=== PATIENT | female | born 1940 | race Caucasian/White ===

== ENCOUNTER 2023-02-06 06:30 | Day surgery (SDC) | payer OTHER, MEDICARE ==
[2023-02-05 14:50] LABS: Absolute Lymphocytes (CBC) 2.5 K/uL (0.7-4.9); Lymphocytes % 33.4 % (15.3-44.8); MCV 91.1 fL (80-100); MPV 8.2 fL (7.6-11.3); Platelets 212 thou/uL (152-406); RBC Red Blood Cell Count 4.18 M/uL (3.86-4.86)
--- NOTE | 2023-02-05 15:04 | RAD REPORT ---
EXAM DESCRIPTION: RAD - Chest Pa And Lat (2 Views) - 02/05/2023 2:39 pm CLINICAL HISTORY: Pre op pending carotid angiogram Chest pain. TECHNIQUE: PA and lateral views of the chest were obtained. FINDINGS: The lungs are hyperexpanded compatible with COPD. The heart is upper limit of normal in si ze. Aortic atherosclerosis. No fracture or aggressive bony process. IMPRESSION: COPD without acute process identified. The USPSTF recommends annual screening for lung cancer with low-dose CT (LDCT) in adults aged 50 to 85 years who have a 20 pack-year smoking history and currently smoke or have quit within the past 15 years.
[2023-02-05 15:13] LABS: Protime INR 0.97
[2023-02-06] MEDS ORDERED: ATROPINE SULF 1 MG/10 ML SYR IV ONE (06:36)
[2023-02-06] MEDS ORDERED: HEPA 1000U/500MLS 2,000 UNIT/1,000 ML BAG IV ONE (06:36)
[2023-02-06] MEDS ORDERED: LIDOCAINE 1% 20 ML MDV ONE ×2 (06:36→08:31)
[2023-02-06] MEDS ORDERED: FENTANYL CITR 100 MCG/2 ML ONE (06:36)
[2023-02-06] MEDS ORDERED: MIDAZOLAM HCL 2 MG/2 ML INJ ONE (06:36)
[2023-02-06] MEDS ORDERED: NA CHLORIDE 0.9% 500 ML ONE (06:41)
[2023-02-06 06:56] VITALS: TEMP 98
[2023-02-06] MEDS ORDERED: METHYLPREDNISOLONE 125 MG INJ ONE (07:27)
[2023-02-06] MEDS ORDERED: DIPHENHYDRAMINE 50 MG/ML VIAL ONE (07:27)
[2023-02-06] MEDS ORDERED: ONDANSETRON 4 MG/2 ML VIAL ONE (07:29)
[2023-02-06 12:37] VITALS: BP 182/66; O2SAT 100
--- NOTE | 2023-02-10 15:11 | EKG ---
Test Date: 2023-02-05 Test Time: 14:29:05 Customer Solutions Coordinator: SUSAN MEASUREMENT RESULTS: Intervals: Rate: 62 NV: 146 QRSD: 122 QT: 466 QTc: 472 [place]: P: 67 NV: 146 QRS: 70 T: -17 INTERPRETIVE STATEMENTS: Normal sinus rhythm Right bundle branch block Possible Inferior infarct, age undetermined T wave abnormality, consider lateral ischemia Abnormal ECG Compared to ECG 03/30/2015 21:59:47 T-wave abnormality now present Possible ischemia now present Myocardial infarct finding still present Electronically Signed On 02-10-23 15:02:11 CDT by King Denis
== END 2023-02-06 12:15 | disposition home or self-care (01) ==
LOC: CCL 06:30
PROVIDERS: ATTEND Internal Medicine
DX: I65.23 Occlusion and stenosis of bilateral carotid arteries (principal); I71.43 Infrarenal abdominal aortic aneurysm, without rupture; I10 Essential (primary) hypertension; E78.2 Mixed hyperlipidemia; I45.10 Unspecified right bundle-branch block; F17.210 Nicotine dependence, cigarettes, uncomplicated; Z79.899 Other long term (current) drug therapy; Z88.5 Allergy status to narcotic agent; Z88.8 Allergy status to other drugs, medicaments and biological substances; Z82.49 Family history of ischemic heart disease and other diseases of the circulatory system
CPT/HCPCS: 93005; 85025; 80048; 36415; 85610; 85730; 71046; 36222; 76937; C1893; J2001 ×2; J1200; J3010; J2930; J7040; J0461; J2250; J2405

== ENCOUNTER 2023-05-09 23:52 | Emergency (ER) | payer OTHER, MEDICARE ==
--- OUTSIDE RECORDS SUMMARY | 2023-05-10 00:04 | XMS REPORT | Continuity of Care Document ---
:1940 Author Organization [facility] t Address [address] [place] [address] [address] [place] [address] Care Team Providers Name Role Phone Milla Marx MD Primary Care Physician [phone] Milla Marx MD Attending Clinician [phone], [facility] Infusion Chair Attending Clinician Unavailable Rachna Amor MD Attending Clinician RACHNA AMOR Attending Clinician Unavailable Doctor Unassigned, [place] Attending Clinician Unavailable MILLA MARX Attending Clinician Unavailable 2, [facility] Lab Attending Clinician Unavailable EZEKIEL HURTADO Attending Clinician Unavailable Nurse, [facility] Pob Immunization Attending Clinician Unavailable Ezekiel Hurtado DO Attending Clinician Pcp-Lab Attending Clinician Unavailable Unknown, Attending Attending Clinician Unavailable UNKNOWN, ATTENDING Attending Clinician Unavailable Nurse, [facility] Pcp Assessment Clinic Attending Clinician Unavail able Elías Greenwood MD Attending Clinician ELÍAS GREENWOOD Attending Clinician Unavailable Vishnu GARCIA, [place] Attending Clinician Unavailable Mallory COBIAN, Atif Zambrano Attending Clinician ATIF PEDRO Attending Clinician Unavailable Maira COBIAN, Anjelica Attending Clinician MYRON CAVAZOS Attending Clinician Unavailable Sylvain Monteiro APN Attending Clinician Macy COBIAN, Myron Attending Clinician ADALBERTO VICTOR Attending Clinician Unavailable Maricarmen CASEY, Robert Attending Clinician Devan COBIAN, Adalberto Castillo Attending Clinician Jan GARCIA, Molly Villalobos Attending Clinician Unavailable Renny COBIAN, [place] Attending Clinician Coy Mcgovern Attending Clinician MILLA MARX Admitting Clinician Unavailable Payers Payer Name Policy Type Policy Number Effective Date Expiration Date Chilo hatch MEDICARE PART A \\[id number] 2005 B 00:00:00 [facility] [id number] 2015 MEDICARE SUPPLEMENT 00:00:00 Problems Condition Condition Condition Status Onset Resolution Last Treating Co mments Source Name Details Category Date Date Treatment Clinician Date Osteopenia Osteopenia Disease Active U nivers of of 6-24 ity of multiple multiple 00:00: [place] sites sites 00 [facility] Lung Lung Disease Active Univers nodules nodules - ity of 00:00: [address] PVD PVD Disease Active Univers (periphera (periphera -24 it y of l vascular [place] disease[place] 00 Medica [place] Branch Hyponatrem Hyponatrem Disease Active 2019-07 U nivers ia ia 08-16 ity of 00:00: [address] Low serum Low serum Disease Active 2019-07 Uni vers HDL HDL 08-16 ity of 00:00: [address] Abdominal Abdominal Disease Active 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 00:00: Hospit a (AAA) (AAA) 00 l without without rupture rupture Multiple Multiple Disease Active Metho di closed closed 1-23 st pelvic pelvic 00:00: Hospita fractures fractures 00 l with with disruption disruption of pelvic of pelvic [place], with with delayed delayed healing, healing, subsequent subsequent encounter encounter Chronic Chronic Disease Active [facility] 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 00:00: Hospit a 00 l Debility Debility Disease Active Metho di 08-11 st 00:00: Hospita 00 l Osteoporos Osteoporos Disease Active M ethodi is with is with 08-11 current current 00:00: Hospita pathologic pathologic 00 l al al fracture fracture with with delayed delayed healing healing PVD PVD Disease Active Methodi (periphera (periphera 08-11 l vascular l vascular 00:00: Ho spita disease) disease) 00 l Tobacco Tobacco Disease Active [facility] abuse abuse 08-11 disorder disorder 00:00: Hospit a 00 l Chronic Chronic Disease Active Univers bilateral bilateral 5-09 ity of low back low back 00:00: [place] pain with pain with 00 Medi aris left-sided left-sided Br anch sciatica sciatica Right hip Right hip Disease Active 2016-07 Uni vers pain pain 07-21 ity of 00:00: [place] 00 Medical Branch Weakness Weakness Disease Active 2016-07 Unive rs of both of both 1- ity of lower lower 00:00: [place] extremitie extremitie 00 Me dical s s Branch Altered Altered Disease Active 2016-07 Univers gait gait - ity of 00:00: [place] 00 Medical Branch Anxiety Anxiety Disease Active Univers 4-25 ity of 00:00: [place] 00 Medical Branch Essential Essential Disease Active Uni vers hypertensi hypertensi 6-29 it y of on on 00:00: [place] 00 Medical Branch Allergies, Adverse Reactions, Alerts Allergy Allergy Status Severity Reaction(s) Onset Inactive Treating Comm ents Source Name Type Date Date Clinician Nsaids Propensi Active Unknown Methodi (Non-Justen ty to Reaction 08-05 roidal adverse 00:00: Hospita Anti-Inf reaction 00 l lammator s to y Drug) drug Salicyla Propensi Active Unknown Metho di jan ty to Reaction 08-05 adverse 00:00: Hospita reaction 00 l s to drug Shellfis Propensi Active Unknown Metho di h ty to Reaction 1-17 st Derived adverse 00:00: Hospita reaction 00 l s to drug Morphine Propensi Active Unknown - 2017-07 Patient Un oswaldo ty to See comments 2-22 states ity of adverse 00:00: "makes me [place] reaction 00 sick" Medical s Branch NSAIDS Drug Active Other-Cmnt 2017-07 Univer s (NON-JUSTEN Class 0-17 ity of ROIDAL 00:00: [place] ANTI-INF 00 Medical LAMMATOR Branch Y DRUG) Nsaids Propensi Active Unknown - 2017-07 Unive rs (Non-Justen ty to See comments 0-17 it y of roidal adverse 00:00: [place] Anti-Inf reaction 00 Medica l lammator s Branch y Drug) Nsaids Propensi Active Unknown - 2017-07 Unive rs (Non-Justen ty to See comments 0-17 it y of roidal adverse 00:00: [place] Anti-Inf reaction 00 Medica l lammator s Branch y Drug) Nsaids Propensi Active Unknown - 2017-07 Unive rs (Non-Justen ty to See comments 0-17 it y of roidal adverse 00:00: [place] Anti-Inf reaction 00 Medica l lammator s Branch y Drug) IBUPROFE DRUG Active Unknown-Cmnt Un oswaldo N INGREDI 6- ity of 00:00: [place] 00 Medical Branch Ibuprofe Propensi Active Unknown - Uni vers n ty to See comments 6-07 ity of adverse 00:00: [place] reaction 00 Medical s Branch TERAZOSI DRUG Active Hallucinates Un oswaldo N INGREDI 4 ity of 00:00: [place] 00 Medical Branch Terazosi Propensi Active Hallucinatio Univers n ty to ns 4- ity of adverse 00:00: [place] reaction 00 Medical s Branch AMLODIPI DRUG Active ITCHING Univers NE INGREDI 4- ity of 00:00: [place] 00 Medical Branch Amlodipi Propensi Active Itching Also leg Uni vers ne ty to 10-22 swelling. ity of adverse 00:00: [place] reaction 00 Medical s Branch IODINE DRUG Active Other-Cmnt Univer s INGREDI 6-18 ity of 00:00: [place] 00 Medical Branch SALICYLA Drug Active Unknown-Cmnt Un oswaldo JAN Class 6-18 ity of 00:00: [place] 00 Medical Branch Salicyla Propensi Active Unknown - Uni vers jan ty to See comments 6-18 ity of adverse 00:00: [place] reaction 00 Medical s Branch Salicyla Propensi Active Unknown - Uni vers jan ty to See comments 6-18 ity of adverse 00:00: [place] reaction 00 Medical s Branch Iodine Propensi Active Other - See Drop in Un oswaldo ty to comments 6-18 BP, ended ity o f adverse 00:00: up in ICU [place] reaction 00 Medical s Branch Salicyla Propensi Active Unknown - Uni vers jan ty to See comments 6-18 ity of adverse 00:00: [place] reaction 00 Medical s Branch Family History Family Member Diagnosis Comments Start Date Stop Date Source Natural brother Hepatitis [facility] Natural sister Thyroid disease [facility] Social History Social Habit Start Date Stop Date Quantity Comments Source History SDOH University o f Alcohol Frequency [place] M ed[facility] History SDOH University o f Alcohol Std Drinks [place] [facility] History SDOH University o f Alcohol Binge [place] [facility] al Branch History of tobacco Cigarette Smoker University of use [facility] Gender identity Universit y of [facility] Sexual orientation [facility] Exposure to 2022-05-19 2022-05-29 Not sure University SARS-CoV-2 (event) 00:00:00 14:00:00 [facility] Tobacco use and 2022-05-29 2022-05-29 Smokeless tobacco Un iversity of exposure 00:00:00 00:00:00 non-user [facility] Cigarettes smoked 2019-08-05 2019-08-[address] current (pack per 00:00:00 00:00:00 Hospita l day) - Reported Cigarette 2019-08-05 2019-08-05 [facility] pack-years 00:00:[facility]:00:00 Hospital Alcohol intake 2019-08-05 2019-08-05 Ex-drinker [facility] 00:00:00 00:00:00 (finding) Hospital History of Social 2019-08-05 2019-08-[address] function 00:00:00 00:00:00 Hospital Alcohol Comment 2018-01-06 2018-01-06 Occasional Universit y of 00:00:00 00:00:00 Drinker [facility] Sex Assigned At [birth year] [facility] 00:00:00 00:00:00 Hospital Smoking Status Start Date Stop Date Source Smokes tobacco daily 2022-05-29 00:00:00 Univers ity of [facility] Medications Ordered Filled Start Stop Current Ordering Indication Dosage Frequency Signature Comments Components Source Medication Medication Date Date Medication? Clinician (SIG) Name Name LISINOPRIL Yes [id number] TAKE ONE Univers 40 mg 4-26 TABLET BY ity of tablet 00:00: MOUTH [place] 00 DAILY Medical Branch LISINOPRIL Yes [id number] TAKE ONE Univers 40 mg 4-26 TABLET BY ity of tablet 00:00: MOUTH [place] 00 DAILY Medical Branch iron 2022- No [id number] 100mg 100 mg, IV U nivers sucrose 10-23 04-06 Infusion, ity of (VENOFER) 16:30: 18:16 ONCE, [place] 100 mg in 00 :00 Administer Medi aris NaCl 0.9% over 2 Branch (NS) 100 mL Hours, On infusion [facility] Branch 10/23/22 at 1130, For 1 dose cloNIDine 2021-07 Yes [id number] TAKE ONE Univers 0.1 mg 1-10 TABLET BY ity of tablet 00:00: MOUTH [place] 00 EVERY 8 Medical HOURS IF Branch BLOOD PRESSURE IS ELEVATED (IF BLOOD PRESSURE GREATER THAN 160/100 TAKE 1 TABLET) (MAX 3 TABLETS PER DAY) cloNIDine 2021-07 Yes [id number] TAKE ONE Univers 0.1 mg 1-10 TABLET BY ity of tablet 00:00: MOUTH [place] 00 EVERY 8 Medical HOURS IF Branch BLOOD PRESSURE IS ELEVATED (IF BLOOD PRESSURE GREATER THAN 160/100 TAKE 1 TABLET) (MAX 3 TABLETS PER DAY) cloNIDine 2021-07 Yes [id number] TAKE ONE Univers 0.1 mg 1-10 TABLET BY ity of tablet 00:00: MOUTH [place] 00 EVERY 8 Medical HOURS IF Branch BLOOD PRESSURE IS ELEVATED (IF BLOOD PRESSURE GREATER THAN 160/100 TAKE 1 TABLET) (MAX 3 TABLETS PER DAY) cloNIDine 2021-07 Yes [id number] TAKE ONE Univers 0.1 mg 1-10 TABLET BY ity of tablet 00:00: MOUTH [place] 00 EVERY 8 Medical HOURS IF Branch BLOOD PRESSURE IS ELEVATED (IF BLOOD PRESSURE GREATER THAN 160/100 TAKE 1 TABLET) (MAX 3 TABLETS PER DAY) cloNIDine 2021-07 Yes [id number] TAKE ONE Univers 0.1 mg 1-10 TABLET BY ity of tablet 00:00: MOUTH [place] 00 EVERY 8 Medical HOURS IF Branch BLOOD PRESSURE IS ELEVATED (IF BLOOD PRESSURE GREATER THAN 160/100 TAKE 1 TABLET) (MAX 3 TABLETS PER DAY) cloNIDine 2021-07 Yes [id number] TAKE ONE Univers 0.1 mg 1-10 TABLET BY ity of tablet 00:00: MOUTH [place] 00 EVERY 8 Medical HOURS IF Branch BLOOD PRESSURE IS ELEVATED (IF BLOOD PRESSURE GREATER THAN 160/100 TAKE 1 TABLET) (MAX 3 TABLETS PER DAY) cloNIDine 2021-07 Yes [id number] TAKE ONE Univers 0.1 mg 1-10 TABLET BY ity of tablet 00:00: MOUTH [place] 00 EVERY 8 Medical HOURS IF Branch BLOOD PRESSURE IS ELEVATED (IF BLOOD PRESSURE GREATER THAN 160/100 TAKE 1 TABLET) (MAX 3 TABLETS PER DAY) cloNIDine 2021-07 Yes [id number] TAKE ONE Univers 0.1 mg 0-24 TABLET BY ity of tablet 00:00: MOUTH [place] 00 EVERY 8 Medical HOURS IF Branch BLOOD PRESSURE IS ELEVATED (IF BLOOD PRESSURE GREATER THAN 160/100 TAKE 1 TABLET) (MAX 3 TABLETS PER DAY) cloNIDine 2021-07- No [id number] TAKE ONE Univers 0.1 mg 0-24 11-10 TABLET BY ity of tablet 00:00: 00:00 MOUTH [place] 00 :00 EVERY 8 Medical HOURS IF Branch BLOOD PRESSURE IS ELEVATED (IF BLOOD PRESSURE GREATER THAN 160/100 TAKE 1 TABLET) (MAX 3 TABLETS PER DAY) cloNIDine 2021-07- No [id number] TAKE ONE Univers 0.1 mg 0-24 11-10 TABLET BY ity of tablet 00:00: 00:00 MOUTH [place] 00 :00 EVERY 8 Medical HOURS IF Branch BLOOD PRESSURE IS ELEVATED (IF BLOOD PRESSURE GREATER THAN 160/100 TAKE 1 TABLET) (MAX 3 TABLETS PER DAY) azithromyci 2021-07 Yes [id number] Z-Андрей = Univers n 250 mg 0-10 500 mg day ity o f tablet 00:00: 1, then [place] 00 250 mg Medical days 2 to Branch 5. TAKE 2 TABLETS BY MOUTH TODAY, THEN TAKE 1 TABLET DAILY FOR 4 DAYS azithromyci 2021-07 Yes [id number] Z-Андрей = Univers n 250 mg 0-10 500 mg day ity o f tablet 00:00: 1, then [place] 00 250 mg Medical days 2 to Branch 5. TAKE 2 TABLETS BY MOUTH TODAY, THEN TAKE 1 TABLET DAILY FOR 4 DAYS azithromyci 2021-07 Yes [id number] Z-Андрей = Univers n 250 mg 0-10 500 mg day ity o f tablet 00:00: 1, then [place] 00 250 mg Medical days 2 to Branch 5. TAKE 2 TABLETS BY MOUTH TODAY, THEN TAKE 1 TABLET DAILY FOR 4 DAYS azithromyci 2021-07 Yes [id number] Z-Андрей = Univers n 250 mg 0-10 500 mg day ity o f tablet 00:00: 1, then [place] 00 250 mg Medical days 2 to Branch 5. TAKE 2 TABLETS BY MOUTH TODAY, THEN TAKE 1 TABLET DAILY FOR 4 DAYS azithromyci 2021-07 Yes [id number] Z-Андрей = Univers n 250 mg 0-10 500 mg day ity o f tablet 00:00: 1, then [place] 00 250 mg Medical days 2 to Branch 5. TAKE 2 TABLETS BY MOUTH TODAY, THEN TAKE 1 TABLET DAILY FOR 4 DAYS azithromyci 2021-07 Yes [id number] Z-Андрей = Univers n 250 mg 0-10 500 mg day ity o f tablet 00:00: 1, then [place] 00 250 mg Medical days 2 to Branch 5. TAKE 2 TABLETS BY MOUTH TODAY, THEN TAKE 1 TABLET DAILY FOR 4 DAYS azithromyci 2021-07 Yes [id number] Z-Андрей = Univers n 250 mg 0-10 500 mg day ity o f tablet 00:00: 1, then [place] 00 250 mg Medical days 2 to Branch 5. TAKE 2 TABLETS BY MOUTH TODAY, THEN TAKE 1 TABLET DAILY FOR 4 DAYS azithromyci 2021-07 Yes [id number] Z-Андрей = Univers n 250 mg 0-10 500 mg day ity o f tablet 00:00: 1, then [place] 00 250 mg Medical days 2 to Branch 5. TAKE 2 TABLETS BY MOUTH TODAY, THEN TAKE 1 TABLET DAILY FOR 4 DAYS azithromyci 2021-07 Yes [id number] Z-Андрей = Univers n 250 mg 0-10 500 mg day ity o f tablet 00:00: 1, then [place] 00 250 mg Medical days 2 to Branch 5. TAKE 2 TABLETS BY MOUTH TODAY, THEN TAKE 1 TABLET DAILY FOR 4 DAYS VITAMIN K2 2022-0 Yes Take by Univ ers ORAL 8-12 mouth. ity of 16:37: [place] [address] Medical Branch cyanocobala 2021-0 Yes Take by Uni vers min, 8-12 mouth. ity of vitamin 16:37: [facility] Medical (VITAMIN Branch B-12 ORAL) VITAMIN K2 2021-0 Yes Take by Univ ers ORAL 8-12 mouth. ity of 16:37: [place] [address] Medical Branch cyanocobala 2021-0 Yes Take by Uni vers min, 8-12 mouth. ity of vitamin 16:37: [address] 53 Medical (VITAMIN Branch B-12 ORAL) VITAMIN K2 2021-0 Yes Take by Univ ers ORAL 8-12 mouth. ity of 16:37: [place] [address] Medical Branch cyanocobala 2021-0 Yes Take by Uni vers min, 8-12 mouth. ity of vitamin 16:37: [address] 53 Medical (VITAMIN Branch B-12 ORAL) VITAMIN K2 2021-0 Yes Take by Univ ers ORAL 8-12 mouth. ity of 16:37: [place] [address] Medical Branch cyanocobala 2021-0 Yes Take by Uni vers min, 8-12 mouth. ity of vitamin 16:37: [address] 53 Medical (VITAMIN Branch B-12 ORAL) VITAMIN K2 2021-0 Yes Take by Univ ers ORAL 8-12 mouth. ity of 16:37: [place] [address] Medical Branch cyanocobala 2021-0 Yes Take by Uni vers min, 8-12 mouth. ity of vitamin 16:37: [address] 53 Medical (VITAMIN Branch B-12 ORAL) VITAMIN K2 2021-0 Yes Take by Univ ers ORAL 8-12 mouth. ity of 16:37: [place] [address] Medical Branch cyanocobala 2021-0 Yes Take by Uni vers min, 8-12 mouth. ity of vitamin 16:37: [address] 53 Medical (VITAMIN Branch B-12 ORAL) VITAMIN K2 2021-0 Yes Take by Univ ers ORAL 8-12 mouth. ity of 16:37: [place] [address] Medical Branch cyanocobala 2021-0 Yes Take by Uni vers min, 8-12 mouth. ity of vitamin 16:37: [address] 53 Medical (VITAMIN Branch B-12 ORAL) VITAMIN K2 2022-0 Yes Take by Univ ers ORAL 8-12 mouth. ity of 16:37: [place] 53 Medical Branch cyanocobala 2021-0 Yes Take by Uni vers min, 8-12 mouth. ity of vitamin 16:37: [place] B-12, 53 Medical (VITAMIN Branch B-12 ORAL) VITAMIN K2 0 Yes Take by Univ ers ORAL 8-12 mouth. ity of 16:37: [place] 53 Medical Branch cyanocobala 0 Yes Take by Uni vers min, 8-12 mouth. ity of vitamin 16:37: [place] B-12, 53 Medical (VITAMIN Branch B-12 ORAL) VITAMIN K2 0 Yes Take by Univ ers ORAL 8-12 mouth. ity of 16:37: [place] 53 Medical Branch cyanocobala 0 Yes Take by Uni vers min, 8-12 mouth. ity of vitamin 16:37: [place] B-12, 53 Medical (VITAMIN Branch B-12 ORAL) multivitami 0 Yes Take by Uni vers n with 8-12 mouth. ity of minerals 16:34: [place] (HAIR,SKIN 15 Medical AND NAILS Branch ORAL) multivitami 0 Yes Take by Uni vers n with 8-12 mouth. ity of minerals 16:34: [place] (HAIR,SKIN 15 Medical AND NAILS Branch ORAL) multivitami 0 Yes Take by Uni vers n with 8-12 mouth. ity of minerals 16:34: [place] (HAIR,SKIN 15 Medical AND NAILS Branch ORAL) multivitami 0 Yes Take by Uni vers n with 8-12 mouth. ity of minerals 16:34: [place] (HAIR,SKIN 15 Medical AND NAILS Branch ORAL) multivitami 2021-0 Yes Take by Uni vers n with 8-12 mouth. ity of minerals 16:34: [place] (HAIR,SKIN 15 Medical AND NAILS Branch ORAL) multivitami 2021-0 Yes Take by Uni vers n with 8-12 mouth. ity of minerals 16:34: [place] (HAIR,SKIN 15 Medical AND NAILS Branch ORAL) multivitami 0 Yes Take by Uni vers n with 8-12 mouth. ity of minerals 16:34: [place] (HAIR,SKIN 15 Medical AND NAILS Branch ORAL) multivitami 2021-0 Yes Take by Uni vers n with 8-12 mouth. ity of minerals 16:34: [place] (HAIR,SKIN 15 Medical AND NAILS Branch ORAL) multivitami 0 Yes Take by Uni vers n with 8-12 mouth. ity of minerals 16:34: [place] (HAIR,SKIN 15 Medical AND NAILS Branch ORAL) multivitami 0 Yes Take by Uni vers n with 8-12 mouth. ity of minerals 16:34: [place] (HAIR,SKIN 15 Medical AND NAILS Branch ORAL) ferrous 0 Yes Take by Univers sulfate 8-12 mouth. ity of (IRON ORAL) 16:34: [address] ferrous 2021-0 Yes Take by Univers sulfate 8-12 mouth. ity of (IRON ORAL) 16:34: [address] ferrous 2021-0 Yes Take by Univers sulfate 8-12 mouth. ity of (IRON ORAL) 16:34: [address] ferrous 2021-0 Yes Take by Univers sulfate 8-12 mouth. ity of (IRON ORAL) 16:34: [address] ferrous 2021-0 Yes Take by Univers sulfate 8-12 mouth. ity of (IRON ORAL) 16:34: [address] ferrous 2021-0 Yes Take by Univers sulfate 8-12 mouth. ity of (IRON ORAL) 16:34: [address] ferrous 2021-0 Yes Take by Univers sulfate 8-12 mouth. ity of (IRON ORAL) 16:34: [address] ferrous 2021-0 Yes Take by Univers sulfate 8-12 mouth. ity of (IRON ORAL) 16:34: [address] ferrous 2021-0 Yes Take by Univers sulfate 8-12 mouth. ity of (IRON ORAL) 16:34: [address] ferrous 2021-0 Yes Take by Univers sulfate 8-12 mouth. ity of (IRON ORAL) 16:34: [address] Hydrocodone 2021-0 Yes Take by Uni vers -Acetaminop 8-12 mouth 3 ity o f hen 16:33: (three) [place] (VICODIN) 20 times Medical 5-300 mg daily. Branch tablet Hydrocodone 2021-0 Yes Take by Uni vers -Acetaminop 8-12 mouth 3 ity o f hen 16:33: (three) [place] (VICODIN) 20 times Medical 5-300 mg daily. Branch tablet Hydrocodone 2022-0 Yes Take by Uni vers -Acetaminop 8-12 mouth 3 ity o f hen 16:33: (three) [place] (VICODIN) 20 times Medical 5-300 mg daily. Branch tablet Hydrocodone 2022-0 Yes Take by Uni vers -Acetaminop 8-12 mouth 3 ity o f hen 16:33: (three) [place] (VICODIN) 20 times Medical 5-300 mg daily. Branch tablet Hydrocodone 2022-0 Yes Take by Uni vers -Acetaminop 8-12 mouth 3 ity o f hen 16:33: (three) [place] (VICODIN) 20 times Medical 5-300 mg daily. Branch tablet Hydrocodone 2022-0 Yes Take by Uni vers -Acetaminop 8-12 mouth 3 ity o f hen 16:33: (three) [place] (VICODIN) 20 times Medical 5-300 mg daily. Branch tablet Hydrocodone 2022-0 Yes Take by Uni vers -Acetaminop 8-12 mouth 3 ity o f hen 16:33: (three) [place] (VICODIN) 20 times Medical 5-300 mg daily. Branch tablet Hydrocodone 2022-0 Yes Take by Uni vers -Acetaminop 8-12 mouth 3 ity o f hen 16:33: (three) [place] (VICODIN) 20 times Medical 5-300 mg daily. Branch tablet Hydrocodone 2022-0 Yes Take by Uni vers -Acetaminop 8-12 mouth 3 ity o f hen 16:33: (three) [place] (VICODIN) 20 times Medical 5-300 mg daily. Branch tablet Hydrocodone 2022-0 Yes Take by Uni vers -Acetaminop 8-12 mouth 3 ity o f hen 16:33: (three) [place] (VICODIN) 20 times Medical 5-300 mg daily. Branch tablet gabapentin 2022-0 Yes 300mg Take 300 Un oswaldo 300 mg 8-12 mg by ity of capsule 16:33: mouth 3 [place] 19 (three) Medical times Branch daily. gabapentin 2022-0 Yes 300mg Take 300 Un oswaldo 300 mg 8-12 mg by ity of capsule 16:33: mouth 3 [place] 19 (three) Medical times Branch daily. gabapentin 2022-0 Yes 300mg Take 300 Un oswaldo 300 mg 8-12 mg by ity of capsule 16:33: mouth 3 [place] 19 (three) Medical times Branch daily. gabapentin 2022-0 Yes 300mg Take 300 Un oswaldo 300 mg 8-12 mg by ity of capsule 16:33: mouth 3 [place] [address] (three) Medical times Branch daily. gabapentin 2022-0 Yes 300mg Take 300 Un oswaldo 300 mg 8-12 mg by ity of capsule 16:33: mouth 3 [place] [address] (three) Medical times Branch daily. gabapentin 2022-0 Yes 300mg Take 300 Un oswaldo 300 mg 8-12 mg by ity of capsule 16:33: mouth 3 [place] [address] (three) Medical times Branch daily. gabapentin 2022-0 Yes 300mg Take 300 Un oswaldo 300 mg 8-12 mg by ity of capsule 16:33: mouth 3 [place] [address] (three) Medical times Branch daily. gabapentin 2022-0 Yes 300mg Take 300 Un oswaldo 300 mg 8-12 mg by ity of capsule 16:33: mouth 3 [place] [address] ([facility]) Medical times Branch daily. gabapentin 2022-0 Yes 300mg Take 300 Un oswaldo 300 mg 8-12 mg by ity of capsule 16:33: mouth 3 [place] [address] ([facility]) Medical times Branch daily. gabapentin 2022-0 Yes 300mg Take 300 Un oswaldo 300 mg 8-12 mg by ity of capsule 16:33: mouth 3 [place] [address] ([facility]) Medical times Branch daily. thiamine 2022-0 2021- No Take by Unive rs HCl 8- 08-12 mouth. ity of (VITAMIN 16:33: 00:00 [place] B-1 ORAL) 19 :00 Medical Branch cyanocobala 2021-0 2021- No Take by Un oswaldo min, 02-28 08-12 mouth. ity of vitamin 16:33: 00:00 [place] B-12, 09 :00 Medical (VITAMIN Branch B-12 ORAL) ascorbic 2021-0 Yes Take by Univer s acid 8-12 mouth. ity of (VITAMIN C 16:33: [place] ORAL) 04 Medical Branch ascorbic 2-0 Yes Take by Univer s acid 8-12 mouth. ity of (VITAMIN C 16:33: [place] ORAL) 04 Medical Branch ascorbic 2-0 Yes Take by Univer s acid 8-12 mouth. ity of (VITAMIN C 16:33: [place] ORAL) 04 Medical Branch ascorbic 2021-0 Yes Take by Univer s acid 8-12 mouth. ity of (VITAMIN C 16:33: [place] ORAL) 04 Medical Branch ascorbic 0 Yes Take by Univer s acid 8-12 mouth. ity of (VITAMIN C 16:33: [place] ORAL) 04 Medical Branch ascorbic 0 Yes Take by Univer s acid 8-12 mouth. ity of (VITAMIN C 16:33: [place] ORAL) 04 Medical Branch ascorbic 0 Yes Take by Univer s acid 8-12 mouth. ity of (VITAMIN C 16:33: [place] ORAL) 04 Medical Branch ascorbic 0 Yes Take by Univer s acid 8-12 mouth. ity of (VITAMIN C 16:33: [place] ORAL) 04 Medical Branch ascorbic 0 Yes Take by Univer s acid 8-12 mouth. ity of (VITAMIN C 16:33: [place] ORAL) 04 Medical Branch ascorbic 0 Yes Take by Univer s acid 8-12 mouth. ity of (VITAMIN C 16:33: [place] ORAL) 04 Medical Branch ergocalcife Yes Take by Uni vers rol, 8-12 mouth. ity of vitamin D2, 16:33: [place] (VITAMIN D 03 Medical ORAL) Branch ergocalcife 0 Yes Take by Uni vers rol, 8-12 mouth. ity of vitamin D2, 16:33: [place] (VITAMIN D 03 Medical ORAL) Branch ergocalcife 0 Yes Take by Uni vers rol, 8-12 mouth. ity of vitamin D2, 16:33: [place] (VITAMIN D 03 Medical ORAL) Branch ergocalcife 0 Yes Take by Uni vers rol, 8-12 mouth. ity of vitamin D2, 16:33: [place] (VITAMIN D 03 Medical ORAL) Branch ergocalcife 0 Yes Take by Uni vers rol, 8-12 mouth. ity of vitamin D2, 16:33: [place] (VITAMIN D 03 Medical ORAL) Branch ergocalcife 0 Yes Take by Uni vers rol, 8-12 mouth. ity of vitamin D2, 16:33: [place] (VITAMIN D 03 Medical ORAL) Branch ergocalcife 0 Yes Take by Uni vers rol, 8-12 mouth. ity of vitamin D2, 16:33: [place] (VITAMIN D 03 Medical ORAL) Branch ergocalcife 2022-0 Yes Take by Uni vers rol, 8-12 mouth. ity of vitamin D2, 16:33: [place] (VITAMIN D 03 Medical ORAL) Branch ergocalcife Yes Take by [facility] vers rol, 8-12 mouth. ity of vitamin D2, 16:33: [place] (VITAMIN D 03 Medical ORAL) Branch ergocalcife Yes Take by [facility] vers rol, 8-12 mouth. ity of vitamin D2, 16:33: [place] (VITAMIN D 03 Medical ORAL) Branch mupirocin 2 Yes [id number] APPLY TO [facility] % ointment 8-12 AFFECTED ity o f 00:00: [facility]() [place] 00 THREE Medical TIMES A Branch DAY mupirocin 2 2021-0 Yes [id number] APPLY TO Univers % ointment 8-12 AFFECTED ity o f 00:00: [facility]() [place] 00 THREE Medical TIMES A Branch DAY mupirocin 2 2021-0 Yes [id number] APPLY TO Univers % ointment 8-12 AFFECTED ity o f 00:00: [facility]() [place] [address] THREE Medical TIMES A Branch DAY mupirocin 2 2021-0 Yes [id number] APPLY TO [facility] % ointment 8-12 AFFECTED ity o f 00:00: [facility]() [place] 00 THREE Medical TIMES A Branch DAY mupirocin 2 2021-0 Yes [id number] APPLY TO [facility] % ointment 8-12 AFFECTED ity o f 00:00: [facility]() [place] 00 THREE Medical TIMES A Branch DAY mupirocin 2 2021-0 Yes [id number] APPLY TO [facility] % ointment 8-12 AFFECTED ity o f 00:00: [facility]() [place] 00 THREE Medical TIMES A Branch DAY mupirocin 2 2021-0 Yes [id number] APPLY TO [facility] % ointment 8-12 AFFECTED ity o f 00:00: [facility]() [place] 00 THREE Medical TIMES A Branch DAY mupirocin 2 2021-0 Yes [id number] APPLY TO [facility] % ointment 8-12 AFFECTED ity o f 00:00: [facility]() [place] 00 THREE Medical TIMES A Branch DAY mupirocin 2 2021-0 Yes [id number] APPLY TO [facility] % ointment 8-12 AFFECTED ity o f 00:00: [facility](S) [place] [address] THREE Medical TIMES A Branch DAY mupirocin 2 2021-0 Yes [id number] APPLY TO [facility] % ointment 8-12 AFFECTED ity o f 00:00: [facility]() [place] [address] THREE Medical TIMES A Branch DAY cloNIDine 2021-0 Yes [id number] If BP Uni vers 0.1 mg 4-14 >160/100 ity of tablet 00:00: then take [place] 1clonidine Medical .Max Branch 3aday, one Q8H if BP elevated. cloNIDine 2021-0 Yes [id number] If BP Uni vers 0.1 mg 4-14 >160/100 ity of tablet 00:00: then take [place] 1clonidine Medical .Max Branch 3aday, one Q8H if BP elevated. cloNIDine 2021-0 Yes [id number] If BP Uni vers 0.1 mg 4-14 >160/100 ity of tablet 00:00: then take [place] 1clonidine Medical .Max Branch 3aday, one Q8H if BP elevated. cloNIDine 2021-0 Yes [id number] If BP Uni vers 0.1 mg 4-14 >160/100 ity of tablet 00:00: then take [place] 1clonidine Medical .Max Branch 3aday, one Q8H if BP elevated. cloNIDine 2021-2021- No [id number] If BP Un o[place]aldo 0.1 mg 4-14 10-24 >160/100 ity of tablet 00:00: 00:00 then take [place] 00 :00 1clonidine Medical .Max Branch 3aday, one Q8H if BP elevated. lisinopriL 2021-0 Yes [id number] 40mg Take 1 U nivers 40 mg 2-04 tablet by ity of tablet 00:00: mouth [place] 00 daily. Medical Branch azithromyci 2021-0 Yes [id number] Take 500 [facility] n 250 mg 2-04 mg day 1, ity of tablet 00:00: then 250 [place] 00 mg days 2 Medical to 5. Branch lisinopriL 2021-0 Yes [id number] 40mg Take 1 [facility] nivers 40 mg 2-04 tablet by ity of tablet 00:00: mouth [place] 00 daily. Medical Branch azithromyci 2021-0 Yes [id number] Take 500 [facility] n 250 mg 2-04 mg day 1, ity of tablet 00:00: then 250 [place] 00 mg days 2 Medical to 5. Branch lisinopriL 2021-0 Yes [id number] 40mg Take 1 [facility] nivers 40 mg 2-04 tablet by ity of tablet 00:00: mouth [place] 00 daily. Medical Branch azithromyci 2021-0 Yes [id number] Take 500 [facility] n 250 mg 2-04 mg day 1, ity of tablet 00:00: then 250 [place] 00 mg days 2 Medical to 5. Branch lisinopriL 2021-0 Yes [id number] 40mg Take 1 U nivers 40 mg 2-04 tablet by ity of tablet 00:00: mouth [place] 00 daily. Medical Branch azithromyci 2021-0 Yes [id number] Take 500 [facility] n 250 mg 2-04 mg day 1, ity of tablet 00:00: then 250 [place] 00 mg days 2 Medical to 5. Branch lisinopriL 2021-0 Yes [id number] 40mg Take 1 U nivers 40 mg 2-04 tablet by ity of tablet 00:00: mouth [place] 00 daily. Medical Branch lisinopriL 2021-0 Yes [id number] 40mg Take 1 U nivers 40 mg 2-04 tablet by ity of tablet 00:00: mouth [place] 00 daily. Medical Branch lisinopriL 2021-0 Yes [id number] 40mg Take 1 U nivers 40 mg 2-04 tablet by ity of tablet 00:00: mouth [place] 00 daily. Medical Branch lisinopriL 2021-0 Yes [id number] 40mg Take 1 U nivers 40 mg 2-04 tablet by ity of tablet 00:00: mouth [place] 00 daily. Medical Branch lisinopriL 2021-0 Yes [id number] 40mg Take 1 U nivers 40 mg 2-04 tablet by ity of tablet 00:00: mouth [place] 00 daily. Medical Branch lisinopriL 2021-0 Yes [id number] 40mg Take 1 U nivers 40 mg 2-04 tablet by ity of tablet 00:00: mouth [place] 00 daily. Medical Branch lisinopriL 2021-0 Yes [id number] 40mg Take 1 U nivers 40 mg 2-04 tablet by ity of tablet 00:00: mouth [place] 00 daily. Medical Branch lisinopriL 2-0 2023- No [id number] 40mg Take 1 [facility] 40 mg 2- 04-26 tablet by ity of tablet 00:00: 00:00 mouth [place] 00 :00 daily. Medical Branch karyn 2021- No [id number] Take 500 [facility] n 250 mg 2-04 10-10 mg day 1, ity o f tablet 00:00: 00:00 then 250 [place] 00 :00 mg days 2 Medical to 5. Branch metoprolol 2020-07 Yes [id number] 25mg Take 1 U nivers tartrate 25 0-05 tablet by ity of mg tablet 00:00: mouth (two) Medical times Branch daily. metoprolol 2020-07 Yes [id number] 25mg Take 1 U nivers tartrate 25 0-05 tablet by ity of mg tablet 00:00: mouth (two) Medical times Branch daily. metoprolol 2020-07 Yes [id number] 25mg Take 1 U nivers tartrate 25 0-05 tablet by ity of mg tablet 00:00: mouth (two) Medical times Branch daily. metoprolol 2020-07 Yes [id number] 25mg Take 1 U nivers tartrate 25 0-05 tablet by ity of mg tablet 00:00: mouth (two) Medical times Branch daily. metoprolol 2020-07 Yes [id number] 25mg Take 1 U nivers tartrate 25 0-05 tablet by ity of mg tablet 00:00: mouth (two) Medical times Branch daily. metoprolol 2020-07 Yes [id number] 25mg Take 1 U nivers tartrate 25 0-05 tablet by ity of mg tablet 00:00: mouth (two) Medical times Branch daily. metoprolol 2020-07 Yes [id number] 25mg Take 1 U nivers tartrate 25 0-05 tablet by ity of mg tablet 00:00: mouth (two) Medical times Branch daily. metoprolol 2020-07 Yes [id number] 25mg Take 1 U nivers tartrate 25 0-05 tablet by ity of mg tablet 00:00: mouth (two) Medical times Branch daily. metoprolol 2020-07 Yes [id number] 25mg Take 1 U nivers tartrate 25 0-05 tablet by ity of mg tablet 00:00: mouth (two) Medical times Branch daily. metoprolol 2020-07 Yes [id number] 25mg Take 1 U nivers tartrate 25 0-05 tablet by ity of mg tablet 00:00: mouth (two) Medical times Branch daily. metoprolol 2020-07 Yes [id number] 25mg Take 1 U nivers tartrate 25 0-05 tablet by ity of mg tablet 00:00: mouth (two) Medical times Branch daily. metoprolol 2020-07 Yes [id number] 25mg Take 1 U nivers tartrate 25 0-05 tablet by ity of mg tablet 00:00: mouth (two) Medical times Branch daily. metoprolol 2020-07 Yes [id number] 25mg Take 1 U nivers tartrate 25 0-05 tablet by ity of mg tablet 00:00: mouth (two) Medical times Branch daily. metoprolol 2020-07 Yes [id number] 25mg Take 1 U nivers tartrate 25 0-05 tablet by ity of mg tablet 00:00: mouth (two) Medical times Branch daily. metoprolol 2020-07 Yes [id number] 25mg Take 1 U nivers tartrate 25 0-05 tablet by ity of mg tablet 00:00: mouth (two) Medical times Branch daily. metoprolol 2020-07 Yes [id number] 25mg Take 1 U nivers tartrate 25 0-05 tablet by ity of mg tablet 00:00: mouth (two) Medical times Branch daily. metoprolol 2020-07 Yes [id number] 25mg Take 1 U nivers tartrate 25 0-05 tablet by ity of mg tablet 00:00: mouth (two) Medical times Branch daily. metoprolol 2020-07 Yes [id number] 25mg Take 1 U nivers tartrate 25 0-05 tablet by ity of mg tablet 00:00: mouth (two) Medical times Branch daily. lisinopriL Yes [id number] 40mg Take 1 U nivers 40 mg 6-25 tablet by ity of tablet 00:00: mouth daily. Medical Branch lisinopriL Yes [id number] 40mg Take 1 U nivers 40 mg 6-25 tablet by ity of tablet 00:00: mouth [place] 00 daily. Medical Branch lisinopriL 2020-0 Yes [id number] 40mg Take 1 U nivers 40 mg 6-25 tablet by ity of tablet 00:00: mouth [place] 00 daily. Medical Branch lisinopriL 2020-0 Yes [id number] 40mg Take 1 U nivers 40 mg 6-25 tablet by ity of tablet 00:00: mouth [place] 00 daily. Medical Branch lisinopriL 2020-0 Yes [id number] 40mg Take 1 U nivers 40 mg 6-25 tablet by ity of tablet 00:00: mouth [place] 00 daily. Medical Branch lisinopriL 0 Yes [id number] 40mg Take 1 U nivers 40 mg 6-25 tablet by ity of tablet 00:00: mouth [place] 00 daily. Medical Branch lisinopriL 2- No [id number] 40mg Take 1 [facility] 40 mg 6-25 02-04 tablet by ity of tablet 00:00: 00:00 mouth [place] 00 :00 daily. Medical Branch gabapentin 2020-0 Yes 300mg Take 300 Un [facility] 300 mg 6-24 mg by ity of capsule 22:35: mouth 3 [place] 59 (three) Medical times Branch daily. gabapentin 2020-0 Yes 300mg Take 300 Un [place] 300 mg 6-24 mg by ity of capsule 22:35: mouth 3 [place] 59 (three) Medical times Branch daily. Hydrocodone 2020-0 Yes Take by Uni vers -Acetaminop 6-24 mouth 3 ity o f hen 22:35: (three) [place] (VICODIN) 58 times Medical 5-300 mg daily. Branch tablet Hydrocodone 2020-0 Yes Take by Uni vers -Acetaminop 6-24 mouth 3 ity o f hen 22:35: (three) [place] (VICODIN) 58 times Medical 5-300 mg daily. Branch tablet gabapentin 2020-0 Yes 300mg Take 300 Un [place] 300 mg 6-24 mg by ity of capsule 17:35: mouth 3 [place] 59 (three) Medical times Branch daily. gabapentin 2021-0 Yes 300mg Take 300 Un [place] 300 mg 6-24 mg by ity of capsule 17:35: mouth 3 [place] 59 (three) Medical times Branch daily. gabapentin 2021-0 Yes 300mg Take 300 Un [place] 300 mg 6-24 mg by ity of capsule 17:35: mouth 3 [place] 59 (three) Medical times Branch daily. gabapentin 2021-0 Yes 300mg Take 300 Un [place] 300 mg 6-24 mg by ity of capsule 17:35: mouth 3 [place] 59 (three) Medical times Branch daily. gabapentin 2021-0 Yes 300mg Take 300 Un [place] 300 mg 6-24 mg by ity of capsule 17:35: mouth 3 [place] 59 (three) Medical times Branch daily. gabapentin 2021-0 Yes 300mg Take 300 Un [place] 300 mg 6-24 mg by ity of capsule 17:35: mouth 3 [place] 59 (three) Medical times Branch daily. gabapentin 2021-0 Yes 300mg Take 300 Un [place] 300 mg 6-24 mg by ity of capsule 17:35: mouth 3 [place] 59 (three) Medical times Branch daily. gabapentin 2021-0 Yes 300mg Take 300 Un [place] 300 mg 6-24 mg by ity of capsule 17:35: mouth 3 [place] 59 (three) Medical times Branch daily. Hydrocodone 2021-0 Yes Take by Uni vers -Acetaminop 6-24 mouth 3 ity o f hen 17:35: (three) [place] (VICODIN) 58 times Medical 5-300 mg daily. Branch tablet Hydrocodone 2021-0 Yes Take by Uni vers -Acetaminop 6-24 mouth 3 ity o f hen 17:35: (three) [place] (VICODIN) 58 times Medical 5-300 mg daily. Branch tablet Hydrocodone 2021-0 Yes Take by Uni vers -Acetaminop 6-24 mouth 3 ity o f hen 17:35: (three) [place] (VICODIN) 58 times Medical 5-300 mg daily. Branch tablet Hydrocodone 2021-0 Yes Take by Uni vers -Acetaminop 6-24 mouth 3 ity o f hen 17:35: (three) [place] (VICODIN) 58 times Medical 5-300 mg daily. Branch tablet Hydrocodone 2021-0 Yes Take by Uni vers -Acetaminop 6-24 mouth 3 ity o f hen 17:35: (three) [place] (VICODIN) 58 times Medical 5-300 mg daily. Branch tablet Hydrocodone 2021-0 Yes Take by Uni vers -Acetaminop 6-24 mouth 3 ity o f hen 17:35: (three) [place] (VICODIN) 58 times Medical 5-300 mg daily. Branch tablet Hydrocodone 2020-0 Yes Take by Uni vers -Acetaminop 6-24 mouth 3 ity o f hen 17:35: (three) [place] (VICODIN) 58 times Medical 5-300 mg daily. Branch tablet Hydrocodone 2020-0 Yes Take by Uni vers -Acetaminop 6-24 mouth 3 ity o f hen 17:35: (three) [place] (VICODIN) 58 times Medical 5-300 mg daily. Branch tablet cloNIDine 2020-0 Yes [id number] If BP Uni vers 0.1 mg 6-24 >160/100 ity of tablet 00:00: then take [place] 1clonidine Medical .Max Branch 3aday, one Q8H if BP elevated. cloNIDine 2021-0 Yes [id number] If BP Uni vers 0.1 mg 6-24 >160/100 ity of tablet 00:00: then take [place] 1clonidine Medical .Max Branch 3aday, one Q8H if BP elevated. cloNIDine 2021-0 Yes [id number] If BP Uni vers 0.1 mg 6-24 >160/100 ity of tablet 00:00: then take [place] 1clonidine Medical .Max Branch 3aday, one Q8H if BP elevated. cloNIDine 2021-0 Yes [id number] If BP Uni vers 0.1 mg 6-24 >160/100 ity of tablet 00:00: then take [place] 00 1clonidine Medical .Max Branch 3aday, one Q8H if BP elevated. cloNIDine 2021-0 Yes [id number] If BP Uni vers 0.1 mg 6-24 >160/100 ity of tablet 00:00: then take [place] 00 1clonidine Medical .Max Branch 3aday, one Q8H if BP elevated. cloNIDine 2021-0 Yes [id number] If BP Uni vers 0.1 mg 6-24 >160/100 ity of tablet 00:00: then take [place] 00 1clonidine Medical .Max Branch 3aday, one Q8H if BP elevated. cloNIDine 2021-0 Yes [id number] If BP Uni vers 0.1 mg 6-24 >160/100 ity of tablet 00:00: then take [place] 00 1clonidine Medical .Max Branch 3aday, one Q8H if BP elevated. cloNIDine 2021-0 Yes [id number] If BP Uni vers 0.1 mg 6-24 >160/100 ity of tablet 00:00: then take [place] 00 1clonidine Medical .Max Branch 3aday, one Q8H if BP elevated. cloNIDine 0 2- No [id number] If BP Un [place] 0.1 mg 6-24 04-14 >160/100 ity of tablet 00:00: 00:00 then take [place] 00 :00 1clonidine Medical .Max Branch 3aday, one Q8H if BP elevated. azithromyci 2020-0 Yes [id number] Take 500 [facility] n 250 mg 5-12 mg day 1, ity of tablet 00:00: then 250 [place] 00 mg days 2 Medical to 5. Branch azithromyci 2020-0 Yes [id number] Take 500 [facility] n 250 mg 5-12 mg day 1, ity of tablet 00:00: then 250 [place] 00 mg days 2 Medical to 5. Branch azithromyci 2020-0 Yes [id number] Take 500 [facility] n 250 mg 5-12 mg day 1, ity of tablet 00:00: then 250 [place] 00 mg days 2 Medical to 5. Branch azithromyci 2020-0 Yes [id number] Take 500 [facility] n 250 mg 5-12 mg day 1, ity of tablet 00:00: then 250 [place] 00 mg days 2 Medical to 5. Branch azithromyci 2020-0 Yes [id number] Take 500 [facility] n 250 mg 5-12 mg day 1, ity of tablet 00:00: then 250 [place] 00 mg days 2 Medical to 5. Branch azithromyci 2020-0 Yes [id number] Take 500 [facility] n 250 mg 5-12 mg day 1, ity of tablet 00:00: then 250 [place] 00 mg days 2 Medical to 5. Branch azithromyci 2020-0 Yes [id number] Take 500 [facility] n 250 mg 5-12 mg day 1, ity of tablet 00:00: then 250 [place] 00 mg days 2 Medical to 5. Branch azithromyci 2020-0 Yes [id number] Take 500 [facility] n 250 mg 5-12 mg day 1, ity of tablet 00:00: then 250 [place] 00 mg days 2 Medical to 5. Branch azithromyci 2020-0 Yes [id number] Take 500 [facility] n 250 mg 5-12 mg day 1, ity of tablet 00:00: then 250 [place] 00 mg days 2 Medical to 5. Branch azithromyci 2020-0 Yes [id number] Take 500 [facility] n 250 mg 5-12 mg day 1, ity of tablet 00:00: then 250 [place] 00 mg days 2 Medical to 5. Branch azithromyci 2020-0 Yes [id number] Take 500 [facility] n 250 mg 5-12 mg day 1, ity of tablet 00:00: then 250 [place] 00 mg days 2 Medical to 5. Branch azithromyci 2020-0 Yes [id number] Take 500 [facility] n 250 mg 5-12 mg day 1, ity of tablet 00:00: then 250 [place] 00 mg days 2 Medical to 5. Branch azithromyci 2020-0 Yes [id number] Take 500 [facility] n 250 mg 5-12 mg day 1, ity of tablet 00:00: then 250 [place] 00 mg days 2 Medical to 5. Branch azithromyci 2020-0 2- No [id number] Take 500 [facility] n 250 mg 5-12 02-04 mg day 1, ity o f tablet 00:00: 00:00 then 250 [place] 00 :00 mg days 2 Medical to 5. Branch LISINOPRIL 2020-0 Yes [id number] TAKE ONE [facility] 40 mg 2-08 TABLET BY ity of tablet 00:00: MOUTH [place] 00 DAILY Medical Branch MUPIROCIN 2 2020-0 Yes [id number] APPLY TO Univers % ointment 2-08 AFFECTED ity o f 00:00: AREA(S) [place] 00 THREE Medical TIMES A Branch DAY LISINOPRIL 2020-0 Yes [id number] TAKE ONE [facility] 40 mg 2-08 TABLET BY ity of tablet 00:00: MOUTH [place] DAILY Medical Branch MUPIROCIN 2 2020-0 Yes [id number] APPLY TO Univers % ointment 2-08 AFFECTED ity o f 00:00: AREA(S) [place] 00 THREE Medical TIMES A Branch DAY LISINOPRIL 2020-0 Yes [id number] TAKE ONE [facility] 40 mg 2-08 TABLET BY ity of tablet 00:00: MOUTH [place] DAILY Medical Branch MUPIROCIN 2 2020-0 Yes [id number] APPLY TO Univers % ointment 2-08 AFFECTED ity o f 00:00: [facility]([place] [address] THREE Medical TIMES A Branch DAY LISINOPRIL 2020-0 Yes [id number] TAKE ONE [facility] 40 mg 2-08 TABLET BY ity of tablet 00:00: [facility] DAILY Medical Branch MUPIROCIN 2 2020-0 Yes [id number] APPLY TO Univers % ointment 2-08 AFFECTED ity o f 00:00: [facility]([place] [address] THREE Medical TIMES A Branch DAY LISINOPRIL 2020-0 Yes [id number] TAKE ONE [facility] 40 mg 2-08 TABLET BY ity of tablet 00:00: [facility] DAILY Medical Branch MUPIROCIN 2 2020-0 Yes [id number] APPLY TO Univers % ointment 2-08 AFFECTED ity o f 00:00: [place] [address] THREE Medical TIMES A Branch DAY LISINOPRIL 2020-0 Yes [id number] TAKE ONE [facility] 40 mg 2-08 TABLET BY ity of tablet 00:00: [facility] DAILY Medical Branch MUPIROCIN 2 2020-0 Yes [id number] APPLY TO Univers % ointment 2-08 AFFECTED ity o f 00:00: [facility]([place] [address] THREE Medical TIMES A Branch DAY LISINOPRIL 2020-0 Yes [id number] TAKE ONE [facility] 40 mg 2-08 TABLET BY ity of tablet 00:00: [facility] DAILY Medical Branch MUPIROCIN 2 2020-0 Yes [id number] APPLY TO Univers % ointment 2-08 AFFECTED ity o f 00:00: [place] [address] THREE Medical TIMES A Branch DAY LISINOPRIL 2020-0 Yes [id number] TAKE ONE [facility] 40 mg 2-08 TABLET BY ity of tablet 00:00: [facility] DAILY Medical Branch MUPIROCIN 2 2020-0 Yes [id number] APPLY TO Univers % ointment 2-08 AFFECTED ity o f 00:00: [place] [address] THREE Medical TIMES A Branch DAY LISINOPRIL 2020-0 Yes [id number] TAKE ONE [facility] 40 mg 2-08 TABLET BY ity of tablet 00:00: [facility] DAILY Medical Branch MUPIROCIN 2 2020-0 Yes [id number] APPLY TO Univers % ointment 2-08 AFFECTED ity o f 00:00: [facility]() [place] [address] THREE Medical TIMES A Branch DAY LISINOPRIL 202-0 Yes [id number] TAKE ONE [facility] 40 mg 2-08 TABLET BY ity of tablet 00:00: MOUTH [place] 00 DAILY Medical Branch MUPIROCIN 2 2020-0 Yes [id number] APPLY TO Univers % ointment 2-08 AFFECTED ity o f 00:00: [facility]() [place] [address] THREE Medical TIMES A Branch DAY LISINOPRIL 2020-0 Yes [id number] TAKE ONE [facility] 40 mg 2-08 TABLET BY ity of tablet 00:00: MOUTH [place] 00 DAILY Medical Branch MUPIROCIN 2 2020-0 Yes [id number] APPLY TO Univers % ointment 2-08 AFFECTED ity o f 00:00: [facility]([place] [address] THREE Medical TIMES A Branch DAY MUPIROCIN 2 2020-0 Yes [id number] APPLY TO Univers % ointment 2-08 AFFECTED ity o f 00:00: [facility]() [place] [address] THREE Medical TIMES A Branch DAY MUPIROCIN 2 2020-0 Yes [id number] APPLY TO Univers % ointment 2-08 AFFECTED ity o f 00:00: [facility]() [place] [address] THREE Medical TIMES A Branch DAY MUPIROCIN 2 2020-0 Yes [id number] APPLY TO Univers % ointment 2-08 AFFECTED ity o f 00:00: [facility]() [place] [address] THREE Medical TIMES A Branch DAY MUPIROCIN 2 2020-0 Yes [id number] APPLY TO Univers % ointment 2-08 AFFECTED ity o f 00:00: [facility]([place] [address] THREE Medical TIMES A Branch DAY MUPIROCIN 2 202-0 Yes [id number] APPLY TO Univers % ointment 2-08 AFFECTED ity o f 00:00: [facility]() [place] [address] THREE Medical TIMES A Branch DAY MUPIROCIN 2 2020-0 Yes [id number] APPLY TO Univers % ointment 2-08 AFFECTED ity o f 00:00: [facility]([place] [address] THREE Medical TIMES A Branch DAY MUPIROCIN 2 2020-0 Yes [id number] APPLY TO Univers % ointment 2-08 AFFECTED ity o f 00:00: [facility]([place] [address] THREE Medical TIMES A Branch DAY MUPIROCIN 2 Yes [id number] APPLY TO Univers % ointment 08-27 AFFECTED ity o f 00:00: AREA(S) [place] 00 THREE Medical TIMES A Branch DAY MUPIROCIN 2 Yes [id number] APPLY TO Univers % ointment 08-27 AFFECTED ity o f 00:00: [facility](S) [place] 00 THREE Medical TIMES A Branch DAY MUPIROCIN 2 2021- No [id number] APPLY TO Univers % ointment 08-27 AFFECTED ity of 00:00: 00:00 [facility](S) [place] 00 :00 THREE Medical TIMES A Branch DAY LISINOPRIL 2020- No [id number] TAKE ONE [facility] 40 mg 08-27 TABLET BY ity of tablet 00:00: 00:00 MOUTH [place] 00 :00 DAILY Medical Branch azithromyci 2020- Yes [id number] Take 500 [facility] n 250 mg 1-17 mg day 1, ity of tablet 00:00: then 250 [place] 00 mg days 2 Medical to 5. Branch azithromyci 2020- Yes [id number] Take 500 [facility] n 250 mg 1-17 mg day 1, ity of tablet 00:00: then 250 [place] 00 mg days 2 Medical to 5. Branch azithromyci 2020- Yes [id number] Take 500 [facility] n 250 mg 1-17 mg day 1, ity of tablet 00:00: then 250 [place] 00 mg days 2 Medical to 5. Branch azithromyci 2020- Yes [id number] Take 500 [facility] n 250 mg 1-17 mg day 1, ity of tablet 00:00: then 250 [place] 00 mg days 2 Medical to 5. Branch azithromyci 2020- Yes [id number] Take 500 [facility] n 250 mg 1-17 mg day 1, ity of tablet 00:00: then 250 [place] 00 mg days 2 Medical to 5. Branch azithromyci 2020- Yes [id number] Take 500 [facility] n 250 mg 1-17 mg day 1, ity of tablet 00:00: then 250 [place] 00 mg days 2 Medical to 5. Branch azithromyci 2020- Yes [id number] Take 500 [facility] n 250 mg 1-17 mg day 1, ity of tablet 00:00: then 250 [place] 00 mg days 2 Medical to 5. Branch azithromyci 2019- Yes [id number] Take 500 [facility] n 250 mg 1-17 mg day 1, ity of tablet 00:00: then 250 [place] 00 mg days 2 Medical to 5. Branch azithromyci 2019-07 Yes [id number] Take 500 [facility] n 250 mg 1-17 mg day 1, ity of tablet 00:00: then 250 [place] 00 mg days 2 Medical to 5. Branch azithromyci 2019-07 Yes [id number] Take 500 [facility] n 250 mg 1-17 mg day 1, ity of tablet 00:00: then 250 [place] 00 mg days 2 Medical to 5. Branch azithromyci 2019-07 Yes [id number] Take 500 [facility] n 250 mg 1-17 mg day 1, ity of tablet 00:00: then 250 [place] 00 mg days 2 Medical to 5. Branch azithromyci 2019-07 Yes [id number] Take 500 [facility] n 250 mg 1-17 mg day 1, ity of tablet 00:00: then 250 [place] 00 mg days 2 Medical to 5. Branch azithromyci 2019-07 Yes [id number] Take 500 [facility] n 250 mg 1-17 mg day 1, ity of tablet 00:00: then 250 [place] 00 mg days 2 Medical to 5. Branch marielyithromyci 2019-07- No [id number] Take 500 [facility] n 250 mg 1-17 05-12 mg day 1, ity o f tablet 00:00: 00:00 then 250 [place] 00 :00 mg days 2 Medical to 5. Branch marielyithromyci 2019-07- No [id number] Take 500 [facility] n 250 mg 1-17 05-12 mg day 1, ity o f tablet 00:00: 00:00 then 250 [place] 00 :00 mg days 2 Medical to 5. Branch cyanocobala 2020-0 Yes Take by Uni vers min, 5-07 mouth. ity of vitamin 15:13: [place] B-12, 05 Medical (VITAMIN Branch B-12 ORAL) cyanocobala 2020-0 Yes Take by Uni vers min, 5-07 mouth. ity of vitamin 15:13: [place] B-12, 05 Medical (VITAMIN Branch B-12 ORAL) cyanocobala 2020-0 Yes Take by Uni vers min, 5-07 mouth. ity of vitamin 15:13: [place] B-12, 05 Medical (VITAMIN Branch B-12 ORAL) cyanocobala 2020-0 Yes Take by Uni vers min, 5-07 mouth. ity of vitamin 15:13: [place] B-12, 05 Medical (VITAMIN Branch B-12 ORAL) cyanocobala 2020-0 Yes Take by Uni vers min, 5-07 mouth. ity of vitamin 15:13: [place] B-12, 05 Medical (VITAMIN Branch B-12 ORAL) cyanocobala 2020-0 Yes Take by Uni vers min, 5-07 mouth. ity of vitamin 15:13: [place] B-12, 05 Medical (VITAMIN Branch B-12 ORAL) cyanocobala 2020-0 Yes Take by [facility] vers min, 5-07 mouth. ity of vitamin 15:13: [place] B-12, 05 Medical (VITAMIN Branch B-12 ORAL) cyanocobala 2020-0 Yes Take by Uni vers min, 5-07 mouth. ity of vitamin 15:13: [place] B-12, 05 Medical (VITAMIN Branch B-12 ORAL) cyanocobala 2020-0 Yes Take by Uni vers min, 5-07 mouth. ity of vitamin 15:13: [place] B-12, 05 Medical (VITAMIN Branch B-12 ORAL) cyanocobala 2020-0 Yes Take by [facility] vers min, 5-07 mouth. ity of vitamin 15:13: [place] B-12, 05 Medical (VITAMIN Branch B-12 ORAL) cyanocobala 2020-0 Yes Take by [facility] vers min, 5-07 mouth. ity of vitamin 15:13: [place] B-12, 05 Medical (VITAMIN Branch B-12 ORAL) cyanocobala 2020-0 Yes Take by [facility] vers min, 5-07 mouth. ity of vitamin 15:13: [place] B-12, 05 Medical (VITAMIN Branch B-12 ORAL) cyanocobala 2020-0 Yes Take by [facility] vers min, 5-07 mouth. ity of vitamin 15:13: [place] B-12, 05 Medical (VITAMIN Branch B-12 ORAL) cyanocobala 2020-0 Yes Take by [facility] vers min, 5-07 mouth. ity of vitamin 15:13: [place] B-12, 05 Medical (VITAMIN Branch B-12 ORAL) cyanocobala 2020-0 Yes Take by [facility], 5-07 mouth. ity of vitamin 15:13: [place] B-12, 05 Medical (VITAMIN Branch B-12 ORAL) cyanocobala 2020-0 Yes Take by [facility] min, 5-07 mouth. ity of vitamin 15:13: [place] B-12, 05 Medical (VITAMIN Branch B-12 ORAL) cyanocobala 2020-0 Yes Take by [facility] min, 5-07 mouth. ity of vitamin 15:13: [place] B-12, 05 Medical (VITAMIN Branch B-12 ORAL) cyanocobala 2020-0 Yes Take by [facility] min, 5-07 mouth. ity of vitamin 15:13: [place] B-12, 05 Medical (VITAMIN Branch B-12 ORAL) cyanocobala 2020-0 Yes Take by [facility] min, 5-07 mouth. ity of vitamin 15:13: [place] B-12, 05 Medical (VITAMIN Branch B-12 ORAL) cyanocobala 2020-0 Yes Take by [facility] min, 5-07 mouth. ity of vitamin 15:13: [place] B-12, 05 Medical (VITAMIN Branch B-12 ORAL) cyanocobala 2020-0 Yes Take by [facility] min, 5-07 mouth. ity of vitamin 15:13: [place] B-12, 05 Medical (VITAMIN Branch B-12 ORAL) cyanocobala 2020-0 Yes Take by [facility] min, 5-07 mouth. ity of vitamin 15:13: [place] B-12, 05 Medical (VITAMIN Branch B-12 ORAL) cyanocobala 2020-0 Yes Take by [facility] min, 5-07 mouth. ity of vitamin 15:13: [place] B-12, 05 Medical (VITAMIN Branch B-12 ORAL) cyanocobala 2020-0 Yes Take by [facility] min, 5-07 mouth. ity of vitamin 15:13: [place] B-12, 05 Medical (VITAMIN Branch B-12 ORAL) cyanocobala 2020-0 Yes Take by [facility] min, 5-07 mouth. ity of vitamin 15:13: [place] B-12, 05 Medical (VITAMIN Branch B-12 ORAL) cyanocobala 2020-0 Yes Take by [facility] min, 5-07 mouth. ity of vitamin 15:13: [place] B-12, 05 Medical (VITAMIN Branch B-12 ORAL) cyanocobala 2020-0 Yes Take by [facility] min, 5-07 mouth. ity of vitamin 15:13: [place] B-12, 05 Medical (VITAMIN Branch B-12 ORAL) cyanocobala 2020-0 Yes Take by [facility] min, 5-07 mouth. ity of vitamin 15:13: [place] B-12, 05 Medical (VITAMIN Branch B-12 ORAL) cyanocobala 2020-0 Yes Take by [facility] min, 5-07 mouth. ity of vitamin 15:13: [place] B-12, 05 Medical (VITAMIN Branch B-12 ORAL) cyanocobala 2020-0 Yes Take by [facility] min, 5-07 mouth. ity of vitamin 15:13: [place] B-12, 05 Medical (VITAMIN Branch B-12 ORAL) cyanocobala 2020-0 Yes Take by [facility] min, 5-07 mouth. ity of vitamin 15:13: [place] B-12, 05 Medical (VITAMIN Branch B-12 ORAL) cyanocobala 2020-0 Yes Take by [facility] min, 5-07 mouth. ity of vitamin 15:13: [place] B-12, 05 Medical (VITAMIN Branch B-12 ORAL) cyanocobala 2020-0 Yes Take by [facility] min, 5-07 mouth. ity of vitamin 15:13: [place] B-12, 05 Medical (VITAMIN Branch B-12 ORAL) cyanocobala 2020-0 Yes Take by [facility] min, 5-07 mouth. ity of vitamin 15:13: [place] B-12, 05 Medical (VITAMIN Branch B-12 ORAL) cyanocobala 2020-0 Yes Take by [facility] min, 5-07 mouth. ity of vitamin 15:13: [place] B-12, 05 Medical (VITAMIN Branch B-12 ORAL) cyanocobala 2020-0 Yes Take by [facility] min, 5-07 mouth. ity of vitamin 15:13: [place] B-12, 05 Medical (VITAMIN Branch B-12 ORAL) cyanocobala 2020-0 Yes Take by [facility] min, 5-07 mouth. ity of vitamin 15:13: [place] B-12, 05 Medical (VITAMIN Branch B-12 ORAL) cyanocobala 2020-0 Yes Take by [facility] min, 5-07 mouth. ity of vitamin 15:13: [place] B-12, 05 Medical (VITAMIN Branch B-12 ORAL) cyanocobala 2020-0 Yes Take by [facility] min, 5-07 mouth. ity of vitamin 15:13: [place] B-12, 05 Medical (VITAMIN Branch B-12 ORAL) cyanocobala 2020-0 Yes Take by [facility] min, 5-07 mouth. ity of vitamin 15:13: [place] B-12, 05 Medical (VITAMIN Branch B-12 ORAL) cyanocobala 2020-0 Yes Take by [facility] min, 5-07 mouth. ity of vitamin 15:13: [place] B-12, 05 Medical (VITAMIN Branch B-12 ORAL) cyanocobala 2020-0 Yes Take by [facility] min, 5-07 mouth. ity of vitamin 15:13: [place] B-12, 05 Medical (VITAMIN Branch B-12 ORAL) cyanocobala 2020-0 Yes Take by [facility] min, 5-07 mouth. ity of vitamin 15:13: [place] B-12, 05 Medical (VITAMIN Branch B-12 ORAL) cyanocobala 2020-0 Yes Take by [facility] min, 5-07 mouth. ity of vitamin 15:13: [place] B-12, 05 Medical (VITAMIN Branch B-12 ORAL) cyanocobala 2020-0 Yes Take by [facility] min, 5-07 mouth. ity of vitamin 15:13: [place] B-12, 05 Medical (VITAMIN Branch B-12 ORAL) cyanocobala 2020-0 Yes Take by [facility] min, 5-07 mouth. ity of vitamin 15:13: [place] B-12, 05 Medical (VITAMIN Branch B-12 ORAL) cyanocobala 2020-0 Yes Take by [facility] min, 5-07 mouth. ity of vitamin 15:13: [place] B-12, 05 Medical (VITAMIN Branch B-12 ORAL) cyanocobala 2020-0 Yes Take by [facility] min, 5-07 mouth. ity of vitamin 15:13: [place] B-12, 05 Medical (VITAMIN Branch B-12 ORAL) ascorbic 2020-0 Yes Take by [facility] acid 5-07 mouth. ity of (VITAMIN C 15:13: [place] ORAL) 04 [facility] Branch ascorbic 2020-0 Yes Take by [facility] acid 5-07 mouth. ity of (VITAMIN C 15:13: [place] ORAL) 04 [facility] ascorbic 2020-0 Yes Take by [facility] acid 5-07 mouth. ity of (VITAMIN C 15:13: [place] ORAL) 04 [facility] ascorbic 2020-0 Yes Take by [facility] acid 5-07 mouth. ity of (VITAMIN C 15:13: [place] ORAL) 04 [facility] ascorbic 2020-0 Yes Take by [facility] acid 5-07 mouth. ity of (VITAMIN C 15:13: [place] ORAL) 04 [facility] ascorbic 2020-0 Yes Take by [facility] acid 5-07 mouth. ity of (VITAMIN C 15:13: [place] ORAL) 04 [facility] ascorbic 2020-0 Yes Take by [facility] acid 5-07 mouth. ity of (VITAMIN C 15:13: [place] ORAL) Medical Branch ascorbic 2020-0 Yes Take by [facility] acid 5-07 mouth. ity of (VITAMIN C 15:13: [place] ORAL) 04 [facility] ascorbic 2019-0 Yes Take by [facility] acid 5-07 mouth. ity of (VITAMIN C 15:13: [place] ORAL) Medical Branch ascorbic 2019-0 Yes Take by [facility] acid 5-07 mouth. ity of (VITAMIN C 15:13: [place] ORAL) Medical Branch ascorbic 2020-0 Yes Take by [facility] acid 5-07 mouth. ity of (VITAMIN C 15:13: [place] ORAL) 04 [facility] ascorbic 2020-0 Yes Take by [facility] acid 5-07 mouth. ity of (VITAMIN C 15:13: [place] ORAL) Medical Branch ascorbic 2020-0 Yes Take by [facility] acid 5-07 mouth. ity of (VITAMIN C 15:13: [place] ORAL) 04 [facility] ascorbic 2020-0 Yes Take by [facility] acid 5-07 mouth. ity of (VITAMIN C 15:13: [place] ORAL) 04 [facility] ascorbic 2020-0 Yes Take by [facility] acid 5-07 mouth. ity of (VITAMIN C 15:13: [place] ORAL) 04 [facility] ascorbic 2020-0 Yes Take by [facility] acid 5-07 mouth. ity of (VITAMIN C 15:13: [place] ORAL) 04 [facility] ascorbic 2020-0 Yes Take by [facility] acid 5-07 mouth. ity of (VITAMIN C 15:13: [place] ORAL) 04 [facility] ascorbic 2020-0 Yes Take by [facility] acid 5-07 mouth. ity of (VITAMIN C 15:13: [place] ORAL) 04 [facility] ascorbic 2020-0 Yes Take by [facility] acid 5-07 mouth. ity of (VITAMIN C 15:13: [place] ORAL) 04 [facility] ascorbic 2020-0 Yes Take by [facility] acid 5-07 mouth. ity of (VITAMIN C 15:13: [place] ORAL) 04 [facility] ascorbic 2020-0 Yes Take by [facility] acid 5-07 mouth. ity of (VITAMIN C 15:13: [place] ORAL) Medical Branch ascorbic 2020-0 Yes Take by [facility] acid 5-07 mouth. ity of (VITAMIN C 15:13: [place] ORAL) Medical Branch ascorbic 2020-0 Yes Take by [facility] acid 5-07 mouth. ity of (VITAMIN C 15:13: [place] ORAL) 04 [facility] ascorbic 2020-0 Yes Take by [facility] acid 5-07 mouth. ity of (VITAMIN C 15:13: [place] ORAL) Medical Branch ascorbic 2019-0 Yes Take by [facility] acid 5-07 mouth. ity of (VITAMIN C 15:13: [place] ORAL) Medical Branch ascorbic 2019-0 Yes Take by [facility] acid 5-07 mouth. ity of (VITAMIN C 15:13: [place] ORAL) Medical Branch ascorbic 0 Yes Take by [facility] acid 5-07 mouth. ity of (VITAMIN C 15:13: [place] ORAL) Medical Branch ascorbic 2020-0 Yes Take by [facility] acid 5-07 mouth. ity of (VITAMIN C 15:13: [place] ORAL) 04 [facility] ascorbic 2020-0 Yes Take by [facility] acid 5-07 mouth. ity of (VITAMIN C 15:13: [place] ORAL) 04 [facility] ascorbic 2020-0 Yes Take by [facility] acid 5-07 mouth. ity of (VITAMIN C 15:13: [place] ORAL) 04 [facility] ascorbic 2020-0 Yes Take by [facility] acid 5-07 mouth. ity of (VITAMIN C 15:13: [place] ORAL) 04 [facility] ascorbic 2020-0 Yes Take by [facility] acid 5-07 mouth. ity of (VITAMIN C 15:13: [place] ORAL) 04 [facility] ascorbic 2020-0 Yes Take by [facility] acid 5-07 mouth. ity of (VITAMIN C 15:13: [place] ORAL) 04 [facility] ascorbic 2020-0 Yes Take by [facility] acid 5-07 mouth. ity of (VITAMIN C 15:13: [place] ORAL) 04 [facility] ascorbic 2020-0 Yes Take by [facility] acid 5-07 mouth. ity of (VITAMIN C 15:13: [place] ORAL) 04 [facility] ascorbic 2020-0 Yes Take by [facility] acid 5-07 mouth. ity of (VITAMIN C 15:13: [place] ORAL) 04 [facility] ascorbic 2020-0 Yes Take by [facility] acid 5-07 mouth. ity of (VITAMIN C 15:13: [place] ORAL) 04 [facility] ascorbic 2019-0 Yes Take by [facility] acid 5-07 mouth. ity of (VITAMIN C 15:13: [place] ORAL) 04 [facility] ascorbic 0 Yes Take by [facility] acid 5-07 mouth. ity of (VITAMIN C 15:13: [place] ORAL) 04 [facility] ascorbic 2019-0 Yes Take by [facility] acid 5-07 mouth. ity of (VITAMIN C 15:13: [place] ORAL) 04 [facility] ascorbic 2019-0 Yes Take by [facility] acid 5-07 mouth. ity of (VITAMIN C 15:13: [place] ORAL) 04 [facility] ascorbic 0 Yes Take by [facility] acid 5-07 mouth. ity of (VITAMIN C 15:13: [place] ORAL) 04 [facility] ascorbic 0 Yes Take by [facility] acid 5-07 mouth. ity of (VITAMIN C 15:13: [place] ORAL) 04 [facility] ascorbic 2019-0 Yes Take by [facility] acid 5-07 mouth. ity of (VITAMIN C 15:13: [place] ORAL) 04 [facility] ascorbic 2019-0 Yes Take by [facility] acid 5-07 mouth. ity of (VITAMIN C 15:13: [place] ORAL) 04 [facility] ascorbic 2020-0 Yes Take by [facility] acid 5-07 mouth. ity of (VITAMIN C 15:13: [place] ORAL) 04 [facility] ascorbic 2020-0 Yes Take by [facility] acid 5-07 mouth. ity of (VITAMIN C 15:13: [place] ORAL) 04 [facility] ascorbic 2020-0 Yes Take by [facility] acid 5-07 mouth. ity of (VITAMIN C 15:13: [place] ORAL) Medical Branch ergocalcife 2019-0 Yes Take by [facility] rol, 5-07 mouth. ity of vitamin D2, 15:12: [place] (VITAMIN D 55 Medical ORAL) Branch ferrous 2019-0 Yes Take by [facility] sulfate 5-07 mouth. ity of (IRON ORAL) 15:12: [place] [address] Medical Branch ergocalcife 2020-0 Yes Take by [facility] rol, 5-07 mouth. ity of vitamin D2, 15:12: [place] (VITAMIN D 55 Medical ORAL) Branch ferrous 2020-0 Yes Take by [facility] sulfate 5-07 mouth. ity of (IRON ORAL) 15:12: [place] [address] Medical Branch ergocalcife 2020-0 Yes Take by [facility] rol, 5-07 mouth. ity of vitamin D2, 15:12: [place] (VITAMIN D 55 Medical ORAL) Branch ferrous 2020-0 Yes Take by [facility] sulfate 5-07 mouth. ity of (IRON ORAL) 15:12: [place] [address] Medical Branch ergocalcife 2020-0 Yes Take by [facility] rol, 5-07 mouth. ity of vitamin D2, 15:12: [place] (VITAMIN D 55 Medical ORAL) Branch ferrous 2020-0 Yes Take by [facility] sulfate 5-07 mouth. ity of (IRON ORAL) 15:12: [place] [address] Medical Branch ergocalcife 2020-0 Yes Take by [facility] rol, 5-07 mouth. ity of vitamin D2, 15:12: [place] (VITAMIN D 55 Medical ORAL) Branch ferrous 2020-0 Yes Take by [facility] sulfate 5-07 mouth. ity of (IRON ORAL) 15:12: [place] [address] Medical Branch ergocalcife 2020-0 Yes Take by [facility] rol, 5-07 mouth. ity of vitamin D2, 15:12: [place] (VITAMIN D 55 Medical ORAL) Branch ferrous 2020-0 Yes Take by [facility] sulfate 5-07 mouth. ity of (IRON ORAL) 15:12: [place] [address] Medical Branch ergocalcife 2020-0 Yes Take by [facility] rol, 5-07 mouth. ity of vitamin D2, 15:12: [place] (VITAMIN D 55 Medical ORAL) Branch ferrous 2020-0 Yes Take by [facility] sulfate 5-07 mouth. ity of (IRON ORAL) 15:12: [place] [address] Medical Branch ergocalcife 2020-0 Yes Take by [facility] rol, 5-07 mouth. ity of vitamin D2, 15:12: [place] (VITAMIN D 55 Medical ORAL) Branch ferrous 2020-0 Yes Take by [facility] sulfate 5-07 mouth. ity of (IRON ORAL) 15:12: [place] [address] Medical Branch ergocalcife 2020-0 Yes Take by [facility] rol, 5-07 mouth. ity of vitamin D2, 15:12: [place] (VITAMIN D 55 Medical ORAL) Branch ferrous 2020-0 Yes Take by [facility] sulfate 5-07 mouth. ity of (IRON ORAL) 15:12: [place] [address] Medical Branch ergocalcife 2020-0 Yes Take by [facility] rol, 5-07 mouth. ity of vitamin D2, 15:12: [place] (VITAMIN D 55 Medical ORAL) Branch ferrous 2020-0 Yes Take by [facility] sulfate 5-07 mouth. ity of (IRON ORAL) 15:12: [place] [address] Medical Branch ergocalcife 2020-0 Yes Take by [facility] rol, 5-07 mouth. ity of vitamin D2, 15:12: [place] (VITAMIN D 55 Medical ORAL) Branch ferrous 2020-0 Yes Take by [facility] sulfate 5-07 mouth. ity of (IRON ORAL) 15:12: [place] [address] Medical Branch ergocalcife 2020-0 Yes Take by [facility] rol, 5-07 mouth. ity of vitamin D2, 15:12: [place] (VITAMIN D 55 Medical ORAL) Branch ferrous 2020-0 Yes Take by [facility] sulfate 5-07 mouth. ity of (IRON ORAL) 15:12: [place] [address] Medical Branch ergocalcife 2020-0 Yes Take by [facility] rol, 5-07 mouth. ity of vitamin D2, 15:12: [place] (VITAMIN D 55 Medical ORAL) Branch ferrous 2020-0 Yes Take by [facility] sulfate 5-07 mouth. ity of (IRON ORAL) 15:12: [place] [address] [facility] Branch ergocalcife 2020-0 Yes Take by [facility] rol, 5-07 mouth. ity of vitamin D2, 15:12: [place] (VITAMIN D 55 Medical ORAL) Branch ferrous 2020-0 Yes Take by [facility] sulfate 5-07 mouth. ity of (IRON ORAL) 15:12: [place] [address] [facility] Branch ergocalcife 2020-0 Yes Take by [facility] rol, 5-07 mouth. ity of vitamin D2, 15:12: [place] (VITAMIN D 55 Medical ORAL) Branch ferrous 2020-0 Yes Take by [facility] sulfate 5-07 mouth. ity of (IRON ORAL) 15:12: [place] [address] [facility] Branch ergocalcife 2020-0 Yes Take by [facility] rol, 5-07 mouth. ity of vitamin D2, 15:12: [place] (VITAMIN D 55 Medical ORAL) Branch ferrous 2020-0 Yes Take by [facility] sulfate 5-07 mouth. ity of (IRON ORAL) 15:12: [place] [address] Medical Branch ergocalcife 2020-0 Yes Take by [facility] rol, 5-07 mouth. ity of vitamin D2, 15:12: [place] (VITAMIN D 55 Medical ORAL) Branch ferrous 2020-0 Yes Take by [facility] sulfate 5-07 mouth. ity of (IRON ORAL) 15:12: [place] [address] [facility] Branch ergocalcife 2020-0 Yes Take by [facility] rol, 5-07 mouth. ity of vitamin D2, 15:12: [place] (VITAMIN D 55 Medical ORAL) Branch ferrous 2020-0 Yes Take by [facility] sulfate 5-07 mouth. ity of (IRON ORAL) 15:12: [place] [address] [facility] Branch ergocalcife 2020-0 Yes Take by [facility] rol, 5-07 mouth. ity of vitamin D2, 15:12: [place] (VITAMIN D 55 Medical ORAL) Branch ferrous 2020-0 Yes Take by [facility] sulfate 5-07 mouth. ity of (IRON ORAL) 15:12: [place] [address] [facility] Branch ergocalcife 2020-0 Yes Take by [facility] rol, 5-07 mouth. ity of vitamin D2, 15:12: [place] (VITAMIN D 55 Medical ORAL) Branch ferrous 2020-0 Yes Take by [facility] sulfate 5-07 mouth. ity of (IRON ORAL) 15:12: [place] [address] [facility] Branch ergocalcife 2020-0 Yes Take by [facility] rol, 5-07 mouth. ity of vitamin D2, 15:12: [place] (VITAMIN D 55 Medical ORAL) Branch ferrous 2020-0 Yes Take by [facility] sulfate 5-07 mouth. ity of (IRON ORAL) 15:12: [place] [address] [facility] Branch ergocalcife 2020-0 Yes Take by [facility] rol, 5-07 mouth. ity of vitamin D2, 15:12: [place] (VITAMIN D 55 Medical ORAL) Branch ferrous 2020-0 Yes Take by [facility] sulfate 5-07 mouth. ity of (IRON ORAL) 15:12: [place] [address] [facility] Branch ergocalcife 2020-0 Yes Take by [facility] rol, 5-07 mouth. ity of vitamin D2, 15:12: [place] (VITAMIN D 55 Medical ORAL) Branch ferrous 2020-0 Yes Take by [facility] sulfate 5-07 mouth. ity of (IRON ORAL) 15:12: [place] [address] Medical Branch ergocalcife 2020-0 Yes Take by [facility] rol, 5-07 mouth. ity of vitamin D2, 15:12: [place] (VITAMIN D 55 Medical ORAL) Branch ferrous 2020-0 Yes Take by [facility] sulfate 5-07 mouth. ity of (IRON ORAL) 15:12: [place] [address] Medical Branch ergocalcife 2020-0 Yes Take by [facility] rol, 5-07 mouth. ity of vitamin D2, 15:12: [place] (VITAMIN D 55 Medical ORAL) Branch ferrous 2020-0 Yes Take by [facility] sulfate 5-07 mouth. ity of (IRON ORAL) 15:12: [place] [address] Medical Branch ergocalcife 2020-0 Yes Take by [facility] rol, 5-07 mouth. ity of vitamin D2, 15:12: [place] (VITAMIN D 55 Medical ORAL) Branch ferrous 2020-0 Yes Take by [facility] sulfate 5-07 mouth. ity of (IRON ORAL) 15:12: [place] [address] [facility] Branch ergocalcife 2020-0 Yes Take by [facility] rol, 5-07 mouth. ity of vitamin D2, 15:12: [place] (VITAMIN D 55 Medical ORAL) Branch ferrous 2020-0 Yes Take by [facility] sulfate 5-07 mouth. ity of (IRON ORAL) 15:12: [place] [address] [facility] Branch ergocalcife 2020-0 Yes Take by [facility] rol, 5-07 mouth. ity of vitamin D2, 15:12: [place] (VITAMIN D 55 Medical ORAL) Branch ferrous 2020-0 Yes Take by [facility] sulfate 5-07 mouth. ity of (IRON ORAL) 15:12: [place] [address] [facility] Branch ergocalcife 2020-0 Yes Take by [facility] rol, 5-07 mouth. ity of vitamin D2, 15:12: [place] (VITAMIN D 55 Medical ORAL) Branch ferrous 2020-0 Yes Take by [facility] sulfate 5-07 mouth. ity of (IRON ORAL) 15:12: [place] [address] [facility] Branch ergocalcife 2020-0 Yes Take by [facility] rol, 5-07 mouth. ity of vitamin D2, 15:12: [place] (VITAMIN D 55 Medical ORAL) Branch ferrous 2020-0 Yes Take by [facility] sulfate 5-07 mouth. ity of (IRON ORAL) 15:12: [place] [address] Medical Branch ergocalcife 2020-0 Yes Take by [facility] rol, 5-07 mouth. ity of vitamin D2, 15:12: [place] (VITAMIN D 55 Medical ORAL) Branch ferrous 2020-0 Yes Take by [facility] sulfate 5-07 mouth. ity of (IRON ORAL) 15:12: [place] [address] [facility] Branch ergocalcife 2020-0 Yes Take by [facility] rol, 5-07 mouth. ity of vitamin D2, 15:12: [place] (VITAMIN D 55 Medical ORAL) Branch ferrous 2020-0 Yes Take by [facility] sulfate 5-07 mouth. ity of (IRON ORAL) 15:12: [place] [address] [facility] Branch ergocalcife 2020-0 Yes Take by [facility] rol, 5-07 mouth. ity of vitamin D2, 15:12: [place] (VITAMIN D 55 Medical ORAL) Branch ferrous 2020-0 Yes Take by [facility] sulfate 5-07 mouth. ity of (IRON ORAL) 15:12: [place] [address] [facility] Branch ergocalcife 2020-0 Yes Take by [facility] rol, 5-07 mouth. ity of vitamin D2, 15:12: [place] (VITAMIN D 55 Medical ORAL) Branch ferrous 2020-0 Yes Take by [facility] sulfate 5-07 mouth. ity of (IRON ORAL) 15:12: [place] [address] [facility] Branch ergocalcife 2020-0 Yes Take by [facility] rol, 5-07 mouth. ity of vitamin D2, 15:12: [place] (VITAMIN D 55 Medical ORAL) Branch ferrous 2020-0 Yes Take by [facility] sulfate 5-07 mouth. ity of (IRON ORAL) 15:12: [place] [address] [facility] Branch ergocalcife 2020-0 Yes Take by [facility] rol, 5-07 mouth. ity of vitamin D2, 15:12: [place] (VITAMIN D 55 Medical ORAL) Branch ferrous 2020-0 Yes Take by [facility] sulfate 5-07 mouth. ity of (IRON ORAL) 15:12: [place] [address] [facility] Branch ergocalcife 2020-0 Yes Take by [facility] rol, 5-07 mouth. ity of vitamin D2, 15:12: [place] (VITAMIN D 55 Medical ORAL) Branch ferrous 2020-0 Yes Take by [facility] sulfate 5-07 mouth. ity of (IRON ORAL) 15:12: [place] [address] [facility] Branch ergocalcife 2020-0 Yes Take by [facility] rol, 5-07 mouth. ity of vitamin D2, 15:12: [place] (VITAMIN D 55 Medical ORAL) Branch ferrous 2020-0 Yes Take by [facility] sulfate 5-07 mouth. ity of (IRON ORAL) 15:12: [place] [address] [facility] Branch ergocalcife 2020-0 Yes Take by [facility] rol, 5-07 mouth. ity of vitamin D2, 15:12: [place] (VITAMIN D 55 Medical ORAL) Branch ferrous 2020-0 Yes Take by [facility] sulfate 5-07 mouth. ity of (IRON ORAL) 15:12: [place] [address] [facility] Branch ergocalcife 2020-0 Yes Take by [facility] rol, 5-07 mouth. ity of vitamin D2, 15:12: [place] (VITAMIN D 55 Medical ORAL) Branch ferrous 2020-0 Yes Take by [facility] sulfate 5-07 mouth. ity of (IRON ORAL) 15:12: [place] [address] [facility] Branch ergocalcife 2020-0 Yes Take by [facility] rol, 5-07 mouth. ity of vitamin D2, 15:12: [place] (VITAMIN D 55 Medical ORAL) Branch ferrous 2020-0 Yes Take by [facility] sulfate 5-07 mouth. ity of (IRON ORAL) 15:12: [place] [address] [facility] Branch ergocalcife 2020-0 Yes Take by [facility] rol, 5-07 mouth. ity of vitamin D2, 15:12: [place] (VITAMIN D 55 Medical ORAL) Branch ferrous 2020-0 Yes Take by [facility] sulfate 5-07 mouth. ity of (IRON ORAL) 15:12: [place] [address] [facility] Branch ergocalcife 2020-0 Yes Take by [facility] rol, 5-07 mouth. ity of vitamin D2, 15:12: [place] (VITAMIN D 55 Medical ORAL) Branch ferrous 2020-0 Yes Take by [facility] sulfate 5-07 mouth. ity of (IRON ORAL) 15:12: [place] [address] [facility] Branch ergocalcife 2020-0 Yes Take by [facility] rol, 5-07 mouth. ity of vitamin D2, 15:12: [place] (VITAMIN D 55 Medical ORAL) Branch ferrous 2020-0 Yes Take by [facility] sulfate 5-07 mouth. ity of (IRON ORAL) 15:12: [place] [address] [facility] Branch ergocalcife 2020-0 Yes Take by [facility] rol, 5-07 mouth. ity of vitamin D2, 15:12: [place] (VITAMIN D 55 Medical ORAL) Branch ferrous 2020-0 Yes Take by [facility] sulfate 5-07 mouth. ity of (IRON ORAL) 15:12: [place] [address] [facility] Branch ergocalcife 2020-0 Yes Take by [facility] rol, 5-07 mouth. ity of vitamin D2, 15:12: [place] (VITAMIN D 55 Medical ORAL) Branch ferrous 2020-0 Yes Take by [facility] sulfate 5-07 mouth. ity of (IRON ORAL) 15:12: [place] 55 [facility] Branch ergocalcife 2020-0 Yes Take by [facility] rol, 5-07 mouth. ity of vitamin D2, 15:12: [place] (VITAMIN D 55 Medical ORAL) Branch ferrous 2020-0 Yes Take by [facility] sulfate 5-07 mouth. ity of (IRON ORAL) 15:12: [place] [address] [facility] Branch ergocalcife 2020-0 Yes Take by [facility] rol, 5-07 mouth. ity of vitamin D2, 15:12: [place] (VITAMIN D 55 Medical ORAL) Branch ferrous 2020-0 Yes Take by [facility] sulfate 5-07 mouth. ity of (IRON ORAL) 15:12: [place] [address] [facility] Branch thiamine 2020-0 Yes Take by [facility] HCl 5-07 mouth. ity of (VITAMIN 15:12: [place] B-1 ORAL) 52 Medical Branch multivitami 2020-0 Yes Take by [facility] n with 5-07 mouth. ity of minerals 15:12: [place] (HAIR,SKIN 52 Medical AND NAILS Branch ORAL) thiamine 2020-0 Yes Take by [facility] HCl 5-07 mouth. ity of (VITAMIN 15:12: [place] B-1 ORAL) 52 Medical Branch multivitami 2020-0 Yes Take by [facility] n with 5-07 mouth. ity of minerals 15:12: [place] (HAIR,SKIN 52 Medical AND NAILS Branch ORAL) thiamine 2020-0 Yes Take by [facility] HCl 5-07 mouth. ity of (VITAMIN 15:12: [place] B-1 ORAL) 52 Medical Branch multivitami 2020-0 Yes Take by [facility] n with 5-07 mouth. ity of minerals 15:12: [place] (HAIR,SKIN 52 Medical AND NAILS Branch ORAL) thiamine 2020-0 Yes Take by [facility] HCl 5-07 mouth. ity of (VITAMIN 15:12: [place] B-1 ORAL) 52 Medical Branch multivitami 2020-0 Yes Take by [facility] n with 5-07 mouth. ity of minerals 15:12: [place] (HAIR,SKIN 52 Medical AND NAILS Branch ORAL) thiamine 2020-0 Yes Take by [facility] HCl 5-07 mouth. ity of (VITAMIN 15:12: [place] B-1 ORAL) 52 Medical Branch multivitami 2020-0 Yes Take by [facility] n with 5-07 mouth. ity of minerals 15:12: [place] (HAIR,SKIN 52 Medical AND NAILS Branch ORAL) thiamine 2020-0 Yes Take by [facility] HCl 5-07 mouth. ity of (VITAMIN 15:12: [place] B-1 ORAL) 52 Medical Branch multivitami 2020-0 Yes Take by [facility] n with 5-07 mouth. ity of minerals 15:12: [place] (HAIR,SKIN 52 Medical AND NAILS Branch ORAL) thiamine 2020-0 Yes Take by [facility] HCl 5-07 mouth. ity of (VITAMIN 15:12: [place] B-1 ORAL) 52 Medical Branch multivitami 2020-0 Yes Take by [facility] n with 5-07 mouth. ity of minerals 15:12: [place] (HAIR,SKIN 52 Medical AND NAILS Branch ORAL) thiamine 2020-0 Yes Take by [facility] HCl 5-07 mouth. ity of (VITAMIN 15:12: [place] B-1 ORAL) 52 Medical Branch multivitami 2020-0 Yes Take by [facility] n with 5-07 mouth. ity of minerals 15:12: [place] (HAIR,SKIN 52 Medical AND NAILS Branch ORAL) thiamine 2020-0 Yes Take by [facility] HCl 5-07 mouth. ity of (VITAMIN 15:12: [place] B-1 ORAL) 52 Medical Branch multivitami 2020-0 Yes Take by [facility] n with 5-07 mouth. ity of minerals 15:12: [place] (HAIR,SKIN 52 Medical AND NAILS Branch ORAL) thiamine 2020-0 Yes Take by [facility] HCl 5-07 mouth. ity of (VITAMIN 15:12: [place] B-1 ORAL) 52 Medical Branch multivitami 2020-0 Yes Take by [facility] n with 5-07 mouth. ity of minerals 15:12: [place] (HAIR,SKIN 52 Medical AND NAILS Branch ORAL) thiamine 2020-0 Yes Take by [facility] HCl 5-07 mouth. ity of (VITAMIN 15:12: [place] B-1 ORAL) 52 Medical Branch multivitami 2020-0 Yes Take by [facility] n with 5-07 mouth. ity of minerals 15:12: [place] (HAIR,SKIN 52 Medical AND NAILS Branch ORAL) thiamine 2020-0 Yes Take by [facility] HCl 5-07 mouth. ity of (VITAMIN 15:12: [place] B-1 ORAL) 52 Medical Branch multivitami 2020-0 Yes Take by [facility] with 5-07 mouth. ity of minerals 15:12: [place] (HAIR,SKIN 52 Medical AND NAILS Branch ORAL) thiamine 2020-0 Yes Take by [facility] HCl 5-07 mouth. ity of (VITAMIN 15:12: [place] B-1 ORAL) 52 Medical Branch multivitami 2020-0 Yes Take by [facility] vers [facility] with 5-07 mouth. ity of minerals 15:12: [place] (HAIR,SKIN 52 Medical AND NAILS Branch ORAL) thiamine 2020-0 Yes Take by [facility] HCl 5-07 mouth. ity of (VITAMIN 15:12: [place] B-1 ORAL) 52 Medical Branch multivitami 2020-0 Yes Take by [facility] with 5-07 mouth. ity of minerals 15:12: [place] (HAIR,SKIN 52 Medical AND NAILS Branch ORAL) thiamine 2020-0 Yes Take by [facility] HCl 5-07 mouth. ity of (VITAMIN 15:12: [place] B-1 ORAL) 52 Medical Branch multivitami 2020-0 Yes Take by [facility] vers [facility] with 5-07 mouth. ity of minerals 15:12: [place] (HAIR,SKIN 52 Medical AND NAILS Branch ORAL) thiamine 2020-0 Yes Take by [facility] HCl 5-07 mouth. ity of (VITAMIN 15:12: [place] B-1 ORAL) 52 Medical Branch multivitami 2020-0 Yes Take by [facility] vers [facility] with 5-07 mouth. ity of minerals 15:12: [place] (HAIR,SKIN 52 Medical AND NAILS Branch ORAL) thiamine 2020-0 Yes Take by [facility] HCl 5-07 mouth. ity of (VITAMIN 15:12: [place] B-1 ORAL) 52 Medical Branch multivitami 2020-0 Yes Take by [facility] with 5-07 mouth. ity of minerals 15:12: [place] (HAIR,SKIN 52 Medical AND NAILS Branch ORAL) thiamine 2020-0 Yes Take by [facility] HCl 5-07 mouth. ity of (VITAMIN 15:12: [place] B-1 ORAL) 52 Medical Branch multivitami 2020-0 Yes Take by [facility] with 5-07 mouth. ity of minerals 15:12: [place] (HAIR,SKIN 52 Medical AND NAILS Branch ORAL) thiamine 2020-0 Yes Take by [facility] HCl 5-07 mouth. ity of (VITAMIN 15:12: [place] B-1 ORAL) 52 Medical Branch multivitami 2020-0 Yes Take by [facility] with 5-07 mouth. ity of minerals 15:12: [place] (HAIR,SKIN 52 Medical AND NAILS Branch ORAL) thiamine 2020-0 Yes Take by [facility] HCl 5-07 mouth. ity of (VITAMIN 15:12: [place] B-1 ORAL) 52 Medical Branch multivitami 2020-0 Yes Take by [facility] with 5-07 mouth. ity of minerals 15:12: [place] (HAIR,SKIN 52 Medical AND NAILS Branch ORAL) thiamine 2020-0 Yes Take by [facility] HCl 5-07 mouth. ity of (VITAMIN 15:12: [place] B-1 ORAL) 52 Medical Branch multivitami 2020-0 Yes Take by [facility] vers [facility] with 5-07 mouth. ity of minerals 15:12: [place] (HAIR,SKIN 52 Medical AND NAILS Branch ORAL) thiamine 2020-0 Yes Take by [facility] HCl 5-07 mouth. ity of (VITAMIN 15:12: [place] B-1 ORAL) 52 Medical Branch multivitami 2020-0 Yes Take by [facility] with 5-07 mouth. ity of minerals 15:12: [place] (HAIR,SKIN 52 Medical AND NAILS Branch ORAL) thiamine 2020-0 Yes Take by [facility] HCl 5-07 mouth. ity of (VITAMIN 15:12: [place] B-1 ORAL) 52 Medical Branch multivitami 2020-0 Yes Take by [facility] vers [facility] with 5-07 mouth. ity of minerals 15:12: [place] (HAIR,SKIN 52 Medical AND NAILS Branch ORAL) thiamine 2020-0 Yes Take by [facility] HCl 5-07 mouth. ity of (VITAMIN 15:12: [place] B-1 ORAL) 52 Medical Branch multivitami 2020-0 Yes Take by [facility] vers [facility] with 5-07 mouth. ity of minerals 15:12: [place] (HAIR,SKIN 52 Medical AND NAILS Branch ORAL) thiamine 2020-0 Yes Take by [facility] HCl 5-07 mouth. ity of (VITAMIN 15:12: [place] B-1 ORAL) 52 Medical Branch multivitami 2020-0 Yes Take by [facility] with 5-07 mouth. ity of minerals 15:12: [place] (HAIR,SKIN 52 Medical AND NAILS Branch ORAL) thiamine 2020-0 Yes Take by [facility] HCl 5-07 mouth. ity of (VITAMIN 15:12: [place] B-1 ORAL) 52 Medical Branch multivitami 2020-0 Yes Take by [facility] vers [facility] with 5-07 mouth. ity of minerals 15:12: [place] (HAIR,SKIN 52 Medical AND NAILS Branch ORAL) thiamine 2020-0 Yes Take by [facility] HCl 5-07 mouth. ity of (VITAMIN 15:12: [place] B-1 ORAL) 52 Medical Branch multivitami 2020-0 Yes Take by [facility] vers [facility] with 5-07 mouth. ity of minerals 15:12: [place] (HAIR,SKIN 52 Medical AND NAILS Branch ORAL) thiamine 2020-0 Yes Take by [facility] HCl 5-07 mouth. ity of (VITAMIN 15:12: [place] B-1 ORAL) 52 Medical Branch multivitami 2020-0 Yes Take by [facility] with 5-07 mouth. ity of minerals 15:12: [place] (HAIR,SKIN 52 Medical AND NAILS Branch ORAL) thiamine 2020-0 Yes Take by [facility] HCl 5-07 mouth. ity of (VITAMIN 15:12: [place] B-1 ORAL) 52 Medical Branch multivitami 2020-0 Yes Take by [facility] vers n with 5-07 mouth. ity of minerals 15:12: [place] (HAIR,SKIN 52 Medical AND NAILS Branch ORAL) thiamine 2020-0 Yes Take by [facility] HCl 5-07 mouth. ity of (VITAMIN 15:12: [place] B-1 ORAL) 52 Medical Branch multivitami 2020-0 Yes Take by [facility] vers n with 5-07 mouth. ity of minerals 15:12: [place] (HAIR,SKIN 52 Medical AND NAILS Branch ORAL) thiamine 2020-0 Yes Take by [facility]iver [facility] HCl 5-07 mouth. ity of (VITAMIN 15:12: [place] B-1 ORAL) 52 Medical Branch multivitami 2020-0 Yes Take by [facility] vers n with 5-07 mouth. ity of minerals 15:12: [place] (HAIR,SKIN 52 Medical AND NAILS Branch ORAL) thiamine 2020-0 Yes Take by [facility] HCl 5-07 mouth. ity of (VITAMIN 15:12: [place] B-1 ORAL) 52 Medical Branch multivitami 2020-0 Yes Take by [facility] vers [facility] with 5-07 mouth. ity of minerals 15:12: [place] (HAIR,SKIN 52 Medical AND NAILS Branch ORAL) thiamine 2020-0 Yes Take by [facility] HCl 5-07 mouth. ity of (VITAMIN 15:12: [place] B-1 ORAL) 52 Medical Branch multivitami 2020-0 Yes Take by [facility] vers [facility] with 5-07 mouth. ity of minerals 15:12: [place] (HAIR,SKIN 52 Medical AND NAILS Branch ORAL) thiamine 2020-0 Yes Take by [facility] HCl 5-07 mouth. ity of (VITAMIN 15:12: [place] B-1 ORAL) 52 Medical Branch multivitami 2020-0 Yes Take by [facility] vers [facility] with 5-07 mouth. ity of minerals 15:12: [place] (HAIR,SKIN 52 Medical AND NAILS Branch ORAL) thiamine 2020-0 Yes Take by [facility] HCl 5-07 mouth. ity of (VITAMIN 15:12: [place] B-1 ORAL) 52 Medical Branch multivitami 2020-0 Yes Take by [facility] vers [facility] with 5-07 mouth. ity of minerals 15:12: [place] (HAIR,SKIN 52 Medical AND NAILS Branch ORAL) thiamine 2020-0 Yes Take by Univer s HCl 5-07 mouth. ity of (VITAMIN 15:12: [place] B-1 ORAL) 52 Medical Branch multivitami 2020-0 Yes Take by Uni vers n with 5-07 mouth. ity of minerals 15:12: [place] (HAIR,SKIN 52 Medical AND NAILS Branch ORAL) thiamine 2020-0 Yes Take by Univer s HCl 5-07 mouth. ity of (VITAMIN 15:12: [place] B-1 ORAL) 52 Medical Branch multivitami 2020-0 Yes Take by [facility] vers n with 5-07 mouth. ity of minerals 15:12: [place] (HAIR,SKIN 52 Medical AND NAILS Branch ORAL) thiamine 2020-0 Yes Take by Un[facility] s HCl 5-07 mouth. ity of (VITAMIN 15:12: [place] B-1 ORAL) 52 Medical Branch multivitami 2020-0 Yes Take by [facility] vers [facility] with 5-07 mouth. ity of minerals 15:12: [place] (HAIR,SKIN 52 Medical AND NAILS Branch ORAL) thiamine 2020-0 Yes Take by [facility] HCl 5-07 mouth. ity of (VITAMIN 15:12: [place] B-1 ORAL) 52 Medical Branch multivitami 2020-0 Yes Take by [facility] with 5-07 mouth. ity of minerals 15:12: [place] (HAIR,SKIN 52 Medical AND NAILS Branch ORAL) thiamine 2020-0 Yes Take by [facility] s HCl 5-07 mouth. ity of (VITAMIN 15:12: [place] B-1 ORAL) 52 Medical Branch multivitami 2020-0 Yes Take by [facility] vers [facility] with 5-07 mouth. ity of minerals 15:12: [place] (HAIR,SKIN 52 Medical AND NAILS Branch ORAL) thiamine 2020-0 Yes Take by [facility] HCl 5-07 mouth. ity of (VITAMIN 15:12: [place] B-1 ORAL) 52 Medical Branch multivitami 2020-0 Yes Take by [facility] vers [facility] with 5-07 mouth. ity of minerals 15:12: [place] (HAIR,SKIN 52 Medical AND NAILS Branch ORAL) thiamine 2020-0 Yes Take by [facility] HCl 5-07 mouth. ity of (VITAMIN 15:12: [place] B-1 ORAL) 52 Medical Branch multivitami 2020-0 Yes Take by [facility] vers [facility] with 5-07 mouth. ity of minerals 15:12: [place] (HAIR,SKIN 52 Medical AND NAILS Branch ORAL) thiamine 2020-0 Yes Take by Univer s HCl 5-07 mouth. ity of (VITAMIN 15:12: [place] B-1 ORAL) 52 Medical Branch multivitami 2020-0 Yes Take by [facility] vers n with 5-07 mouth. ity of minerals 15:12: [place] (HAIR,SKIN 52 Medical AND NAILS Branch ORAL) thiamine 2020-0 Yes Take by [facility] s HCl 5-07 mouth. ity of (VITAMIN 15:12: [place] B-1 ORAL) 52 Medical Branch multivitami 2020-0 Yes Take by [facility] vers n with 5-07 mouth. ity of minerals 15:12: [place] (HAIR,SKIN 52 Medical AND NAILS Branch ORAL) thiamine 2020-0 Yes Take by Univer s HCl 5-07 mouth. ity of (VITAMIN 15:12: [place] B-1 ORAL) 52 Medical Branch multivitami 2020-0 Yes Take by [facility] vers n with 5-07 mouth. ity of minerals 15:12: [place] (HAIR,SKIN 52 Medical AND NAILS Branch ORAL) thiamine 2020-0 Yes Take by Univer s HCl 5-07 mouth. ity of (VITAMIN 15:12: [place] B-1 ORAL) 52 Medical Branch multivitami 2020-0 Yes Take by Uni vers n with 5-07 mouth. ity of minerals 15:12: [place] (HAIR,SKIN 52 Medical AND NAILS Branch ORAL) thiamine 2020-0 Yes Take by Univer s HCl 5-07 mouth. ity of (VITAMIN 15:12: [place] B-1 ORAL) 52 Medical Branch multivitami 2020-0 Yes Take by Uni vers n with 5-07 mouth. ity of minerals 15:12: [place] (HAIR,SKIN 52 Medical AND NAILS Branch ORAL) thiamine 2020-0 Yes Take by Univer s HCl 5-07 mouth. ity of (VITAMIN 15:12: [place] B-1 ORAL) 52 Medical Branch multivitami 2020-0 Yes Take by Uni vers n with 5-07 mouth. ity of minerals 15:12: [place] (HAIR,SKIN 52 Medical AND NAILS Branch ORAL) gabapentin 2020-0 Yes 300mg Take 300 Un oswaldo 300 mg 5-07 mg by ity of capsule 15:12: mouth [address] [place] [address] ([facility]) Medical times Branch daily. gabapentin 2020-0 Yes 300mg Take 300 Un oswaldo 300 mg 5-07 mg by ity of capsule 15:12: mouth [address] [place] [address] ([facility]) Medical times Branch daily. gabapentin 2020-0 Yes 300mg Take 300 Un oswaldo 300 mg 5-07 mg by ity of capsule 15:12: mouth [address] [place] [address] (three) Medical times Branch daily. gabapentin 2020-0 Yes 300mg Take 300 Un oswaldo 300 mg 5-07 mg by ity of capsule 15:12: mouth [address] [place] [address] (three) Medical times Branch daily. gabapentin 2020-0 Yes 300mg Take 300 Un oswaldo 300 mg 5-07 mg by ity of capsule 15:12: mouth [address] [place] [address] (three) Medical times Branch daily. gabapentin 2020-0 Yes 300mg Take 300 Un oswaldo 300 mg 5-07 mg by ity of capsule 15:12: mouth [address] [place] [address] (three) Medical times Branch daily. gabapentin 2020-0 Yes 300mg Take 300 Un oswaldo 300 mg 5-07 mg by ity of capsule 15:12: mouth [address] [place] [address] (three) Medical times Branch daily. gabapentin 2020-0 Yes 300mg Take 300 Un oswaldo 300 mg 5-07 mg by ity of capsule 15:12: mouth [address] [place] [address] (three) Medical times Branch daily. gabapentin 2020-0 Yes 300mg Take 300 Un oswaldo 300 mg 5-07 mg by ity of capsule 15:12: mouth [address] [place] [address] (three) Medical times Branch daily. gabapentin 2020-0 Yes 300mg Take 300 Un oswaldo 300 mg 5-07 mg by ity of capsule 15:12: mouth [address] [place] [address] (three) Medical times Branch daily. gabapentin 2020-0 Yes 300mg Take 300 Un oswaldo 300 mg 5-07 mg by ity of capsule 15:12: mouth [address] [place] [address] (three) Medical times Branch daily. gabapentin 2020-0 Yes 300mg Take 300 Un oswaldo 300 mg 5-07 mg by ity of capsule 15:12: mouth [address] [place] [address] (three) Medical times Branch daily. gabapentin 2020-0 Yes 300mg Take 300 Un oswaldo 300 mg 5-07 mg by ity of capsule 15:12: mouth [address] [place] [address] (three) Medical times Branch daily. gabapentin 2020-0 Yes 300mg Take 300 Un oswaldo 300 mg 5-07 mg by ity of capsule 15:12: mouth [address] [place] [address] (three) Medical times Branch daily. gabapentin 2020-0 Yes 300mg Take 300 Un oswaldo 300 mg 5-07 mg by ity of capsule 15:12: mouth [address] [place] [address] (three) Medical times Branch daily. gabapentin 2020-0 Yes 300mg Take 300 Un oswaldo 300 mg 5-07 mg by ity of capsule 15:12: mouth [address] [place] [address] (three) Medical times Branch daily. gabapentin 2020-0 Yes 300mg Take 300 Un oswaldo 300 mg 5-07 mg by ity of capsule 15:12: mouth [address] [place] [address] (three) Medical times Branch daily. gabapentin 2020-0 Yes 300mg Take 300 Un o[place]aldo 300 mg 5-07 mg by ity of capsule 15:12: mouth [address] [place] [address] (three) Medical times Branch daily. gabapentin 2020-0 Yes 300mg Take 300 Un oswaldo 300 mg 5-07 mg by ity of capsule 15:12: mouth [address] [place] [address] (three) Medical times Branch daily. gabapentin 2020-0 Yes 300mg Take 300 Un oswaldo 300 mg 5-07 mg by ity of capsule 15:12: mouth [address] [place] [address] (three) Medical times Branch daily. gabapentin 2020-0 Yes 300mg Take 300 Un oswaldo 300 mg 5-07 mg by ity of capsule 15:12: mouth [address] [place] [address] (three) Medical times Branch daily. gabapentin 2020-0 Yes 300mg Take 300 Un o[place]aldo 300 mg 5-07 mg by ity of capsule 15:12: mouth [address] [place] [address] (three) Medical times Branch daily. gabapentin 2020-0 Yes 300mg Take 300 Un oswaldo 300 mg 5-07 mg by ity of capsule 15:12: mouth [address] [place] [address] (three) Medical times Branch daily. gabapentin 2020-0 Yes 300mg Take 300 Un o[place]aldo 300 mg 5-07 mg by ity of capsule 15:12: mouth [address] [place] [address] (three) Medical times Branch daily. gabapentin 2020-0 Yes 300mg Take 300 Un o[place]aldo 300 mg 5-07 mg by ity of capsule 15:12: mouth [address] [place] [address] (three) Medical times Branch daily. gabapentin 2020-0 Yes 300mg Take 300 Un o[place]aldo 300 mg 5-07 mg by ity of capsule 15:12: mouth [address] [place] [address] (three) Medical times Branch daily. gabapentin 2020-0 Yes 300mg Take 300 Un o[place]aldo 300 mg 5-07 mg by ity of capsule 15:12: mouth [address] [place] [address] (three) Medical times Branch daily. gabapentin 2020-0 Yes 300mg Take 300 Un o[place]aldo 300 mg 5-07 mg by ity of capsule 15:12: mouth [address] [place] [address] (three) Medical times Branch daily. gabapentin 2020-0 Yes 300mg Take 300 Un o[place]al[place] 300 mg 5-07 mg by ity of capsule 15:12: mouth [address] [place] [address] (three) Medical times Branch daily. gabapentin 2020-0 Yes 300mg Take 300 Un o[place]aldo 300 mg 5-07 mg by ity of capsule 15:12: mouth [address] [place] [address] (three) Medical times Branch daily. gabapentin 2020-0 Yes 300mg Take 300 Un o[place]aldo 300 mg 5-07 mg by ity of capsule 15:12: mouth [address] [place] [address] (three) Medical times Branch daily. gabapentin 2020-0 Yes 300mg Take 300 Un o[place]al[place] 300 mg 5-07 mg by ity of capsule 15:12: mouth [address] [place] [address] (three) Medical times Branch daily. gabapentin 2020-0 Yes 300mg Take 300 Un o[place]al[place] 300 mg 5-07 mg by ity of capsule 15:12: mouth [address] [place] [address] (three) Medical times Branch daily. gabapentin 2020-0 Yes 300mg Take 300 Un o[place]aldo 300 mg 5-07 mg by ity of capsule 15:12: mouth [address] [place] [address] (three) Medical times Branch daily. gabapentin 2020-0 Yes 300mg Take 300 Un o[place]aldo 300 mg 5-07 mg by ity of capsule 15:12: mouth [address] [place] [address] (three) Medical times Branch daily. gabapentin 2020-0 Yes 300mg Take 300 Un o[place]aldo 300 mg 5-07 mg by ity of capsule 15:12: mouth [address] [place] [address] (three) Medical times Branch daily. gabapentin 2020-0 Yes 300mg Take 300 Un oswaldo 300 mg 5-07 mg by ity of capsule 15:12: mouth [address] [place] [address] (three) Medical times Branch daily. gabapentin 2020-0 Yes 300mg Take 300 Un oswaldo 300 mg 5-07 mg by ity of capsule 15:12: mouth [address] [place] [address] (three) Medical times Branch daily. gabapentin 2020-0 Yes 300mg Take 300 Un oswaldo 300 mg 5-07 mg by ity of capsule 15:12: mouth [address] [place] [address] (three) Medical times Branch daily. gabapentin 2020-0 Yes 300mg Take 300 Un oswaldo 300 mg 5-07 mg by ity of capsule 15:12: mouth [address] [place] [address] (three) Medical times Branch daily. gabapentin 2020-0 Yes 300mg Take 300 Un oswaldo 300 mg 5-07 mg by ity of capsule 15:12: mouth [address] [place] [address] (three) Medical times Branch daily. gabapentin 2020-0 Yes 300mg Take 300 Un oswaldo 300 mg 5-07 mg by ity of capsule 15:12: mouth [address] [place] [address] (three) Medical times Branch daily. gabapentin 2020-0 Yes 300mg Take 300 Un oswaldo 300 mg 5-07 mg by ity of capsule 15:12: mouth [address] [place] [address] (three) Medical times Branch daily. gabapentin 2020-0 Yes 300mg Take 300 Un oswaldo 300 mg 5-07 mg by ity of capsule 15:12: mouth [address] [place] [address] (three) Medical times Branch daily. gabapentin 2020-0 Yes 300mg Take 300 Un o[place]aldo 300 mg 5-07 mg by ity of capsule 15:12: mouth [address] [place] [address] (three) Medical times Branch daily. gabapentin 2020-0 Yes 300mg Take 300 Un oswaldo 300 mg 5-07 mg by ity of capsule 15:12: mouth [address] [place] [address] (three) Medical times Branch daily. Hydrocodone 2020-0 Yes Take by Uni vers -Acetaminop 5-07 mouth 3 ity o f hen 15:12: (three) [place] (VICODIN) 49 times Medical 5-300 mg daily. Branch tablet Hydrocodone 2020-0 Yes Take by Uni vers -Acetaminop 5-07 mouth 3 ity o f hen 15:12: (three) [place] (VICODIN) 49 times Medical 5-300 mg daily. Branch tablet Hydrocodone 2020-0 Yes Take by Uni vers -Acetaminop 5-07 mouth 3 ity o f hen 15:12: (three) [place] (VICODIN) 49 times Medical 5-300 mg daily. Branch tablet Hydrocodone 2020-0 Yes Take by Uni vers -Acetaminop 5-07 mouth 3 ity o f hen 15:12: (three) [place] (VICODIN) 49 times Medical 5-300 mg daily. Branch tablet Hydrocodone 2020-0 Yes Take by Uni vers -Acetaminop 5-07 mouth 3 ity o f hen 15:12: (three) [place] (VICODIN) 49 times Medical 5-300 mg daily. Branch tablet Hydrocodone 2020-0 Yes Take by Uni vers -Acetaminop 5-07 mouth 3 ity o f hen 15:12: (three) [place] (VICODIN) 49 times Medical 5-300 mg daily. Branch tablet Hydrocodone 2020-0 Yes Take by Uni vers -Acetaminop 5-07 mouth 3 ity o f hen 15:12: (three) [place] (VICODIN) 49 times Medical 5-300 mg daily. Branch tablet Hydrocodone 2020-0 Yes Take by Uni vers -Acetaminop 5-07 mouth 3 ity o f hen 15:12: (three) [place] (VICODIN) 49 times Medical 5-300 mg daily. Branch tablet Hydrocodone 2020-0 Yes Take by Uni vers -Acetaminop 5-07 mouth 3 ity o f hen 15:12: (three) [place] (VICODIN) 49 times Medical 5-300 mg daily. Branch tablet Hydrocodone 2020-0 Yes Take by Uni vers -Acetaminop 5-07 mouth 3 ity o f hen 15:12: (three) [place] (VICODIN) 49 times Medical 5-300 mg daily. Branch tablet Hydrocodone 2020-0 Yes Take by Uni vers -Acetaminop 5-07 mouth 3 ity o f hen 15:12: (three) [place] (VICODIN) 49 times Medical 5-300 mg daily. Branch tablet Hydrocodone 2020-0 Yes Take by Uni vers -Acetaminop 5-07 mouth 3 ity o f hen 15:12: (three) [place] (VICODIN) 49 times Medical 5-300 mg daily. Branch tablet Hydrocodone 2020-0 Yes Take by Uni vers -Acetaminop 5-07 mouth 3 ity o f hen 15:12: (three) [place] (VICODIN) 49 times Medical 5-300 mg daily. Branch tablet Hydrocodone 2020-0 Yes Take by Uni vers -Acetaminop 5-07 mouth 3 ity o f hen 15:12: (three) [place] (VICODIN) 49 times Medical 5-300 mg daily. Branch tablet Hydrocodone 2020-0 Yes Take by Uni vers -Acetaminop 5-07 mouth 3 ity o f hen 15:12: (three) [place] (VICODIN) 49 times Medical 5-300 mg daily. Branch tablet Hydrocodone 2020-0 Yes Take by Uni vers -Acetaminop 5-07 mouth 3 ity o f hen 15:12: (three) [place] (VICODIN) 49 times Medical 5-300 mg daily. Branch tablet Hydrocodone 2020-0 Yes Take by Uni vers -Acetaminop 5-07 mouth 3 ity o f hen 15:12: (three) [place] (VICODIN) 49 times Medical 5-300 mg daily. Branch tablet Hydrocodone 2020-0 Yes Take by Uni vers -Acetaminop 5-07 mouth 3 ity o f hen 15:12: (three) [place] (VICODIN) 49 times Medical 5-300 mg daily. Branch tablet Hydrocodone 2020-0 Yes Take by Uni vers -Acetaminop 5-07 mouth 3 ity o f hen 15:12: (three) [place] (VICODIN) 49 times Medical 5-300 mg daily. Branch tablet Hydrocodone 2020-0 Yes Take by Uni vers -Acetaminop 5-07 mouth 3 ity o f hen 15:12: (three) [place] (VICODIN) 49 times Medical 5-300 mg daily. Branch tablet Hydrocodone 2020-0 Yes Take by Uni vers -Acetaminop 5-07 mouth 3 ity o f hen 15:12: (three) [place] (VICODIN) 49 times Medical 5-300 mg daily. Branch tablet Hydrocodone 2020-0 Yes Take by Uni vers -Acetaminop 5-07 mouth 3 ity o f hen 15:12: (three) [place] (VICODIN) 49 times Medical 5-300 mg daily. Branch tablet Hydrocodone 2020-0 Yes Take by Uni vers -Acetaminop 5-07 mouth 3 ity o f hen 15:12: (three) [place] (VICODIN) 49 times Medical 5-300 mg daily. Branch tablet Hydrocodone 2020-0 Yes Take by Uni vers -Acetaminop 5-07 mouth 3 ity o f hen 15:12: (three) [place] (VICODIN) 49 times Medical 5-300 mg daily. Branch tablet Hydrocodone 2020-0 Yes Take by Uni vers -Acetaminop 5-07 mouth 3 ity o f hen 15:12: (three) [place] (VICODIN) 49 times Medical 5-300 mg daily. Branch tablet Hydrocodone 2020-0 Yes Take by Uni vers -Acetaminop 5-07 mouth 3 ity o f hen 15:12: (three) [place] (VICODIN) 49 times Medical 5-300 mg daily. Branch tablet Hydrocodone 2020-0 Yes Take by Uni vers -Acetaminop 5-07 mouth 3 ity o f hen 15:12: (three) [place] (VICODIN) 49 times Medical 5-300 mg daily. Branch tablet Hydrocodone 2020-0 Yes Take by Uni vers -Acetaminop 5-07 mouth 3 ity o f hen 15:12: (three) [place] (VICODIN) 49 times Medical 5-300 mg daily. Branch tablet Hydrocodone 2020-0 Yes Take by Uni vers -Acetaminop 5-07 mouth 3 ity o f hen 15:12: (three) [place] (VICODIN) 49 times Medical 5-300 mg daily. Branch tablet Hydrocodone 2020-0 Yes Take by Uni vers -Acetaminop 5-07 mouth 3 ity o f hen 15:12: (three) [place] (VICODIN) 49 times Medical 5-300 mg daily. Branch tablet Hydrocodone 2020-0 Yes Take by Uni vers -Acetaminop 5-07 mouth 3 ity o f hen 15:12: (three) [place] (VICODIN) 49 times Medical 5-300 mg daily. Branch tablet Hydrocodone 2020-0 Yes Take by Uni vers -Acetaminop 5-07 mouth 3 ity o f hen 15:12: (three) [place] (VICODIN) 49 times Medical 5-300 mg daily. Branch tablet Hydrocodone 2020-0 Yes Take by Uni vers -Acetaminop 5-07 mouth 3 ity o f hen 15:12: (three) [place] (VICODIN) 49 times Medical 5-300 mg daily. Branch tablet Hydrocodone 2020-0 Yes Take by Uni vers -Acetaminop 5-07 mouth 3 ity o f hen 15:12: (three) [place] (VICODIN) 49 times Medical 5-300 mg daily. Branch tablet Hydrocodone 2020-0 Yes Take by Uni vers -Acetaminop 5-07 mouth 3 ity o f hen 15:12: (three) [place] (VICODIN) 49 times Medical 5-300 mg daily. Branch tablet Hydrocodone 2020-0 Yes Take by Uni vers -Acetaminop 5-07 mouth 3 ity o f hen 15:12: (three) [place] (VICODIN) 49 times Medical 5-300 mg daily. Branch tablet Hydrocodone 2020-0 Yes Take by Uni vers -Acetaminop 5-07 mouth 3 ity o f hen 15:12: (three) [place] (VICODIN) 49 times Medical 5-300 mg daily. Branch tablet Hydrocodone 2020-0 Yes Take by Uni vers -Acetaminop 5-07 mouth 3 ity o f hen 15:12: (three) [place] (VICODIN) 49 times Medical 5-300 mg daily. Branch tablet Hydrocodone 2020-0 Yes Take by Uni vers -Acetaminop 5-07 mouth 3 ity o f hen 15:12: (three) [place] (VICODIN) 49 times Medical 5-300 mg daily. Branch tablet Hydrocodone 2020-0 Yes Take by Uni vers -Acetaminop 5-07 mouth 3 ity o f hen 15:12: (three) [place] (VICODIN) 49 times Medical 5-300 mg daily. Branch tablet Hydrocodone 2020-0 Yes Take by Uni vers -Acetaminop 5-07 mouth 3 ity o f hen 15:12: (three) [place] (VICODIN) 49 times Medical 5-300 mg daily. Branch tablet Hydrocodone 2020-0 Yes Take by Uni vers -Acetaminop 5-07 mouth 3 ity o f hen 15:12: (three) [place] (VICODIN) 49 times Medical 5-300 mg daily. Branch tablet Hydrocodone 2020-0 Yes Take by Uni vers -Acetaminop 5-07 mouth 3 ity o f hen 15:12: (three) [place] (VICODIN) 49 times Medical 5-300 mg daily. Branch tablet Hydrocodone 2020-0 Yes Take by Uni vers -Acetaminop 5-07 mouth 3 ity o f hen 15:12: (three) [place] (VICODIN) 49 times Medical 5-300 mg daily. Branch tablet Hydrocodone 2020-0 Yes Take by Uni vers -Acetaminop 5-07 mouth 3 ity o f hen 15:12: (three) [place] (VICODIN) 49 times Medical 5-300 mg daily. Branch tablet Hydrocodone 2020-0 Yes Take by Uni vers -Acetaminop 5-07 mouth 3 ity o f hen 15:12: (three) [place] (VICODIN) 49 times Medical 5-300 mg daily. Branch tablet cyanocobala 2020-0 Yes Take by Uni vers min, 5-07 mouth. ity of vitamin 10:13: [place] B-12, 05 Medical (VITAMIN Branch B-12 ORAL) cyanocobala 2020-0 Yes Take by Uni vers min, 5-07 mouth. ity of vitamin 10:13: [place] B-12, 05 Medical (VITAMIN Branch B-12 ORAL) cyanocobala 2020-0 Yes Take by Uni vers min, 5-07 mouth. ity of vitamin 10:13: [place] B-12, 05 Medical (VITAMIN Branch B-12 ORAL) cyanocobala 2020-0 Yes Take by [facility] min, 5-07 mouth. ity of vitamin 10:13: [place] B-12, 05 Medical (VITAMIN Branch B-12 ORAL) cyanocobala 2020-0 Yes Take by [facility] min, 5-07 mouth. ity of vitamin 10:13: [place] B-12, 05 Medical (VITAMIN Branch B-12 ORAL) cyanocobala 2020-0 Yes Take by [facility] vers min, 5-07 mouth. ity of vitamin 10:13: [place] B-12, 05 Medical (VITAMIN Branch B-12 ORAL) cyanocobala 2020-0 Yes Take by [facility] min, 5-07 mouth. ity of vitamin 10:13: [place] B-12, 05 Medical (VITAMIN Branch B-12 ORAL) cyanocobala 2020-0 Yes Take by [facility] min, 5-07 mouth. ity of vitamin 10:13: [place] B-12, 05 Medical (VITAMIN Branch B-12 ORAL) ascorbic 2020-0 Yes Take by [facility] acid 5-07 mouth. ity of (VITAMIN C 10:13: [place] ORAL) 04 Medical Branch ascorbic 2020-0 Yes Take by [facility] acid 5-07 mouth. ity of (VITAMIN C 10:13: [place] ORAL) 04 Medical Branch ascorbic 2020-0 Yes Take by [facility] acid 5-07 mouth. ity of (VITAMIN C 10:13: [place] ORAL) 04 Medical Branch ascorbic 2020-0 Yes Take by [facility] acid 5-07 mouth. ity of (VITAMIN C 10:13: [place] ORAL) 04 Medical Branch ascorbic 2020-0 Yes Take by [facility] acid 5-07 mouth. ity of (VITAMIN C 10:13: [place] ORAL) 04 Medical Branch ascorbic 2020-0 Yes Take by [facility] acid 5-07 mouth. ity of (VITAMIN C 10:13: [place] ORAL) 04 Medical Branch ascorbic 2020-0 Yes Take by [facility] acid 5-07 mouth. ity of (VITAMIN C 10:13: [place] ORAL) 04 Medical Branch ascorbic 2020-0 Yes Take by [facility] acid 5-07 mouth. ity of (VITAMIN C 10:13: [place] ORAL) 04 Medical Branch ergocalcife 2020-0 Yes Take by [facility] vers rol, 5-07 mouth. ity of vitamin D2, 10:12: [place] (VITAMIN D 55 Medical ORAL) Branch ferrous 2020-0 Yes Take by [facility] sulfate 5-07 mouth. ity of (IRON ORAL) 10:12: [place] [address] Medical Branch ergocalcife 2020-0 Yes Take by [facility] vers rol, 5-07 mouth. ity of vitamin D2, 10:12: [place] (VITAMIN D 55 Medical ORAL) Branch ferrous 2020-0 Yes Take by [facility] sulfate 5-07 mouth. ity of (IRON ORAL) 10:12: [place] [address] Medical Branch ergocalcife 2020-0 Yes Take by [facility] vers rol, 5-07 mouth. ity of vitamin D2, 10:12: [place] (VITAMIN D 55 Medical ORAL) Branch ferrous 2020-0 Yes Take by [facility] sulfate 5-07 mouth. ity of (IRON ORAL) 10:12: [place] [address] Medical Branch ergocalcife 2020-0 Yes Take by [facility] vers rol, 5-07 mouth. ity of vitamin D2, 10:12: [place] (VITAMIN D 55 Medical ORAL) Branch ferrous 2020-0 Yes Take by [facility] sulfate 5-07 mouth. ity of (IRON ORAL) 10:12: [place] [address] Medical Branch ergocalcife 2020-0 Yes Take by [facility] vers rol, 5-07 mouth. ity of vitamin D2, 10:12: [place] (VITAMIN D 55 Medical ORAL) Branch ferrous 2020-0 Yes Take by [facility] sulfate 5-07 mouth. ity of (IRON ORAL) 10:12: [place] [address] Medical Branch ergocalcife 2020-0 Yes Take by [facility] vers rol, 5-07 mouth. ity of vitamin D2, 10:12: [place] (VITAMIN D 55 Medical ORAL) Branch ferrous 2020-0 Yes Take by [facility] sulfate 5-07 mouth. ity of (IRON ORAL) 10:12: [place] [address] Medical Branch ergocalcife 2020-0 Yes Take by [facility] vers rol, 5-07 mouth. ity of vitamin D2, 10:12: [place] (VITAMIN D 55 Medical ORAL) Branch ferrous 2020-0 Yes Take by [facility] sulfate 5-07 mouth. ity of (IRON ORAL) 10:12: [place] [address] Medical Branch ergocalcife 2020-0 Yes Take by [facility] vers rol, 5-07 mouth. ity of vitamin D2, 10:12: [place] (VITAMIN D 55 Medical ORAL) Branch ferrous 2020-0 Yes Take by [facility] sulfate 5-07 mouth. ity of (IRON ORAL) 10:12: [place] [address] Medical Branch thiamine 2020-0 Yes Take by [facility] HCl 5-07 mouth. ity of (VITAMIN 10:12: [place] B-1 ORAL) 52 Medical Branch multivitami 2020-0 Yes Take by [facility] vers n with 5-07 mouth. ity of minerals 10:12: [place] (HAIR,SKIN 52 Medical AND NAILS Branch ORAL) thiamine 2020-0 Yes Take by [facility] HCl 5-07 mouth. ity of (VITAMIN 10:12: [place] B-1 ORAL) 52 Medical Branch multivitami 2020-0 Yes Take by [facility] vers n with 5-07 mouth. ity of minerals 10:12: [place] (HAIR,SKIN 52 Medical AND NAILS Branch ORAL) thiamine 2020-0 Yes Take by [facility] HCl 5-07 mouth. ity of (VITAMIN 10:12: [place] B-1 ORAL) 52 Medical Branch multivitami 2020-0 Yes Take by [facility] vers n with 5-07 mouth. ity of minerals 10:12: [place] (HAIR,SKIN 52 Medical AND NAILS Branch ORAL) thiamine 2020-0 Yes Take by [facility] HCl 5-07 mouth. ity of (VITAMIN 10:12: [place] B-1 ORAL) 52 Medical Branch multivitami 2020-0 Yes Take by [facility] vers n with 5-07 mouth. ity of minerals 10:12: [place] (HAIR,SKIN 52 Medical AND NAILS Branch ORAL) thiamine 2020-0 Yes Take by [facility] HCl 5-07 mouth. ity of (VITAMIN 10:12: [place] B-1 ORAL) 52 Medical Branch multivitami 2020-0 Yes Take by [facility] vers n with 5-07 mouth. ity of minerals 10:12: [place] (HAIR,SKIN 52 Medical AND NAILS Branch ORAL) thiamine 2020-0 Yes Take by [facility] HCl 5-07 mouth. ity of (VITAMIN 10:12: [place] B-1 ORAL) 52 Medical Branch multivitami 2020-0 Yes Take by [facility] vers n with 5-07 mouth. ity of minerals 10:12: [place] (HAIR,SKIN 52 Medical AND NAILS Branch ORAL) thiamine 2020-0 Yes Take by [facility] HCl 5-07 mouth. ity of (VITAMIN 10:12: [place] B-1 ORAL) 52 Medical Branch multivitami 2020-0 Yes Take by [facility] vers n with 5-07 mouth. ity of minerals 10:12: [place] (HAIR,SKIN 52 Medical AND NAILS Branch ORAL) thiamine 2020-0 Yes Take by [facility] HCl 5-07 mouth. ity of (VITAMIN 10:12: [place] B-1 ORAL) 52 Medical Branch multivitami 2020-0 Yes Take by [facility] vers n with 5-07 mouth. ity of minerals 10:12: [place] (HAIR,SKIN 52 Medical AND NAILS Branch ORAL) hydrALAZINE 2020-0 Yes [id number] 25mg Take 1 [facility] 25 mg 4-14 tablet by ity of tablet 00:00: mouth 00 every 6 Medical (six) Branch hours as needed (high blood pressure (>150/90 after taking lisinopril )). cloNIDine 2020-0 Yes [id number] Take Univ ers 0.1 mg 4-14 hydralazin ity of tablet 00:00: e 00 perinstruc Medical tions Branch onbottle,i fBP still>160/ 100 then take 1clonidine .Max 3aday, one Q8H if BP elevated despitetak inghydrala zine hydrALAZINE 2020-0 Yes [id number] 25mg Take 1 [facility] 25 mg 4-14 tablet by ity of tablet 00:00: mouth every 6 Medical (six) Branch hours as needed (high blood pressure (>150/90 after taking lisinopril )). cloNIDine 2020-0 Yes [id number] Take Univ ers 0.1 mg 4-14 hydralazin ity of tablet 00:00: e [facility],i fBP still>160/ 100 then take 1clonidine .Max 3aday, one Q8H if BP elevated despitetak inghydrala zine hydrALAZINE 2020-0 Yes [id number] 25mg Take 1 [facility] 25 mg 4-14 tablet by ity of tablet 00:00: mouth every 6 Medical (six) Branch hours as needed (high blood pressure (>150/90 after taking lisinopril )). cloNIDine 2020-0 Yes [id number] Take Univ ers 0.1 mg 4-14 hydralazin ity of tablet 00:00: e [place] [facility],i fBP still>160/ 100 then take 1clonidine .Max 3aday, one Q8H if BP elevated despitetak inghydrala zine hydrALAZINE 2020-0 Yes [id number] 25mg Take 1 [facility] 25 mg 4-14 tablet by ity of tablet 00:00: mouth every 6 Medical (six) Branch hours as needed (high blood pressure (>150/90 after taking lisinopril )). cloNIDine 2020-0 Yes [id number] Take Univ ers 0.1 mg 4-14 hydralazin ity of tablet 00:00: e [facility],i fBP still>160/ 100 then take 1clonidine .Max 3aday, one Q8H if BP elevated despitetak inghydrala zine hydrALAZINE 2020-0 Yes [id number] 25mg Take 1 [facility] 25 mg 4-14 tablet by ity of tablet 00:00: mouth every 6 Medical (six) Branch hours as needed (high blood pressure (>150/90 after taking lisinopril )). cloNIDine 2020-0 Yes [id number] Take Univ ers 0.1 mg 4-14 hydralazin ity of tablet 00:00: e [facility],i fBP still>160/ 100 then take 1clonidine .Max 3aday, one Q8H if BP elevated despitetak inghydrala zine hydrALAZINE 2020-0 Yes [id number] 25mg Take 1 [facility] 25 mg 4-14 tablet by ity of tablet 00:00: mouth [place] 00 every 6 Medical (six) Branch hours as needed (high blood pressure (>150/90 after taking lisinopril )). cloNIDine 2020-0 Yes [id number] Take Univ ers 0.1 mg 4-14 hydralazin ity of tablet 00:00: e [place] [facility],i fBP still>160/ 100 then take 1clonidine .Max 3aday, one Q8H if BP elevated despitetak inghydrala zine hydrALAZINE 2020-0 Yes [id number] 25mg Take 1 [facility] 25 mg 4-14 tablet by ity of tablet 00:00: mouth [place] every 6 Medical (six) Branch hours as needed (high blood pressure (>150/90 after taking lisinopril )). cloNIDine 2020-0 Yes [id number] Take Univ ers 0.1 mg 4-14 hydralazin ity of tablet 00:00: e [place] [facility],i fBP still>160/ 100 then take 1clonidine .Max 3aday, one Q8H if BP elevated despitetak inghydrala zine hydrALAZINE 2020-0 Yes [id number] 25mg Take 1 [facility] 25 mg 4-14 tablet by ity of tablet 00:00: mouth [place] 00 every 6 Medical (six) Branch hours as needed (high blood pressure (>150/90 after taking lisinopril )). cloNIDine 2020-0 Yes [id number] Take Univ ers 0.1 mg 4-14 hydralazin ity of tablet 00:00: e [place] [facility],i fBP still>160/ 100 then take 1clonidine .Max 3aday, one Q8H if BP elevated despitetak inghydrala zine hydrALAZINE 2020-0 Yes [id number] 25mg Take 1 [facility] 25 mg 4-14 tablet by ity of tablet 00:00: mouth [place] 00 every 6 Medical (six) Branch hours as needed (high blood pressure (>150/90 after taking lisinopril )). cloNIDine 2020-0 Yes [id number] Take Univ ers 0.1 mg 4-14 hydralazin ity of tablet 00:00: e [facility],i fBP still>160/ 100 then take 1clonidine .Max 3aday, one Q8H if BP elevated despitetak inghydrala zine hydrALAZINE 2020-0 Yes [id number] 25mg Take 1 [facility] 25 mg 4-14 tablet by ity of tablet 00:00: mouth every 6 Medical (six) Branch hours as needed (high blood pressure (>150/90 after taking lisinopril )). cloNIDine 2020-0 Yes [id number] Take Univ ers 0.1 mg 4-14 hydralazin ity of tablet 00:00: e [facility],i fBP still>160/ 100 then take 1clonidine .Max 3aday, one Q8H if BP elevated despitetak inghydrala zine hydrALAZINE 2020-0 Yes [id number] 25mg Take 1 [facility] 25 mg 4-14 tablet by ity of tablet 00:00: mouth every 6 Medical (six) Branch hours as needed (high blood pressure (>150/90 after taking lisinopril )). cloNIDine 2020-0 Yes [id number] Take Univ ers 0.1 mg 4-14 hydralazin ity of tablet 00:00: e [facility],i fBP still>160/ 100 then take 1clonidine .Max 3aday, one Q8H if BP elevated despitetak inghydrala zine hydrALAZINE 2020-0 Yes [id number] 25mg Take 1 [facility] 25 mg 4-14 tablet by ity of tablet 00:00: mouth every 6 Medical (six) Branch hours as needed (high blood pressure (>150/90 after taking lisinopril )). cloNIDine 2020-0 Yes [id number] Take Univ ers 0.1 mg 4-14 hydralazin ity of tablet 00:00: e [facility],i fBP still>160/ 100 then take 1clonidine .Max 3aday, one Q8H if BP elevated despitetak inghydrala zine hydrALAZINE 2020-0 Yes [id number] 25mg Take 1 [facility] 25 mg 4-14 tablet by ity of tablet 00:00: mouth [place] 00 every 6 Medical (six) Branch hours as needed (high blood pressure (>150/90 after taking lisinopril )). cloNIDine 2020-0 Yes [id number] Take Univ ers 0.1 mg 4-14 hydralazin ity of tablet 00:00: e [place] 00 [facility],i fBP still>160/ 100 then take 1clonidine .Max 3aday, one Q8H if BP elevated despitetak inghydrala zine hydrALAZINE 2020-0 Yes [id number] 25mg Take 1 [facility] 25 mg 4-14 tablet by ity of tablet 00:00: mouth 00 every 6 Medical (six) Branch hours as needed (high blood pressure (>150/90 after taking lisinopril )). cloNIDine 2020-0 Yes [id number] Take Univ ers 0.1 mg 4-14 hydralazin ity of tablet 00:00: e [facility],i fBP still>160/ 100 then take 1clonidine .Max 3aday, one Q8H if BP elevated despitetak inghydrala zine hydrALAZINE 2020-0 Yes [id number] 25mg Take 1 [facility] 25 mg 4-14 tablet by ity of tablet 00:00: mouth [place] 00 every 6 Medical (six) Branch hours as needed (high blood pressure (>150/90 after taking lisinopril )). cloNIDine 2020-0 Yes [id number] Take Univ ers 0.1 mg 4-14 hydralazin ity of tablet 00:00: e 00 [facility],i fBP still>160/ 100 then take 1clonidine .Max 3aday, one Q8H if BP elevated despitetak inghydrala zine hydrALAZINE 2020-0 Yes [id number] 25mg Take 1 [facility] 25 mg 4-14 tablet by ity of tablet 00:00: mouth [place] 00 every 6 Medical (six) Branch hours as needed (high blood pressure (>150/90 after taking lisinopril )). cloNIDine 2020-0 Yes [id number] Take Univ ers 0.1 mg 4-14 hydralazin ity of tablet 00:00: e [facility],i fBP still>160/ 100 then take 1clonidine .Max 3aday, one Q8H if BP elevated despitetak inghydrala zine hydrALAZINE 2020-0 Yes [id number] 25mg Take 1 [facility] 25 mg 4-14 tablet by ity of tablet 00:00: mouth [place] 00 every 6 Medical (six) Branch hours as needed (high blood pressure (>150/90 after taking lisinopril )). cloNIDine 2020-0 Yes [id number] Take Univ ers 0.1 mg 4-14 hydralazin ity of tablet 00:00: e [facility],i fBP still>160/ 100 then take 1clonidine .Max 3aday, one Q8H if BP elevated despitetak inghydrala zine hydrALAZINE 2020-0 Yes [id number] 25mg Take 1 [facility] 25 mg 4-14 tablet by ity of tablet 00:00: mouth 00 every 6 Medical (six) Branch hours as needed (high blood pressure (>150/90 after taking lisinopril )). cloNIDine 2020-0 Yes [id number] Take Univ ers 0.1 mg 4-14 hydralazin ity of tablet 00:00: e [facility],i fBP still>160/ 100 then take 1clonidine .Max 3aday, one Q8H if BP elevated despitetak inghydrala zine hydrALAZINE 2020-0 Yes [id number] 25mg Take 1 [facility] 25 mg 4-14 tablet by ity of tablet 00:00: mouth 00 every 6 Medical (six) Branch hours as needed (high blood pressure (>150/90 after taking lisinopril )). cloNIDine 2020-0 Yes [id number] Take Univ ers 0.1 mg 4-14 hydralazin ity of tablet 00:00: e [facility],i fBP still>160/ 100 then take 1clonidine .Max 3aday, one Q8H if BP elevated despitetak inghydrala zine hydrALAZINE 2020-0 Yes [id number] 25mg Take 1 [facility] 25 mg 4-14 tablet by ity of tablet 00:00: mouth [place] 00 every 6 Medical (six) Branch hours as needed (high blood pressure (>150/90 after taking lisinopril )). cloNIDine 2020-0 Yes [id number] Take Univ ers 0.1 mg 4-14 hydralazin ity of tablet 00:00: e [place] 00 [facility],i fBP still>160/ 100 then take 1clonidine .Max 3aday, one Q8H if BP elevated despitetak inghydrala zine hydrALAZINE 2020-0 Yes [id number] 25mg Take 1 [facility] 25 mg 4-14 tablet by ity of tablet 00:00: mouth [place] 00 every 6 Medical (six) Branch hours as needed (high blood pressure (>150/90 after taking lisinopril )). cloNIDine 2020-0 Yes [id number] Take Univ ers 0.1 mg 4-14 hydralazin ity of tablet 00:00: e [place] 00 [facility],i fBP still>160/ 100 then take 1clonidine .Max 3aday, one Q8H if BP elevated despitetak inghydrala zine hydrALAZINE 2020-0 Yes [id number] 25mg Take 1 [facility] 25 mg 4-14 tablet by ity of tablet 00:00: mouth [place] 00 every 6 Medical (six) Branch hours as needed (high blood pressure (>150/90 after taking lisinopril )). cloNIDine 2020-0 Yes [id number] Take Univ ers 0.1 mg 4-14 hydralazin ity of tablet 00:00: e [place] 00 [facility] still>160/ 100 then take 1clonidine .Max 3aday, one Q8H if BP elevated despitetak inghydrala zine hydrALAZINE 2020-0 Yes [id number] 25mg Take 1 [facility] 25 mg 4-14 tablet by ity of tablet 00:00: mouth [place] 00 every 6 Medical (six) Branch hours as needed (high blood pressure (>150/90 after taking lisinopril )). cloNIDine 2020-0 Yes [id number] Take Univ ers 0.1 mg 4-14 hydralazin ity of tablet 00:00: e [place] [facility],i fBP still>160/ 100 then take 1clonidine .Max 3aday, one Q8H if BP elevated despitetak inghydrala zine hydrALAZINE 2020-0 Yes [id number] 25mg Take 1 [facility] 25 mg 4-14 tablet by ity of tablet 00:00: mouth [place] 00 every 6 Medical (six) Branch hours as needed (high blood pressure (>150/90 after taking lisinopril )). cloNIDine 2020-0 Yes [id number] Take Univ ers 0.1 mg 4-14 hydralazin ity of tablet 00:00: e [place] [facility],i fBP still>160/ 100 then take 1clonidine .Max 3aday, one Q8H if BP elevated despitetak inghydrala zine hydrALAZINE 2020-0 Yes [id number] 25mg Take 1 [facility] 25 mg 4-14 tablet by ity of tablet 00:00: mouth [place] 00 every 6 Medical (six) Branch hours as needed (high blood pressure (>150/90 after taking lisinopril )). cloNIDine 2020-0 Yes [id number] Take Univ ers 0.1 mg 4-14 hydralazin ity of tablet 00:00: e [place] [facility],i fBP still>160/ 100 then take 1clonidine .Max 3aday, one Q8H if BP elevated despitetak inghydrala zine cloNIDine 2020-0 Yes [id number] Take Univ ers 0.1 mg 4-14 hydralazin ity of tablet 00:00: e [place] [facility],i fBP still>160/ 100 then take 1clonidine .Max 3aday, one Q8H if BP elevated despitetak inghydrala zine cloNIDine 2020-0 Yes [id number] Take Univ ers 0.1 mg 4-14 hydralazin ity of tablet 00:00: e [place] [facility],i fBP still>160/ 100 then take 1clonidine .Max 3aday, one Q8H if BP elevated despitetak inghydrala zine cloNIDine 2020-0 Yes [id number] Take Univ ers 0.1 mg 4-14 hydralazin ity of tablet 00:00: e [place] [facility],i fBP still>160/ 100 then take 1clonidine .Max 3aday, one Q8H if BP elevated despitetak inghydrala zine cloNIDine 2020-0 Yes [id number] Take Univ ers 0.1 mg 4-14 hydralazin ity of tablet 00:00: e [place] [facility],i fBP still>160/ 100 then take 1clonidine .Max 3aday, one Q8H if BP elevated despitetak inghydrala zine cloNIDine 2020-0 Yes [id number] Take Univ ers 0.1 mg 4-14 hydralazin ity of tablet 00:00: e [place] [facility],i fBP still>160/ 100 then take 1clonidine .Max 3aday, one Q8H if BP elevated despitetak inghydrala zine cloNIDine 2020-0 Yes [id number] Take Univ ers 0.1 mg 4-14 hydralazin ity of tablet 00:00: e [place] [facility],i fBP still>160/ 100 then take 1clonidine .Max 3aday, one Q8H if BP elevated despitetak inghydrala zine hydrALAZINE 2020-0 Yes [id number] 25mg Take 1 [facility] 25 mg 4-14 tablet by ity of tablet 00:00: mouth [place] 00 every 6 Medical (six) Branch hours as needed (high blood pressure (>150/90 after taking lisinopril )). cloNIDine 2020-0 Yes [id number] Take Univ ers 0.1 mg 4-14 hydralazin ity of tablet 00:00: e [place] [facility],i fBP still>160/ 100 then take 1clonidine .Max 3aday, one Q8H if BP elevated despitetak inghydrala zine hydrALAZINE 2020-0 Yes [id number] 25mg Take 1 [facility] 25 mg 4-14 tablet by ity of tablet 00:00: mouth 00 every 6 Medical (six) Branch hours as needed (high blood pressure (>150/90 after taking lisinopril )). cloNIDine 2020-0 Yes [id number] Take Univ ers 0.1 mg 4-14 hydralazin ity of tablet 00:00: e [facility],i fBP still>160/ 100 then take 1clonidine .Max 3aday, one Q8H if BP elevated despitetak inghydrala zine hydrALAZINE 2020-0 Yes [id number] 25mg Take 1 [facility] 25 mg 4-14 tablet by ity of tablet 00:00: mouth every 6 Medical (six) Branch hours as needed (high blood pressure (>150/90 after taking lisinopril )). cloNIDine 2020-0 Yes [id number] Take Univ ers 0.1 mg 4-14 hydralazin ity of tablet 00:00: e [facility],i fBP still>160/ 100 then take 1clonidine .Max 3aday, one Q8H if BP elevated despitetak inghydrala zine hydrALAZINE 2020-0 Yes [id number] 25mg Take 1 [facility] 25 mg 4-14 tablet by ity of tablet 00:00: mouth every 6 Medical (six) Branch hours as needed (high blood pressure (>150/90 after taking lisinopril )). cloNIDine 2020-0 Yes [id number] Take Univ ers 0.1 mg 4-14 hydralazin ity of tablet 00:00: e [facility],i fBP still>160/ 100 then take 1clonidine .Max 3aday, one Q8H if BP elevated despitetak inghydrala zine hydrALAZINE 2020-0 Yes [id number] 25mg Take 1 [facility] 25 mg 4-14 tablet by ity of tablet 00:00: mouth every 6 Medical (six) Branch hours as needed (high blood pressure (>150/90 after taking lisinopril )). cloNIDine 2020-0 Yes [id number] Take Univ ers 0.1 mg 4-14 hydralazin ity of tablet 00:00: e [facility],i fBP still>160/ 100 then take 1clonidine .Max 3aday, one Q8H if BP elevated despitetak inghydrala zine hydrALAZINE 2020-0 Yes [id number] 25mg Take 1 [facility] 25 mg 4-14 tablet by ity of tablet 00:00: mouth [place] 00 every 6 Medical (six) Branch hours as needed (high blood pressure (>150/90 after taking lisinopril )). cloNIDine 2020-0 Yes [id number] Take Univ ers 0.1 mg 4-14 hydralazin ity of tablet 00:00: e [place] [facility],i fBP still>160/ 100 then take 1clonidine .Max 3aday, one Q8H if BP elevated despitetak inghydrala zine hydrALAZINE 2020-0 Yes [id number] 25mg Take 1 [facility] 25 mg 4-14 tablet by ity of tablet 00:00: mouth [place] every 6 Medical (six) Branch hours as needed (high blood pressure (>150/90 after taking lisinopril )). cloNIDine 2020-0 Yes [id number] Take Univ ers 0.1 mg 4-14 hydralazin ity of tablet 00:00: e [place] [facility],i fBP still>160/ 100 then take 1clonidine .Max 3aday, one Q8H if BP elevated despitetak inghydrala zine hydrALAZINE 2020-0 Yes [id number] 25mg Take 1 [facility] 25 mg 4-14 tablet by ity of tablet 00:00: mouth [place] 00 every 6 Medical (six) Branch hours as needed (high blood pressure (>150/90 after taking lisinopril )). cloNIDine 2020-0 Yes [id number] Take Univ ers 0.1 mg 4-14 hydralazin ity of tablet 00:00: e [place] [facility],i fBP still>160/ 100 then take 1clonidine .Max 3aday, one Q8H if BP elevated despitetak inghydrala zine hydrALAZINE 2020-0 Yes [id number] 25mg Take 1 [facility] 25 mg 4-14 tablet by ity of tablet 00:00: mouth [place] 00 every 6 Medical (six) Branch hours as needed (high blood pressure (>150/90 after taking lisinopril )). cloNIDine 2020-0 Yes [id number] Take [facility] ers 0.1 mg 4-14 hydralazin ity of tablet 00:00: e [facility],i fBP still>160/ 100 then take 1clonidine .Max 3aday, one Q8H if BP elevated despitetak inghydrala zine hydrALAZINE 2020-0 Yes [id number] 25mg Take 1 [facility] 25 mg 4-14 tablet by ity of tablet 00:00: mouth every 6 Medical (six) Branch hours as needed (high blood pressure (>150/90 after taking lisinopril )). cloNIDine 2020-0 Yes [id number] Take Univ ers 0.1 mg 4-14 hydralazin ity of tablet 00:00: e [facility],i fBP still>160/ 100 then take 1clonidine .Max 3aday, one Q8H if BP elevated despitetak inghydrala zine hydrALAZINE 2020-0 Yes [id number] 25mg Take 1 [facility] 25 mg 4-14 tablet by ity of tablet 00:00: mouth every 6 Medical (six) Branch hours as needed (high blood pressure (>150/90 after taking lisinopril )). cloNIDine 2020-0 Yes [id number] Take Univ ers 0.1 mg 4-14 hydralazin ity of tablet 00:00: e [facility],i fBP still>160/ 100 then take 1clonidine .Max 3aday, one Q8H if BP elevated despitetak inghydrala zine hydrALAZINE 2020-0 Yes [id number] 25mg Take 1 [facility] 25 mg 4-14 tablet by ity of tablet 00:00: mouth every 6 Medical (six) Branch hours as needed (high blood pressure (>150/90 after taking lisinopril )). cloNIDine 2020-0 Yes [id number] Take Univ ers 0.1 mg 4-14 hydralazin ity of tablet 00:00: e [facility],i fBP still>160/ 100 then take 1clonidine .Max 3aday, one Q8H if BP elevated despitetak inghydrala zine hydrALAZINE 2020-0 Yes [id number] 25mg Take 1 [facility] 25 mg 4-14 tablet by ity of tablet 00:00: mouth [place] 00 every 6 Medical (six) Branch hours as needed (high blood pressure (>150/90 after taking lisinopril )). cloNIDine 2020-0 Yes [id number] Take Univ ers 0.1 mg 4-14 hydralazin ity of tablet 00:00: e [place] 00 [facility],i fBP still>160/ 100 then take 1clonidine .Max 3aday, one Q8H if BP elevated despitetak inghydrala zine hydrALAZINE 2020-0 Yes [id number] 25mg Take 1 [facility] 25 mg 4-14 tablet by ity of tablet 00:00: mouth 00 every 6 Medical (six) Branch hours as needed (high blood pressure (>150/90 after taking lisinopril )). cloNIDine 2020-0 Yes [id number] Take Univ ers 0.1 mg 4-14 hydralazin ity of tablet 00:00: e [facility],i fBP still>160/ 100 then take 1clonidine .Max 3aday, one Q8H if BP elevated despitetak inghydrala zine hydrALAZINE 2020-0 Yes [id number] 25mg Take 1 [facility] 25 mg 4-14 tablet by ity of tablet 00:00: mouth [place] 00 every 6 Medical (six) Branch hours as needed (high blood pressure (>150/90 after taking lisinopril )). cloNIDine 2020-0 Yes [id number] Take Univ ers 0.1 mg 4-14 hydralazin ity of tablet 00:00: e 00 [facility],i fBP still>160/ 100 then take 1clonidine .Max 3aday, one Q8H if BP elevated despitetak inghydrala zine hydrALAZINE 2020-0 Yes [id number] 25mg Take 1 [facility] 25 mg 4-14 tablet by ity of tablet 00:00: mouth [place] 00 every 6 Medical (six) Branch hours as needed (high blood pressure (>150/90 after taking lisinopril )). cloNIDine 2019- Yes [id number] Take Univ ers 0.1 mg 4-14 hydralazin ity of tablet 00:00: e [place] 00 [facility],i fBP still>160/ 100 then take 1clonidine .Max 3aday, one Q8H if BP elevated despitetak inghydrala zine hydrALAZINE Yes [id number] 25mg Take 1 [facility] 25 mg 4-14 tablet by ity of tablet 00:00: mouth [place] 00 every 6 Medical (six) Branch hours as needed (high blood pressure (>150/90 after taking lisinopril )). cloNIDine 2019- Yes [id number] Take Univ ers 0.1 mg 4-14 hydralazin ity of tablet 00:00: e [place] 00 [facility],i fBP still>160/ 100 then take 1clonidine .Max 3aday, one Q8H if BP elevated despitetak inghydrala zine cloNIDine 2019-2020- No [id number] Take Uni vers 0.1 mg 4-14 06-24 hydralazin ity of tablet 00:00: 00:00 e [place] 00 :00 [facility],i fBP still>160/ 100 then take 1clonidine .Max 3aday, one Q8H if BP elevated despitetak inghydrala zine hydrALAZINE 2020- No [id number] 25mg Take 1 [facility] 25 mg 4-14 05-12 tablet by ity of tablet 00:00: 00:00 mouth [place] 00 :00 every 6 Medical (six) Branch hours as needed (high blood pressure (>150/90 after taking lisinopril )). hydrALAZINE 2019-2020- No [id number] 25mg Take 1 [facility] 25 mg 4-14 05-12 tablet by ity of tablet 00:00: 00:00 mouth [place] 00 :00 every 6 Medical (six) Branch hours as needed (high blood pressure (>150/90 after taking lisinopril )). amoxicillin 2019-0 Yes [id number] 1{tbl} Take 1 [facility] -clavulanat 4-07 tablet by ity of e 00:00: mouth 2 [place] (AUGMENTIN) 00 (two) Medical 875-125 mg times Branch per tablet daily. amoxicillin 2020-0 Yes [id number] 1{tbl} Take 1 [facility] -clavulanat 4-07 tablet by ity of e 00:00: mouth 2 [place] (AUGMENTIN) 00 (two) Medical 875-125 mg times Branch per tablet daily. amoxicillin 2020-0 Yes [id number] 1{tbl} Take 1 [facility] -clavulanat 4-07 tablet by ity of e 00:00: mouth 2 [place] (AUGMENTIN) 00 (two) Medical 875-125 mg times Branch per tablet daily. amoxicillin 2020-0 2020- No [id number] 1{tbl} Take 1 [facility] -clavulanat 4-07 05-07 tablet by it y of e 00:00: 00:00 mouth 2 [place] (AUGMENTIN) 00 :00 (two) Medical 875-125 mg times Branch per tablet daily. thiamine 2020-0 Yes Take by Univer s HCl 2-24 mouth. ity of (VITAMIN 22:15: [place] B-1 ORAL) 10 Medical Branch cyanocobala 2020-0 Yes Take by Uni vers min, 2-24 mouth. ity of vitamin 22:15: [place] B-12, 10 Medical (VITAMIN Branch B-12 ORAL) ascorbic 2020-0 Yes Take by Univer s acid 2-24 mouth. ity of (VITAMIN C 22:15: [place] ORAL) 10 Medical Branch ergocalcife 2020-0 Yes Take by Uni vers rol, 2-24 mouth. ity of vitamin D2, 22:15: [place] (VITAMIN D 10 Medical ORAL) Branch ferrous 2020-0 Yes Take by [facility] sulfate 2-24 mouth. ity of (IRON ORAL) 22:15: [place] 10 Medical Branch multivitami 2020-0 Yes Take by Uni vers n with 2-24 mouth. ity of minerals 22:15: [place] (HAIR,SKIN 10 Medical AND NAILS Branch ORAL) thiamine 2020-0 Yes Take by Univer s HCl 2-24 mouth. ity of (VITAMIN 22:15: [place] B-1 ORAL) 10 Medical Branch cyanocobala 2020-0 Yes Take by Uni vers min, 2-24 mouth. ity of vitamin 22:15: [place] B-12, 10 Medical (VITAMIN Branch B-12 ORAL) ascorbic 2020-0 Yes Take by Univer s acid 2-24 mouth. ity of (VITAMIN C 22:15: [place] ORAL) 10 Medical Branch ergocalcife 2020-0 Yes Take by Uni vers rol, 2-24 mouth. ity of vitamin D2, 22:15: [place] (VITAMIN D 10 Medical ORAL) Branch ferrous 2020-0 Yes Take by [facility] sulfate 2-24 mouth. ity of (IRON ORAL) 22:15: [place] 10 Medical Branch multivitami 2020-0 Yes Take by Uni vers n with 2-24 mouth. ity of minerals 22:15: [place] (HAIR,SKIN 10 Medical AND NAILS Branch ORAL) thiamine 2020-0 Yes Take by Univer s HCl 2-24 mouth. ity of (VITAMIN 22:15: [place] B-1 ORAL) 10 Medical Branch cyanocobala 2020-0 Yes Take by Uni vers min, 2-24 mouth. ity of vitamin 22:15: [place] B-12, 10 Medical (VITAMIN Branch B-12 ORAL) ascorbic 2020-0 Yes Take by Univer s acid 2-24 mouth. ity of (VITAMIN C 22:15: [place] ORAL) 10 Medical Branch ergocalcife 2020-0 Yes Take by Uni vers rol, 2-24 mouth. ity of vitamin D2, 22:15: [place] (VITAMIN D 10 Medical ORAL) Branch ferrous 2020-0 Yes Take by [facility] sulfate 2-24 mouth. ity of (IRON ORAL) 22:15: [place] 10 Medical Branch multivitami 2020-0 Yes Take by Uni vers n with 2-24 mouth. ity of minerals 22:15: [place] (HAIR,SKIN 10 Medical AND NAILS Branch ORAL) thiamine 2020-0 Yes Take by Univer s HCl 2-24 mouth. ity of (VITAMIN 22:15: [place] B-1 ORAL) 10 Medical Branch cyanocobala 2020-0 Yes Take by Uni vers min, 2-24 mouth. ity of vitamin 22:15: [place] B-12, 10 Medical (VITAMIN Branch B-12 ORAL) ascorbic 2020-0 Yes Take by Univer s acid 2-24 mouth. ity of (VITAMIN C 22:15: [place] ORAL) 10 Medical Branch ergocalcife 2020-0 Yes Take by Uni vers rol, 2-24 mouth. ity of vitamin D2, 22:15: [place] (VITAMIN D 10 Medical ORAL) Branch ferrous 2020-0 Yes Take by [facility] sulfate 2-24 mouth. ity of (IRON ORAL) 22:15: [place] 10 Medical Branch multivitami 2020-0 Yes Take by Uni vers n with 2-24 mouth. ity of minerals 22:15: [place] (HAIR,SKIN 10 Medical AND NAILS Branch ORAL) thiamine 2020-0 Yes Take by Univer s HCl 2-24 mouth. ity of (VITAMIN 22:15: [place] B-1 ORAL) 10 Medical Branch cyanocobala 2020-0 Yes Take by Uni vers min, 2-24 mouth. ity of vitamin 22:15: [place] B-12, 10 Medical (VITAMIN Branch B-12 ORAL) ascorbic 2020-0 Yes Take by Univer s acid 2-24 mouth. ity of (VITAMIN C 22:15: [place] ORAL) 10 Medical Branch ergocalcife 2020-0 Yes Take by Uni vers rol, 2-24 mouth. ity of vitamin D2, 22:15: [place] (VITAMIN D 10 Medical ORAL) Branch ferrous 2020-0 Yes Take by [facility] sulfate 2-24 mouth. ity of (IRON ORAL) 22:15: [place] [address] Medical Branch multivitami 2020-0 Yes Take by Uni vers n with 2-24 mouth. ity of minerals 22:15: [place] (HAIR,SKIN 10 Medical AND NAILS Branch ORAL) thiamine 2020-0 Yes Take by Univer s HCl 2-24 mouth. ity of (VITAMIN 22:15: [place] B-1 ORAL) 10 Medical Branch cyanocobala 2020-0 Yes Take by Uni vers min, 2-24 mouth. ity of vitamin 22:15: [place] B-12, 10 Medical (VITAMIN Branch B-12 ORAL) ascorbic 2020-0 Yes Take by Univer s acid 2-24 mouth. ity of (VITAMIN C 22:15: [place] ORAL) 10 Medical Branch ergocalcife 2020-0 Yes Take by Uni vers rol, 2-24 mouth. ity of vitamin D2, 22:15: [place] (VITAMIN D 10 Medical ORAL) Branch ferrous 2020-0 Yes Take by [facility] sulfate 2-24 mouth. ity of (IRON ORAL) 22:15: [place] [address] Medical Branch multivitami 2020-0 Yes Take by Uni vers n with 2-24 mouth. ity of minerals 22:15: [place] (HAIR,SKIN 10 Medical AND NAILS Branch ORAL) thiamine 2020-0 Yes Take by Univer s HCl 2-24 mouth. ity of (VITAMIN 22:15: [place] B-1 ORAL) 10 Medical Branch cyanocobala 2020-0 Yes Take by Uni vers min, 2-24 mouth. ity of vitamin 22:15: [place] B-12, 10 Medical (VITAMIN Branch B-12 ORAL) ascorbic 2020-0 Yes Take by Univer s acid 2-24 mouth. ity of (VITAMIN C 22:15: [place] ORAL) 10 Medical Branch ergocalcife 2020-0 Yes Take by Uni vers rol, 2-24 mouth. ity of vitamin D2, 22:15: [place] (VITAMIN D 10 Medical ORAL) Branch ferrous 2020-0 Yes Take by [facility] sulfate 2-24 mouth. ity of (IRON ORAL) 22:15: [place] 10 Medical Branch multivitami 2020-0 Yes Take by Uni vers n with 2-24 mouth. ity of minerals 22:15: [place] (HAIR,SKIN 10 Medical AND NAILS Branch ORAL) thiamine 2020-0 Yes Take by Univer s HCl 2-24 mouth. ity of (VITAMIN 22:15: [place] B-1 ORAL) 10 Medical Branch cyanocobala 2020-0 Yes Take by Uni vers min, 2-24 mouth. ity of vitamin 22:15: [place] B-12, 10 Medical (VITAMIN Branch B-12 ORAL) ascorbic 2020-0 Yes Take by Univer s acid 2-24 mouth. ity of (VITAMIN C 22:15: [place] ORAL) 10 Medical Branch ergocalcife 2020-0 Yes Take by Uni vers rol, 2-24 mouth. ity of vitamin D2, 22:15: [place] (VITAMIN D 10 Medical ORAL) Branch ferrous 2020-0 Yes Take by [facility] sulfate 2-24 mouth. ity of (IRON ORAL) 22:15: [place] 10 Medical Branch multivitami 2020-0 Yes Take by Uni vers n with 2-24 mouth. ity of minerals 22:15: [place] (HAIR,SKIN 10 Medical AND NAILS Branch ORAL) thiamine 2020-0 Yes Take by Univer s HCl 2-24 mouth. ity of (VITAMIN 22:15: [place] B-1 ORAL) 10 Medical Branch cyanocobala 2020-0 Yes Take by Uni vers min, 2-24 mouth. ity of vitamin 22:15: [place] B-12, 10 Medical (VITAMIN Branch B-12 ORAL) ascorbic 2020-0 Yes Take by Univer s acid 2-24 mouth. ity of (VITAMIN C 22:15: [place] ORAL) 10 Medical Branch ergocalcife 2020-0 Yes Take by Uni vers rol, 2-24 mouth. ity of vitamin D2, 22:15: [place] (VITAMIN D 10 Medical ORAL) Branch ferrous 2020-0 Yes Take by [facility] sulfate 2-24 mouth. ity of (IRON ORAL) 22:15: [place] 10 Medical Branch multivitami 2020-0 Yes Take by Uni vers n with 2-24 mouth. ity of minerals 22:15: [place] (HAIR,SKIN 10 Medical AND NAILS Branch ORAL) thiamine 2020-0 Yes Take by Univer s HCl 2-24 mouth. ity of (VITAMIN 22:15: [place] B-1 ORAL) 10 Medical Branch cyanocobala 2020-0 Yes Take by Uni vers min, 2-24 mouth. ity of vitamin 22:15: [place] B-12, 10 Medical (VITAMIN Branch B-12 ORAL) ascorbic 2020-0 Yes Take by Univer s acid 2-24 mouth. ity of (VITAMIN C 22:15: [place] ORAL) 10 Medical Branch ergocalcife 2020-0 Yes Take by Uni vers rol, 2-24 mouth. ity of vitamin D2, 22:15: [place] (VITAMIN D 10 Medical ORAL) Branch ferrous 2020-0 Yes Take by [facility] sulfate 2-24 mouth. ity of (IRON ORAL) 22:15: [place] 10 Medical Branch multivitami 2020-0 Yes Take by Uni vers n with 2-24 mouth. ity of minerals 22:15: [place] (HAIR,SKIN 10 Medical AND NAILS Branch ORAL) thiamine 2020-0 Yes Take by Univer s HCl 2-24 mouth. ity of (VITAMIN 22:15: [place] B-1 ORAL) 10 Medical Branch cyanocobala 2020-0 Yes Take by Uni vers min, 2-24 mouth. ity of vitamin 22:15: [place] B-12, 10 Medical (VITAMIN Branch B-12 ORAL) ascorbic 2020-0 Yes Take by Univer s acid 2-24 mouth. ity of (VITAMIN C 22:15: [place] ORAL) 10 Medical Branch ergocalcife 2020-0 Yes Take by Uni vers rol, 2-24 mouth. ity of vitamin D2, 22:15: [place] (VITAMIN D 10 Medical ORAL) Branch ferrous 2020-0 Yes Take by [facility] sulfate 2-24 mouth. ity of (IRON ORAL) 22:15: [place] 10 Medical Branch multivitami 2020-0 Yes Take by Uni vers n with 2-24 mouth. ity of minerals 22:15: [place] (HAIR,SKIN 10 Medical AND NAILS Branch ORAL) thiamine 2020-0 Yes Take by Unive rs HCl 2-24 mouth. ity of (VITAMIN 22:15: [place] B-1 ORAL) 10 Medical Branch cyanocobala 2020-0 Yes Take by Uni vers min, 2-24 mouth. ity of vitamin 22:15: [place] B-12, 10 Medical (VITAMIN Branch B-12 ORAL) ascorbic 2020-0 Yes Take by Univer s acid 2-24 mouth. ity of (VITAMIN C 22:15: [place] ORAL) 10 Medical Branch ergocalcife 2020-0 Yes Take by Uni vers rol, 2-24 mouth. ity of vitamin D2, 22:15: [place] (VITAMIN D 10 Medical ORAL) Branch ferrous 2020-0 Yes Take by [facility] sulfate 2-24 mouth. ity of (IRON ORAL) 22:15: [place] [address] Medical Branch multivitami 2020-0 Yes Take by Uni vers n with 2-24 mouth. ity of minerals 22:15: [place] (HAIR,SKIN 10 Medical AND NAILS Branch ORAL) thiamine 2020-0 Yes Take by Univer s HCl 2-24 mouth. ity of (VITAMIN 22:15: [place] B-1 ORAL) 10 Medical Branch cyanocobala 2020-0 Yes Take by Uni vers min, 2-24 mouth. ity of vitamin 22:15: [place] B-12, 10 Medical (VITAMIN Branch B-12 ORAL) ascorbic 2020-0 Yes Take by Univer s acid 2-24 mouth. ity of (VITAMIN C 22:15: [place] ORAL) 10 Medical Branch ergocalcife 2020-0 Yes Take by Uni vers rol, 2-24 mouth. ity of vitamin D2, 22:15: [place] (VITAMIN D 10 Medical ORAL) Branch ferrous 2020-0 Yes Take by [facility] sulfate 2-24 mouth. ity of (IRON ORAL) 22:15: [place] [address] Medical Branch multivitami 2020-0 Yes Take by Uni vers n with 2-24 mouth. ity of minerals 22:15: [place] (HAIR,SKIN 10 Medical AND NAILS Branch ORAL) thiamine 2020-0 Yes Take by Univer s HCl 2-24 mouth. ity of (VITAMIN 22:15: [place] B-1 ORAL) 10 Medical Branch cyanocobala 2020-0 Yes Take by Uni vers min, 2-24 mouth. ity of vitamin 22:15: [place] B-12, 10 Medical (VITAMIN Branch B-12 ORAL) ascorbic 2020-0 Yes Take by Univer s acid 2-24 mouth. ity of (VITAMIN C 22:15: [place] ORAL) 10 Medical Branch ergocalcife 2020-0 Yes Take by Uni vers rol, 2-24 mouth. ity of vitamin D2, 22:15: [place] (VITAMIN D 10 Medical ORAL) Branch ferrous 2020-0 Yes Take by [facility] sulfate 2-24 mouth. ity of (IRON ORAL) 22:15: [place] 10 Medical Branch multivitami 2020-0 Yes Take by Uni vers n with 2-24 mouth. ity of minerals 22:15: [place] (HAIR,SKIN 10 Medical AND NAILS Branch ORAL) levoFLOXaci 2020- No [id number] 500mg Take 1 Univers n 500 mg 2-24 03-17 tablet by ity o f tablet 00:00: 04:59 mouth [place] 00 :00 every 24 Medical (twenty-fo Branch ur) hours for 21 days. amoxicillin 2019- 2020- No [id number] 1{tbl} Take 1 [facility] -clavulanat 2-24 03-17 tablet by it y of e 00:00: 04:59 mouth 2 [place] (AUGMENTIN) 00 :00 (two) Medical 875-125 mg times Branch per tablet daily for 21 days. Only if you have a reaction to the levofloxac in. levoFLOXaci 2020- No [id number] 500mg Take 1 Univers n 500 mg 2-24 03-17 tablet by ity o f tablet 00:00: 04:59 mouth [place] 00 :00 every 24 Medical (twenty-fo Branch ur) hours for 21 days. amoxicillin 2019-0 2020- No [id number] 1{tbl} Take 1 [facility] -clavulanat 2-24 03-17 tablet by it y of e 00:00: 04:59 mouth 2 [place] (AUGMENTIN) 00 :00 (two) Medical 875-125 mg times Branch per tablet daily for 21 days. Only if you have a reaction to the levofloxac in. levoFLOXaci 2019- 2020- No [id number] 500mg Take 1 [facility] n 500 mg 2-24 03-17 tablet by ity o f tablet 00:00: 04:59 mouth [place] 00 :00 every 24 Medical (twenty- Branch ur) hours for 21 days. amoxicillin 2020-0 2020- No [id number] 1{tbl} Take 1 [facility] -clavulanat 2-24 03-17 tablet by it y of e 00:00: 04:59 mouth 2 [place] (AUGMENTIN) 00 :00 (two) Medical 875-125 mg times Branch per tablet daily for 21 days. Only if you have a reaction to the levofloxac in. levoFLOXaci 2020-0 2020- No [id number] 500mg Take 1 Univers n 500 mg 2-24 03-17 tablet by ity o f tablet 00:00: 04:59 mouth [place] 00 :00 every 24 Medical ([facility] ur) hours for 21 days. amoxicillin 2020-0 2020- No [id number] 1{tbl} Take 1 [facility] -clavulanat 2-24 03-17 tablet by it y of e 00:00: 04:59 mouth 2 [place] (AUGMENTIN) 00 :00 (two) Medical 875-125 mg times Branch per tablet daily for 21 days. Only if you have a reaction to the levofloxac in. levoFLOXaci 2020-0 2020- No [id number] 500mg Take 1 Univers n 500 mg 2-24 03-17 tablet by ity o f tablet 00:00: 04:59 mouth [place] 00 :00 every 24 Medical ([facility] Branch ur) hours for 21 days. amoxicillin 2020-0 2020- No [id number] 1{tbl} Take 1 [facility] -clavulanat 2-24 03-17 tablet by it y of e 00:00: 04:59 mouth 2 [place] (AUGMENTIN) 00 :00 (two) Medical 875-125 mg times Branch per tablet daily for 21 days. Only if you have a reaction to the levofloxac in. levoFLOXaci 2020-0 2020- No [id number] 500mg Take 1 Univers n 500 mg 2-24 03-17 tablet by ity o f tablet 00:00: 04:59 mouth [place] 00 :00 every 24 Medical (twenty- Branch ur) hours for 21 days. amoxicillin 2020-0 2020- No [id number] 1{tbl} Take 1 [facility] -clavulanat 2-24 03-17 tablet by it y of e 00:00: 04:59 mouth 2 [place] (AUGMENTIN) 00 :00 (two) Medical 875-125 mg times Branch per tablet daily for 21 days. Only if you have a reaction to the levofloxac in. levoFLOXaci 2020-0 2020- No [id number] 500mg Take 1 Univers n 500 mg 2-10 10-17 tablet by ity o f tablet 00:00: 04:59 mouth [place] 00 :00 every 24 Medical (twenty-fo Branch ur) hours for 21 days. amoxicillin 2020-0 2020- No [id number] 1{tbl} Take 1 [facility] -clavulanat -10 10-17 tablet by it y of e 00:00: 04:59 mouth 2 [place] (AUGMENTIN) 00 :00 (two) Medical 875-125 mg times Branch per tablet daily for 21 days. Only if you have a reaction to the levofloxac in. levoFLOXaci 2020-0 2020- No [id number] 500mg Take 1 Univers n 500 mg -10 10- tablet by ity o f tablet 00:00: 04:59 mouth [place] 00 :00 every 24 Medical (twenty-fo Branch ur) hours for 21 days. amoxicillin 2020-0 2020- No [id number] 1{tbl} Take 1 [facility] -clavulanat -10 10-17 tablet by it y of e 00:00: 04:59 mouth 2 [place] (AUGMENTIN) 00 :00 (two) Medical 875-125 mg times Branch per tablet daily for 21 days. Only if you have a reaction to the levofloxac in. ergocalcife 2020-0 Yes [id number] Take 1 [facility] rol, 2-09 capsule by ity of vitamin d2, 00:00: mouth [place] (VITAMIN 00 weekly. Medical D2) 1,250 Branch mcg (50,000 unit) capsule ergocalcife 2020-0 Yes [id number] Take 1 [facility] rol, 2-09 capsule by ity of vitamin d2, 00:00: mouth [place] (VITAMIN 00 weekly. Medical D2) 1,250 Branch mcg (50,000 unit) capsule ergocalcife 2020-0 Yes [id number] Take 1 [facility] rol, 2-09 capsule by ity of vitamin d2, 00:00: mouth [place] (VITAMIN 00 weekly. Medical D2) 1,250 Branch mcg (50,000 unit) capsule ergocalcife 2020-0 Yes [id number] Take 1 [facility] rol, 2-09 capsule by ity of vitamin d2, 00:00: mouth [place] (VITAMIN 00 weekly. Medical D2) 1,250 Branch mcg (50,000 unit) capsule ergocalcife 2020-0 Yes [id number] Take 1 [facility] rol, 2-09 capsule by ity of vitamin d2, 00:00: mouth [place] (VITAMIN 00 weekly. Medical D2) 1,250 Branch mcg (50,000 unit) capsule ergocalcife 2020-0 Yes [id number] Take 1 [facility] rol, 2-09 capsule by ity of vitamin d2, 00:00: mouth [place] (VITAMIN 00 weekly. Medical D2) 1,250 Branch mcg (50,000 unit) capsule ergocalcife 2020-0 Yes [id number] Take 1 [facility] rol, 2-09 capsule by ity of vitamin d2, 00:00: mouth [place] (VITAMIN 00 weekly. Medical D2) 1,250 Branch mcg (50,000 unit) capsule ergocalcife 2020-0 Yes [id number] Take 1 [facility] rol, 2-09 capsule by ity of vitamin d2, 00:00: mouth [place] (VITAMIN 00 weekly. Medical D2) 1,250 Branch mcg (50,000 unit) capsule ergocalcife 2020-0 Yes [id number] Take 1 [facility] rol, 2-09 capsule by ity of vitamin d2, 00:00: mouth [place] (VITAMIN 00 weekly. Medical D2) 1,250 Branch mcg (50,000 unit) capsule ergocalcife 2020-0 Yes [id number] Take 1 [facility] rol, 2-09 capsule by ity of vitamin d2, 00:00: mouth [place] (VITAMIN 00 weekly. Medical D2) 1,250 Branch mcg (50,000 unit) capsule ergocalcife 2020-0 Yes [id number] Take 1 [facility] rol, 2-09 capsule by ity of vitamin d2, 00:00: mouth [place] (VITAMIN 00 weekly. Medical D2) 1,250 Branch mcg (50,000 unit) capsule ergocalcife 2020-0 Yes [id number] Take 1 [facility] rol, 2-09 capsule by ity of vitamin d2, 00:00: mouth [place] (VITAMIN 00 weekly. Medical D2) 1,250 Branch mcg (50,000 unit) capsule ergocalcife 2020-0 Yes [id number] Take 1 [facility] rol, 2-09 capsule by ity of vitamin d2, 00:00: mouth [place] (VITAMIN 00 weekly. Medical D2) 1,250 Branch mcg (50,000 unit) capsule ergocalcife 2020-0 Yes [id number] Take 1 [facility] rol, 2-09 capsule by ity of vitamin d2, 00:00: mouth [place] (VITAMIN 00 weekly. Medical D2) 1,250 Branch mcg (50,000 unit) capsule ergocalcife 2020-0 Yes [id number] Take 1 [facility] rol, 2-09 capsule by ity of vitamin d2, 00:00: mouth [place] (VITAMIN 00 weekly. Medical D2) 1,250 Branch mcg (50,000 unit) capsule ergocalcife 2020-0 Yes [id number] Take 1 [facility] rol, 2-09 capsule by ity of vitamin d2, 00:00: mouth [place] (VITAMIN 00 weekly. Medical D2) 1,250 Branch mcg (50,000 unit) capsule ergocalcife 2020-0 Yes [id number] Take 1 [facility] rol, 2-09 capsule by ity of vitamin d2, 00:00: mouth [place] (VITAMIN 00 weekly. Medical D2) 1,250 Branch mcg (50,000 unit) capsule ergocalcife 2020-0 Yes [id number] Take 1 [facility] rol, 2-09 capsule by ity of vitamin d2, 00:00: mouth [place] (VITAMIN 00 weekly. Medical D2) 1,250 Branch mcg (50,000 unit) capsule ergocalcife 2020-0 Yes [id number] Take 1 [facility] rol, 2-09 capsule by ity of vitamin d2, 00:00: mouth [place] (VITAMIN 00 weekly. Medical D2) 1,250 Branch mcg (50,000 unit) capsule ergocalcife 2020-0 Yes [id number] Take 1 [facility] rol, 2-09 capsule by ity of vitamin d2, 00:00: mouth [place] (VITAMIN 00 weekly. Medical D2) 1,250 Branch mcg (50,000 unit) capsule ergocalcife 2020-0 Yes [id number] Take 1 [facility] rol, 2-09 capsule by ity of vitamin d2, 00:00: mouth [place] (VITAMIN 00 weekly. Medical D2) 1,250 Branch mcg (50,000 unit) capsule ergocalcife 2020-0 Yes [id number] Take 1 [facility] rol, 2-09 capsule by ity of vitamin d2, 00:00: mouth [place] (VITAMIN 00 weekly. Medical D2) 1,250 Branch mcg (50,000 unit) capsule ergocalcife 2020-0 Yes [id number] Take 1 [facility] rol, 2-09 capsule by ity of vitamin d2, 00:00: mouth [place] (VITAMIN 00 weekly. Medical D2) 1,250 Branch mcg (50,000 unit) capsule ergocalcife 2020-0 Yes [id number] Take 1 [facility] rol, 2-09 capsule by ity of vitamin d2, 00:00: mouth [place] (VITAMIN 00 weekly. Medical D2) 1,250 Branch mcg (50,000 unit) capsule ergocalcife 2020-0 Yes [id number] Take 1 [facility] rol, 2-09 capsule by ity of vitamin d2, 00:00: mouth [place] (VITAMIN 00 weekly. Medical D2) 1,250 Branch mcg (50,000 unit) capsule ergocalcife 2020-0 Yes [id number] Take 1 [facility] rol, 2-09 capsule by ity of vitamin d2, 00:00: mouth [place] (VITAMIN 00 weekly. Medical D2) 1,250 Branch mcg (50,000 unit) capsule ergocalcife 2020-0 Yes [id number] Take 1 [facility] rol, 2-09 capsule by ity of vitamin d2, 00:00: mouth [place] (VITAMIN 00 weekly. Medical D2) 1,250 Branch mcg (50,000 unit) capsule ergocalcife 2020-0 Yes [id number] Take 1 [facility] rol, 2-09 capsule by ity of vitamin d2, 00:00: mouth [place] (VITAMIN 00 weekly. Medical D2) 1,250 Branch mcg (50,000 unit) capsule ergocalcife 2020-0 Yes [id number] Take 1 [facility] rol, 2-09 capsule by ity of vitamin d2, 00:00: mouth [place] (VITAMIN 00 weekly. Medical D2) 1,250 Branch mcg (50,000 unit) capsule ergocalcife 2020-0 Yes [id number] Take 1 [facility] rol, 2-09 capsule by ity of vitamin d2, 00:00: mouth [place] (VITAMIN 00 weekly. Medical D2) 1,250 Branch mcg (50,000 unit) capsule ergocalcife 2020-0 Yes [id number] Take 1 [facility] rol, 2-09 capsule by ity of vitamin d2, 00:00: mouth [place] (VITAMIN 00 weekly. Medical D2) 1,250 Branch mcg (50,000 unit) capsule ergocalcife 2020-0 Yes [id number] Take 1 [facility] rol, 2-09 capsule by ity of vitamin d2, 00:00: mouth [place] (VITAMIN 00 weekly. Medical D2) 1,250 Branch mcg (50,000 unit) capsule ergocalcife 2020-0 Yes [id number] Take 1 [facility] rol, 2-09 capsule by ity of vitamin d2, 00:00: mouth [place] (VITAMIN 00 weekly. Medical D2) 1,250 Branch mcg (50,000 unit) capsule ergocalcife 2020-0 Yes [id number] Take 1 [facility] rol, 2-09 capsule by ity of vitamin d2, 00:00: mouth [place] (VITAMIN 00 weekly. Medical D2) 1,250 Branch mcg (50,000 unit) capsule ergocalcife 2020-0 Yes [id number] Take 1 [facility] rol, 2-09 capsule by ity of vitamin d2, 00:00: mouth [place] (VITAMIN 00 weekly. Medical D2) 1,250 Branch mcg (50,000 unit) capsule ergocalcife 2020-0 Yes [id number] Take 1 [facility] rol, 2-09 capsule by ity of vitamin d2, 00:00: mouth [place] (VITAMIN 00 weekly. Medical D2) 1,250 Branch mcg (50,000 unit) capsule ergocalcife 2020-0 Yes [id number] Take 1 [facility] rol, 2-09 capsule by ity of vitamin d2, 00:00: mouth [place] (VITAMIN 00 weekly. Medical D2) 1,250 Branch mcg (50,000 unit) capsule ergocalcife 2020-0 Yes [id number] Take 1 [facility] rol, 2-09 capsule by ity of vitamin d2, 00:00: mouth [place] (VITAMIN 00 weekly. Medical D2) 1,250 Branch mcg (50,000 unit) capsule ergocalcife 2020-0 Yes [id number] Take 1 [facility] rol, 2-09 capsule by ity of vitamin d2, 00:00: mouth [place] (VITAMIN 00 weekly. Medical D2) 1,250 Branch mcg (50,000 unit) capsule ergocalcife 2020-0 Yes [id number] Take 1 [facility] rol, 2-09 capsule by ity of vitamin d2, 00:00: mouth [place] (VITAMIN 00 weekly. Medical D2) 1,250 Branch mcg (50,000 unit) capsule ergocalcife 2020-0 Yes [id number] Take 1 [facility] rol, 2-09 capsule by ity of vitamin d2, 00:00: mouth [place] (VITAMIN 00 weekly. Medical D2) 1,250 Branch mcg (50,000 unit) capsule ergocalcife 2020-0 Yes [id number] Take 1 [facility] rol, 2-09 capsule by ity of vitamin d2, 00:00: mouth [place] (VITAMIN 00 weekly. Medical D2) 1,250 Branch mcg (50,000 unit) capsule ergocalcife 2020-0 Yes [id number] Take 1 [facility], 2-09 capsule by ity of vitamin d2, 00:00: mouth [place] (VITAMIN 00 weekly. Medical D2) 1,250 Branch mcg (50,000 unit) capsule ergocalcife 2020-0 Yes [id number] Take 1 [facility], 2-09 capsule by ity of vitamin d2, 00:00: mouth [place] (VITAMIN 00 weekly. Medical D2) 1,250 Branch mcg (50,000 unit) capsule ergocalcife 2020-0 Yes [id number] Take 1 [facility], 2-09 capsule by ity of vitamin d2, 00:00: mouth [place] (VITAMIN 00 weekly. Medical D2) 1,250 Branch mcg (50,000 unit) capsule ergocalcife 2020-0 Yes [id number] Take 1 [facility], 2-09 capsule by ity of vitamin d2, 00:00: mouth [place] (VITAMIN 00 weekly. Medical D2) 1,250 Branch mcg (50,000 unit) capsule ergocalcife 2020-0 Yes [id number] Take 1 [facility], 2-09 capsule by ity of vitamin d2, 00:00: mouth [place] (VITAMIN 00 weekly. Medical D2) 1,250 Branch mcg (50,000 unit) capsule ergocalcife 2020-0 Yes [id number] Take 1 [facility], 2-09 capsule by ity of vitamin d2, 00:00: mouth [place] (VITAMIN 00 weekly. Medical D2) 1,250 Branch mcg (50,000 unit) capsule ergocalcife 2020-0 Yes [id number] Take 1 [facility], 2-09 capsule by ity of vitamin d2, 00:00: mouth [place] (VITAMIN 00 weekly. Medical D2) 1,250 Branch mcg (50,000 unit) capsule ergocalcife 2020-0 Yes [id number] Take 1 [facility], 2-09 capsule by ity of vitamin d2, 00:00: mouth [place] (VITAMIN 00 weekly. Medical D2) 1,250 Branch mcg (50,000 unit) capsule ergocalcife 2020-0 Yes [id number] Take 1 [facility] ro[facility], 2-09 capsule by ity of vitamin d2, 00:00: mouth [place] (VITAMIN 00 weekly. Medical D2) 1,250 Branch mcg (50,000 unit) capsule ergocalcife 2020-0 Yes [id number] Take 1 [facility], 2-09 capsule by ity of vitamin d2, 00:00: mouth [place] (VITAMIN 00 weekly. Medical D2) 1,250 Branch mcg (50,000 unit) capsule ergocalcife 2020-0 Yes [id number] Take 1 [facility], 2-09 capsule by ity of vitamin d2, 00:00: mouth [place] (VITAMIN 00 weekly. Medical D2) 1,250 Branch mcg (50,000 unit) capsule ergocalcife 2020-0 Yes [id number] Take 1 [facility], 2-09 capsule by ity of vitamin d2, 00:00: mouth [place] (VITAMIN 00 weekly. Medical D2) 1,250 Branch mcg (50,000 unit) capsule ergocalcife 2020-0 Yes [id number] Take 1 [facility], 2-09 capsule by ity of vitamin d2, 00:00: mouth [place] (VITAMIN 00 weekly. Medical D2) 1,250 Branch mcg (50,000 unit) capsule ergocalcife 2020-0 Yes [id number] Take 1 [facility], 2-09 capsule by ity of vitamin d2, 00:00: mouth [place] (VITAMIN 00 weekly. Medical D2) 1,250 Branch mcg (50,000 unit) capsule ergocalcife 2020-0 Yes [id number] Take 1 [facility], 2-09 capsule by ity of vitamin d2, 00:00: mouth [place] (VITAMIN 00 weekly. Medical D2) 1,250 Branch mcg (50,000 unit) capsule ergocalcife 2020-0 Yes [id number] Take 1 [facility] ro[facility], 2-09 capsule by ity of vitamin d2, 00:00: mouth [place] (VITAMIN 00 weekly. Medical D2) 1,250 Branch mcg (50,000 unit) capsule ergocalcife 2020-0 Yes [id number] Take 1 [facility], 2-09 capsule by ity of vitamin d2, 00:00: mouth [place] (VITAMIN 00 weekly. Medical D2) 1,250 Branch mcg (50,000 unit) capsule ergocalcife 2020-0 Yes [id number] Take 1 [facility], 2-09 capsule by ity of vitamin d2, 00:00: mouth [place] (VITAMIN 00 weekly. Medical D2) 1,250 Branch mcg (50,000 unit) capsule ergocalcife 2020-0 Yes [id number] Take 1 [facility] ro[facility], 2-09 capsule by ity of vitamin d2, 00:00: mouth [place] (VITAMIN 00 weekly. Medical D2) 1,250 Branch mcg (50,000 unit) capsule ergocalcife 2020-0 Yes [id number] Take 1 [facility], 2-09 capsule by ity of vitamin d2, 00:00: mouth [place] (VITAMIN 00 weekly. Medical D2) 1,250 Branch mcg (50,000 unit) capsule ergocalcife 2020-0 Yes [id number] Take 1 [facility] ro[facility], 2-09 capsule by ity of vitamin d2, 00:00: mouth [place] (VITAMIN 00 weekly. Medical D2) 1,250 Branch mcg (50,000 unit) capsule ergocalcife 2020-0 Yes [id number] Take 1 [facility] ro[facility], 2-09 capsule by ity of vitamin d2, 00:00: mouth [place] (VITAMIN 00 weekly. Medical D2) 1,250 Branch mcg (50,000 unit) capsule ergocalcife 2020-0 Yes [id number] Take 1 [facility] ro[facility], 2-09 capsule by ity of vitamin d2, 00:00: mouth [place] (VITAMIN 00 weekly. Medical D2) 1,250 Branch mcg (50,000 unit) capsule ergocalcife 2020-0 Yes [id number] Take 1 [facility] ro[facility], 2-09 capsule by ity of vitamin d2, 00:00: mouth [place] (VITAMIN 00 weekly. Medical D2) 1,250 Branch mcg (50,000 unit) capsule ergocalcife 2020-0 Yes [id number] Take 1 [facility] ro[facility], 2-09 capsule by ity of vitamin d2, 00:00: mouth [place] (VITAMIN 00 weekly. Medical D2) 1,250 Branch mcg (50,000 unit) capsule ergocalcife 2020-0 Yes [id number] Take 1 [facility] ro[facility], 2-09 capsule by ity of vitamin d2, 00:00: mouth [place] (VITAMIN 00 weekly. Medical D2) 1,250 Branch mcg (50,000 unit) capsule ergocalcife 2020-0 Yes [id number] Take 1 [facility], 2-09 capsule by ity of vitamin d2, 00:00: mouth [place] (VITAMIN 00 weekly. Medical D2) 1,250 Branch mcg (50,000 unit) capsule ergocalcife 2020-0 Yes [id number] Take 1 [facility] ro[facility], 2-09 capsule by ity of vitamin d2, 00:00: mouth [place] (VITAMIN 00 weekly. Medical D2) 1,250 Branch mcg (50,000 unit) capsule ergocalcife 2020-0 Yes [id number] Take 1 [facility], 2-09 capsule by ity of vitamin d2, 00:00: mouth [place] (VITAMIN 00 weekly. Medical D2) 1,250 Branch mcg (50,000 unit) capsule ergocalcife 2020-0 Yes [id number] Take 1 [facility] ro[facility], 2-09 capsule by ity of vitamin d2, 00:00: mouth [place] (VITAMIN 00 weekly. Medical D2) 1,250 Branch mcg (50,000 unit) capsule ergocalcife 2020-0 Yes [id number] Take 1 [facility] ro[facility], 2-09 capsule by ity of vitamin d2, 00:00: mouth [place] (VITAMIN 00 weekly. Medical D2) 1,250 Branch mcg (50,000 unit) capsule ergocalcife 2020-0 Yes [id number] Take 1 [facility] ro[facility], 2-09 capsule by ity of vitamin d2, 00:00: mouth [place] (VITAMIN 00 weekly. Medical D2) 1,250 Branch mcg (50,000 unit) capsule ergocalcife 2020-0 Yes [id number] Take 1 [facility] rol, 2-09 capsule by ity of vitamin d2, 00:00: mouth [place] (VITAMIN 00 weekly. Medical D2) 1,250 Branch mcg (50,000 unit) capsule ergocalcife 2020-0 Yes [id number] Take 1 [facility] ro[facility], 2-09 capsule by ity of vitamin d2, 00:00: mouth [place] (VITAMIN 00 weekly. Medical D2) 1,250 Branch mcg (50,000 unit) capsule ergocalcife 2020-0 Yes [id number] Take 1 [facility] rol, 2-09 capsule by ity of vitamin d2, 00:00: mouth [place] (VITAMIN 00 weekly. Medical D2) 1,250 Branch mcg (50,000 unit) capsule ergocalcife 2020-0 Yes [id number] Take 1 [facility] ro[facility], 2-09 capsule by ity of vitamin d2, 00:00: mouth [place] (VITAMIN 00 weekly. Medical D2) 1,250 Branch mcg (50,000 unit) capsule ergocalcife 2020-0 Yes [id number] Take 1 [facility], 2-09 capsule by ity of vitamin d2, 00:00: mouth [place] (VITAMIN 00 weekly. Medical D2) 1,250 Branch mcg (50,000 unit) capsule ergocalcife 2020-0 Yes [id number] Take 1 [facility] ro[facility], 2-09 capsule by ity of vitamin d2, 00:00: mouth [place] (VITAMIN 00 weekly. Medical D2) 1,250 Branch mcg (50,000 unit) capsule ergocalcife 2020-0 Yes [id number] Take 1 [facility] rol, 2-09 capsule by ity of vitamin d2, 00:00: mouth [place] (VITAMIN 00 weekly. Medical D2) 1,250 Branch mcg (50,000 unit) capsule ergocalcife 2020-0 Yes [id number] Take 1 [facility] ro[facility], 2-09 capsule by ity of vitamin d2, 00:00: mouth [place] (VITAMIN 00 weekly. Medical D2) 1,250 Branch mcg (50,000 unit) capsule ergocalcife 2020-0 Yes [id number] Take 1 [facility] ro[facility], 2-09 capsule by ity of vitamin d2, 00:00: mouth [place] (VITAMIN 00 weekly. Medical D2) 1,250 Branch mcg (50,000 unit) capsule ergocalcife 2020-0 Yes [id number] Take 1 [facility] rol, 2-09 capsule by ity of vitamin d2, 00:00: mouth [place] (VITAMIN 00 weekly. Medical D2) 1,250 Branch mcg (50,000 unit) capsule ergocalcife 2020-0 Yes [id number] Take 1 [facility] rol, 2-09 capsule by ity of vitamin d2, 00:00: mouth [place] (VITAMIN 00 weekly. Medical D2) 1,250 Branch mcg (50,000 unit) capsule thiamine 2020-0 Yes Take by [facility] HCl 2-05 mouth. ity of (VITAMIN 00:35: [place] B-1 ORAL) 51 Medical Branch cyanocobala 2020-0 Yes Take by [facility] vers min, 2-05 mouth. ity of vitamin 00:35: [place] B-12, 51 Medical (VITAMIN Branch B-12 ORAL) ascorbic 2020-0 Yes Take by [facility] acid 2-05 mouth. ity of (VITAMIN C 00:35: [place] ORAL) 51 Medical Branch ergocalcife 2020-0 Yes Take by [facility] vers rol, 2-05 mouth. ity of vitamin D2, 00:35: [place] (VITAMIN D 51 Medical ORAL) Branch ferrous 2020-0 Yes Take by [facility] sulfate 2-05 mouth. ity of (IRON ORAL) 00:35: [place] 51 Medical Branch multivitami 2020-0 Yes Take by [facility] vers n with 2-05 mouth. ity of minerals 00:35: [place] (HAIR,SKIN 51 Medical AND NAILS Branch ORAL) thiamine 2020-0 Yes Take by [facility] HCl 2-05 mouth. ity of (VITAMIN 00:35: [place] B-1 ORAL) 51 Medical Branch cyanocobala 2020-0 Yes Take by [facility] min, 2-05 mouth. ity of vitamin 00:35: [place] B-12, 51 Medical (VITAMIN Branch B-12 ORAL) ascorbic 2020-0 Yes Take by [facility] acid 2-05 mouth. ity of (VITAMIN C 00:35: [place] ORAL) 51 Medical Branch ergocalcife 2020-0 Yes Take by [facility] vers rol, 2-05 mouth. ity of vitamin D2, 00:35: [place] (VITAMIN D 51 Medical ORAL) Branch ferrous 2020-0 Yes Take by [facility] sulfate 2-05 mouth. ity of (IRON ORAL) 00:35: [place] 51 Medical Branch multivitami 2020-0 Yes Take by [facility] vers n with 2-05 mouth. ity of minerals 00:35: [place] (HAIR,SKIN 51 Medical AND NAILS Branch ORAL) thiamine 2020-0 Yes Take by [facility] HCl 2-05 mouth. ity of (VITAMIN 00:35: [place] B-1 ORAL) 51 Medical Branch cyanocobala 2020-0 Yes Take by [facility] min, 2-05 mouth. ity of vitamin 00:35: [place] B-12, 51 Medical (VITAMIN Branch B-12 ORAL) ascorbic 2020-0 Yes Take by [facility] acid 2-05 mouth. ity of (VITAMIN C 00:35: [place] ORAL) 51 Medical Branch ergocalcife 2020-0 Yes Take by [facility] vers rol, 2-05 mouth. ity of vitamin D2, 00:35: [place] (VITAMIN D 51 Medical ORAL) Branch ferrous 2020-0 Yes Take by [facility] sulfate 2-05 mouth. ity of (IRON ORAL) 00:35: [place] 51 Medical Branch multivitami 2020-0 Yes Take by [facility] vers n with 2-05 mouth. ity of minerals 00:35: [place] (HAIR,SKIN 51 Medical AND NAILS Branch ORAL) thiamine 2020-0 Yes Take by [facility] HCl 2-05 mouth. ity of (VITAMIN 00:35: [place] B-1 ORAL) 51 Medical Branch cyanocobala 2020-0 Yes Take by [facility] min, 2-05 mouth. ity of vitamin 00:35: [place] B-12, 51 Medical (VITAMIN Branch B-12 ORAL) ascorbic 2020-0 Yes Take by [facility] acid 2-05 mouth. ity of (VITAMIN C 00:35: [place] ORAL) 51 Medical Branch ergocalcife 2020-0 Yes Take by [facility] vers rol, 2-05 mouth. ity of vitamin D2, 00:35: [place] (VITAMIN D 51 Medical ORAL) Branch ferrous 2020-0 Yes Take by [facility] sulfate 2-05 mouth. ity of (IRON ORAL) 00:35: [place] 51 Medical Branch multivitami 2020-0 Yes Take by [facility] vers n with 2-05 mouth. ity of minerals 00:35: [place] (HAIR,SKIN 51 Medical AND NAILS Branch ORAL) thiamine 2020-0 Yes Take by [facility] HCl 2-05 mouth. ity of (VITAMIN 00:35: [place] B-1 ORAL) 51 Medical Branch cyanocobala 2020-0 Yes Take by [facility] vers min, 2-05 mouth. ity of vitamin 00:35: [place] B-12, 51 Medical (VITAMIN Branch B-12 ORAL) ascorbic 2020-0 Yes Take by [facility] acid 2-05 mouth. ity of (VITAMIN C 00:35: [place] ORAL) 51 Medical Branch ergocalcife 2020-0 Yes Take by [facility] vers rol, 2-05 mouth. ity of vitamin D2, 00:35: [place] (VITAMIN D 51 Medical ORAL) Branch ferrous 2020-0 Yes Take by [facility] sulfate 2-05 mouth. ity of (IRON ORAL) 00:35: [place] 51 Medical Branch multivitami 2020-0 Yes Take by [facility] vers n with 2-05 mouth. ity of minerals 00:35: [place] (HAIR,SKIN 51 Medical AND NAILS Branch ORAL) thiamine 2020-0 Yes Take by [facility] HCl 2-05 mouth. ity of (VITAMIN 00:35: [place] B-1 ORAL) 51 Medical Branch cyanocobala 2020-0 Yes Take by [facility] vers min, 2-05 mouth. ity of vitamin 00:35: [place] B-12, 51 Medical (VITAMIN Branch B-12 ORAL) ascorbic 2020-0 Yes Take by [facility] acid 2-05 mouth. ity of (VITAMIN C 00:35: [place] ORAL) 51 Medical Branch ergocalcife 2020-0 Yes Take by [facility] vers rol, 2-05 mouth. ity of vitamin D2, 00:35: [place] (VITAMIN D 51 Medical ORAL) Branch ferrous 2020-0 Yes Take by [facility] sulfate 2-05 mouth. ity of (IRON ORAL) 00:35: [place] 51 Medical Branch multivitami 2020-0 Yes Take by [facility] vers n with 2-05 mouth. ity of minerals 00:35: [place] (HAIR,SKIN 51 Medical AND NAILS Branch ORAL) thiamine 2020-0 Yes Take by [facility] HCl 2-05 mouth. ity of (VITAMIN 00:35: [place] B-1 ORAL) 51 Medical Branch cyanocobala 2020-0 Yes Take by [facility] vers min, 2-05 mouth. ity of vitamin 00:35: [place] B-12, 51 Medical (VITAMIN Branch B-12 ORAL) ascorbic 2020-0 Yes Take by [facility] acid 2-05 mouth. ity of (VITAMIN C 00:35: [place] ORAL) 51 Medical Branch ergocalcife 2020-0 Yes Take by [facility] vers rol, 2-05 mouth. ity of vitamin D2, 00:35: [place] (VITAMIN D 51 Medical ORAL) Branch ferrous 2020-0 Yes Take by [facility] sulfate 2-05 mouth. ity of (IRON ORAL) 00:35: [place] 51 Medical Branch multivitami 2020-0 Yes Take by [facility] vers n with 2-05 mouth. ity of minerals 00:35: [place] (HAIR,SKIN 51 Medical AND NAILS Branch ORAL) thiamine 2020-0 Yes Take by [facility] HCl 2-05 mouth. ity of (VITAMIN 00:35: [place] B-1 ORAL) 51 Medical Branch cyanocobala 2020-0 Yes Take by [facility] vers min, 2-05 mouth. ity of vitamin 00:35: [place] B-12, 51 Medical (VITAMIN Branch B-12 ORAL) ascorbic 2020-0 Yes Take by [facility] acid 2-05 mouth. ity of (VITAMIN C 00:35: [place] ORAL) 51 Medical Branch ergocalcife 2020-0 Yes Take by [facility] vers rol, 2-05 mouth. ity of vitamin D2, 00:35: [place] (VITAMIN D 51 Medical ORAL) Branch ferrous 2020-0 Yes Take by [facility] sulfate 2-05 mouth. ity of (IRON ORAL) 00:35: [place] [address] Medical Branch multivitami 2020-0 Yes Take by [facility] vers n with 2-05 mouth. ity of minerals 00:35: [place] (HAIR,SKIN 51 Medical AND NAILS Branch ORAL) gabapentin 2020-0 Yes 300mg Take 300 [facility] [place] 300 mg 2-03 mg by ity of capsule 15:45: mouth 3 [place] [address] (three) Medical times Branch daily. Hydrocodone 2020-0 Yes Take by [facility] vers -Acetaminop 2-03 mouth 3 ity o f hen 15:45: (three) [place] (VICODIN) 11 times Medical 5-300 mg daily. Branch tablet gabapentin 2020-0 Yes 300mg Take 300 [facility] [place] 300 mg 2-03 mg by ity of capsule 15:45: mouth 3 [place] 11 (three) Medical times Branch daily. Hydrocodone 2020-0 Yes Take by [facility] vers -Acetaminop 2-03 mouth 3 ity o f hen 15:45: (three) [place] (VICODIN) 11 times Medical 5-300 mg daily. Branch tablet gabapentin 2020-0 Yes 300mg Take 300 [facility] [place] 300 mg 2-03 mg by ity of capsule 15:45: mouth 3 [place] [address] (three) Medical times Branch daily. Hydrocodone 2020-0 Yes Take by [facility] vers -Acetaminop 2-03 mouth 3 ity o f hen 15:45: (three) [place] (VICODIN) 11 times Medical 5-300 mg daily. Branch tablet gabapentin 2020-0 Yes 300mg Take 300 [facility] [place] 300 mg 2-03 mg by ity of capsule 15:45: mouth 3 [place] [address] (three) Medical times Branch daily. Hydrocodone 2020-0 Yes Take by [facility] vers -Acetaminop 2-03 mouth 3 ity o f hen 15:45: (three) [place] (VICODIN) 11 times Medical 5-300 mg daily. Branch tablet gabapentin 2020-0 Yes 300mg Take 300 [facility] [place] 300 mg 2-03 mg by ity of capsule 15:45: mouth 3 [place] [address] (three) Medical times Branch daily. Hydrocodone 2020-0 Yes Take by [facility] vers -Acetaminop 2-03 mouth 3 ity o f hen 15:45: (three) [place] (VICODIN) 11 times Medical 5-300 mg daily. Branch tablet gabapentin 2020-0 Yes 300mg Take 300 [facility] [place] 300 mg 2-03 mg by ity of capsule 15:45: mouth 3 [place] [address] (three) Medical times Branch daily. Hydrocodone 2020-0 Yes Take by [facility] vers -Acetaminop 2-03 mouth 3 ity o f hen 15:45: (three) [place] (VICODIN) 11 times Medical 5-300 mg daily. Branch tablet gabapentin 2020-0 Yes 300mg Take 300 [facility] [place] 300 mg 2-03 mg by ity of capsule 15:45: mouth 3 [place] [address] (three) Medical times Branch daily. Hydrocodone 2020-0 Yes Take by [facility] vers -Acetaminop 2-03 mouth 3 ity o f hen 15:45: (three) [place] (VICODIN) 11 times Medical 5-300 mg daily. Branch tablet gabapentin 2020-0 Yes 300mg Take 300 [facility] [place] 300 mg 2-03 mg by ity of capsule 15:45: mouth 3 [place] 11 (three) Medical times Branch daily. Hydrocodone 2020-0 Yes Take by [facility] vers -Acetaminop 2-03 mouth 3 ity o f hen 15:45: (three) [place] (VICODIN) 11 times Medical 5-300 mg daily. Branch tablet gabapentin 2020-0 Yes 300mg Take 300 [facility] [place] 300 mg 2-03 mg by ity of capsule 15:45: mouth 3 [place] [address] (three) Medical times Branch daily. Hydrocodone 2020-0 Yes Take by [facility] vers -Acetaminop 2-03 mouth 3 ity o f hen 15:45: (three) [place] (VICODIN) 11 times Medical 5-300 mg daily. Branch tablet gabapentin 2020-0 Yes 300mg Take 300 [facility] [place] 300 mg 2-03 mg by ity of capsule 15:45: mouth 3 [place] [address] (three) Medical times Branch daily. Hydrocodone 2020-0 Yes Take by [facility] vers -Acetaminop 2-03 mouth 3 ity o f hen 15:45: (three) [place] (VICODIN) 11 times Medical 5-300 mg daily. Branch tablet gabapentin 2020-0 Yes 300mg Take 300 [facility] [place] 300 mg 2-03 mg by ity of capsule 15:45: mouth 3 [place] [address] (three) Medical times Branch daily. Hydrocodone 2020-0 Yes Take by [facility] vers -Acetaminop 2-03 mouth 3 ity o f hen 15:45: (three) [place] (VICODIN) 11 times Medical 5-300 mg daily. Branch tablet gabapentin 2020-0 Yes 300mg Take 300 [facility] [place] 300 mg 2-03 mg by ity of capsule 15:45: mouth 3 [place] [address] (three) Medical times Branch daily. Hydrocodone 2020-0 Yes Take by [facility] vers -Acetaminop 2-03 mouth 3 ity o f hen 15:45: (three) [place] (VICODIN) 11 times Medical 5-300 mg daily. Branch tablet gabapentin 2020-0 Yes 300mg Take 300 [facility] [place] 300 mg 2-03 mg by ity of capsule 15:45: mouth 3 [place] [address] (three) Medical times Branch daily. Hydrocodone 2020-0 Yes Take by [facility] vers -Acetaminop 2-03 mouth 3 ity o f hen 15:45: (three) [place] (VICODIN) 11 times Medical 5-300 mg daily. Branch tablet gabapentin 2020-0 Yes 300mg Take 300 [facility] [place] 300 mg 2-03 mg by ity of capsule 15:45: mouth 3 [place] [address] (three) Medical times Branch daily. Hydrocodone 2020-0 Yes Take by [facility] vers -Acetaminop 2-03 mouth 3 ity o f hen 15:45: (three) [place] (VICODIN) 11 times Medical 5-300 mg daily. Branch tablet gabapentin 2020-0 Yes 300mg Take 300 [facility] [place] 300 mg 2-03 mg by ity of capsule 15:45: mouth 3 [place] [address] (three) Medical times Branch daily. Hydrocodone 2020-0 Yes Take by [facility] vers -Acetaminop 2-03 mouth 3 ity o f hen 15:45: (three) [place] (VICODIN) 11 times Medical 5-300 mg daily. Branch tablet gabapentin 2020-0 Yes 300mg Take 300 [facility] [place] 300 mg 2-03 mg by ity of capsule 15:45: mouth 3 [place] [address] (three) Medical times Branch daily. Hydrocodone 2020-0 Yes Take by [facility] vers -Acetaminop 2-03 mouth 3 ity o f hen 15:45: (three) [place] (VICODIN) 11 times Medical 5-300 mg daily. Branch tablet gabapentin 2020-0 Yes 300mg Take 300 [facility] [place] 300 mg 2-03 mg by ity of capsule 15:45: mouth 3 [place] [address] (three) Medical times Branch daily. Hydrocodone 2020-0 Yes Take by [facility] vers -Acetaminop 2-03 mouth 3 ity o f hen 15:45: (three) [place] (VICODIN) 11 times Medical 5-300 mg daily. Branch tablet gabapentin 2020-0 Yes 300mg Take 300 [facility] [place] 300 mg 2-03 mg by ity of capsule 15:45: mouth 3 [place] [address] (three) Medical times Branch daily. Hydrocodone 2020-0 Yes Take by [facility] vers -Acetaminop 2-03 mouth 3 ity o f hen 15:45: (three) [place] (VICODIN) 11 times Medical 5-300 mg daily. Branch tablet gabapentin 2020-0 Yes 300mg Take 300 [facility] [place] 300 mg 2-03 mg by ity of capsule 15:45: mouth 3 [place] [address] (three) Medical times Branch daily. Hydrocodone 2020-0 Yes Take by [facility] vers -Acetaminop 2-03 mouth 3 ity o f hen 15:45: (three) [place] (VICODIN) 11 times Medical 5-300 mg daily. Branch tablet gabapentin 2020-0 Yes 300mg Take 300 [facility] [place] 300 mg 2-03 mg by ity of capsule 15:45: mouth 3 [place] [address] (three) Medical times Branch daily. Hydrocodone 2020-0 Yes Take by [facility] vers -Acetaminop 2-03 mouth 3 ity o f hen 15:45: (three) [place] (VICODIN) 11 times Medical 5-300 mg daily. Branch tablet gabapentin 2020-0 Yes 300mg Take 300 [facility] [place] 300 mg 2-03 mg by ity of capsule 15:45: mouth 3 [place] 11 (three) Medical times Branch daily. Hydrocodone 2020-0 Yes Take by [facility] vers -Acetaminop 2-03 mouth 3 ity o f hen 15:45: (three) [place] (VICODIN) 11 times Medical 5-300 mg daily. Branch tablet gabapentin 2020-0 Yes 300mg Take 300 [facility] [place] 300 mg 2-03 mg by ity of capsule 15:45: mouth 3 [place] [address] (three) Medical times Branch daily. Hydrocodone 2020-0 Yes Take by [facility] vers -Acetaminop 2-03 mouth 3 ity o f hen 15:45: (three) [place] (VICODIN) 11 times Medical 5-300 mg daily. Branch tablet gabapentin 2020-0 Yes 300mg Take 300 [facility] [place] 300 mg 2-03 mg by ity of capsule 15:45: mouth 3 [place] [address] (three) Medical times Branch daily. Hydrocodone 2020-0 Yes Take by [facility] vers -Acetaminop 2-03 mouth 3 ity o f hen 15:45: (three) [place] (VICODIN) 11 times Medical 5-300 mg daily. Branch tablet gabapentin 2020-0 Yes 300mg Take 300 [facility] [place] 300 mg 2-03 mg by ity of capsule 15:45: mouth 3 [place] [address] (three) Medical times Branch daily. Hydrocodone 2020-0 Yes Take by [facility] vers -Acetaminop 2-03 mouth 3 ity o f hen 15:45: (three) [place] (VICODIN) 11 times Medical 5-300 mg daily. Branch tablet gabapentin 2020-0 Yes 300mg Take 300 [facility] [place] 300 mg 2-03 mg by ity of capsule 15:45: mouth 3 [place] [address] (three) Medical times Branch daily. Hydrocodone 2020-0 Yes Take by [facility] vers -Acetaminop 2-03 mouth 3 ity o f hen 15:45: (three) [place] (VICODIN) 11 times Medical 5-300 mg daily. Branch tablet gabapentin 2020-0 Yes 300mg Take 300 [facility] [place] 300 mg 2-03 mg by ity of capsule 15:45: mouth 3 [place] [address] (three) Medical times Branch daily. Hydrocodone 2020-0 Yes Take by [facility] vers -Acetaminop 2-03 mouth 3 ity o f hen 15:45: (three) [place] (VICODIN) 11 times Medical 5-300 mg daily. Branch tablet TERIPARATID 2020-0 Yes [id number] 20ug inject [facility] E 20 2-03 0.08 mL ity of mcg/dose - 00:00: under the [place] 600 mcg/2.4 00 skin Medical mL daily. Branch injection TERIPARATID 2020-0 Yes [id number] 20ug inject [facility] E 20 2-03 0.08 mL ity of mcg/dose - 00:00: under the [place] 600 mcg/2.4 00 skin Medical mL daily. Branch injection TERIPARATID 2020-0 Yes [id number] 20ug inject [facility] E 20 2-03 0.08 mL ity of mcg/dose - 00:00: under the [place] 600 mcg/2.4 00 skin Medical mL daily. Branch injection TERIPARATID 2020-0 Yes [id number] 20ug inject [facility] E 20 2-03 0.08 mL ity of mcg/dose - 00:00: under the [place] 600 mcg/2.4 00 skin Medical mL daily. Branch injection TERIPARATID 2020-0 Yes [id number] 20ug inject [facility] E 20 2-03 0.08 mL ity of mcg/dose - 00:00: under the [place] 600 mcg/2.4 00 skin Medical mL daily. Branch injection TERIPARATID 2020-0 Yes [id number] 20ug inject [facility] E 20 2-03 0.08 mL ity of mcg/dose - 00:00: under the [place] 600 mcg/2.4 00 skin Medical mL daily. Branch injection TERIPARATID 2020-0 Yes [id number] 20ug inject [facility] E 20 2-03 0.08 mL ity of mcg/dose - 00:00: under the [place] 600 mcg/2.4 00 skin Medical mL daily. Branch injection TERIPARATID 2020-0 Yes [id number] 20ug inject [facility] E 20 2-03 0.08 mL ity of mcg/dose - 00:00: under the [place] 600 mcg/2.4 00 skin Medical mL daily. Branch injection TERIPARATID 2020-0 Yes [id number] 20ug inject [facility] E 20 2-03 0.08 mL ity of mcg/dose - 00:00: under the [place] 600 mcg/2.4 00 skin Medical mL daily. Branch injection TERIPARATID 2020-0 Yes [id number] 20ug inject [facility] E 20 2-03 0.08 mL ity of mcg/dose - 00:00: under the [place] 600 mcg/2.4 00 skin Medical mL daily. Branch injection TERIPARATID 2020-0 Yes [id number] 20ug inject [facility] E 20 2-03 0.08 mL ity of mcg/dose - 00:00: under the [place] 600 mcg/2.4 00 skin Medical mL daily. Branch injection TERIPARATID 2020-0 Yes [id number] 20ug inject [facility] E 20 2-03 0.08 mL ity of mcg/dose - 00:00: under the [place] 600 mcg/2.4 00 skin Medical mL daily. Branch injection TERIPARATID 2020-0 Yes [id number] 20ug inject [facility] E 20 2-03 0.08 mL ity of mcg/dose - 00:00: under the [place] 600 mcg/2.4 00 skin Medical mL daily. Branch injection TERIPARATID 2020-0 Yes [id number] 20ug inject [facility] E 20 2-03 0.08 mL ity of mcg/dose - 00:00: under the [place] 600 mcg/2.4 00 skin Medical mL daily. Branch injection TERIPARATID 2020-0 Yes [id number] 20ug inject [facility] E 20 2-03 0.08 mL ity of mcg/dose - 00:00: under the [place] 600 mcg/2.4 00 skin Medical mL daily. Branch injection TERIPARATID 2020-0 Yes [id number] 20ug inject [facility] 20 2-03 0.08 mL ity of mcg/dose - 00:00: under the [place] 600 mcg/2.4 00 skin Medical mL daily. Branch injection TERIPARATID 2020-0 Yes [id number] 20ug inject [facility] E 20 2-03 0.08 mL ity of mcg/dose - 00:00: under the [place] 600 mcg/2.4 00 skin Medical mL daily. Branch injection TERIPARATID 2020-0 Yes [id number] 20ug inject [facility] E 20 2-03 0.08 mL ity of mcg/dose - 00:00: under the [place] 600 mcg/2.4 00 skin Medical mL daily. Branch injection TERIPARATID 2020-0 Yes [id number] 20ug inject [facility] E 20 2-03 0.08 mL ity of mcg/dose - 00:00: under the [place] 600 mcg/2.4 00 skin Medical mL daily. Branch injection TERIPARATID 2020-0 Yes [id number] 20ug inject [facility] E 20 2-03 0.08 mL ity of mcg/dose - 00:00: under the [place] 600 mcg/2.4 00 skin Medical mL daily. Branch injection TERIPARATID 2020-0 Yes [id number] 20ug inject [facility] E 20 2-03 0.08 mL ity of mcg/dose - 00:00: under the [place] 600 mcg/2.4 00 skin Medical mL daily. Branch injection TERIPARATID 2020-0 Yes [id number] 20ug inject [facility] E 20 2-03 0.08 mL ity of mcg/dose - 00:00: under the [place] 600 mcg/2.4 00 skin Medical mL daily. Branch injection TERIPARATID 2020-0 Yes [id number] 20ug inject [facility] E 20 2-03 0.08 mL ity of mcg/dose - 00:00: under the [place] 600 mcg/2.4 00 skin Medical mL daily. Branch injection TERIPARATID 2020-0 Yes [id number] 20ug inject [facility] E 20 2-03 0.08 mL ity of mcg/dose - 00:00: under the [place] 600 mcg/2.4 00 skin Medical mL daily. Branch injection TERIPARATID 2019-0 2020- No [id number] 20ug inject [facility] E 20 2-03 05-07 0.08 mL ity of mcg/dose - 00:00: 00:00 under the [place] 600 mcg/2.4 00 :00 skin Medical mL daily. Branch injection amoxicillin 2019-0 2020- No [id number] 1{tbl} Take 1 [facility] -clavulanat 1-31 02-11 tablet by it y of e 00:00: 05:59 mouth 2 [place] (AUGMENTIN) 00 :00 (two) Medical 875-125 mg times Branch per tablet daily for 10 days. amoxicillin 2020- No [id number] 1{tbl} Take 1 [facility] -clavulanat --11 tablet by it y of e 00:00: 05:59 mouth 2 [place] (AUGMENTIN) 00 :00 (two) Medical 875-125 mg times Branch per tablet daily for 10 days. amoxicillin 2020- No [id number] 1{tbl} Take 1 [facility] -clavulanat 08-19-11 tablet by it y of e 00:00: 05:59 mouth 2 [place] (AUGMENTIN) 00 :00 (two) Medical 875-125 mg times Branch per tablet daily for 10 days. amoxicillin 2019- No [id number] 1{tbl} Take 1 [facility] -clavulanat 08-19-11 tablet by it y of e 00:00: 05:59 mouth 2 [place] (AUGMENTIN) 00 :00 (two) Medical 875-125 mg times Branch per tablet daily for 10 days. amoxicillin 2019- No [id number] 1{tbl} Take 1 [facility] -clavulanat 08-19-11 tablet by it y of e 00:00: 05:59 mouth 2 [place] (AUGMENTIN) 00 :00 (two) Medical 875-125 mg times Branch per tablet daily for 10 days. amoxicillin 2019- No [id number] 1{tbl} Take 1 [facility] -clavulanat 08-19-11 tablet by it y of e 00:00: 05:59 mouth 2 [place] (AUGMENTIN) 00 :00 (two) Medical 875-125 mg times Branch per tablet daily for 10 days. amoxicillin 2019- No [id number] 1{tbl} Take 1 [facility] -clavulanat 08-19-11 tablet by it y of e 00:00: 05:59 mouth 2 [place] (AUGMENTIN) 00 :00 (two) Medical 875-125 mg times Branch per tablet daily for 10 days. amoxicillin 2020- No [id number] 1{tbl} Take 1 [facility] -clavulanat -31 -11 tablet by it y of e 00:00: 05:59 mouth 2 [place] (AUGMENTIN) 00 :00 (two) Medical 875-125 mg times Branch per tablet daily for 10 days. gabapentin 2020-0 Yes 300mg Take 300 [facility] 300 mg 1-30 mg by ity of capsule 18:38: mouth 3 [place] 24 (three) Medical times Branch daily. Hydrocodone 2020-0 Yes Take by [facility] vers -Acetaminop 1-30 mouth 3 ity o f hen 18:38: (three) [place] (VICODIN) 24 times Medical 5-300 mg daily. Branch tablet lisinopril 2020-0 Yes [id number] 40mg Take 1 U n[facility] 40 mg 1-30 tablet by ity of tablet 00:00: mouth [place] 00 daily. Medical Branch lisinopril 2020-0 Yes [id number] 40mg Take 1 U nivers 40 mg 1-30 tablet by ity of tablet 00:00: mouth [place] 00 daily. Medical Branch lisinopril 2020-0 Yes [id number] 40mg Take 1 U n[facility] 40 mg 1-30 tablet by ity of tablet 00:00: mouth [place] 00 daily. Medical Branch lisinopril 2020-0 Yes [id number] 40mg Take 1 U nivers 40 mg 1-30 tablet by ity of tablet 00:00: mouth [place] 00 daily. Medical Branch lisinopril 2020-0 Yes [id number] 40mg Take 1 U nivers 40 mg 1-30 tablet by ity of tablet 00:00: mouth [place] 00 daily. Medical Branch lisinopril 2020-0 Yes [id number] 40mg Take 1 [facility] nivers 40 mg 1-30 tablet by ity of tablet 00:00: mouth [place] 00 daily. Medical Branch lisinopril 2020-0 Yes [id number] 40mg Take 1 U nivers 40 mg 1-30 tablet by ity of tablet 00:00: mouth [place] 00 daily. Medical Branch lisinopril 2020-0 Yes [id number] 40mg Take 1 U nivers 40 mg 1-30 tablet by ity of tablet 00:00: mouth [place] 00 daily. Medical Branch lisinopril 2020-0 Yes [id number] 40mg Take 1 U nivers 40 mg 1-30 tablet by ity of tablet 00:00: mouth [place] 00 daily. Medical Branch lisinopril 2020-0 Yes [id number] 40mg Take 1 U nivers 40 mg 1-30 tablet by ity of tablet 00:00: mouth [place] 00 daily. Medical Branch lisinopril 2020-0 Yes [id number] 40mg Take 1 U nivers 40 mg 1-30 tablet by ity of tablet 00:00: mouth [place] 00 daily. Medical Branch lisinopril 2020-0 Yes [id number] 40mg Take 1 U nivers 40 mg 1-30 tablet by ity of tablet 00:00: mouth [place] 00 daily. Medical Branch lisinopril 2020-0 Yes [id number] 40mg Take 1 U nivers 40 mg 1-30 tablet by ity of tablet 00:00: mouth [place] 00 daily. Medical Branch lisinopril 2020-0 Yes [id number] 40mg Take 1 U nivers 40 mg 1-30 tablet by ity of tablet 00:00: mouth [place] 00 daily. Medical Branch lisinopril 2020-0 Yes [id number] 40mg Take 1 [facility] n[facility] 40 mg 1-30 tablet by ity of tablet 00:00: mouth [place] 00 daily. Medical Branch lisinopril 2020-0 Yes [id number] 40mg Take 1 U n[facility] 40 mg 1-30 tablet by ity of tablet 00:00: mouth [place] 00 daily. Medical Branch lisinopril 2020-0 Yes [id number] 40mg Take 1 U n[facility] 40 mg 1-30 tablet by ity of tablet 00:00: mouth [place] 00 daily. Medical Branch lisinopril 2020-0 Yes [id number] 40mg Take 1 U n[facility] 40 mg 1-30 tablet by ity of tablet 00:00: mouth [place] 00 daily. Medical Branch lisinopril 2020-0 Yes [id number] 40mg Take 1 [facility] n[facility] 40 mg 1-30 tablet by ity of tablet 00:00: mouth [place] 00 daily. Medical Branch lisinopril 2020-0 Yes [id number] 40mg Take 1 U n[facility] 40 mg 1-30 tablet by ity of tablet 00:00: mouth [place] 00 daily. Medical Branch lisinopril 2020-0 Yes [id number] 40mg Take 1 [facility] n[facility] 40 mg 1-30 tablet by ity of tablet 00:00: mouth [place] 00 daily. Medical Branch lisinopril 2020-0 Yes [id number] 40mg Take 1 [facility] nivers 40 mg 1-30 tablet by ity of tablet 00:00: mouth [place] 00 daily. Medical Branch lisinopril 2020-0 Yes [id number] 40mg Take 1 [facility] n[facility] 40 mg 1-30 tablet by ity of tablet 00:00: mouth [place] 00 daily. Medical Branch lisinopril 2020-0 Yes [id number] 40mg Take 1 [facility] 40 mg 1-30 tablet by ity of tablet 00:00: mouth [place] 00 daily. Medical Branch lisinopril 2020-0 Yes [id number] 40mg Take 1 [facility] 40 mg 1-30 tablet by ity of tablet 00:00: mouth [place] 00 daily. Medical Branch lisinopril 2020-0 Yes [id number] 40mg Take 1 [facility] 40 mg 1-30 tablet by ity of tablet 00:00: mouth [place] 00 daily. Medical Branch lisinopril 2020-0 Yes [id number] 40mg Take 1 [facility] 40 mg 1-30 tablet by ity of tablet 00:00: mouth [place] 00 daily. Medical Branch lisinopril 2020-0 Yes [id number] 40mg Take 1 [facility] 40 mg 1-30 tablet by ity of tablet 00:00: mouth [place] 00 daily. Medical Branch lisinopril 2020-0 Yes [id number] 40mg Take 1 U n[facility] 40 mg 1-30 tablet by ity of tablet 00:00: mouth [place] 00 daily. Medical Branch lisinopril 2020-0 Yes [id number] 40mg Take 1 U n[facility] 40 mg 1-30 tablet by ity of tablet 00:00: mouth [place] 00 daily. Medical Branch lisinopril 2020-0 Yes [id number] 40mg Take 1 [facility] n[facility] 40 mg 1-30 tablet by ity of tablet 00:00: mouth [place] 00 daily. Medical Branch lisinopril 2020-0 Yes [id number] 40mg Take 1 U n[facility] 40 mg 1-30 tablet by ity of tablet 00:00: mouth [place] 00 daily. Medical Branch lisinopril 2020-0 Yes [id number] 40mg Take 1 U nivers 40 mg 1-30 tablet by ity of tablet 00:00: mouth [place] 00 daily. Medical Branch lisinopril 2020-0 Yes [id number] 40mg Take 1 U n[facility] 40 mg 1-30 tablet by ity of tablet 00:00: mouth [place] 00 daily. Medical Branch lisinopril 2020-0 Yes [id number] 40mg Take 1 U n[facility] 40 mg 1-30 tablet by ity of tablet 00:00: mouth [place] 00 daily. Medical Branch lisinopril 2020-0 Yes [id number] 40mg Take 1 U n[facility] 40 mg 1-30 tablet by ity of tablet 00:00: mouth [place] 00 daily. Medical Branch lisinopril 2020-0 Yes [id number] 40mg Take 1 [facility] 40 mg 1-30 tablet by ity of tablet 00:00: mouth [place] 00 daily. Medical Branch lisinopril 2020-0 Yes [id number] 40mg Take 1 [facility] n[facility] 40 mg 1-30 tablet by ity of tablet 00:00: mouth [place] 00 daily. Medical Branch lisinopril 2020-0 Yes [id number] 40mg Take 1 [facility] n[facility] 40 mg 1-30 tablet by ity of tablet 00:00: mouth [place] 00 daily. Medical Branch lisinopril 2020-0 Yes [id number] 40mg Take 1 [facility] 40 mg 1-30 tablet by ity of tablet 00:00: mouth [place] 00 daily. Medical Branch lisinopril 2020-0 Yes [id number] 40mg Take 1 [facility] n[facility] 40 mg 1-30 tablet by ity of tablet 00:00: mouth [place] 00 daily. Medical Branch lisinopril 2020-0 Yes [id number] 40mg Take 1 U nivers 40 mg 1-30 tablet by ity of tablet 00:00: mouth [place] 00 daily. Medical Branch lisinopril 2020-0 Yes [id number] 40mg Take 1 [facility] n[facility] 40 mg 1-30 tablet by ity of tablet 00:00: mouth [place] 00 daily. Medical Branch lisinopril 2020-0 Yes [id number] 40mg Take 1 [facility] n[facility] 40 mg 1-30 tablet by ity of tablet 00:00: mouth [place] 00 daily. Medical Branch lisinopril 2020-0 Yes [id number] 40mg Take 1 [facility] n[facility] 40 mg 1-30 tablet by ity of tablet 00:00: mouth [place] 00 daily. Medical Branch lisinopril 2020-0 Yes [id number] 40mg Take 1 [facility] n[facility] 40 mg 1-30 tablet by ity of tablet 00:00: mouth [place] 00 daily. Medical Branch lisinopril 2020-0 Yes [id number] 40mg Take 1 [facility] 40 mg 1-30 tablet by ity of tablet 00:00: mouth [place] 00 daily. Medical Branch lisinopril 2020-0 Yes [id number] 40mg Take 1 U nivers 40 mg 1-30 tablet by ity of tablet 00:00: mouth [place] 00 daily. Medical Branch lisinopril 2020-0 Yes [id number] 40mg Take 1 U nivers 40 mg 1-30 tablet by ity of tablet 00:00: mouth [place] 00 daily. Medical Branch lisinopril 2020-0 Yes [id number] 40mg Take 1 U n[facility] 40 mg 1-30 tablet by ity of tablet 00:00: mouth [place] 00 daily. Medical Branch lisinopril 2020-0 Yes [id number] 40mg Take 1 U nivers 40 mg 1-30 tablet by ity of tablet 00:00: mouth [place] 00 daily. Medical Branch lisinopril 2020-0 Yes [id number] 40mg Take 1 U nivers 40 mg 1-30 tablet by ity of tablet 00:00: mouth [place] 00 daily. Medical Branch lisinopril 2020-0 Yes [id number] 40mg Take 1 [facility] n[facility] 40 mg 1-30 tablet by ity of tablet 00:00: mouth [place] 00 daily. Medical Branch lisinopril 2020-0 Yes [id number] 40mg Take 1 [facility] n[facility] 40 mg 1-30 tablet by ity of tablet 00:00: mouth [place] 00 daily. Medical Branch lisinopril 2020-0 Yes [id number] 40mg Take 1 [facility] n[facility] 40 mg 1-30 tablet by ity of tablet 00:00: mouth [place] 00 daily. Medical Branch lisinopril 2020-0 Yes [id number] 40mg Take 1 [facility] 40 mg 1-30 tablet by ity of tablet 00:00: mouth [place] 00 daily. Medical Branch lisinopril 2020-0 Yes [id number] 40mg Take 1 [facility] n[facility] 40 mg 1-30 tablet by ity of tablet 00:00: mouth [place] 00 daily. Medical Branch lisinopril 2020-0 Yes [id number] 40mg Take 1 [facility] n[facility] 40 mg 1-30 tablet by ity of tablet 00:00: mouth [place] 00 daily. Medical Branch lisinopril 2020-0 Yes [id number] 40mg Take 1 [facility] n[facility] 40 mg 1-30 tablet by ity of tablet 00:00: mouth [place] 00 daily. Medical Branch lisinopril 2020-0 Yes [id number] 40mg Take 1 [facility] n[facility] 40 mg 1-30 tablet by ity of tablet 00:00: mouth [place] 00 daily. Medical Branch lisinopril 2020-0 Yes [id number] 40mg Take 1 [facility] n[facility] 40 mg 1-30 tablet by ity of tablet 00:00: mouth [place] 00 daily. Medical Branch lisinopril Yes [id number] 40mg Take 1 [facility] n[facility] 40 mg 1-30 tablet by ity of tablet 00:00: mouth [place] 00 daily. Medical Branch lisinopril Yes [id number] 40mg Take 1 [facility] n[facility] 40 mg 1-30 tablet by ity of tablet 00:00: mouth [place] 00 daily. Medical Branch oxyCODone-a Yes [id number] 1{tbl} Q4H Take 1 [facility] cetaminophe 1-[address] [facility] 16:12: [facility] (PERCOCET[facility] 32 every 4 l 10-325 mg (four) per tablet hours as needed for moderate pain .acute pain. senna Yes 1{tbl} QD Take 1 [facility] (SENOKOT) 1-[address] 8.6 mg 16:12: [facility] tablet 32 daily. l predniSONE Yes 1mg QD Take 1 mg [facility] (DELTASONE) 1-[address] 1 mg tablet 16:12: daily. [facility] 31 l lisinopril Yes 10mg QD Take 10 mg [facility] (PRINIVIL) 1-[address] 10 mg 16:12: [facility]. [facility] tablet 31 l hydroCHLORO 2018-07 Yes [id number] 25mg Take 1 [facility] thiazide 25 2-09 tablet by ity of mg tablet 00:00: mouth [place] 00 daily. Medical Branch hydroCHLORO 2018-07 Yes [id number] 25mg Take 1 [facility] thiazide 25 2-09 tablet by ity of mg tablet 00:00: mouth [place] 00 daily. Medical Branch hydroCHLORO 2018-07 2020- No [id number] 25mg Take 1 [facility] thiazide 25 2-09 -30 tablet by it y of mg tablet 00:00: 00:00 mouth [place] 00 :00 daily. Medical Branch hydroCHLORO 2018-07 2020- No [id number] 25mg Take 1 [facility] thiazide 25 2-09 -30 tablet by it y of mg tablet 00:00: 00:00 mouth [place] 00 :00 daily. Medical Branch lidocaine 5 2018-07 Yes [id number] Apply one [facility] % (700 1-25 patch to ity of mg/patch) 00:00: most [place] patch 00 painful Medical area every Branch 12 hours as needed for pain. PHARMACIST : dispense one box lidocaine 5 2018-07 Yes [id number] Apply one [facility] % (700 1-25 patch to ity of mg/patch) 00:00: most [place] patch 00 painful Medical area every Branch 12 hours as needed for pain. PHARMACIST : dispense one box lidocaine 5 2018-07 2020- No [id number] Apply one [facility] % (700 1-25 01-30 patch to ity of mg/patch) 00:00: 00:00 most [place] patch 00 :00 painful Medical area every Branch 12 hours as needed for pain. PHARMACIST : dispense one box lidocaine 5 2018-07 2020- No [id number] Apply one [facility] % (700 1-25 01-30 patch to ity of mg/patch) 00:00: 00:00 most [place] patch 00 :00 painful Medical area every Branch 12 hours as needed for pain. PHARMACIST : dispense one box lisinopril 2018-07 Yes [id number] 40mg Take 1 [facility] 40 mg 1-12 tablet by ity of tablet 00:00: mouth [place] 00 daily. Medical Branch lisinopril 2018-07 Yes [id number] 40mg Take 1 [facility] nivers 40 mg 1-12 tablet by ity of tablet 00:00: mouth [place] 00 daily. Medical Branch lisinopril 2018-07 2020- No [id number] 40mg Take 1 [facility] 40 mg 1-12 -30 tablet by ity of tablet 00:00: 00:00 mouth [place] 00 :00 daily. Medical Branch lisinopril 2018-07 2020- No [id number] 40mg Take 1 [facility] 40 mg 1-12 -30 tablet by ity of tablet 00:00: 00:00 mouth [place] 00 :00 daily. Medical Branch meclizine 2018-07 Yes [id number] 25mg Take 1 [facility] nivers 25 mg 0-18 tablet by ity of tablet 00:00: mouth 3 [place] 00 (three) Medical times Branch daily as needed for Dizziness (take with prednisone .). meclizine 2018-07 Yes [id number] 25mg Take 1 [facility] nivers 25 mg 0-18 tablet by ity of tablet 00:00: mouth 3 [place] 00 (three) Medical times Branch daily as needed for Dizziness (take with prednisone .). meclizine 2018-07 Yes [id number] 25mg Take 1 [facility] nivers 25 mg 0-18 tablet by ity of tablet 00:00: mouth 3 (three) Medical times Branch daily as needed for Dizziness (take with prednisone .). meclizine 2018-07 Yes [id number] 25mg Take 1 U nivers 25 mg 0-18 tablet by ity of tablet 00:00: mouth 3 (three) Medical times Branch daily as needed for Dizziness (take with prednisone .). meclizine 2018-07 Yes [id number] 25mg Take 1 U nivers 25 mg 0-18 tablet by ity of tablet 00:00: mouth 3 (three) Medical times Branch daily as needed for Dizziness (take with prednisone .). meclizine 2018-07 Yes [id number] 25mg Take 1 U nivers 25 mg 0-18 tablet by ity of tablet 00:00: mouth (three) Medical times Branch daily as needed for Dizziness (take with prednisone .). meclizine 2018-07 Yes [id number] 25mg Take 1 U nivers 25 mg 0-18 tablet by ity of tablet 00:00: mouth (three) Medical times Branch daily as needed for Dizziness (take with prednisone .). meclizine 2018-07 Yes [id number] 25mg Take 1 U nivers 25 mg 0-18 tablet by ity of tablet 00:00: mouth (three) Medical times Branch daily as needed for Dizziness (take with prednisone .). meclizine 2018-07 Yes [id number] 25mg Take 1 U nivers 25 mg 0-18 tablet by ity of tablet 00:00: mouth (three) Medical times Branch daily as needed for Dizziness (take with prednisone .). meclizine 2018-07 Yes [id number] 25mg Take 1 U nivers 25 mg 0-18 tablet by ity of tablet 00:00: mouth (three) Medical times Branch daily as needed for Dizziness (take with prednisone .). meclizine 2018-07 Yes [id number] 25mg Take 1 U nivers 25 mg 0-18 tablet by ity of tablet 00:00: mouth 3 (three) Medical times Branch daily as needed for Dizziness (take with prednisone .). meclizine 2018-07 Yes [id number] 25mg Take 1 U nivers 25 mg 0-18 tablet by ity of tablet 00:00: mouth 3 (three) Medical times Branch daily as needed for Dizziness (take with prednisone .). meclizine 2018-07 Yes [id number] 25mg Take 1 U nivers 25 mg 0-18 tablet by ity of tablet 00:00: mouth 3 (three) Medical times Branch daily as needed for Dizziness (take with prednisone .). meclizine 2018-07 Yes [id number] 25mg Take 1 U nivers 25 mg 0-18 tablet by ity of tablet 00:00: mouth 3 00 (three) Medical times Branch daily as needed for Dizziness (take with prednisone .). meclizine 2018-07 Yes [id number] 25mg Take 1 U nivers 25 mg 0-18 tablet by ity of tablet 00:00: mouth 3 (three) Medical times Branch daily as needed for Dizziness (take with prednisone .). meclizine 2018-07 Yes [id number] 25mg Take 1 U nivers 25 mg 0-18 tablet by ity of tablet 00:00: mouth (three) Medical times Branch daily as needed for Dizziness (take with prednisone .). meclizine 2018-07 Yes [id number] 25mg Take 1 U nivers 25 mg 0-18 tablet by ity of tablet 00:00: mouth 3 (three) Medical times Branch daily as needed for Dizziness (take with prednisone .). meclizine 2018-07 Yes [id number] 25mg Take 1 U nivers 25 mg 0-18 tablet by ity of tablet 00:00: mouth (three) Medical times Branch daily as needed for Dizziness (take with prednisone .). meclizine 2018-07 Yes [id number] 25mg Take 1 U nivers 25 mg 0-18 tablet by ity of tablet 00:00: mouth 3 (three) Medical times Branch daily as needed for Dizziness (take with prednisone .). meclizine 2018-07 Yes [id number] 25mg Take 1 U nivers 25 mg 0-18 tablet by ity of tablet 00:00: mouth 3 (three) Medical times Branch daily as needed for Dizziness (take with prednisone .). meclizine 2018-07 Yes [id number] 25mg Take 1 U nivers 25 mg 0-18 tablet by ity of tablet 00:00: mouth 3 00 (three) Medical times Branch daily as needed for Dizziness (take with prednisone .). meclizine 2018-07 Yes [id number] 25mg Take 1 U nivers 25 mg 0-18 tablet by ity of tablet 00:00: mouth 3 [place] 00 (three) Medical times Branch daily as needed for Dizziness (take with prednisone .). meclizine 2018-07 Yes [id number] 25mg Take 1 U nivers 25 mg 0-18 tablet by ity of tablet 00:00: mouth 3 00 (three) Medical times Branch daily as needed for Dizziness (take with prednisone .). meclizine 2018-07 Yes [id number] 25mg Take 1 U nivers 25 mg 0-18 tablet by ity of tablet 00:00: mouth 3 00 (three) Medical times Branch daily as needed for Dizziness (take with prednisone .). meclizine 2018-07 Yes [id number] 25mg Take 1 U nivers 25 mg 0-18 tablet by ity of tablet 00:00: mouth 3 00 (three) Medical times Branch daily as needed for Dizziness (take with prednisone .). meclizine 2018-07 Yes [id number] 25mg Take 1 U nivers 25 mg 0-18 tablet by ity of tablet 00:00: mouth 3 00 (three) Medical times Branch daily as needed for Dizziness (take with prednisone .). meclizine 2018-07 Yes [id number] 25mg Take 1 U nivers 25 mg 0-18 tablet by ity of tablet 00:00: mouth 3 00 (three) Medical times Branch daily as needed for Dizziness (take with prednisone .). meclizine 2018-07 Yes [id number] 25mg Take 1 U nivers 25 mg 0-18 tablet by ity of tablet 00:00: mouth 3 00 (three) Medical times Branch daily as needed for Dizziness (take with prednisone .). meclizine 2018-07 Yes [id number] 25mg Take 1 [facility]ivers 25 mg 0-18 tablet by ity of tablet 00:00: mouth 3 00 (three) Medical times Branch daily as needed for Dizziness (take with prednisone .). meclizine 2018-07 2020- No [id number] 25mg Take 1 [facility] 25 mg 0-18 05-07 tablet by ity of tablet 00:00: 00:00 mouth 3 [place] 00 :00 (three) Medical times Branch daily as needed for Dizziness (take with prednisone .). MUPIROCIN 2 Yes [id number] APPLY TO [facility] % ointment 9-10 AFFECTED ity o f 00:00: [facility]() [place] [address] THREE Medical TIMES A Branch DAY MUPIROCIN 2 Yes [id number] APPLY TO Univers % ointment 9-10 AFFECTED ity o f 00:00: [facility]() [place] 00 THREE Medical TIMES A Branch DAY MUPIROCIN 2 Yes [id number] APPLY TO Univers % ointment 9-10 AFFECTED ity o f 00:00: [facility]() [place] [address] THREE Medical TIMES A Branch DAY MUPIROCIN 2 Yes [id number] APPLY TO Univers % ointment 9-10 AFFECTED ity o f 00:00: [facility]() [place] 00 THREE Medical TIMES A Branch DAY MUPIROCIN 2 Yes [id number] APPLY TO Univers % ointment 9-10 AFFECTED ity o f 00:00: [facility]() [place] 00 THREE Medical TIMES A Branch DAY MUPIROCIN 2 Yes [id number] APPLY TO Univers % ointment 9-10 AFFECTED ity o f 00:00: [facility]() [place] 00 THREE Medical TIMES A Branch DAY MUPIROCIN 2 Yes [id number] APPLY TO Univers % ointment 9-10 AFFECTED ity o f 00:00: [facility]() [place] 00 THREE Medical TIMES A Branch DAY MUPIROCIN 2 2018- Yes [id number] APPLY TO Univers % ointment 9-10 AFFECTED ity o f 00:00: [facility]() [place] [address] THREE Medical TIMES A Branch DAY MUPIROCIN 2 2018- Yes [id number] APPLY TO Univers % ointment 9-10 AFFECTED ity o f 00:00: [facility]([place] [address] THREE Medical TIMES A Branch DAY MUPIROCIN 2 Yes [id number] APPLY TO Univers % ointment 9-10 AFFECTED ity o f 00:00: [facility]() [place] [address] THREE Medical TIMES A Branch DAY MUPIROCIN 2 2018-0 Yes [id number] APPLY TO Univers % ointment 9-10 AFFECTED ity o f 00:00: [facility]() [place] 00 THREE Medical TIMES A Branch DAY MUPIROCIN 2 2019-0 Yes [id number] APPLY TO Univers % ointment 9-10 AFFECTED ity o f 00:00: [facility]() [place] 00 THREE Medical TIMES A Branch DAY MUPIROCIN 2 2019- Yes [id number] APPLY TO Univers % ointment 9-10 AFFECTED ity o f 00:00: [facility]() [place] 00 THREE Medical TIMES A Branch DAY MUPIROCIN 2 2018- Yes [id number] APPLY TO Univers % ointment 9-10 AFFECTED ity o f 00:00: [facility]() [place] 00 THREE Medical TIMES A Branch DAY MUPIROCIN 2 2018- Yes [id number] APPLY TO Univers % ointment 9-10 AFFECTED ity o f 00:00: [facility]() [place] [address] THREE Medical TIMES A Branch DAY MUPIROCIN 2 2019- Yes [id number] APPLY TO Univers % ointment 9-10 AFFECTED ity o f 00:00: [facility]() [place] 00 THREE Medical TIMES A Branch DAY MUPIROCIN 2 2019- Yes [id number] APPLY TO Univers % ointment 9-10 AFFECTED ity o f 00:00: [facility]() [place] 00 THREE Medical TIMES A Branch DAY MUPIROCIN 2 2019-0 Yes [id number] APPLY TO Univers % ointment 9-10 AFFECTED ity o f 00:00: [facility]() [place] 00 THREE Medical TIMES A Branch DAY MUPIROCIN 2 2019-0 Yes [id number] APPLY TO [facility] % ointment 9-10 AFFECTED ity o f 00:00: [facility]() [place] 00 THREE Medical TIMES A Branch DAY MUPIROCIN 2 2019-0 Yes [id number] APPLY TO [facility] % ointment 9-10 AFFECTED ity o f 00:00: [facility]() [place] 00 THREE Medical TIMES A Branch DAY MUPIROCIN 2 2019-0 Yes [id number] APPLY TO [facility] % ointment 9-10 AFFECTED ity o f 00:00: [facility]() [place] 00 THREE Medical TIMES A Branch DAY MUPIROCIN 2 2018- Yes [id number] APPLY TO [facility] % ointment 9-10 AFFECTED ity o f 00:00: [facility]() [place] 00 THREE Medical TIMES A Branch DAY MUPIROCIN 2 2019-0 Yes [id number] APPLY TO [facility] % ointment 9-10 AFFECTED ity o f 00:00: [facility]() [place] 00 THREE Medical TIMES A Branch DAY MUPIROCIN 2 2019-0 Yes [id number] APPLY TO [facility] % ointment 9-10 AFFECTED ity o f 00:00: [facility]() [place] THREE Medical TIMES A Branch DAY MUPIROCIN 2 2019-0 Yes [id number] APPLY TO Univers % ointment 9-10 AFFECTED ity o f 00:00: [facility]() [place] THREE Medical TIMES A Branch DAY MUPIROCIN 2 2019-0 Yes [id number] APPLY TO Univers % ointment 9-10 AFFECTED ity o f 00:00: [facility]() [place] [address] THREE Medical TIMES A Branch DAY MUPIROCIN 2 2019-0 Yes [id number] APPLY TO Univers % ointment 9-10 AFFECTED ity o f 00:00: [facility]() [place] 00 THREE Medical TIMES A Branch DAY MUPIROCIN 2 2019-0 Yes [id number] APPLY TO Univers % ointment 9-10 AFFECTED ity o f 00:00: [facility]() [place] THREE Medical TIMES A Branch DAY MUPIROCIN 2 2019-0 Yes [id number] APPLY TO Univers % ointment 9-10 AFFECTED ity o f 00:00: [facility]() [place] THREE Medical TIMES A Branch DAY MUPIROCIN 2 2019-0 Yes [id number] APPLY TO Univers % ointment 9-10 AFFECTED ity o f 00:00: [facility]() [place] 00 THREE Medical TIMES A Branch DAY MUPIROCIN 2 2019-0 Yes [id number] APPLY TO Univers % ointment 9-10 AFFECTED ity o f 00:00: [facility]) [place] [address] THREE Medical TIMES A Branch DAY MUPIROCIN 2 2019-0 Yes [id number] APPLY TO Univers % ointment 9-10 AFFECTED ity o f 00:00: [facility] 00 THREE Medical TIMES A Branch DAY MUPIROCIN 2 2019-0 Yes [id number] APPLY TO Univers % ointment 9-10 AFFECTED ity o f 00:00: [facility] 00 THREE Medical TIMES A Branch DAY MUPIROCIN 2 2019-0 Yes [id number] APPLY TO Univers % ointment 9-10 AFFECTED ity o f 00:00: [place] [address] THREE Medical TIMES A Branch DAY MUPIROCIN 2 2019-0 Yes [id number] APPLY TO Univers % ointment 9-10 AFFECTED ity o f 00:00: [place] [address] THREE Medical TIMES A Branch DAY MUPIROCIN 2 2019-0 Yes [id number] APPLY TO Univers % ointment 9-10 AFFECTED ity o f 00:00: [place] [address] THREE Medical TIMES A Branch DAY MUPIROCIN 2 2019- Yes [id number] APPLY TO Univers % ointment 9-10 AFFECTED ity o f 00:00: [place] [address] THREE Medical TIMES A Branch DAY MUPIROCIN 2 2019-0 Yes [id number] APPLY TO Univers % ointment 9-10 AFFECTED ity o f 00:00: [place] [address] THREE Medical TIMES A Branch DAY MUPIROCIN 2 2019-0 Yes [id number] APPLY TO Univers % ointment 9-10 AFFECTED ity o f 00:00: [place] [address] THREE Medical TIMES A Branch DAY MUPIROCIN 2 2019-0 Yes [id number] APPLY TO Univers % ointment 9-10 AFFECTED ity o f 00:00: [place] [address] THREE Medical TIMES A Branch DAY MUPIROCIN 2 2019-0 Yes [id number] APPLY TO Univers % ointment 9-10 AFFECTED ity o f 00:00: [facility] 00 THREE Medical TIMES A Branch DAY MUPIROCIN 2 2019-0 Yes [id number] APPLY TO Univers % ointment 9-10 AFFECTED ity o f 00:00: [facility] THREE Medical TIMES A Branch DAY MUPIROCIN 2 2019-0 Yes [id number] APPLY TO Univers % ointment 9-10 AFFECTED ity o f 00:00: [place] [address] THREE Medical TIMES A Branch DAY MUPIROCIN 2 2019-0 Yes [id number] APPLY TO Univers % ointment 9-10 AFFECTED ity o f 00:00: [place] [address] THREE Medical TIMES A Branch DAY MUPIROCIN 2 2019-0 Yes [id number] APPLY TO Univers % ointment 9-10 AFFECTED ity o f 00:00: [facility]() [place] 00 THREE Medical TIMES A Branch DAY MUPIROCIN 2 2019- Yes [id number] APPLY TO Univers % ointment 9-10 AFFECTED ity o f 00:00: [facility]() [place] 00 THREE Medical TIMES A Branch DAY MUPIROCIN 2 2018- Yes [id number] APPLY TO Univers % ointment 9-10 AFFECTED ity o f 00:00: [facility]() [place] 00 THREE Medical TIMES A Branch DAY MUPIROCIN 2 Yes [id number] APPLY TO Univers % ointment 9-10 AFFECTED ity o f 00:00: [facility]() [place] 00 THREE Medical TIMES A Branch DAY MUPIROCIN 2 2018- Yes [id number] APPLY TO Univers % ointment 9-10 AFFECTED ity o f 00:00: [facility]() [place] [address] THREE Medical TIMES A Branch DAY MUPIROCIN 2 2018- Yes [id number] APPLY TO Univers % ointment 9-10 AFFECTED ity o f 00:00: [facility]() [place] 00 THREE Medical TIMES A Branch DAY MUPIROCIN 2 2018- Yes [id number] APPLY TO Univers % ointment 9-10 AFFECTED ity o f 00:00: [facility]() [place] 00 THREE Medical TIMES A Branch DAY MUPIROCIN 2 2019- Yes [id number] APPLY TO Univers % ointment 9-10 AFFECTED ity o f 00:00: [facility]() [place] 00 THREE Medical TIMES A Branch DAY MUPIROCIN 2 2019- Yes [id number] APPLY TO Univers % ointment 9-10 AFFECTED ity o f 00:00: [facility]() [place] 00 THREE Medical TIMES A Branch DAY MUPIROCIN 2 2018- Yes [id number] APPLY TO Univers % ointment 9-10 AFFECTED ity o f 00:00: [facility]) [place] 00 THREE Medical TIMES A Branch DAY MUPIROCIN 2 2018- Yes [id number] APPLY TO Univers % ointment 9-10 AFFECTED ity o f 00:00: [facility] 00 THREE Medical TIMES A Branch DAY MUPIROCIN 2 2018- Yes [id number] APPLY TO Univers % ointment 9-10 AFFECTED ity o f 00:00: [facility]() [place] 00 THREE Medical TIMES A Branch DAY MUPIROCIN 2 2019-0 Yes [id number] APPLY TO Univers % ointment 9-10 AFFECTED ity o f 00:00: [facility]() [place] 00 THREE Medical TIMES A Branch DAY MUPIROCIN 2 2019-0 Yes [id number] APPLY TO Univers % ointment 9-10 AFFECTED ity o f 00:00: [facility]() [place] [address] THREE Medical TIMES A Branch DAY MUPIROCIN 2 2019-0 Yes [id number] APPLY TO Univers % ointment 9-10 AFFECTED ity o f 00:00: [facility]() [place] THREE Medical TIMES A Branch DAY MUPIROCIN 2 2019-0 Yes [id number] APPLY TO Univers % ointment 9-10 AFFECTED ity o f 00:00: [facility]() [place] [address] THREE Medical TIMES A Branch DAY MUPIROCIN 2 2019- Yes [id number] APPLY TO Univers % ointment 9-10 AFFECTED ity o f 00:00: [facility]() [place] [address] THREE Medical TIMES A Branch DAY MUPIROCIN 2 2019-0 Yes [id number] APPLY TO Univers % ointment 9-10 AFFECTED ity o f 00:00: [facility]() [place] 00 THREE Medical TIMES A Branch DAY MUPIROCIN 2 2019-0 Yes [id number] APPLY TO Univers % ointment 9-10 AFFECTED ity o f 00:00: [facility]() [place] THREE Medical TIMES A Branch DAY MUPIROCIN 2 2019-0 Yes [id number] APPLY TO Univers % ointment 9-10 AFFECTED ity o f 00:00: [facility]() [place] 00 THREE Medical TIMES A Branch DAY MUPIROCIN 2 2019-0 Yes [id number] APPLY TO Univers % ointment 9-10 AFFECTED ity o f 00:00: [facility]) [place] THREE Medical TIMES A Branch DAY MUPIROCIN 2 2019-0 Yes [id number] APPLY TO Univers % ointment 9-10 AFFECTED ity o f 00:00: [facility] THREE Medical TIMES A Branch DAY MUPIROCIN 2 2019-0 Yes [id number] APPLY TO Univers % ointment 9-10 AFFECTED ity o f 00:00: [place] [address] THREE Medical TIMES A Branch DAY MUPIROCIN 2 2019-0 Yes [id number] APPLY TO Univers % ointment 9-10 AFFECTED ity o f 00:00: [place] [address] THREE Medical TIMES A Branch DAY MUPIROCIN 2 2019-0 Yes [id number] APPLY TO Univers % ointment 9-10 AFFECTED ity o f 00:00: [place] [address] THREE Medical TIMES A Branch DAY MUPIROCIN 2 2019-0 Yes [id number] APPLY TO Univers % ointment 9-10 AFFECTED ity o f 00:00: [place] [address] THREE Medical TIMES A Branch DAY MUPIROCIN 2 2019-0 Yes [id number] APPLY TO Univers % ointment 9-10 AFFECTED ity o f 00:00: [place] [address] THREE Medical TIMES A Branch DAY MUPIROCIN 2 2019-0 Yes [id number] APPLY TO Univers % ointment 9-10 AFFECTED ity o f 00:00: [place] [address] THREE Medical TIMES A Branch DAY PREDNISONE 2019-0 Yes [id number] TAKE TWO [facility] 20 mg 8-22 TABLETS BY ity of tablet 00:00: MOUTH [place] 00 DAILY. Medical KEEP ON Branch HAND FOR BURSITIS PAIN. TAKE FULL COURSE IF PAIN RETURNS PREDNISONE 2019-0 Yes [id number] TAKE TWO [facility] 20 mg 8-22 TABLETS BY ity of tablet 00:00: MOUTH [place] 00 DAILY. Medical KEEP ON Branch HAND FOR BURSITIS PAIN. TAKE FULL COURSE IF PAIN RETURNS PREDNISONE 2019-0 Yes [id number] TAKE TWO [facility] 20 mg 8-22 TABLETS BY ity of tablet 00:00: MOUTH [place] 00 DAILY. Medical KEEP ON Branch HAND FOR BURSITIS PAIN. TAKE FULL COURSE IF PAIN RETURNS PREDNISONE 2019-0 Yes [id number] TAKE TWO [facility] 20 mg 8-22 TABLETS BY ity of tablet 00:00: MOUTH [place] 00 DAILY. Medical KEEP ON Branch HAND FOR BURSITIS PAIN. TAKE FULL COURSE IF PAIN RETURNS PREDNISONE 2019-0 Yes [id number] TAKE TWO [facility] 20 mg 8-22 TABLETS BY ity of tablet 00:00: MOUTH [place] 00 DAILY. Medical KEEP ON Branch HAND FOR BURSITIS PAIN. TAKE FULL COURSE IF PAIN RETURNS PREDNISONE 2019-0 Yes [id number] TAKE TWO [facility] 20 mg 8-22 TABLETS BY ity of tablet 00:00: MOUTH [place] 00 DAILY. Medical KEEP ON Branch HAND FOR BURSITIS PAIN. TAKE FULL COURSE IF PAIN RETURNS PREDNISONE 2019-0 Yes [id number] TAKE TWO [facility] 20 mg 8-22 TABLETS BY ity of tablet 00:00: MOUTH [place] 00 DAILY. Medical KEEP ON Branch HAND FOR BURSITIS PAIN. TAKE FULL COURSE IF PAIN RETURNS PREDNISONE 2019-0 Yes [id number] TAKE TWO [facility] 20 mg 8-22 TABLETS BY ity of tablet 00:00: MOUTH [place] 00 DAILY. Medical KEEP ON Branch HAND FOR BURSITIS PAIN. TAKE FULL COURSE IF PAIN RETURNS PREDNISONE 2019-0 Yes [id number] TAKE TWO [facility] 20 mg 8-22 TABLETS BY ity of tablet 00:00: MOUTH [place] 00 DAILY. Medical KEEP ON Branch HAND FOR BURSITIS PAIN. TAKE FULL COURSE IF PAIN RETURNS lisinopril 2019-0 Yes [id number] 40mg Take 1 U nivers 40 mg 8-09 tablet by ity of tablet 00:00: mouth [place] 00 daily. [facility] Branch lisinopril 0 Yes [id number] 40mg Take 1 U nivers 40 mg 8-09 tablet by ity of tablet 00:00: mouth [place] 00 daily. Medical Branch lisinopril 0 Yes [id number] 40mg Take 1 U nivers 40 mg 8-09 tablet by ity of tablet 00:00: mouth [place] 00 daily. Medical Branch lisinopril 0 Yes [id number] 40mg Take 1 U nivers 40 mg 8-09 tablet by ity of tablet 00:00: mouth [place] 00 daily. [facility] Branch lisinopril 0 Yes [id number] 40mg Take 1 U nivers 40 mg 8-09 tablet by ity of tablet 00:00: mouth [place] 00 daily. [facility] Branch lisinopril 0 Yes [id number] 40mg Take 1 U nivers 40 mg 8-09 tablet by ity of tablet 00:00: mouth [place] 00 daily. Medical Branch lisinopril 2018-0 Yes [id number] 40mg Take 1 U nivers 40 mg 8-09 tablet by ity of tablet 00:00: mouth [place] 00 daily. [facility] Branch lisinopril 2018-0 Yes [id number] 40mg Take 1 U nivers 40 mg 8-09 tablet by ity of tablet 00:00: mouth [place] 00 daily. [facility] Branch lisinopril 2018-0 Yes [id number] 40mg Take 1 U nivers 40 mg 8-09 tablet by ity of tablet 00:00: mouth [place] 00 daily. Medical Branch lisinopril Yes [id number] 40mg Take 1 U nivers 40 mg 8-09 tablet by ity of tablet 00:00: mouth [place] 00 daily. Medical Branch lisinopril 0 Yes [id number] 40mg Take 1 U nivers 40 mg 8-09 tablet by ity of tablet 00:00: mouth [place] 00 daily. Medical Branch lisinopril Yes [id number] 40mg Take 1 U nivers 40 mg 8-09 tablet by ity of tablet 00:00: mouth [place] 00 daily. Medical Branch predniSONE Yes [id number] 40mg Take 2 U nivers 20 mg 7-30 tablets by ity of tablet 00:00: mouth [place] 00 daily. Medical Keep on Branch hand for bursitis pain. Take full course if pain returns. meclizine Yes [id number] 25mg Take 1 U nivers 25 mg 7-30 tablet by ity of tablet 00:00: mouth 3 (three) Medical times Branch daily as needed for Dizziness (take with prednisone .). predniSONE Yes [id number] 40mg Take 2 U nivers 20 mg 7-30 tablets by ity of tablet 00:00: mouth [place] 00 daily. Medical Keep on Branch hand for bursitis pain. Take full course if pain returns. meclizine Yes [id number] 25mg Take 1 U nivers 25 mg 7-30 tablet by ity of tablet 00:00: mouth 3 (three) Medical times Branch daily as needed for Dizziness (take with prednisone .). predniSONE Yes [id number] 40mg Take 2 U nivers 20 mg 7-30 tablets by ity of tablet 00:00: mouth [place] 00 daily. Medical Keep on Branch hand for bursitis pain. Take full course if pain returns. meclizine Yes [id number] 25mg Take 1 U nivers 25 mg 7-30 tablet by ity of tablet 00:00: mouth 3 [place] (three) Medical times Branch daily as needed for Dizziness (take with prednisone .). predniSONE Yes [id number] 40mg Take 2 U nivers 20 mg 7-30 tablets by ity of tablet 00:00: mouth [place] 00 daily. Medical Keep on Branch hand for bursitis pain. Take full course if pain returns. meclizine Yes [id number] 25mg Take 1 U nivers 25 mg 7-30 tablet by ity of tablet 00:00: mouth (three) Medical times Branch daily as needed for Dizziness (take with prednisone .). meclizine Yes [id number] 25mg Take 1 U nivers 25 mg 7-30 tablet by ity of tablet 00:00: mouth (three) Medical times Branch daily as needed for Dizziness (take with prednisone .). meclizine Yes [id number] 25mg Take 1 U nivers 25 mg 7-30 tablet by ity of tablet 00:00: mouth (three) Medical times Branch daily as needed for Dizziness (take with prednisone .). meclizine Yes [id number] 25mg Take 1 U nivers 25 mg 7-30 tablet by ity of tablet 00:00: mouth (three) Medical times Branch daily as needed for Dizziness (take with prednisone .). meclizine Yes [id number] 25mg Take 1 U nivers 25 mg 7-30 tablet by ity of tablet 00:00: mouth (three) Medical times Branch daily as needed for Dizziness (take with prednisone .). meclizine Yes [id number] 25mg Take 1 U nivers 25 mg 7-30 tablet by ity of tablet 00:00: mouth (three) Medical times Branch daily as needed for Dizziness (take with prednisone .). meclizine Yes [id number] 25mg Take 1 U nivers 25 mg 7-30 tablet by ity of tablet 00:00: mouth (three) Medical times Branch daily as needed for Dizziness (take with prednisone .). meclizine Yes [id number] 25mg Take 1 U nivers 25 mg 7-30 tablet by ity of tablet 00:00: mouth (three) Medical times Branch daily as needed for Dizziness (take with prednisone .). meclizine Yes [id number] 25mg Take 1 U nivers 25 mg 7-30 tablet by ity of tablet 00:00: mouth (three) Medical times Branch daily as needed for Dizziness (take with prednisone .). meclizine Yes [id number] 25mg Take 1 U nivers 25 mg 7-30 tablet by ity of tablet 00:00: mouth 3 (three) Medical times Branch daily as needed for Dizziness (take with prednisone .). meclizine Yes [id number] 25mg Take 1 U nivers 25 mg 7-30 tablet by ity of tablet 00:00: mouth 3 (three) Medical times Branch daily as needed for Dizziness (take with prednisone .). predniSONE Yes [id number] 40mg Take 2 U nivers 20 mg 7-30 tablets by ity of tablet 00:00: mouth [place] 00 daily. Medical Keep on Branch hand for bursitis pain. Take full course if pain returns. meclizine Yes [id number] 25mg Take 1 U nivers 25 mg 7-30 tablet by ity of tablet 00:00: mouth 3 (three) Medical times Branch daily as needed for Dizziness (take with prednisone .). predniSONE Yes [id number] 40mg Take 2 U nivers 20 mg 7-30 tablets by ity of tablet 00:00: mouth [place] 00 daily. Medical Keep on Branch hand for bursitis pain. Take full course if pain returns. meclizine Yes [id number] 25mg Take 1 U nivers 25 mg 7-30 tablet by ity of tablet 00:00: mouth 3 00 (three) Medical times Branch daily as needed for Dizziness (take with prednisone .). predniSONE 2019- No [id number] 40mg Take 2 [facility] 20 mg 7-30 08-22 tablets by ity of tablet 00:00: 21:57 mouth [place] 00 :36 daily. Medical Keep on Branch hand for bursitis pain. Take full course if pain returns. predniSONE 2019- No [id number] 40mg Take 2 [facility] 20 mg 7-30 08-22 tablets by ity of tablet 00:00: 21:57 mouth [place] 00 :36 daily. Medical Keep on Branch hand for bursitis pain. Take full course if pain returns. predniSONE 2019- No [id number] 40mg Take 2 [facility] 20 mg 7-18 07-30 tablets by ity of tablet 00:00: 00:00 mouth [place] 00 :00 daily. Medical Branch predniSONE 2018- 2019- No [id number] 40mg Take 2 [facility] 20 mg 7-18 07-30 tablets by ity of tablet 00:00: 00:00 mouth [place] 00 :00 daily. Medical Branch predniSONE 2018- 2019- No [id number] 40mg Take 2 [facility] 20 mg 7-18 07-30 tablets by ity of tablet 00:00: 00:00 mouth [place] 00 :00 daily. Medical Branch hydrALAZINE 2018-0 Yes [id number] 25mg Take 1 [facility] 25 mg 6-14 tablet by ity of tablet 00:00: mouth [place] 00 every 6 Medical (six) Branch hours as needed (high blood pressure). hydrALAZINE 2018-0 Yes [id number] 25mg Take 1 [facility] 25 mg 6-14 tablet by ity of tablet 00:00: mouth [place] 00 every 6 Medical (six) Branch hours as needed (high blood pressure). hydrALAZINE 2018- Yes [id number] 25mg Take 1 [facility] 25 mg 6-14 tablet by ity of tablet 00:00: mouth [place] 00 every 6 Medical (six) Branch hours as needed (high blood pressure). hydrALAZINE Yes [id number] 25mg Take 1 [facility] 25 mg 6-14 tablet by ity of tablet 00:00: mouth [place] 00 every 6 Medical (six) Branch hours as needed (high blood pressure). hydrALAZINE 2018-0 Yes [id number] 25mg Take 1 [facility] 25 mg 6-14 tablet by ity of tablet 00:00: mouth [place] 00 every 6 Medical (six) Branch hours as needed (high blood pressure). hydrALAZINE 2018-0 Yes [id number] 25mg Take 1 [facility] 25 mg 6-14 tablet by ity of tablet 00:00: mouth [place] 00 every 6 Medical (six) Branch hours as needed (high blood pressure). hydrALAZINE 2018-0 Yes [id number] 25mg Take 1 [facility] 25 mg 6-14 tablet by ity of tablet 00:00: mouth [place] 00 every 6 Medical (six) Branch hours as needed (high blood pressure). hydrALAZINE 2018-0 Yes [id number] 25mg Take 1 [facility] 25 mg 6-14 tablet by ity of tablet 00:00: mouth [place] 00 every 6 Medical (six) Branch hours as needed (high blood pressure). hydrALAZINE 2019-0 Yes [id number] 25mg Take 1 [facility] 25 mg 6-14 tablet by ity of tablet 00:00: mouth [place] 00 every 6 Medical (six) Branch hours as needed (high blood pressure). hydrALAZINE 2018-0 Yes [id number] 25mg Take 1 [facility] 25 mg 6-14 tablet by ity of tablet 00:00: mouth [place] 00 every 6 Medical (six) Branch hours as needed (high blood pressure). hydrALAZINE 2018-0 Yes [id number] 25mg Take 1 [facility] 25 mg 6-14 tablet by ity of tablet 00:00: mouth [place] 00 every 6 Medical (six) Branch hours as needed (high blood pressure). hydrALAZINE 2018-0 Yes [id number] 25mg Take 1 [facility] 25 mg 6-14 tablet by ity of tablet 00:00: mouth [place] 00 every 6 Medical (six) Branch hours as needed (high blood pressure). hydrALAZINE 2018-0 Yes [id number] 25mg Take 1 [facility] 25 mg 6-14 tablet by ity of tablet 00:00: mouth [place] 00 every 6 Medical (six) Branch hours as needed (high blood pressure). hydrALAZINE 2018-0 Yes [id number] 25mg Take 1 [facility] 25 mg 6-14 tablet by ity of tablet 00:00: mouth [place] 00 every 6 Medical (six) Branch hours as needed (high blood pressure). hydrALAZINE 2018-0 Yes [id number] 25mg Take 1 [facility] 25 mg 6-14 tablet by ity of tablet 00:00: mouth [place] 00 every 6 Medical (six) Branch hours as needed (high blood pressure). hydrALAZINE 2018-0 Yes [id number] 25mg Take 1 [facility] 25 mg 6-14 tablet by ity of tablet 00:00: mouth [place] 00 every 6 Medical (six) Branch hours as needed (high blood pressure). hydrALAZINE 2019-0 Yes [id number] 25mg Take 1 [facility] 25 mg 6-14 tablet by ity of tablet 00:00: mouth [place] 00 every 6 Medical (six) Branch hours as needed (high blood pressure). hydrALAZINE 2018-0 Yes [id number] 25mg Take 1 [facility] 25 mg 6-14 tablet by ity of tablet 00:00: mouth [place] 00 every 6 Medical (six) Branch hours as needed (high blood pressure). hydrALAZINE 2019 2020- No [id number] 25mg Take 1 [facility] 25 mg 6-14 01-30 tablet by ity of tablet 00:00: 00:00 mouth [place] 00 :00 every 6 Medical (six) Branch hours as needed (high blood pressure). hydrALAZINE 2020- No [id number] 25mg Take 1 [facility] 25 mg 6-14 01-30 tablet by ity of tablet 00:00: 00:00 mouth [place] 00 :00 every 6 Medical (six) Branch hours as needed (high blood pressure). LISINOPRIL 2019-0 Yes [id number] TAKE ONE [facility] 40 mg 3-14 TABLET BY ity of tablet 00:00: MOUTH [place] 00 DAILY Medical Branch LISINOPRIL 2019-0 Yes [id number] TAKE ONE [facility] 40 mg 3-14 TABLET BY ity of tablet 00:00: MOUTH [place] 00 DAILY Medical Branch LISINOPRIL 2019-0 Yes [id number] TAKE ONE Univers 40 mg 3-14 TABLET BY ity of tablet 00:00: MOUTH [place] 00 DAILY Medical Branch LISINOPRIL 2019-0 Yes [id number] TAKE ONE [facility] 40 mg 3-14 TABLET BY ity of tablet 00:00: MOUTH [place] 00 DAILY Medical Branch LISINOPRIL 2018-0 2019- No [id number] TAKE ONE [facility] 40 mg 3-14 08-09 TABLET BY ity of tablet 00:00: 00:00 MOUTH [place] 00 :00 DAILY Medical Branch CLONIDINE 2018-0 Yes [id number] TAKE TWO Univers 0.1 mg 9-17 TABLETS BY ity of tablet 00:00: MOUTH [place] 00 EVERY 6 Medical HOURS Branch NEEDED CLONIDINE 2018-0 Yes [id number] TAKE TWO Univers 0.1 mg 9-17 TABLETS BY ity of tablet 00:00: MOUTH [place] 00 EVERY 6 Medical HOURS Branch NEEDED CLONIDINE 2018-0 Yes [id number] TAKE TWO Univers 0.1 mg 9-17 TABLETS BY ity of tablet 00:00: MOUTH [place] 00 EVERY 6 Medical HOURS Branch NEEDED CLONIDINE 2018-0 Yes [id number] TAKE TWO Univers 0.1 mg 9-17 TABLETS BY ity of tablet 00:00: MOUTH [place] 00 EVERY 6 Medical HOURS Branch NEEDED CLONIDINE 2018-0 Yes [id number] TAKE TWO Univers 0.1 mg 9-17 TABLETS BY ity of tablet 00:00: MOUTH [place] 00 EVERY 6 Medical HOURS Branch NEEDED CLONIDINE 2018-0 Yes [id number] TAKE TWO Univers 0.1 mg 9-17 TABLETS BY ity of tablet 00:00: MOUTH [place] 00 EVERY 6 Medical HOURS Branch NEEDED CLONIDINE 2018-0 Yes [id number] TAKE TWO Univers 0.1 mg 9-17 TABLETS BY ity of tablet 00:00: MOUTH [place] 00 EVERY 6 Medical HOURS Branch NEEDED CLONIDINE 2018-0 Yes [id number] TAKE TWO Univers 0.1 mg 9-17 TABLETS BY ity of tablet 00:00: MOUTH [place] 00 EVERY 6 Medical HOURS Branch NEEDED CLONIDINE 2018-0 Yes [id number] TAKE TWO Univers 0.1 mg 9-17 TABLETS BY ity of tablet 00:00: MOUTH [place] 00 EVERY 6 Medical HOURS Branch NEEDED CLONIDINE 2018-0 Yes [id number] TAKE TWO Univers 0.1 mg 9-17 TABLETS BY ity of tablet 00:00: MOUTH [place] 00 EVERY 6 Medical HOURS Branch NEEDED CLONIDINE 2018-0 Yes [id number] TAKE TWO Univers 0.1 mg 9-17 TABLETS BY ity of tablet 00:00: MOUTH [place] 00 EVERY 6 Medical HOURS Branch NEEDED CLONIDINE 2018-0 Yes [id number] TAKE TWO Univers 0.1 mg 9-17 TABLETS BY ity of tablet 00:00: MOUTH [place] 00 EVERY 6 Medical HOURS Branch NEEDED CLONIDINE 2018-0 Yes [id number] TAKE TWO Univers 0.1 mg 9-17 TABLETS BY ity of tablet 00:00: MOUTH [place] 00 EVERY 6 Medical HOURS Branch NEEDED CLONIDINE 2018-0 Yes [id number] TAKE TWO Univers 0.1 mg 9-17 TABLETS BY ity of tablet 00:00: MOUTH [place] 00 EVERY 6 Medical HOURS Branch NEEDED CLONIDINE 2018-0 Yes [id number] TAKE TWO Univers 0.1 mg 9-17 TABLETS BY ity of tablet 00:00: MOUTH [place] 00 EVERY 6 Medical HOURS Branch NEEDED CLONIDINE 2018-0 Yes [id number] TAKE TWO Univers 0.1 mg 9-17 TABLETS BY ity of tablet 00:00: MOUTH [place] 00 EVERY 6 Medical HOURS Branch NEEDED mupirocin 2 2018-0 Yes Apply to Un [place] % ointment 8-27 area(s) 3 ity of 00:00: (three) [place] 00 times Medical daily. Branch mupirocin 2 2018-0 Yes Apply to Un [place] % ointment 8-27 area(s) 3 ity of 00:00: (three) [place] 00 times Medical daily. Branch mupirocin 2 2018-0 Yes Apply to Un [place] % ointment 8-27 area(s) 3 ity of 00:00: (three) [place] 00 times Medical daily. Branch mupirocin 2 2018-0 Yes Apply to Un [place] % ointment 8-27 area(s) 3 ity of 00:00: (three) [place] 00 times Medical daily. Branch mupirocin 2 2018-0 Yes Apply to Un [place] % ointment 8-27 area(s) 3 ity of 00:00: (three) [place] 00 times Medical daily. Branch mupirocin 2 2018-0 Yes Apply to Un [place] % ointment 8-27 area(s) 3 ity of 00:00: (three) [place] 00 times Medical daily. Branch mupirocin 2 2018-0 Yes Apply to Un [place] % ointment 8-27 area(s) 3 ity of 00:00: (three) [place] 00 times Medical daily. Branch mupirocin 2 2018-0 Yes Apply to Un [place] % ointment 8-27 area(s) 3 ity of 00:00: (three) [place] 00 times Medical daily. Branch mupirocin 2 2018-0 2019- No Apply to U nivers % ointment 8-27 09-07 area(s) 3 ity of 00:00: 00:00 (three) [place] 00 :00 times Medical daily. Branch Immunizations Ordered Filled Immunization Date Status Comments [facility] e Immunization Name Name SARS-COV-2 COVID-19 2021-07-23 Completed Unive rsity of BENNY/J&J VACCINE 00:00:00 [facility] SARS-COV-2 COVID-19 2021-07-23 Completed Unive rsity of BENNY/J&J VACCINE 00:00:00 [facility] SARS-COV-2 COVID-19 2021-07-23 Completed Unive rsity of BENNY/J&J VACCINE 00:00:00 [facility] SARS-COV-2 COVID-19 2021-07-23 Completed Unive rsity of BENNY/J&J VACCINE 00:00:00 [facility] SARS-COV-2 COVID-19 2021-07-23 Completed Unive rsity of BENNY/J&J VACCINE 00:00:00 [facility] SARS-COV-2 COVID-19 2021-07-23 Completed Unive rsity of BENNY/J&J VACCINE 00:00:00 [facility] SARS-COV-2 COVID-19 2021-07-23 Completed Unive rsity of BENNY/J&J VACCINE 00:00:00 [facility] SARS-COV-2 COVID-19 2021-07-23 Completed Unive rsity of BENNY/J&J VACCINE 00:00:00 [facility] SARS-COV-2 COVID-19 2021-07-23 Completed Unive rsity of BENNY/J&J VACCINE 00:00:00 [facility] SARS-COV-2 COVID-19 2021-07-23 Completed Unive rsity of BENNY/J&J VACCINE 00:00:00 [facility] SARS-COV-2 COVID-19 2021-07-23 Completed Unive rsity of BENNY/J&J VACCINE 00:00:00 [facility] SARS-COV-2 COVID-19 2021-07-23 Completed Unive rsity of BENNY/J&J VACCINE 00:00:00 [facility] SARS-COV-2 COVID-19 2021-07-23 Completed Unive rsity of BENNY/J&J VACCINE 00:00:00 [facility] SARS-COV-2 COVID-19 2021-07-23 Completed Unive rsity of BENNY/J&J VACCINE 00:00:00 [facility] SARS-COV-2 COVID-19 2021-07-23 Completed Unive rsity of BENNY/J&J VACCINE 00:00:00 [facility] Benny COVID-19 Benny COVID-19 2021-07-23 Completed Vaccine Vaccine 00:00:00 SARS-COV-2 COVID-19 2020-09-27 Completed Unive rsity of BENNY/J&J VACCINE 00:00:00 [facility] SARS-COV-2 COVID-19 2020-09-27 Completed Unive rsity of BENNY/J&J VACCINE 00:00:00 [facility] SARS-COV-2 COVID-19 2020-09-27 Completed Unive rsity of BENNY/J&J VACCINE 00:00:00 [facility] SARS-COV-2 COVID-19 2020-09-27 Completed Unive rsity of BENNY/J&J VACCINE 00:00:00 [facility] SARS-COV-2 COVID-19 2020-09-27 Completed Unive rsity of BENNY/J&J VACCINE 00:00:00 [facility] SARS-COV-2 COVID-19 2020-09-27 Completed Unive rsity of BENNY/J&J VACCINE 00:00:00 [facility] SARS-COV-2 COVID-19 2020-09-27 Completed Unive rsity of BENNY/J&J VACCINE 00:00:00 [facility] SARS-COV-2 COVID-19 2020-09-27 Completed Unive rsity of BENNY/J&J VACCINE 00:00:00 [facility] SARS-COV-2 COVID-19 2020-09-27 Completed Unive rsity of BENNY/J&J VACCINE 00:00:00 [facility] SARS-COV-2 COVID-19 2020-09-27 Completed Unive rsity of BENNY/J&J VACCINE 00:00:00 [facility] SARS-COV-2 COVID-19 2020-09-27 Completed Unive rsity of BENNY/J&J VACCINE 00:00:00 [facility] SARS-COV-2 COVID-19 2020-09-27 Completed Unive rsity of BENNY/J&J VACCINE 00:00:00 [facility] SARS-COV-2 COVID-19 2020-09-27 Completed Unive rsity of BENNY/J&J VACCINE 00:00:00 [facility] SARS-COV-2 COVID-19 2020-09-27 Completed Unive rsity of BENNY/J&J VACCINE 00:00:00 [facility] SARS-COV-2 COVID-19 2020-09-27 Completed Unive rsity of BENNY/J&J VACCINE 00:00:00 [facility] SARS-COV-2 COVID-19 2020-09-27 Completed Unive rsity of BENNY/J&J VACCINE 00:00:00 [facility] SARS-COV-2 COVID-19 2020-09-27 Completed Unive rsity of BENNY/J&J VACCINE 00:00:00 [facility] SARS-COV-2 COVID-19 2020-09-27 Completed Unive rsity of BENNY/J&J VACCINE 00:00:00 [facility] SARS-COV-2 COVID-19 2020-09-27 Completed Unive rsity of BENNY/J&J VACCINE 00:00:00 [facility] SARS-COV-2 COVID-19 2020-09-27 Completed Unive rsity of BENNY/J&J VACCINE 00:00:00 [facility] SARS-COV-2 COVID-19 2020-09-27 Completed Unive rsity of BENNY/J&J VACCINE 00:00:00 [facility] SARS-COV-2 COVID-19 2020-09-27 Completed Unive rsity of BENNY/J&J VACCINE 00:00:00 [facility] SARS-COV-2 COVID-19 2020-09-27 Completed Unive rsity of BENNY/J&J VACCINE 00:00:00 [facility] SARS-COV-2 COVID-19 2020-09-27 Completed Unive rsity of BENNY/J&J VACCINE 00:00:00 [facility] SARS-COV-2 COVID-19 2020-09-27 Completed Unive rsity of BENNY/J&J VACCINE 00:00:00 [facility] SARS-COV-2 COVID-19 2020-09-27 Completed Unive rsity of BENNY/J&J VACCINE 00:00:00 [facility] SARS-COV-2 COVID-19 2020-09-27 Completed Unive rsity of BENNY/J&J VACCINE 00:00:00 [facility] SARS-COV-2 COVID-19 2020-09-27 Completed Unive rsity of BENNY/J&J VACCINE 00:00:00 [facility] SARS-COV-2 COVID-19 2020-09-27 Completed Unive rsity of BENNY/J&J VACCINE 00:00:00 [facility] Benny COVID-19 Benny COVID-19 2020-09-27 Completed Vaccine Vaccine 00:00:00 Vital Signs Vital Name Observation Time Observation Value Comments Source Systolic blood 2022-10-23 15:31:00 144 mm[Hg] Univer sity of pressure [facility] Diastolic blood 2022-10-23 15:31:00 65 mm[Hg] Unive rsity of pressure [facility] Heart rate 2022-10-23 15:31:00 66 /min Universi of [facility] Body temperature 2022-10-23 15:31:00 37 Katie Univ ersity [facility] Respiratory rate 2022-10-23 15:31:00 18 /min Univ [facility] Body height 2022-10-23 15:31:00 152.4 cm [facility] Body weight 2022-10-23 15:31:00 62.143 kg [facility] BMI 2022-10-23 15:31:00 26.76 kg/m2 [facility] Oxygen saturation in 2022-10-23 15:31:00 98 /min University of Arterial blood by [facility] Pulse oximetry Branch Systolic blood 2022-05-29 20:54:00 162 mm[Hg] Univer sity of pressure [facility] Diastolic blood 2022-05-29 20:54:00 77 mm[Hg] Unive rsity of pressure [facility] Heart rate 2022-05-29 20:37:00 67 /min [facility] Body temperature 2022-05-29 20:37:00 36.17 Katie [facility] Respiratory rate 2022-05-29 20:37:00 18 /min Univ [facility] Body height 2022-05-29 20:37:00 152.4 cm [facility] Body weight 2022-05-29 20:37:00 61.916 kg [facility] BMI 2022-05-29 20:37:00 26.66 kg/m2 [facility] Oxygen saturation in 2022-05-29 20:37:00 97 /min University of Arterial blood by [facility] Pulse oximetry Branch Systolic blood 2020-11-27 16:53:00 172 mm[Hg] Univer sity of pressure [facility] Diastolic blood 2020-11-27 16:53:00 68 mm[Hg] Unive rsity of pressure [facility] Heart rate 2020-11-27 16:53:00 74 /min [facility] Body temperature 2020-11-27 16:53:00 36.56 Katie [facility] Respiratory rate 2020-11-27 16:53:00 18 /min Univ [facility] Body height 2020-11-27 16:53:00 157.5 cm [facility] Body weight 2020-11-27 16:53:00 63.776 kg [facility] BMI 2020-11-27 16:53:00 25.72 kg/m2 [facility] Oxygen saturation in 2020-11-27 16:53:00 98 /min University of Arterial blood by [place] [facility] Pulse oximetry Branch Body temperature 2020-04-03 14:02:00 36.94 Katie [facility] Body weight 2020-04-03 14:02:00 59.875 kg [facility] BMI 2020-04-03 14:02:00 22.66 kg/m2 [facility] Body temperature 2020-02-21 13:42:00 36.11 Katie [facility] Body weight 2020-02-21 13:42:00 59.875 kg [facility] BMI 2020-02-21 13:42:00 22.66 kg/m2 [facility] Body temperature 2020-01-24 13:51:00 35.56 Katie [facility] Body weight 2020-01-24 13:51:00 59.875 kg [facility] BMI 2020-01-24 13:51:00 22.66 kg/m2 [facility] Systolic blood 2020-01-16 06:27:00 120 mm[Hg] Univer sity of pressure [facility] Diastolic blood 2020-01-16 06:27:00 73 mm[Hg] Unive rsity of pressure [facility] Heart rate 2020-01-16 06:27:00 72 /min [facility] Body temperature 2020-01-16 06:27:00 36.67 Katie Univ ersity of [facility] Respiratory rate 2020-01-16 06:27:00 18 /min Univ ersity of [facility] Oxygen saturation in 2020-01-16 06:27:00 99 /min University of Arterial blood by [place] [facility] Pulse oximetry Branch Body weight 2020-01-16 03:49:00 58.968 kg [facility] BMI 2020-01-16 03:49:00 22.31 kg/m2 [facility] Systolic blood 2019-09-12 22:11:00 176 mm[Hg] Univer sity of pressure [facility] Diastolic blood 2019-09-12 22:11:00 73 mm[Hg] Unive rsity of pressure [facility] Heart rate 2019-09-12 22:11:00 86 /min [facility] Body temperature 2019-09-12 22:11:00 36.67 Katie [facility] Respiratory rate 2019-09-12 22:11:00 18 /min Univ [facility] Body weight 2019-09-12 22:11:00 60.782 kg [facility] BMI 2019-09-12 22:11:00 23.00 kg/m2 [facility] Oxygen saturation in 2019-09-12 22:11:00 97 /min University of Arterial blood by [facility] aris Pulse oximetry Branch Systolic blood 2019-08-22 15:42:00 138 mm[Hg] Univer sity of pressure [facility] Diastolic blood 2019-08-22 15:42:00 68 mm[Hg] Unive rsity of pressure [facility] Heart rate 2019-08-22 15:42:00 87 /min [facility] Respiratory rate 2019-08-22 15:42:00 16 /min Univ [facility] Body height 2019-08-22 15:42:00 162.6 cm [facility] Body weight 2019-08-22 15:42:00 59.875 kg [facility] BMI 2019-08-22 15:42:00 22.66 kg/m2 [facility] Oxygen saturation in 2019-08-22 15:42:00 98 /min University of Arterial blood by [facility] aris Pulse oximetry Branch Systolic blood 2019-08-18 16:41:00 128 mm[Hg] Univer sity of pressure [facility] Diastolic blood 2019-08-18 16:41:00 75 mm[Hg] Unive rsity of pressure [facility] Heart rate 2019-08-18 16:41:00 110 /min [facility] Body temperature 2019-08-18 16:41:00 37 Katie [facility] Respiratory rate 2019-08-18 16:41:00 16 /min Univ [facility] [place] [facility] [place] Body weight 2019-08-18 16:41:00 59.693 kg [facility] BMI 2019-08-18 16:41:00 22.59 kg/m2 Universi ty of [facility] Systolic blood 2019-03-29 20:10:00 165 mm[Hg] Univer sity of pressure [facility] Diastolic blood 2019-03-29 20:10:00 65 mm[Hg] Unive rsity of pressure [facility] Heart rate 2019-03-29 20:10:00 88 /min [facility] [place] [facility] [place] Body height 2019-03-29 20:10:00 157.5 cm Universi ty of [facility] Body weight 2019-03-29 20:10:00 64.411 kg Universi ty of [facility] BMI 2019-03-29 20:10:00 25.97 kg/m2 Universi ty of [facility] Systolic blood 2019-02-15 15:51:00 155 mm[Hg] Univer sity of pressure [place] [facility] [place] Diastolic blood 2019-02-15 15:51:00 68 mm[Hg] [facility] Heart rate 2019-02-15 15:51:00 62 /min Universi ty of [facility] Respiratory rate 2019-02-15 15:48:00 16 /min Univ ersity of [facility] Body height 2019-02-15 15:48:00 157.5 cm [facility] [place] [facility] [place] Body weight 2019-02-15 15:48:00 64.728 kg [facility] [place] [facility] [place] BMI 2019-02-15 15:48:00 26.10 kg/m2 Universi ty of [facility] Oxygen saturation in 2019-02-15 15:48:00 98 /min [facility] Arterial blood by [facility] Pulse oximetry Branch Body temperature 2019-02-15 15:48:00 35.78 Katie [facility] Procedures Procedure Date / Time Performing Clinician Source Performed PHYSICIAN ORDERS 2022-10-21 05:01:00 Doctor Unassigned, No Unive rsity of [facility] [place] SARS-COV-2 COVID-19 2021-07-23 15:39:18 Doctor Unassigned, No Un [facility] [place] VACCINE,0.5ML,IM Name Medical Branch (BENNY/J&J) DEXA AXIAL (HIP AND 2020-12-25 19:51:41 Milla Marx [facility] SPINE) Medical Branch HIGH SENSITIVITY CRP 2020-11-28 15:57:00 Milla Marx [facility] Medical Branch XR WRIST 3+ VW LEFT 2020-04-03 13:53:00 [facility] XR WRIST 3+ VW LEFT 2020-02-21 14:17:00 [facility] XR WRIST 3+ VW LEFT 2020-01-24 13:48:07 [address]air[address] [facility] THORAX WO CONTRAST 2019-09-07 16:01:43 Milla Marx [facility] Branch VITAMIN D, 2019-08-22 17:50:00 Adalberto Victor [facility] 25-HYDROXY,$LC/MS/MS-Q Medical B ranch XR WRIST <3 VW LEFT 2019-03-29 20:15:32 Coy Banks [facility] [place] ZINC, SERUM 2019-02-16 13:29:00 Milla Marx [facility] [place] FERRITIN SERUM 2019-02-16 13:29:00 Milla Marx [facility] Medical Branch IRON 2019-02-16 13:29:00 Milla Marx [facility] [place] VITAMIN B12, LEVEL 2019-02-16 13:29:00 Milla Marx [facility] [place] FOLATE 2019-02-16 13:29:00 Milla Marx [facility] TOTAL IRON BINDING 2019-02-16 13:29:[address] [facility] CAPACITY Medical [place] FREE T4 2019-02-16 13:29:00 Milla Marx [facility] [place] THYROID STIMULATING 2019-02-16 13:29:00 Milla Marx [facility] HORMONE Medical Branch COMP. METABOLIC PANEL 2019-02-16 13:29:00 Milla Marx [facility] ([id number]) [facility] CBC WITH DIFFERENTIAL 2019-02-16 13:29:00 Milla Marx [facility] GLYCOSYLATED HEMOGLOBIN 2019-02-16 13:29:00 Milla Marx [facility] (A1C) [facility] HOMOCYSTEINE 2019-02-16 13:29:00 Milla Marx [facility] FREE T3 2019-02-16 13:29:00 Milla Marx [facility] VITAMIN B1 (THIAMINE), 2019-02-16 13:29:00 Radha Marxzabeth [facility] WHOLE BLOOD [facility] Plan of Care Planned Activity Planned Date Details Comments Source Future Scheduled 2023-05-09 COVID-19 VACCINE (#1) [facility] Test 23:54:49 [code = COVID-19 VACCINE (#1)] Future Scheduled 2023-05-09 SHINGLES VACCINES (1 [facility] Test 23:54:49 of 2) [code = SHINGLES VACCINES (1 of 2)] Future Scheduled 2023-05-09 RSV VACCINES > 60 YR [facility] Test 23:54:49 (1 - 1-dose 60+ series) [code = RSV VACCINES > 60 YR (1 - 1-dose 60+ series)] Future Scheduled 2023-05-09 65+ [facility]OCOCCAL [facility] 23:54:49 VACCINE (1 - PCV) [code = 65+ PNEUMOCOCCAL VACCINE (1 - PCV)] Future Scheduled 2023-05-09 INFLUENZA VACCINE (#1) [facility] Test 23:54:49 [code = INFLUENZA VACCINE (#1)] Encounters Start End Encounter Admission Attending Care Care Encounter Source Date/Time Date/Time Type Type Clinicians Facility Department ID 2021-05-17 Emergency [facility] [id number] Univers 03:19:22 [facility] 2023-01-29 2023-01-29 Refill NICOLASA Marx 1.2.840.114 [id number] Univers 00:00:00 00:00:00 Milla VILLALBA [id number] [facility] [id number] [id number] [address] 2022-11-11 2022-11-11 [facility] 1.2.840.114 [id number] Univers 00:00:00 00:00:00 Milla VILLALBA [id number] ity [id number] [id number] [address] 2022-10-23 2022-10-23 Nurse 2, Adc Infusion Chair [facility] 1.2. 840.114 [id number] Univers 11:00:00 13:30:00 Visit Rachna Amor [id number] it[id number] [id number] [address] 2022-10-23 2022-10-23 Outpatient R BELEN [facility] [id number] Univers 11:00:00 11:00:00 RACHNA ortega [facility] 2022-10-21 2022-10-21 Orders Doctor DON 1.2.840.114 [id number] Univers 00:00:00 00:00:00 Only Unassigned, SANTOS [id number] ity of [place] [facility] [id number] Boy as [phone] [address] 2022-09-21 2022-09-21 [facility] 1.2.840.114 [id number] Univers 00:00:00 00:00:00 Milla VILLALBA [id number] ity [id number] [id number] [address] 2022-05-29 2022-05-29 Outpatient R FRANCISCO J [facility] [id number] Univers 14:20:00 15:52:18 MILLA ortega [facility] 2022-05-29 2022-05-29 Office Francisco J [facility] 1.2.840.114 [id number] Univers 14:20:00 15:52:18 Visit Milla BENZTON [id number] ity of [facility] [id number] [id number] [address] 2022-05-10 2022-05-10 [facility] 1.2.840.114 [id number] Univers 00:00:00 00:00:00 Milla Kenya NENATON [id number] ity of [facility] [id number] [id number] [address] 2022-04-28 2022-04-28 [facility] 1.2.840.114 [id number] Univers 00:00:00 00:00:00 Milla BENZTON [id number] ity of [facility] [id number] [id number] [address] 2022-02-28 2022-02-28 Outpatient [facility] [id number] Univers 16:20:00 17:02:56 [facility] 2022-02-28 2022-02-28 [facility]medici [facility] 1.2.840.114 [id number] Univers 16:20:00 17:02:56 ne Visit Milla BENZTON [id number] ity of [id number] [phone] [address] 2022-02-25 2022-02-25 Outpatient R FRANCISCO [facility] [id number] Univers 13:00:00 13:00:00 [facility] 2022-02-25 2022-02-25 Outpatient R FRANCISCO [facility] [id number] Univers 10:00:00 10:00:00 MILLA ortega [facility] 2021-11-20 2021-11-20 Senior Technical Trainer 2, Adc Lab [facility] 1.2.840.114 [id number] Univers 08:00:00 08:15:00 Visit Milla Marx [id number]. [id number] ity of [facility] [id number] [phone] [facility] [address] [facility] 2021-11-20 2021-11-20 Outpatient R FRANCISCO [facility] [id number] Univers 08:00:00 08:00:00 MILLA ity [facility] 2021-10-31 2021-10-31 Refill Francisco [facility] 1.2.840.114 [id number] Univers 00:00:00 00:00:00 Milla BENZTON [id number] ity of [id number] [id number] [address] 2021-08-23 2021-08-23 Outpatient R FRANCISCO [facility] [id number] Univers 11:00:00 13:21:40 MILLA ity [facility] 2021-08-23 2021-08-23 Telemedici [facility] 1.2.840.114 [id number] Univers 11:00:00 13:21:40 ne Visit Milla VILLALBA [id number] ity of [id number] [id number] [address] 2021-08-01 2021-08-01 Outpatient R FRANCISCO [facility] [id number] Univers 11:00:00 11:00:00 MILLA ity [facility] 2021-07-30 2021-07-30 Telephone Francisco [facility] 1.2.840.114 [id number] Univers 00:00:00 00:00:00 Milla BENZTON [id number] ity of [id number] [id number] [address] 2021-07-23 2021-07-23 [facility] [id number] Univers 10:10:00 10:10:00 EZEKIEL [facility] 2021-07-23 2021-07-23 Imm/Inj Nurse, Adc Pob Immunization [facility] 1.2.840.114 [id number] Univers 10:10:00 10:10:00 Visit Ezekiel Hurtado [id number] .10 ity of [facility] [id number] [phone] Ak dical NAL [address] [facility] 2021-07-23 2021-07-23 Outpatient GCCOVIDV GCCOVIDV [id number] GCCOVID 00:00:00 00:00:00 V 2021-07-19 2021-07-19 Outpatient Jey HURTADO [facility] [id number] Univers 13:00:00 13:00:00 [facility] 2021-06-19 2021-06-19 Outpatient Jey MARX [facility] [id number] Univers 12:00:00 12:00:00 MILLA [facility] 2021-06-19 2021-06-19 Senior Technical Trainer Pcp-Lab [facility] 1.2.840.114 [id number] Univers 09:47:51 10:02:51 Visit Milla Marx 350.1.1 3.10 [place]y of [id number]AV[place] [id number] Ak dical [address] [place] [address] 2021-06-17 2021-06-17 Telephone Francisco J [facility] 1.2.840.114 [id number] Univers 00:00:00 00:00:00 Milla VILLALBA [id number] ity of [facility] [id number] [id number] Ak dical NAL 0[address] [facility] 2021-04-23 2021-04-23 Outpatient R FRANCISCO J [facility] [id number] Univers 15:00:00 15:00:00 MILLA ortega [facility] 2021-04-23 2021-04-23 Telemedici Francisco J [facility] 1.2.840.114 [id number] Univers 08:07:51 08:47:51 ne Visit Milla Benzton [id number] ity of [id number] [phone] Ak dical nal [address] [facility] 2021-01-11 2021-01-11 [facility] 1.2.840.114 [id number] Univers 00:00:00 00:00:00 Milladavid Villalba [id number] it[place] of [id number] [phone] Ak dical nal 0[address] [facility] 2021-01-10 2021-01-10 Outpatient [facility] [id number] Univers 15:40:00 15:40:00 MILLA ity of [facility] 2021-01-10 2021-01-10 Telemedic [facility] 1.2.840.114 [id number] Univers 07:47:18 08:27:18 ne Visit Milla Villalba [id number] ity of [id number] [phone] [facility] [address] [facility] 2020-12-25 2020-12-[facility]114 [id number] Univers 14:27:43 23:59:00 Encounter Milla A Y HEALTH [id number] ity of [id number] [place] [id number] [facility] [address] 2020-12-25 2020-12-[facility].840.114 [id number] Univers 14:20:00 14:26:00 Encounter Milla A Y HEALTH [id number] ity of CL[id number] [place] [id number] [facility] [address] 2020-12-25 2020-12-25 Outpatient R [id number] Univers 00:00:00 00:00:00 MILLA ortega [facility] 2020-12-18 2020-12-18 Patient Francisco J [facility] 1.2.840.114 [id number] Univers 00:00:00 00:00:00 Secure Msg Milla Zambrano [place] 350.1.13.10 it[place] [phone] [address] 2020-12-11 2020-12-11 Outpatient [facility] [id number] Univers 15:40:00 15:40:00 MILLA ortega [facility] 2020-11-28 2020-11-28 Senior Technical Trainer Pcp-Lab [facility] 1.2.840.114 [id number] Univers 10:51:09 11:06:09 Visit Milla Marx [place] 350.1.1 3.10 ity of [place] [phone] [address] 2020-11-28 2020-11-28 Outpatient R [facility] [id number] Univers 11:00:00 11:00:00 MILLA ortega [facility] 2020-11-28 2020-11-28 Patient Francisco J [facility] 1.2.840.114 [id number] Univers 00:00:00 00:00:00 Secure Msg Milla Benzton 350.1.13.10 it[place] of [place] [phone] [address] 2020-11-27 2020-11-27 Office Francisco J [facility] 1.2.840.114 [id number] Univers 10:54:54 13:25:46 Visit Milla Villalba 350.1.13.10 it[place] of [place] [phone] [address] 2020-11-27 2020-11-27 Outpatient R [facility] [id number] Univers 11:00:00 11:00:00 MILLA ity [facility] 2020-11-20 2020-11-[address] [facility] 1.2.840.114 [id number] Univers 00:00:00 00:00:00 Milla A [place] 350.1.13.10 it[place] of [place] [phone] [address] 2020-09-27 2020-09-27 Outpatient [facility] [id number] Univers 11:40:00 11:40:00 ity [facility] 2020-09-27 2020-09-27 Outpatient GCCOVIDV GCCOVIDV [id number] GCCOVID 00:00:00 00:00:00 V 2020-09-06 2020-09-06 [facility] 1.2.840.114 [id number] Univers 00:00:00 00:00:00 Milla A [place] 350.1.13.10 it[place] of [place] [phone] [address] 2020-08-21 2020-08-21 [facility] 1.2.840.114 [id number] Univers 00:00:00 00:00:00 Milla A [place] 350.1.13.10 it[place] of [place] [phone] [address] 2020-08-16 2020-08-[address] [facility] 1.2.840.114 [id number] Univers 00:00:00 00:00:00 Milla A [place] 350.1.13.10 ity of [place] [phone] [address] 2020-08-11 2020-08-11 [facility] 1.2.840.114 [id number] Univers 00:00:00 00:00:00 Outreach Ezekiel PRIMARY 350.1.13.10 i ty of [facility] 4.2.7.2.[place] [phone] [facility] [address] 2020-07-24 2020-07-24 Patient Francisco J [facility] 1.2.840.114 [id number] Univers 00:00:00 00:00:00 Secure Msg Milla Villalba 350.1.13.10 it[place] of [place] [phone] [address] 2020-06-13 2020-06-13 Telemedici Francisco [facility] 1.2.840.114 [id number] Univers 10:43:30 14:22:33 ne Visit Milla Villalba 350.1.13.10 ity of [place] [phone] [address] 2020-06-13 2020-06-13 Outpatient R FRANCISCO J [facility] [id number] Univers 10:20:00 10:20:00 [facility] 2020-06-11 2020-06-11 Senior Technical Trainer Pcp-Lab [facility] 1.2.840.114 [id number] Univers 08:10:58 08:25:58 Visit Unknown, Attending PRIMARY 350.1.13.10 ity of [place]ha Marxdavid [place] 4.2.7.2.[address] [place] [address] [place] [phone] [address] 2020-06-11 2020-06-11 Outpatient R UNKNOWN, [facility] [id number] Univers 08:15:00 08:15:00 ATTENDING ity [facility] 2020-06-05 2020-06-05 Outpatient R FRANCISCO J [facility] [id number] Univers 10:20:00 10:20:00 MILLA ortega [facility] 2020-06-05 2020-06-05 [facility] 1.2.840.114 [id number] Univers 00:00:00 00:00:00 Milla A [place] 350.1.13.10 ity of [place] [phone] Ak dic[address] 2020-06-05 2020-06-[address] [facility] 1.2.840.114 7 [id number] Univers 00:00:00 00:00:00 Milla Kenya [place] 350.1.13.10 ity of [place] [phone] Ak dic[address] 2020-06-04 2020-06-04 [facility] 1.2.840.114 7 [id number] Univers 00:00:00 00:00:00 Milla Benzton 350.1.13.10 ity of [place] [phone] Ak dic[address] 2020-06-03 2020-06-[address] [facility] 1.2.840.114 [id number] Univers 00:00:00 00:00:00 Milla Benzton 350.1.13.10 ity of [place] [phone] [address] 2020-05-31 2020-05-31 Laboratory Nurse, Gal Pcp Assessment C nagi [facility] 1.2.840.114 [id number] Univers 13:17:29 13:32:29 Only Elías [facility] 350.1.13.10 ity of C[place] 4.2.[place].2.[place] [phone] [address] 2020-05-31 2020-05-31 Outpatient R LICO [facility] [id number] Univers 13:30:00 13:30:00 ELÍAS ity of [facility] 2020-05-31 2020-05-31 Letter [facility] 1.2.840.114 [id number] Univers 00:00:00 00:00:00 (Out) SANTOS 350.1.13.10 it y of HOSPITAL 4.2.7.2.686 Boy as [phone] [address] 2020-05-30 2020-05-30 [facility] 1.2.840.114 [id number] Univers 00:00:00 00:00:00 Milla Zambrano Anand 350.1.13.10 it[place] of [place] [phone] Ak dical nal [address] [facility] 2020-04-03 2020-04-03 [facility] 1.2.572.972 [id number] Univers 08:49:00 23:59:00 Encounter Atif A PRIMARY 350.1.13.10 ity of [place].2.[place] [phone] Ak dicks [address] 2020-04-03 2020-04-03 [facility] 1.2.840.114 [id number] Univers 08:45:37 09:00:37 Visit Atif A PRIMARY 350.1.13.10 it y of [place]2.[place].2.[place] [phone] Ak dical [address] 2020-04-03 2020-04-03 Outpatient R [facility] [id number] Univers 08:30:00 08:30:00 ATIF ity of [facility] 2020-03-30 2020-03-30 Abstract [facility] 1.2.840.114 [id number] Univers 00:00:00 00:00:00 Anjelica PRIMARY 350.1.13.10 it y of [place]2.[place] [phone] Ak dical [address] 2020-02-21 2020-02-21 [facility] 1.2.105.506 [id number] Univers 09:05:53 23:59:00 Encounter Atif A PRIMARY 350.1.13.10 ity of [place] 4[place]2.[place].2.[place] [phone] Ak dical [address] 2020-02-21 2020-02-21 Office [facility] 1.2.840.114 [id number] Univers 08:34:45 16:11:58 Visit Atif A PRIMARY 350.1.13.10 it y [place].2.[place] [phone] Ak dicks [address] 2020-02-21 2020-02-21 Outpatient R [facility] [id number] [facility] 08:30:00 08:30:00 ATIF [facility] 2020-02-20 2020-02-20 Abstract [facility] 1.2.840.114 [id number] Univers 00:00:00 00:00:00 Anjelica PRIMARY 350.1.13.10 it y [place] 4[place]2.[place]2.[place] [phone] Ak dicks [address] 2020-01-24 2020-01-24 [facility] 1.2.323.281 [id number] [facility] 08:31:00 23:59:00 Encounter Atif A PRIMARY 350.1.13.10 ity of C[place] 4.2.7.2.[place] [id number] Ak dical [address] 2020-01-24 2020-01-24 Office [facility] 1.2.840.114 [id number] [facility] 08:19:59 16:47:06 Visit Atif A PRIMARY 350.1.13.10 it y of C[place]2.[place].2.[place] [id number] [facility] [address] 2020-01-24 2020-01-24 Outpatient R [facility] [id number] Univers 08:15:00 08:15:00 ATIF [facility] 2020-01-23 2020-01-23 Abstract [facility] 1.2.840.114 [id number] Univers 00:00:00 00:00:00 Anjelica PRIMARY 350.1.13.10 it y of [place] [phone] [facility] [address] 2020-01-20 2020-01-20 Out[facility] [id number] Univers 14:15:00 14:15:00 [facility] 2020-01-17 2020-01-17 Office [facility] 1.2.840.114 [id number] Univers 08:04:08 14:35:08 Visit Atif Zambrano BRUCE 350.1.13.10 it y [place] RACHELON [phone] Ak dical [address] 2020-01-17 2020-01-17 Outpatient [facility] [id number] Univers 08:00:00 08:00:00 ATIF [facility] 2020-01-17 2020-01-17 Outpatient Jey [facility] [id number] Univers 08:00:00 08:00:00 ATIF [facility] 2020-01-15 2020-01-16 Emergency Monteiro, TRAUMA 1.2.493.524 [id number] Univers 22:50:49 01:29:00 [facility] 350.1.13.10 it[place].[address] [place] [id number] [facility] [address] 2020-01-16 2020-01-16 Abstract Macy, [facility] 1.2.840.114 [id number] Univers 00:00:00 00:00:00 [facility] 350.1.13.10 i ty of CLINICS 4[place]2.7.2.[address] [phone] [facility] [address] 2019-11-24 2019-11-[address] [facility] 1.2.840.114 [id number] Univers 08:05:01 10:37:37 ne Visit Milla Villalba 350.1.13.10 it[place] of [place]2.7.2.[place] Nav[place] [phone] Ak dical nal 231 [facility] 2019-11-24 2019-11-24 Outpatient R FRANCISCO J [facility] [id number] Univers 09:20:00 09:20:00 MILLA ortega [facility] 2019-11-10 2019-11-10 Outpatient R [facility] [id number] Univers 15:40:00 15:40:00 MILLA ortega [facility] 2019-11-10 2019-11-[address] [facility] 1.2.840.114 [id number] Univers 00:00:00 00:00:00 Milla A [place] 350.1.13.10 it[place] of [place] [phone] [address] 2019-11-08 2019-11-08 Outpatient [facility] [id number] Univers 15:40:00 15:40:00 MILLA ity [facility] 2019-10-31 2019-10-[address] [facility] 1.2.840.114 [id number] Univers 00:00:00 00:00:00 Milla A [place] 350.1.13.10 ity of [place] [phone] [address] 2019-10-25 2019-10-25 [facility] 1.2.840.114 [id number] [facility] 00:00:00 00:00:00 Milla A [place] 350.1.13.10 ity of [place].2.[place] [phone] [address] 2019-10-24 2019-10-24 Outpatient [facility] [id number] Univers 10:15:00 10:15:00 ADALBERTO ity [facility] 2019-10-13 2019-10-13 [facility]medici [facility] 1.2.840.114 [id number] Univers 08:43:39 16:26:41 ne Visit Milla A [place] 350.1.13.10 it[place] of [place].2.[place] [phone] [address] 2019-10-13 2019-10-13 Outpatient [facility] [id number] Univers 15:40:00 15:40:00 MILLA ity [facility] 2019-10-07 2019-10-07 Outpatient [facility] [id number] Univers 16:00:00 16:00:00 MILLA [facility] 2019-10-07 2019-10-07 Outpatient R [facility] [id number] Univers 16:00:00 16:00:00 MILLA [facility] 2019-09-30 2019-09-30 Outpatient R [facility]CO [facility] [id number] [id number] Univers 16:00:00 16:00:00 [facility] 2019-09-30 2019-09-30 [facility] 1.2.840.114 [id number] Univers 00:00:00 00:00:00 Milla Villalba 350.1.13.10 it[place] of [place] [phone] [address] 2019-09-26 2019-09-26 Patient Doctor DON 1.2.840.114 [id number] Univers 00:00:00 00:00:00 Secure Msg Unassigned, SANTOS 350.1.13.10 ity of [place] [facility] 4.2.7.2.686 Boy as [phone] [address] 2019-09-22 2019-09-[address] [facility] 1.2.840.114 [id number] Univers 00:00:00 00:00:00 Milla Benzton 350.1.13.10 ity of [place]2.[place] [phone] [address] 2019-09-22 2019-09-[address] [facility] 1.2.840.114 [id number] Univers 00:00:00 00:00:00 Milla [place] 350.1.13.10 it[place] of [place].2.[place] [phone] [address] 2019-09-19 2019-09-19 Telephone [facility] 1.2.840.114 [id number] Univers 00:00:00 00:00:00 Robert MULTISPEC 350.1.13.10 ity of [place] 4[place]2.7.2.[place] [address] [phone] [facility] AND [place]STE[place] [address] [facility] 2019-09-13 2019-09-13 Telephone Marx, [facility] 1.2.840.114 [id number] Univers 00:00:00 00:00:00 Milla Villalba 350.1.13.10 it[place] of [place]2.[place] [phone] [facility] 231 [facility] 2019-09-12 2019-09-[address] [facility] 1.2.840.114 [id number] Univers 15:20:58 17:44:30 Visit Milla Villalba 350.1.13.10 ity of [place].2.[place] [phone] [address] 2019-09-12 2019-09-12 Outpatient R [facility] [id number] [id number] Univers 15:40:00 15:40:00 [facility] 2019-09-07 2019-09-07 Outpatient [facility] [id number] Univers 09:39:24 23:59:00 MILLA starky [facility] 2019-09-07 2019-09-07 [facility] 1.2.840.114 [id number] Univers 09:39:00 23:59:00 Encounter Milla PALMER 350.1.13.10 ity of CLINICS [place].[address] [place] [phone] [facility] [address] 2019-09-07 2019-09-07 [facility] 1.2.840.114 [id number] Univers 00:00:00 00:00:00 Milla Villalba 350.1.13.10 ity of [place]2.[place] [phone] [facility] 044 [facility] 2019-08-30 2019-08-30 [facility] 1.2.840.114 [id number] Univers 00:00:00 00:00:00 Milla Zambrano Anand 350.1.13.10 ity of [place].2.[place] [phone] Ak dical nal 231 [facility] 2019-08-26 2019-08-26 Telephone [facility] 1.2.840.114 [id number] Univers 00:00:00 00:00:00 Adalberto Jonathan JOSSPEC 350.1.13.10 ity of [place]2.[place].2.[place] [phone] [facility] AND [employer] [address] [facility] 2019-08-25 2019-08-25 Telephone Francisco [facility] 1.2.840.114 [id number] Univers 00:00:00 00:00:00 Milla A Anand 350.1.13.10 ity of [place] 4[place].7.2.[place] [phone] [facility] 231 [facility] 2019-08-25 2019-08-25 Patient Doctor [facility] 1.2.840.114 [id number] Univers 00:00:00 00:00:00 Secure Msg Unassigned, PRIMARY 350.1.13.10 ity of [place]2.7.2.[place] [phone] [facility] [address] 2019-08-22 2019-08-22 Office Devan [facility] 1.2.175.656 [id number] Univers 09:31:48 11:06:46 Visit Adalberto Castillo ESTELA 350.1.13.10 it y of [place]2.7.2.[place] [facility] [phone] [facility] Primary & [address] [facility] 2019-08-22 2019-08-22 Orders DON Victor 1.2.769.495 [id number] Univers 00:00:00 00:00:00 Only Adalberto Castillo SANTOS 350.1.13.10 it y of HOSPITAL 4.2.7.2.[phone] [facility] [address] 2019-08-22 2019-08-22 Telephone Devan [facility] 1.2.840.114 [id number] Univers 00:00:00 00:00:00 Adalberto [employer] 350.1.13.10 it [place] [phone] [facility] Primary & [address] [facility] 2019-08-18 2019-08-18 Office Francisco [facility] 1.2.840.114 [id number] [facility] 10:18:38 13:20:34 Visit Milla Villalba 350.1.13.10 ity of [place].2.[place] [phone] [facility] 231 [facility] 2019-08-18 2019-08-[address] [facility] 1.2.840.114 [id number] Univers 00:00:00 00:00:00 Milla Villalba 350.1.13.10 it[place] of [place].2.[place] [phone] [facility] 231 [facility] 2019-08-15 2019-08-15 [facility] 1.2.840.114 [id number] Univers 00:00:00 00:00:00 Milla Villalba 350.1.13.10 ity of [place] 4[place].7.2.[place] [phone] [facility] 231 [facility] 2019-08-07 2019-08-07 Nurse Jacek OCHOA 1.2.840.114 [id number] Univers 00:00:00 00:00:00 Triage dMolly 350.1.13.10 ity of [facility] 4.2.7.2.[phone] [facility] [address] 2019-04-08 2019-04-08 Telephone [facility] 1.2.840.114 [id number] Univers 00:00:00 00:00:00 Amador Villalba 350.1.13.10 i ty of [place]2.[place] [phone] [facility] 044 [facility] 2019-04-06 2019-04-[address] [facility] 1.2.840.114 [id number] Univers 00:00:00 00:00:00 Milla [place] 350.1.13.10 ity of [place].2.[place] [phone] [address] 2019-04-05 2019-04-05 [facility] 1.2.840.114 [id number] Univers 15:28:25 23:59:00 Encounter Milla Zambrano [place] 350.1.13.10 ity of [place] 4.2.7.2.[place] [phone] [facility] [address] 2019-03-29 2019-03-29 [facility] 1.2.840.114 [id number] Univers 15:15:31 23:59:00 Encounter [facility] 350.1.13.10 ity of Surgical 4.2.7.2.686 Boy as Specialti [phone] [facility] 809 [facility] 2019-03-29 2019-03-29 Office [facility] 1.2.840.114 [id number] Univers 14:58:36 16:29:28 Visit [facility] 350.1.13.10 it y of Surgical 4.2.7.2.686 Boy as Specialti [phone] [facility] 198 [facility] 2019-03-26 2019-03-[address] [facility] 1.2.840.114 [id number] Univers 00:00:00 00:00:00 Milla A [place] 350.1.13.10 ity of [place].2.[place] [phone] Ak dic[address] 2019-03-11 2019-03-[address] [facility] 1.2.840.114 [id number] Univers 00:00:00 00:00:00 Milla A [place] 350.1.13.10 ity of [place] 4[place].2.[place] [phone] Ak dic[address] 2019-03-10 2019-03-10 Refill Francisco J [facility] 1.2.840.114 [id number] Univers 00:00:00 00:00:00 Milla Benzton 350.1.13.10 ity of [place] 4[place].7.2.[place] Profess[place] [phone] [address] 2019-03-04 2019-03-04 Telephone Francisco [facility] 1.2.840.114 [id number] Univers 00:00:00 00:00:00 Milladavid Benzton 350.1.13.10 ity of [place] 4[place].2.[place] [phone] [address] 2019-02-25 2019-02-25 [facility] [place] [facility] 1.2.840.114 [id number] Univers 00:00:00 00:00:00 Milla Villalba 350.1.13.10 ity of [place] 4[place].7.2.[place] [phone] [address] 2019-02-15 2019-02-20 Office Francisco J [facility] 1.2.840.114 [id number] [facility] 10:32:42 18:20:16 Visit Milla Villalba 350.1.13.10 ity of [place].7.2.[place] [phone] [address] 2019-02-16 2019-02-16 Senior Technical Trainer Pcp-Lab [facility] 1.2.840.114 [id number] [facility] 08:19:57 08:29:57 Visit Milla Marx PRIMARY 350.1.1 3.10 ity of C[place].2.[place].2.[place] [phone] [address] Results Test Description Test Time Test Comments Results Result Comments Source HIGH SENSITIVITY CRP 2020-11-28 20:48:36 Test Item Value Reference Range Interpretation Comme nts HS CRP (test code = 0567924521) 0.67 mg/dL <0.74 Lab Interpretation (test code = 01676-1) Normal [facility] [id number] 20:48:36 Test Item Value Reference Range Interpretation Comments HS CRP (test code = 9490219997) 0.67 mg/dL <0.74 Lab Interpretation (test code = Normal 95321-4) [facility] WRIST 3+ VW [id number] 14:22:50 Healing distal radius and ulna fractures. EXAM: XR WRIST 3+ VW LEFT HISTORY: fx COMPARISON: 02/21/2020 FINDINGS: Increased sclerosis and callus formation is seen about the impacted distalradius fracture. Progressive healing of the ulnar styloid fracture is alsonoted. Osteopenia is observed. Soft tissueswelling persists about thewrist. Osteoarthritic changes are seen at the STT and thumb carpometacarpaljoints. [facility], Radiant Results Inft User - 04/03/2020 9:23 AM CDTEXAM:XR WRIST 3+ VW LEFTHISTORY:fx COMPARISON:02/21/2020 FINDINGS: Increased sclerosis and callus formation is seen about the impacted distalradius fracture. Progressive healing of the ulnar styloid fracture is alsonoted. Osteopenia is observed. Soft tissue swelling persists about thewrist. Osteoarthritic changes are seen at the STT and thumb carpometacarpaljoints.IMPRESSIONHealing distal radius and ulna fractures.[facility] WRIST 3+ VW LEFT 2020-02-21 14:41:28 Healing distal radius and ulnar fractures with associated swelling. 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 Severely demineralized bones. Preliminary Report Dictated by Resident: Asuncion Zavala MD., have reviewed this study and agree with the abovereport.EXAM: XR WRIST 3+ VW LEFT HISTORY: fx COMPARISON: 01/24/2020 left wrist radiograph FINDINGS: Radiographs of the left wrist again demonstrate a distal radius impactedfracture and avulsion through the base of the ulnar styloid process withinterval increase in callus formation consistent with fracture healing. Thealignment is unchanged. The bones are diffusely demineralized. Moderatejoint space narrowing and moderate osteophyte formation affect thetriscaphe disease and first and second CMC joints. Mild joint spacena rrowing is seen about the MCP joints and remaining components of thewrist. Swelling seen about the wrist. [facility], Radiant Results Inft User - 02/21/2020 9:42 AM CDTEXAM: XR WRIST 3+ VW LEFTHISTORY: fx COMPARISON: 01/24/2020 left wrist radiographFINDINGS:Radiographs of the left wrist again demonstrate a distal radius impactedfracture and avulsion through the base of the ulnar styloid process withinterval increase in callus formation consistent with fracture healing. Thealignment is unchanged. The bones are diffusely demineralized. Moderatejoint space narrowing and moderate osteophyte formation affect the triscaphe disease and first and second CMC joints. Mild joint spacenarrowing is seen about the MCP joints and remaining components of thewrist. Swelling seen about the wrist.IMPRESSIONHealing distal radius and ulnar fractures with associated swelling.Mild to moderate osteoarthrosis of the hand and wris t.Severely demineralized bones.Preliminary Report Dictated by Resident: Lionel Ho, Asuncion Messina MD., have reviewed this study and agree with the abovereport.[facility] [place] W[facility]ST 3+ VW [id number] 15:27:28 Healing distal radius fracture with unchanged alignment. Healing ulnar styloid fracture. Borderlinewidening of the scapholunate interval may suggest ligamentousinjury. EXAM: XR WRIST 3+ VW LEFT HISTORY: pain COMPARISON: 01/15/2020 FINDINGS: Interval casting of the distal radius fracture is seen. Slight intervalincrease in sclerosis is suggestive of healing. Borderline widening of thescapholunate interval is suggested. Soft tissue swelling and osteopenia arenoted. Osteoarthritic changes are seen at the STT and thumb carpometacarpaljoints. The ulnar styloid process fracture is unchanged. [facility], Radiant Results Inft User - 01/24/2020 10:28 AM CDTEXAM:XR WRIST 3+ VW LEFTHISTORY:pain COMPARISON:01/15/2020FINDINGS: Interval casting of the distal radius fracture is seen. Slight intervalincrease in sclerosis is suggestive of healing. Borderline widening of thescapholunate interval is suggested. Soft tissue swelling and osteopenia arenoted. Osteoarthritic changes are seen at the STT and thumb carpometacarpaljoints. The ulnar styloid process fracture is unchanged.IMPRESSIONHealing distal radius fracture with unchanged alignment.Healing ulnar styloid fracture.Borderline widening of the scapholunate interval may suggest ligamentousinjury.[facility]IT[facility] D, 25-HYDROXY,$LC/MS/[id number] 06:00:00 Test Item Value Reference Range Interpretation Comments VITAMIN D, 25-OH, 23 ng/mL 30-100 L Vitamin D Status ? TOTAL-Q (test code = ? ? ? 2 5-OH 1988-09) Vitamin D: Deficiency: ?<2 0 ng/mLInsufficie ncy : ? 2 0 - 29 ng/mLOptimal : ? > or = 30 ng/mL For 25-OH Vitamin D testing on patients on D2-supplementat ion and patients fo r whom quantitati on of D2 and D3 fractions is required, the QuestAssureD(TM )25 -OH VIT D, (D2,D3), LC/MS/ MS is recommended: order code 9288 8 (patients >2yrs ). For more information on this test, go to:[email or web address] (Th is link is courtney villalobos provided for informational/e elfego ational purpose s only.)REPORT COMMENT:FASTING :MASON ALCANTARA (test code = PERFORMED BY MARICRUZ) [employer]; [address] [place] [phone]; MELO BORGES MD Lab Interpretation Abnormal (test code = 43858-9) [facility] DallasXR WRIST <3 VW [id number] 21:20:46No signs of fracture or dislocationUnMethodist Midlothian Medical CenterVITAMIN B1 (THIAMINE), WHOLE [id number] 18:54:00 Test Item Value Reference Range Interpretation Comments Vitamin B1, Whole 60 nmol/L 70-180 L INTERPRETI VE Blood (test code = INFORMATI ON: Vitamin 63346-5) B1, Whole Blood This assay measures the concentration o f thiamine diphos phate (TDP), the prim asael active form of vitamin B1. Approximate ly 90 percent of candice min B1 present in whol e blood is TDP. Thiamin e and thiamine monophosphate, which comprise the re maining 10 percent, are not measured. Test developed and characteristics determined by [facility]. S ee Compliance Stat ement B: [employer] erforme d by [employer],[address], [place] [address] yeq .Jorge alvarez MD, Lab. Direct or Lab Interpretation Abnormal (test code = 00389-2) [facility] DallasVITAMIN B1 (THIAMINE), WHOLE [id number] 18:54:00 Test Item Value Reference Range Interpretation Comments Vitamin B1, Whole 60 nmol/L 70-180 L INTERPRETI VE Blood (test code = INFORMATI ON: Vitamin 98377-7) B1, Whole Blood This assay measures the concentration o f thiamine diphos phate (TDP), the prim asael active form of vitamin B1. Approximate ly 90 percent of candice min B1 present in whol e blood is TDP. Thiamin e and thiamine monophosphate, which comprise the re maining 10 percent, are not measured. Test developed and characteristics determined by [facility]. S ee Compliance Stat ement B: [employer] erforme d by [employer],[address], [place] [address] oay .Jorge alvarez MD, Lab. Direct or Lab Interpretation Abnormal (test code = 10985-7) [facility] DallasVIT[facility]IN B1 (THIAMINE), WHOLE [id number] 18:54:00 Test Item Value Reference Range Interpretation Comments Vitamin B1, Whole 60 nmol/L 70-180 L INTERPRETI VE Blood (test code = INFORMATI ON: Vitamin 65466-3) B1, Whole Blood This assay measures the concentration o f thiamine diphos phate (TDP), the prim asael active form of vitamin B1. Approximate ly 90 percent of candice min B1 present in whol e blood is TDP. Thiamin e and thiamine monophosphate, which comprise the re maining 10 percent, are not measured. Test developed and characteristics determined by [facility]. S ee Compliance Stat ement B: [employer] erforme d by [employer],[address], [place] [address] xwv .Jorge alvarez MD, Lab. Direct or Lab Interpretation Abnormal (test code = 48935-5) [facility], [id number] 06:04:00 Test Item Value Reference Range Interpretation Comments ZINC (test code 61.6 ug/dL 60.0-120.0 INTERPRETIVE INFORMATION: = 2237) Zinc, Serum or Plasma Elevated result s may be due to skin or collection-rela maisha contamination, including the use of a no ncertified metal-free collection/licona sport tube. If contaminatio n concerns exist due to el evated levels of serum /plasma zinc, confirmat ion with a second specimen collected in a certified metal-free tube is recomme nded. Circulating zin c concentrations are dependent on al bumin status and are depress ed with malnutrition.?Z inc may also be lowered with infection, inflammation, s tress, oral contraceptives, and .?Zinc may be elevated with z inc supplementation or fasting.?Elevat ed zinc concentrations may interfere with copper absorption. Jan spence developed and characteris tics determined by [facility]. S ee Compliance Stat ement B: [employer] erformed by [employer] ,[address], [place] [address] obp .[employer] , Jorge Hopkins MD, Lab. Tie Up WorkerBoone County Community Hospital, [id number] 06:04:00 Test Item Value Reference Range Interpretation Comments ZINC (test code 61.6 ug/dL 60.0-120.0 INTERPRETIVE INFORMATION: = 2237) Zinc, Serum or Plasma Elevated result s may be due to skin or collection-rela maisha contamination, including the use of a no ncertified metal-free collection/licona sport tube. If contaminatio n concerns exist due to el evated levels of serum /plasma zinc, confirmat ion with a second specimen collected in a certified metal-free tube is recomme nded. Circulating zin c concentrations are dependent on al bumin status and are depress ed with malnutrition.?Z inc may also be lowered with infection, inflammation, s tress, oral contraceptives, and .?Zinc may be elevated with z inc supplementation or fasting.?Elevat ed zinc concentrations may interfere with copper absorption. Jan t developed and characteris tics determined by [facility]. S ee Compliance Stat ement B: [employer] erformed by [email or web address] [place] [address] oao .[employer] , Jorge Hopkins MD, Lab. Tie Up WorkerBaylor Scott & White Heart and Vascular Hospital – DallasZINC, [id number] 06:04:00 Test Item Value Reference Range Interpretation Comments ZINC (test code 61.6 ug/dL 60.0-120.0 INTERPRETIVE INFORMATION: = 8025) Zinc, Serum or Plasma Elevated result s may be due to skin or collection-rela maisha contamination, including the use of a no ncertified metal-free collection/licona sport tube. If contaminatio n concerns exist due to el evated levels of serum /plasma zinc, confirmat ion with a second specimen collected in a certified metal-free tube is recomme nded. Circulating zin c concentrations are dependent on al bumin status and are depress ed with malnutrition.?Z inc may also be lowered with infection, inflammation, s tress, oral contraceptives, and .?Zinc may be elevated with z inc supplementation or fasting.?Elevat ed zinc concentrations may interfere with copper absorption. Jan t developed and characteris tics determined by [facility]. S ee Compliance Stat ement B: [employer] erformed by [email or web address] [place] [address] bhw .[employer] , Jorge Hopkins MD, Lab. Tie Up WorkerBaylor Scott & [facility] – DallasVITAMIN B12, [id number] 17:38:00 Test Item Value Reference Range Interpretation Comments VIT B12 (test code = 348 pg/mL 240-930 2537030537) MARICRUZ (test code = MARICRUZ) Biotin has been reported to cause a positive bias, interpret results relative to patient's use of biotin. Lab Interpretation (test Normal code = 42762-0) [facility] DallasFOLATE2019-07-31 17:38:00 Test Item Value Reference Range Interpretation Comments FOLATE SER (test code = 9409731738) 5.7 ng/mL 3-20 Lab Interpretation (test code = Normal 04875-1) [facility] DallasVITAMIN B12, [id number] 17:38:00 Test Item Value Reference Range Interpretation Comments VIT B12 (test code = 348 pg/mL 240-930 6134105015) MARICRUZ (test code = MARICRUZ) Biotin has been reported to cause a positive bias, interpret results relative to patient's use of biotin. Lab Interpretation (test Normal code = 76757-0) [facility] DallasFOLATE2019-07-31 17:38:00 Test Item Value Reference Range Interpretation Comments FOLATE SER (test code = 9272471820) 5.7 ng/mL 3-20 Lab Interpretation (test code = Normal 99166-5) [facility] DallasVITAMIN B12, [id number] 17:38:00 Test Item Value Reference Range Interpretation Comments VIT B12 (test code = 348 pg/mL 240-930 9722279204) MARICRUZ (test code = MARICRUZ) Biotin has been reported to cause a positive bias, interpret results relative to patient's use of biotin. Lab Interpretation (test Normal code = 79147-7) [facility] DallasFOLATE2019-07-31 17:38:00 Test Item Value Reference Range Interpretation Comments FOLATE SER (test code = 0618554637) 5.7 ng/mL 3-20 Lab Interpretation (test code = Normal 26709-9) [facility] DallasFERRITIN [id number] 17:07:00 Test Item Value Reference Range Interpretation Comments FERRITIN (test code = 18.3 ng/mL 11-264 0990468597) MARICRUZ (test code = MARICRUZ) Biotin has been reported to cause a negative bias, interpret results relative to patient's use of biotin. Lab Interpretation (test Normal code = 87415-5) [facility] DallasFERRITIN [id number] 17:07:00 Test Item Value Reference Range Interpretation Comments FERRITIN (test code = 18.3 ng/mL 11-264 1307057535) MARICRUZ (test code = MARICRUZ) Biotin has been reported to cause a negative bias, interpret results relative to patient's use of biotin. Lab Interpretation (test Normal code = 65280-9) [facility] DallasFERRITIN [id number] 17:07:00 Test Item Value Reference Range Interpretation Comments FERRITIN (test code = 18.3 ng/mL 11-264 1396922713) MARICRUZ (test code = MARICRUZ) Biotin has been reported to cause a negative bias, interpret results relative to patient's use of biotin. Lab Interpretation (test Normal code = 53516-9) [facility] DallasTHYROID STIMULATING [id number] 17:04:00 Test Item Value Reference Range Interpretation Comments TSH (test code = See_Comment [Automated message] 8775939715) The system [employer] generated this result transmitted ref erence range: 0.45 - 4 .70 mIU/L. The refe rence range was not u sed to interpret this result as normal/abnor mal. Lab Interpretation (test Normal code = 88838-9) [facility] DallasTHYROID STIMULATING [id number] 17:04:00 Test Item Value Reference Range Interpretation Comments TSH (test code = See_Comment [Automated message] 6104479534) The system [employer] generated this result transmitted ref erence range: 0.45 - 4 .70 mIU/L. The refe rence range was not u sed to interpret this result as normal/abnor mal. Lab Interpretation (test Normal code = 76944-1) [facility] DallasTHYSHR[facility] STIMULATING [id number] 17:04:00 Test Item Value Reference Range Interpretation Comments TSH (test code = See_Comment [Automated message] 1204768073) The system [employer] generated this result transmitted ref erence range: 0.45 - 4 .70 mIU/L. The refe rence range was not u sed to interpret this result as normal/abnor mal. Lab Interpretation (test Normal code = 08534-3) [place] [id number] 16:57:00 Test Item Value Reference Range Interpretation Comments FREE T3 (test code = 6181809086) 3.89 pg/mL 2.77-5.27 Lab Interpretation (test code = Normal 76218-9) [facility] 16:57:00 Test Item Value Reference Range Interpretation Comments FREE T3 (test code = 1596950615) 3.89 pg/mL 2.77-5.27 Lab Interpretation (test code = Normal 51130-4) [facility] 16:57:00 Test Item Value Reference Range Interpretation Comments FREE T3 (test code = 9285805198) 3.89 pg/mL 2.77-5.27 Lab Interpretation (test code = Normal 08689-5) [facility] [id number] 16:50:00 Test Item Value Reference Range Interpretation Comments FREE T4 (test code = See_Comment [Autom ated message] 1088611329) The system [employer] generated this result transmitted ref erence range: 0.78 - 2 .20 ng/dL:. The ref erence range was not u sed to interpret this result as normal/abnor mal. Lab Interpretation (test Normal code = 33253-2) [facility] [id number] 16:50:00 Test Item Value Reference Range Interpretation Comments FREE T4 (test code = See_Comment [Autom ated message] 3996085370) The system [employer] generated this result transmitted ref erence range: 0.78 - 2 .20 ng/dL:. The ref erence range was not u sed to interpret this result as normal/abnor mal. Lab Interpretation (test Normal code = 76517-6) [place] [id number] 16:50:00 Test Item Value Reference Range Interpretation Comments FREE T4 (test code = See_Comment [Autom ated message] 8593650886) The system [employer] generated this result transmitted ref erence range: 0.78 - 2 .20 ng/dL:. The ref erence range was not u sed to interpret this result as normal/abnor mal. Lab Interpretation (test Normal code = 01578-6) [facility] DallasGLYCOSYLATED HEMOGLOBIN (A1C)2019-02-16 16:39:00 Test Item Value Reference Range Interpretation Comments HGB A1C (test code = 4548-4) 5.7 % 4-6 Lab Interpretation (test code = Normal 13455-4) [facility] [id number] 16:39:00 Test Item Value Reference Range Interpretation Comments TIBC (test code = 2429482187) 339 ug/dL 250-410 % FE SAT (test code = 7596411190) 16 % 20-50 L Lab Interpretation (test code = Abnormal 31212-0) [facility] DallasGLYCOSYLATED HEMOGLOBIN (A1C)2019-02-16 16:39:00 Test Item Value Reference Range Interpretation Comments HGB A1C (test code = 4548-4) 5.7 % 4-6 Lab Interpretation (test code = Normal 10511-3) [facility] IRON BINDING [id number] 16:39:00 Test Item Value Reference Range Interpretation Comments TIBC (test code = 2581282033) 339 ug/dL 250-410 % FE SAT (test code = 5334112468) 16 % 20-50 L Lab Interpretation (test code = Abnormal 09794-1) [facility] DallasGLYCOSYLATED HEMOGLOBIN (A1C)2019-02-16 16:39:00 Test Item Value Reference Range Interpretation Comments HGB A1C (test code = 4548-4) 5.7 % 4-6 Lab Interpretation (test code = Normal 14855-7) [facility] IRON BINDING [id number] 16:39:00 Test Item Value Reference Range Interpretation Comments TIBC (test code = 0257076585) 339 ug/dL 250-410 % FE SAT (test code = 3798409848) 16 % 20-50 L Lab Interpretation (test code = Abnormal 74689-5) [facility] DallasHOMOCYSTEINE2019-07-31 16:37:00 Test Item Value Reference Range Interpretation Comments Homocysteine (test code = 18.6 umol/L 4.7-12.6 H 3086565464) Lab Interpretation (test code = Abnormal 06141-8) [facility] DallasHOMOCYSTEINE2019-07-31 16:37:00 Test Item Value Reference Range Interpretation Comments Homocysteine (test code = 18.6 umol/L 4.7-12.6 H 9859506345) Lab Interpretation (test code = Abnormal 58909-5) [facility] DallasHOMOCYSTEINE2019-07-31 16:37:00 Test Item Value Reference Range Interpretation Comments Homocysteine (test code = 18.6 umol/L 4.7-12.6 H 4628547335) Lab Interpretation (test code = Abnormal 32124-2) [facility] DallasCOMP. METABOLIC PANEL (83710)2019-02-16 16:30:00 Test Item Value Reference Range Interpretation Comments NA (test code = 132 mmol/L 135-145 L 3700023713) K (test code = 4.6 mmol/L 3.5-5 8654066226) CL (test code = 98 mmol/L 98-108 9005308321) CO2 TOTAL (test code = 28 mmol/L 23-31 0438763870) AGAP (test code = 2-16 3114314671) BUN (test code = 12 mg/dL 7-23 5373664606) GLUCOSE (test code = 96 mg/dL 70-110 8522976454) CREATININE (test code = 0.68 mg/dL 0.5-1.04 8435527302) TOTAL BILI (test code = 0.5 mg/dL 0.1-1.4 5255783734) CALCIUM (test code = 8.5 mg/dL 8.6-10.6 L 2575589652) T PROTEIN (test code = 5.9 g/dL 6.3-8.2 L 7062507185) ALBUMIN (test code = 3.4 g/dL 3.5-5 L 5097417087) ALK PHOS (test code = 70 U/L 34-122 8692461643) ALT(SGPT) (test code = 21 U/L 9-51 1434251443) AST(SGOT) (test code = 16 U/L 13-40 3501665207) eGFR Calculation mL/min/1.73m2 (Non-) (test code = 8836592369) eGFR Calculation mL/min/1.73m2 () (test code = 8904473035) MARICRUZ (test code = MARICRUZ) Association of Glomerular Filtration Rate (GFR) and Staging of Kidney Disease*+ + + +| GFR (mL/min/1.73 m2)?| With Kidney Damage?|?Without Kidney Damage+ --------+ --------+ +|?>90?|?S tage one?|? Normal?+ ---------+ ---------+ +|?60-89? |?Stage two?|? Decreased GFR? + --+ --+ ------+|?30-59?|?Stage three?|? Stage three? + --+ --+ ------+|?15-29?|?Stage four? |? Stage four?+ -------+ -------+ +|?<15 (or dialysis)?|?Stage five? |? Stage five?+ -------+ -------+ +*Each stage assumes the associated GFR level has been in effect for at least three months.?Stages 1 to 5, with or without kidney disease, indicate chronic kidney disease.Notes: Determination of stages one and two (with eGFR >59mL/min/1.73 m2) requires estimation of kidney damage for at least three months as defined by structural or functional abnormalities of the kidney, manifested by either:Pathological abnormalities or Markers of kidney damage (including abnormalities in the composition of the blood or urine or abnormalities in imaging tests). Lab Interpretation Abnormal (test code = 82811-8) [facility] DallasIRON2019-07-31 16:30:00 Test Item Value Reference Range Interpretation Comments IRON (test code = 8883602098) 55 ug/dL 50-160 Lab Interpretation (test code = Normal 95584-2) [facility] DallasCOMP. METABOLIC PANEL (46897)2019-02-16 16:30:00 Test Item Value Reference Range Interpretation Comments NA (test code = 132 mmol/L 135-145 L 3933497715) K (test code = 4.6 mmol/L 3.5-5 0799564804) CL (test code = 98 mmol/L 98-108 1167385651) CO2 TOTAL (test code = 28 mmol/L 23-31 2902802030) AGAP (test code = 2-16 6632471950) BUN (test code = 12 mg/dL 7-23 6656824869) GLUCOSE (test code = 96 mg/dL 70-110 3500073955) CREATININE (test code = 0.68 mg/dL 0.5-1.04 8275724701) TOTAL BILI (test code = 0.5 mg/dL 0.1-1.5 5597181331) CALCIUM (test code = 8.5 mg/dL 8.6-10.6 L 5107224174) T PROTEIN (test code = 5.9 g/dL 6.3-8.2 L 2137756189) ALBUMIN (test code = 3.4 g/dL 3.5-5 L 3666393429) ALK PHOS (test code = 70 U/L 34-122 4239151846) ALT(SGPT) (test code = 21 U/L 9-51 3165054678) AST(SGOT) (test code = 16 U/L 13-40 4072570587) eGFR Calculation mL/min/1.73m2 (Non-) (test code = 2387943669) eGFR Calculation mL/min/1.73m2 () (test code = 6737873416) MARICRUZ (test code = MARICRUZ) Association of Glomerular Filtration Rate (GFR) and Staging of Kidney Disease*+ + + +| GFR (mL/min/1.73 m2)?| With Kidney Damage?|?Without Kidney Damage+ --------+ --------+ +|?>90?|?S pippae one?|? Normal?+ ---------+ ---------+ +|?60-89? |?Stage two?|? Decreased GFR? + --+ --+ ------+|?30-59?|?Stage three?|? Stage three? + --+ --+ ------+|?15-29?|?Stage four? |? Stage four?+ -------+ -------+ +|?<15 (or dialysis)?|?Stage five? |? Stage five?+ -------+ -------+ +*Each stage assumes the associated GFR level has been in effect for at least three months.?Stages 1 to 5, with or without kidney disease, indicate chronic kidney disease.Notes: Determination of stages one and two (with eGFR >59mL/min/1.73 m2) requires estimation of kidney damage for at least three months as defined by structural or functional abnormalities of the kidney, manifested by either:Pathological abnormalities or Markers of kidney damage (including abnormalities in the composition of the blood or urine or abnormalities in imaging tests). Lab Interpretation Abnormal (test code = 12141-0) [facility] DallasIRON2019-07-31 16:30:00 Test Item Value Reference Range Interpretation Comments IRON (test code = 3305063101) 55 ug/dL 50-160 Lab Interpretation (test code = Normal 26861-4) [facility]. METABOLIC PANEL ([id number])2019-02-16 16:30:00 Test Item Value Reference Range Interpretation Comments NA (test code = 132 mmol/L 135-145 L 1589642755) K (test code = 4.6 mmol/L 3.5-5 4601685541) CL (test code = 98 mmol/L 98-108 3852716918) CO2 TOTAL (test code = 28 mmol/L 23-31 8908787023) AGAP (test code = 2-16 2841257765) BUN (test code = 12 mg/dL 7-23 2980549357) GLUCOSE (test code = 96 mg/dL 70-110 1515704757) CREATININE (test code = 0.68 mg/dL 0.5-1.04 7393806329) TOTAL BILI (test code = 0.5 mg/dL 0.1-1.8 3622213377) CALCIUM (test code = 8.5 mg/dL 8.6-10.6 L 8620523185) T PROTEIN (test code = 5.9 g/dL 6.3-8.2 L 7313258095) ALBUMIN (test code = 3.4 g/dL 3.5-5 L 7347253966) ALK PHOS (test code = 70 U/L 34-122 1010820714) ALT(SGPT) (test code = 21 U/L 9-51 8253590317) AST(SGOT) (test code = 16 U/L 13-40 1769810316) eGFR Calculation mL/min/1.73m2 (Non-) (test code = 2800085680) eGFR Calculation mL/min/1.73m2 () (test code = 2789836249) MARICRUZ (test code = MARICRUZ) Association of Glomerular Filtration Rate (GFR) and Staging of Kidney Disease*+ + + +| GFR (mL/min/1.73 m2)?| With Kidney Damage?|?Without Kidney Damage+ --------+ --------+ +|?>90?|?S tage one?|? Normal?+ ---------+ ---------+ +|?60-89? |?Stage two?|? Decreased GFR? + --+ --+ ------+|?30-59?|?Stage three?|? Stage three? + --+ --+ ------+|?15-29?|?Stage four? |? Stage four?+ -------+ -------+ +|?<15 (or dialysis)?|?Stage five? |? Stage five?+ -------+ -------+ +*Each stage assumes the associated GFR level has been in effect for at least three months.?Stages 1 to 5, with or without kidney disease, indicate chronic kidney disease.Notes: Determination of stages one and two (with eGFR >59mL/min/1.73 m2) requires estimation of kidney damage for at least three months as defined by structural or functional abnormalities of the kidney, manifested by either:Pathological abnormalities or Markers of kidney damage (including abnormalities in the composition of the blood or urine or abnormalities in imaging tests). Lab Interpretation Abnormal (test code = 46063-3) [facility]2019-[facility] 16:30:00 Test Item Value Reference Range Interpretation Comments IRON (test code = 2321992515) 55 ug/dL 50-160 Lab Interpretation (test code = Normal 22100-9) [facility] WITH [id number] 16:24:00 Test Item Value Reference Range Interpretation Comments WBC (test code = See_Comment [Automated 6690-2) message] The sy stem which generated this result transmitted reference range : 4.30 - 11.10 10*3/?L. The reference range was not used to interpret this result as normal/abnormal . RBC (test code = See_Comment [Automated 789-8) message] The sy stem which generated this result transmitted reference range : 3.93 - 5.25 10*6/?L. The reference range was not used to interpret this result as normal/abnormal . HGB (test code = 12.6 g/dL 11.6-15 718-7) HCT (test code = 38.3 % 35.7-45.2 4544-3) MCV (test code = 92.5 fL 80.6-95.5 787-2) MCH (test code = 30.4 pg 25.9-32.8 785-6) MCHC (test code = 32.9 g/dL 31.6-35.1 786-4) RDW-SD (test code = 50.8 fL 39-49.9 H 27433-7) RDW-CV (test code = 14.8 % 12-15.5 788-0) PLT (test code = See_Comment [Automated 777-3) message] The sy stem which generated this result transmitted reference range : 166 - 358 10*3/ ?L. The reference r moon was not used to interpret this result as normal/abnormal . MPV (test code = 9.8 fL 9.5-12.9 16072-8) NRBC/100 WBC (test See_Comment [Automat ed code = 0212133894) message] The system which generated this result transmitted reference range : 0.0 - 10.0 /100 WBCs. The refer ence range was not u sed to interpret th is result as normal/abnormal . NRBC x10^3 (test code <0.01 See_Comment [Auto mated = 6638287778) message] The s ystem which generated this result transmitted reference range : 10*3/?L. The reference range was not used to interpret this result as normal/abnormal . GRAN MAT (NEUT) % 65.2 % (test code = 770-8) IMM GRAN % (test code 0.70 % = 1911109984) LYMPH % (test code = 24.9 % 736-9) MONO % (test code = 7.1 % 5905-5) EOS % (test code = 1.8 % 713-8) BASO % (test code = 0.3 % 706-2) GRAN MAT x10^3(ANC) 6.77 10*3/uL 1.88-7.09 (test code = 7615753372) IMM GRAN x10^3 (test 0.07 10*3/uL 0-0.06 H code = 3099519117) LYMPH x10^3 (test code 2.58 10*3/uL 1.32-3.29 = 731-0) MONO x10^3 (test code 0.74 10*3/uL 0.33-0.92 = 742-7) EOS x10^3 (test code = 0.19 10*3/uL 0.03-0.39 711-2) BASO x10^3 (test code 0.03 10*3/uL 0.01-0.07 = 704-7) Lab Interpretation Abnormal (test code = 17629-8) [facility] WITH [id number] 16:24:00 Test Item Value Reference Range Interpretation Comments WBC (test code = See_Comment [Automated 9942-2) message] The sy stem which generated this result transmitted reference range : 4.30 - 11.10 10*3/?L. The reference range was not used to interpret this result as normal/abnormal . RBC (test code = See_Comment [Automated 305-8) message] The sy stem which generated this result transmitted reference range : 3.93 - 5.25 10*6/?L. The reference range was not used to interpret this result as normal/abnormal . HGB (test code = 12.6 g/dL 11.6-15 718-7) HCT (test code = 38.3 % 35.7-45.2 4544-3) MCV (test code = 92.5 fL 80.6-95.5 787-2) MCH (test code = 30.4 pg 25.9-32.8 785-6) MCHC (test code = 32.9 g/dL 31.6-35.1 786-4) RDW-SD (test code = 50.8 fL 39-49.9 H 79188-5) RDW-CV (test code = 14.8 % 12-15.5 788-0) PLT (test code = See_Comment [Automated 777-3) message] The sy stem which generated this result transmitted reference range : 166 - 358 10*3/ ?L. The reference r moon was not used to interpret this result as normal/abnormal . MPV (test code = 9.8 fL 9.5-12.9 46629-0) NRBC/100 WBC (test See_Comment [Automat ed code = 8414916354) message] The system which generated this result transmitted reference range : 0.0 - 10.0 /100 WBCs. The refer ence range was not u sed to interpret th is result as normal/abnormal . NRBC x10^3 (test code <0.01 See_Comment [Auto mated = 5869426044) message] The s ystem which generated this result transmitted reference range : 10*3/?L. The reference range was not used to interpret this result as normal/abnormal . GRAN MAT (NEUT) % 65.2 % (test code = 770-8) IMM GRAN % (test code 0.70 % = 2078016775) LYMPH % (test code = 24.9 % 736-9) MONO % (test code = 7.1 % 5905-5) EOS % (test code = 1.8 % 713-8) BASO % (test code = 0.3 % 706-2) GRAN MAT x10^3(ANC) 6.77 10*3/uL 1.88-7.09 (test code = 4674910729) IMM GRAN x10^3 (test 0.07 10*3/uL 0-0.06 H code = 9225922122) LYMPH x10^3 (test code 2.58 10*3/uL 1.32-3.29 = 731-0) MONO x10^3 (test code 0.74 10*3/uL 0.33-0.92 = 742-7) EOS x10^3 (test code = 0.19 10*3/uL 0.03-0.39 711-2) BASO x10^3 (test code 0.03 10*3/uL 0.01-0.07 = 704-7) Lab Interpretation Abnormal (test code = 90580-7) [facility] WITH [id number] 16:24:00 Test Item Value Reference Range Interpretation Comments WBC (test code = See_Comment [Automated 6690-2) message] The sy stem which generated this result transmitted reference range : 4.30 - 11.10 10*3/?L. The reference range was not used to interpret this result as normal/abnormal . RBC (test code = See_Comment [Automated 789-8) message] The sy stem which generated this result transmitted reference range : 3.93 - 5.25 10*6/?L. The reference range was not used to interpret this result as normal/abnormal . HGB (test code = 12.6 g/dL 11.6-15 718-7) HCT (test code = 38.3 % 35.7-45.2 4544-3) MCV (test code = 92.5 fL 80.6-95.5 787-2) MCH (test code = 30.4 pg 25.9-32.8 785-6) MCHC (test code = 32.9 g/dL 31.6-35.1 786-4) RDW-SD (test code = 50.8 fL 39-49.9 H 45469-5) RDW-CV (test code = 14.8 % 12-15.5 788-0) PLT (test code = See_Comment [Automated 777-3) message] The sy stem which generated this result transmitted reference range : 166 - 358 10*3/ ?L. The reference r moon was not used to interpret this result as normal/abnormal . MPV (test code = 9.8 fL 9.5-12.9 38803-1) NRBC/100 WBC (test See_Comment [Automat ed code = 2401488853) message] The system which generated this result transmitted reference range : 0.0 - 10.0 /100 WBCs. The refer ence range was not u sed to interpret th is result as normal/abnormal . NRBC x10^3 (test code <0.01 See_Comment [Auto mated = 5223358775) message] The s ystem which generated this result transmitted reference range : 10*3/?L. The reference range was not used to interpret this result as normal/abnormal . GRAN MAT (NEUT) % 65.2 % (test code = 770-8) IMM GRAN % (test code 0.70 % = 1574356448) LYMPH % (test code = 24.9 % 736-9) MONO % (test code = 7.1 % 5905-5) EOS % (test code = 1.8 % 713-8) BASO % (test code = 0.3 % 706-2) GRAN MAT x10^3(ANC) 6.77 10*3/uL 1.88-7.09 (test code = 3238347887) IMM GRAN x10^3 (test 0.07 10*3/uL 0-0.06 H code = 7112838867) LYMPH x10^3 (test code 2.58 10*3/uL 1.32-3.29 = 731-0) MONO x10^3 (test code 0.74 10*3/uL 0.33-0.92 = 742-7) EOS x10^3 (test code = 0.19 10*3/uL 0.03-0.39 711-2) BASO x10^3 (test code 0.03 10*3/uL 0.01-0.07 = 704-7) Lab Interpretation Abnormal (test code = 60583-6) [facility]
[2023-05-10] MEDS ORDERED: TDAP (DIPHTH,PERTUSS(ACELL),TET VAC) 0.5 ML VIAL IMVAC ONE (00:53)
[2023-05-10] MEDS ORDERED: MUPIROCIN 2% OINT 22GM TUBE TOP ONE ×2 (01:05→01:12)
--- NOTE | 2023-05-10 02:29 | EDPHYS ---
Physician Documentation [facility] Name: Giovana Mtz Age: 82 yrs Sex: Female : 1940 Arrival Date: 05/09/2023 Time: 23:52 Bed 7 Private MD: ED Physician Gustavo Glalagher HPI: 05/10 00:51 This 82 yrs old Female presents to ER via Wheelchair with complaints of SKIN TEAR, FOOT ms3 INJURY. 00:51 82-year-old female with past medical history of anxiety, hypertension, osteoporosis ms3 presents status post fall 3 nights ago. Patient was seen in urgent care and diagnosed with a fracture of her left foot. Patient did not mention her right upper extremity skin tear at that time. Patient's daughter recently returned from a trip and noted patient's skin tear and was concerned bringing her to the emergency department. Of note patient is currently on Bactrim for cellulitis of her left lower extremity. Patient states her foot pain is an 8/10. Patient denies any alleviating or inciting factors. Historical: - Allergies: 00:03 Iodine; ap3 00:03 NSAIDS (Non-Steroidal Anti-Inflammatory Drug); ap3 00:03 PENICILLINS; ap3 00:03 SLYCILATES; ap3 - PMHx: 00:03 Anxiety; Hypertension; ap3 - Immunization history:: Client reports receiving the 2nd dose of the Covid vaccine. - Social history:: Smoking status: Patient reports the use of cigarette tobacco products, smokes one pack cigarettes per day. ROS: 00:51 MS/extremity: Positive for pain, tenderness, of the left foot, ms3 00:51 Constitutional: Negative for fever, and chills. Neck: Negative for injury, pain, and swelling, Cardiovascular: Negative for chest pain, and palpitations. Respiratory: Negative for shortness of breath, cough, wheezing, and pleuritic chest pain, Abdomen/GI: Negative for abdominal pain, nausea, vomiting, diarrhea, and constipation, 00:51 Skin: Positive for of the right leg and right bicep, Skin tears, 00:51 All other systems are negative, Exam: 00:51 Constitutional: This is a well developed, well nourished patient who is awake, alert, ms3 and in no acute distress. Head/Face: Normocephalic, atraumatic. Neck: Trachea midline, no cervical lymphadenopathy. Supple, full range of motion without nuchal rigidity, or vertebral point tenderness. No Meningismus. Chest/axilla: Normal chest wall appearance and motion. Nontender with no deformity. Cardiovascular: Regular rate and rhythm with a normal S1 and S2. No gallops, murmurs, or rubs. Normal PMI, no JVD. No pulse deficits. Respiratory: Lungs have equal breath sounds bilaterally, clear to auscultation and percussion. No rales, rhonchi or wheezes noted. No increased work of breathing, no retractions or nasal flaring. Abdomen/GI: Soft, non-tender, with normal bowel sounds. No distension or tympany. No guarding or rebound. No evidence of tenderness throughout. 00:51 Skin: Appearance: injury, Skin tears of right upper arm, right lower extremity, left lower extremity, Vital Signs: 00:00 BP 166 / 58; Pulse 66; Resp 18; Temp 98.5; Pulse Ox 97% ; Weight 61.23 kg; Pain 8/10; ap3 02:37 BP 157 / 65; Pulse 67; Resp 16; Pulse Ox 97% ; bp 00:00 Pain Scale: Adult ap3 MDM: 00:11 Patient medically screened. ms3 00:51 Differential diagnosis: fracture, Skin tear. ms3 02:28 Data reviewed: vital signs, nurses notes, lab test result(s), radiologic studies, plain ms3 films, and as a result, I will discharge patient. I considered the following discharge prescriptions or medication management in the emergency department Medications were administered in the Emergency Department. See MAR. Historians other than the Patient: Daughter/Son: Patient's daughter and son-in-law. Counseling: I had a detailed discussion with the patient and/or guardian regarding the historical points, exam findings, and any diagnostic results supporting the discharge/admit diagnosis, radiology results, the need for outpatient follow up, to return to the emergency department if symptoms worsen or persist or if there are any questions or concerns that arise at home. Special discussion: I discussed with the patient/guardian in detail that at this point there is no indication for admission to the hospital. It is understood, however, that if the symptoms persist or worsen the patient needs to return immediately for re-evaluation. ED course: Discussed left foot x-ray with patient, her daughter, and her son-in-law. Patient to follow-up with Dr. James or her boxer operator in 2 to 3 days. Patient understands agrees with plan. All questions were answered. Return precautions discussed include worsening symptoms, or any other concerns.. 05/10 00:11 Order name: Foot Left 3 View XRAY ms3 Administered Medications: 00:44 Drug: Boostrix Tdap IM 0.5 ml IM once; as a single dose Route: IM; Site: left deltoid; bp 00:44 Follow up: Response: No adverse reaction bp Disposition: 03:01 Chart complete. ms3 Disposition Summary: 05/10/23 02:28 Discharge Ordered Notes: Location: Home ms3 Condition: Stable ms3 Diagnosis - Fracture of fifth metatarsal bone ms3 - Skin tear ms3 Followup: ms3 - With: Samuel James DPM - When: 2 - 3 days - Reason: Recheck today's complaints Followup: ms3 - With: Private Physician - When: 2 - 3 days - Reason: Recheck today's complaints Discharge Instructions: - Discharge Summary Sheet ms3 - Metatarsal Fracture ms3 - Skin Tear, Fmne-ps-Emak ms3 Forms: - Medication Reconciliation Form ms3 - Thank You Letter ms3 - Antibiotic Education ms3 - Prescription Opioid Use ms3 - Patient Portal Instructions ms3 - Leadership Thank You Letter ms3 Signatures: Dispatcher [employer] Daniele Henning RN RN bp Annika Macdonald RN RN ap3 Gustavo Gallagher, DO ms3
--- NOTE | 2023-05-10 02:29 | ER ---
Nurse's Notes [facility] Name: Giovana Mtz Age: 82 yrs Sex: Female : 1940 Arrival Date: 05/09/2023 Time: 23:52 Bed 7 Private MD: Diagnosis: Fracture of fifth metatarsal bone;Skin tear Presentation: 05/10 00:00 Chief complaint: Spouse and/or significant other states: the patient fell 4 days ago. ap3 Family reports the patient was dx with a fractured left foot and placed in a walking boot at that time. Family is concerned with a skin tear on patients right upper extremity she received at the time of the fall, of witch the patient cut the " skin". Patient is also on Bactrim for cellulitis of the left lower extremity from prior to the fall. Coronavirus screen: At this time, the client does not indicate any symptoms associated with coronavirus-19. Ebola Screen: No symptoms or risks identified at this time. Initial Sepsis Screen: Does the patient meet any 2 criteria? No. Patient's initial sepsis screen is negative. Does the patient have a suspected source of infection? Yes: Skin breakdown/wound. Risk Assessment: Do you want to hurt yourself or someone else? Patient reports no desire to harm self or others. Onset of symptoms was May 06, 2023. 00:00 Method Of Arrival: Wheelchair ap3 00:00 Acuity: ALKA 3 ap3 Triage Assessment: 00:04 General: Appears in no apparent distress. Behavior is calm, cooperative, appropriate ap3 for age. Pain: Complains of pain in left foot and right arm Pain currently is 8 out of 10 on a pain scale. Neuro: Level of Consciousness is awake, alert, obeys commands, Oriented to person, place, time, situation. Cardiovascular: Patient's skin is warm and dry. Respiratory: Airway is patent Respiratory effort is even, unlabored, Respiratory pattern is regular, symmetrical. Derm: Wound noted right arm, right leg and left leg. Historical: - Allergies: 00:03 Iodine; ap3 00:03 NSAIDS (Non-Steroidal Anti-Inflammatory Drug); ap3 00:03 PENICILLINS; ap3 00:03 SLYCILATES; ap3 - PMHx: 00:03 Anxiety; Hypertension; ap3 - Immunization history:: Client reports receiving the 2nd dose of the Covid vaccine. - Social history:: Smoking status: Patient reports the use of cigarette tobacco products, smokes one pack cigarettes per day. Screenin:04 Abuse screen: Denies threats or abuse. Nutritional screening: No deficits noted. ap3 Tuberculosis screening: No symptoms or risk factors identified. 00:10 [facility] ED Fall Risk Assessment (Adult) History of falling in the last 3 months, bp including since admission Yes- single mechanical fall (1 pt). Assessment: 00:10 General: SEE TRIAGE NOTE. bp 02:35 Reassessment: DC HOME WITH FAMILY. bp Vital Signs: 00:00 BP 166 / 58; Pulse 66; Resp 18; Temp 98.5; Pulse Ox 97% ; Weight 61.23 kg; Pain 8/10; ap3 02:37 BP 157 / 65; Pulse 67; Resp 16; Pulse Ox 97% ; bp 00:00 Pain Scale: Adult ap3 ED Course: 05/09 23:55 Patient arrived in ED. ag3 05/10 00:03 Triage completed. ap3 00:03 Gustavo Gallagher DO is Attending Physician. ms3 00:04 Arm band placed on right wrist. ap3 00:07 Daniele Barth, RADHA is Primary Nurse. bp 00:10 Patient has correct armband on for positive identification. Bed in low position. Call bp light in reach. Side rails up X2. Adult w/ patient. 00:34 Foot Left 3 View XRAY In Process Unspecified. EDMS 02:27 Samuel James DPM is Referral Physician. ms3 02:36 No provider procedures requiring assistance completed. Patient did not have IV access bp during this emergency room visit. Wound care: to SKIN TEAR located on right leg and right bicep was cleaned with Hibiclens, dressed with Neosporin, Patient tolerated well. Administered Medications: 00:44 Drug: Boostrix Tdap IM 0.5 ml IM once; as a single dose Route: IM; Site: left deltoid; bp 00:44 Follow up: Response: No adverse reaction bp Outcome: 02:28 Discharge ordered by . ms3 02:37 Discharged to home via wheelchair, with family, bp 02:37 Condition: stable 02:37 Discharge instructions given to patient, family, Instructed on discharge instructions, follow up and referral plans. wound care, Demonstrated understanding of instructions, follow-up care, wound care, 02:38 Patient left the ED. bp Signatures: Dispatcher [employer] Daniele Henning RN RN Annika Lei RN RN ap3 Molly Shaver ag3 Gustavo Gallagher DO DO ms3
--- NOTE | 2023-05-11 10:24 | RAD REPORT ---
EXAM DESCRIPTION: RAD - Foot Left 3 View - 05/10/2023 12:32 am CLINICAL HISTORY: The patient is 82 years old and is Female; PAIN TECHNIQUE: Frontal, lateral and oblique views of the left foot. COMPARISON: No relevant prior studies available. FINDINGS: Bones/joints: Indeterminate age fracture of the distal fifth metatarsal. Osteopenia limiting evaluation. Multifocal joint space narrowing within the phalanges. No dislocation. Soft tissues: Diffuse soft tissue edema. No radiopaque foreign body. IMPRESSION: 1. Diffuse soft tissue edema. 2. Indeterminate age fracture of the distal fifth metatarsal. Electronically signed by: Sonu Campa MD 05/10/2023 2:30 AM CDT Due to temporary technical issues with the PACS/Fluency reporting system, reports are being signed by the in house radiologist without review as a courtesy to ensure prompt reporting. The interpreting r adiologist is fully responsible for the content of the report.
== END 2023-05-10 02:38 | disposition home or self-care (01) ==
LOC: ER 23:52
DX: S92.352A Displaced fracture of fifth metatarsal bone, left foot, initial encounter for closed fracture (principal); S81.812A Laceration without foreign body, left lower leg, initial encounter; S41.111A Laceration without foreign body of right upper arm, initial encounter; F17.210 Nicotine dependence, cigarettes, uncomplicated; I10 Essential (primary) hypertension; Z88.0 Allergy status to penicillin; Z88.6 Allergy status to analgesic agent; Z88.8 Allergy status to other drugs, medicaments and biological substances; Z91.048 Other nonmedicinal substance allergy status
CPT/HCPCS: 96372; 99284

== ENCOUNTER 2023-05-20 17:42 | Emergency (ER) | payer OTHER, MEDICARE ==
--- OUTSIDE RECORDS SUMMARY | 2023-05-20 17:52 | XMS REPORT | Continuity of Care Document ---
:1940 Author Organization [facility] t Address [address] [place] [address] [place] [id number] Care Team Providers Name Role Phone Milla Marx MD Primary Care Physician [phone] Milla Marx MD Attending Clinician [phone], [facility] Infusion Chair Attending Clinician Unavailable Rachna Amor MD Attending Clinician RACHNA AMOR Attending Clinician Unavailable Doctor Unassigned, [place] Attending Clinician Unavailable MILLA MARX Attending Clinician Unavailable 2, [facility] Lab Attending Clinician Unavailable EZEKIEL HURTADO Attending Clinician Unavailable Nurse, [facility] Pob Immunization Attending Clinician Unavailable Ezekiel Hurtado DO Attending Clinician Pcp-Lab Attending Clinician Unavailable Unknown, Attending Attending Clinician Unavailable UNKNOWN, ATTENDING Attending Clinician Unavailable Nurse, [facility] Pcp Assessment Clinic Attending Clinician Unavail able Elías Greenwood MD Attending Clinician ELÍAS GREENWOOD Attending Clinician Unavailable Vishnu GARCIA, [place] Attending Clinician Unavailable Mallory COBIAN, Atif Zambrano Attending Clinician ATIF PEDRO Attending Clinician Unavailable Maira COBIAN, Anjelica Attending Clinician MYRON CAVAZOS Attending Clinician Unavailable Sylvain Monteiro APN Attending Clinician Fernando COBIAN, Myron Attending Clinician ADALBERTO VICTOR Attending Clinician Unavailable Maricarmen CASEY, Robert Attending Clinician Devan COBIAN, Adalberto Castillo Attending Clinician Jan GARCAI, Molly Villalobos Attending Clinician Unavailable Renny COBIAN, [place] Attending Clinician Coy Mcgovern Attending Clinician MILLA MARX Admitting Clinician Unavailable Payers Payer Name Policy Type Policy Number Effective Date Expiration Date Chilo hatch MEDICARE PART A \\T\\ [id number] 2005 B 00:00:00 [facility] [id number] 2015 MEDICARE SUPPLEMENT 00:00:00 Problems Condition Condition Condition Status Onset Resolution Last Treating Co mments Source Name Details Category Date Date Treatment Clinician Date Osteopenia Osteopenia Disease Active U nivers of of 6-24 ity of multiple multiple 00:00: [place] sites sites [address] [facility] Lung Lung Disease Active Univers nodules nodules - ity of 00:00: [address] PVD PVD Disease Active Univers (periphera (periphera -24 it y of l vascular [place] disease[place] 00 Medica l Branch Hyponatrem Hyponatrem Disease Active 2019-07 U nivers ia ia 08-16 ity of 00:00: [address] Low serum Low serum Disease Active 2019-07 Uni vers HDL HDL 08-16 ity of 00:00: [address] Abdominal Abdominal Disease Active [facility] aortic aortic 08-11 st aneurysm aneurysm 00:00: Hospit a (AAA) (AAA) 00 l without without rupture rupture Multiple Multiple Disease Active [facility] di closed closed 1-23 st pelvic pelvic 00:00: Hospita fractures fractures 00 l with with disruption disruption of pelvic [place] with with delayed delayed healing, healing, subsequent subsequent encounter encounter Chronic Chronic Disease Active [facility] 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 00:00: Hospit a 00 l Debility Debility Disease Active [facility] di 08-11 00:00: Hospita 00 l Osteoporos Osteoporos Disease [...] ity of low back low back 00:00: [place] pain with pain with 00 Medi aris left-sided left-sided Br anch sciatica sciatica Right hip Right hip Disease Active 2016-07 Uni vers pain pain 07-21 ity of 00:00: [place] 00 Medical Branch Weakness Weakness Disease Active 2016-07 Unive rs of both of both 1- ity of lower lower 00:00: [place] extremitie extremitie 00 Me dical s s Branch Altered Altered Disease Active 2016-07 Univers gait gait 07-21 ity of 00:00: [place] 00 Medical Branch Anxiety Anxiety Disease Active Univers 4-25 ity of 00:00: [place] 00 Medical Branch Essential Essential Disease Active Uni vers hypertensi hypertensi 6-29 it y of on on 00:00: [place] 00 Medical Branch Allergies, Adverse Reactions, Alerts [...] Date Stop Date Source Natural brother Hepatitis [facility] Natural sister Thyroid disease [facility] Social History Social Habit Start Date Stop Date Quantity Comments Source History SDOH University o f Alcohol Frequency [place] M edical [facility] History SDOH University o f Alcohol Std Drinks [place] [facility] Sunol History SDOH University o f Alcohol Binge [place] [facility] al [facility] History of tobacco Cigarette Smoker University of use [facility] Gender identity Universit y of [facility] Sexual orientation [facility] Exposure to 2022-05-19 2022-05-29 Not sure University of SARS-CoV-2 (event) 00:00:00 14:00:00 [facility] Tobacco use and 2022-05-29 2022-05-29 Smokeless tobacco Un iversity of exposure 00:00:00 00:00:00 non-user [facility] Cigarettes smoked 2019-08-05 2019-08-[address] current (pack per 00:00:00 00:00:00 Hospita l day) - Reported Cigarette 2019-08-05 2019-08-05 [facility] pack-years 00:00:00 00:00:00 Hospital Alcohol intake 2019-08-05 2019-08-05 Ex-drinker [facility] 00:00:00 00:00:00 (finding) Hospital History of Social 2019-08-05 2019-08-[address] function 00:00:00 00:00:00 Hospital Alcohol Comment 2018-01-06 2018-01-06 Occasional Universit y of 00:00:00 00:00:00 Drinker [facility] Sex Ass[birth year] At [birth year] [facility] 00:00:00 00:00:00 Hospital Smoking Status Start Date Stop Date Source Smokes tobacco daily 2022-05-29 00:00:00 Univers ity of [facility] Medications Ordered Filled Start Stop Current Ordering Indication Dosage Frequency Signature Comments Components Source Medication Medication Date Date Medication? Clinician (SIG) Name Name LISINOPRIL Yes [id number] TAKE ONE Univers 40 mg 4-26 TABLET BY ity of tablet 00:00: MOUTH [place] 00 DAILY Medical Branch LISINOPRIL Yes [id number] TAKE ONE Univers 40 mg 4-26 TABLET BY ity of tablet 00:00: MOUTH [place] 00 DAILY Medical Branch iron 2022- No [id number] 100mg 100 mg, IV U nivers sucrose 10-23 04-06 Infusion, ity of (VENOFER) 16:30: 18:16 ONCE, [place] 100 mg in 00 :00 Administer Medi aris NaCl 0.9% over 2 Branch (NS) 100 mL Hours, On infusion [facility] 10/23/22 at 1130, For 1 dose cloNIDine 2021-07 Yes [id number] TAKE ONE Univers 0.1 mg 1-10 TABLET BY ity of tablet 00:00: MOUTH [place] 00 EVERY 8 Medical HOURS IF Branch BLOOD PRESSURE IS ELEVATED (IF BLOOD PRESSURE GREATER THAN 160/100 TAKE 1 TABLET) (MAX 3 TABLETS PER DAY) cloNIDine 2021-07 Yes [id number] TAKE ONE Univers 0.1 mg 1-10 TABLET BY ity of tablet 00:00: MOUTH [place] 00 EVERY 8 Medical HOURS IF Branch BLOOD PRESSURE IS ELEVATED (IF BLOOD PRESSURE GREATER THAN 160/100 TAKE 1 TABLET) (MAX 3 TABLETS PER DAY) cloNIDine 2021-07 Yes [id number] TAKE ONE Univers 0.1 mg 1-10 TABLET BY ity of tablet 00:00: MOUTH [place] 00 EVERY 8 Medical HOURS IF Branch BLOOD PRESSURE IS ELEVATED (IF BLOOD PRESSURE GREATER THAN 160/100 TAKE 1 TABLET) (MAX 3 TABLETS PER DAY) cloNIDine 2021-07 Yes [id number] TAKE ONE Univers 0.1 mg 1-10 TABLET BY ity of tablet 00:00: MOUTH [place] 00 EVERY 8 Medical HOURS IF Branch BLOOD PRESSURE IS ELEVATED (IF BLOOD PRESSURE GREATER THAN 160/100 TAKE 1 TABLET) (MAX 3 TABLETS PER DAY) cloNIDine 2021-07 Yes [id number] TAKE ONE Univers 0.1 mg 1-10 TABLET BY ity of tablet 00:00: MOUTH [place] 00 EVERY 8 Medical HOURS IF Branch BLOOD PRESSURE IS ELEVATED (IF BLOOD PRESSURE GREATER THAN 160/100 TAKE 1 TABLET) (MAX 3 TABLETS PER DAY) cloNIDine 2021-07 Yes [id number] TAKE ONE Univers 0.1 mg 1-10 TABLET BY ity of tablet 00:00: MOUTH [place] 00 EVERY 8 Medical HOURS IF Branch BLOOD PRESSURE IS ELEVATED (IF BLOOD PRESSURE GREATER THAN 160/100 TAKE 1 TABLET) (MAX 3 TABLETS PER DAY) cloNIDine 2021-07 Yes [id number] TAKE ONE Univers 0.1 mg 1-10 TABLET BY ity of tablet 00:00: MOUTH [place] 00 EVERY 8 Medical HOURS IF Branch BLOOD PRESSURE IS ELEVATED (IF BLOOD PRESSURE GREATER THAN 160/100 TAKE 1 TABLET) (MAX 3 TABLETS PER DAY) cloNIDine 2021-07 Yes [id number] TAKE ONE Univers 0.1 mg 0-24 TABLET BY ity of tablet 00:00: MOUTH [place] 00 EVERY 8 Medical HOURS IF Branch BLOOD PRESSURE IS ELEVATED (IF BLOOD PRESSURE GREATER THAN 160/100 TAKE 1 TABLET) (MAX 3 TABLETS PER DAY) cloNIDine 2021-07- No [id number] TAKE ONE Univers 0.1 mg 0-24 11-10 TABLET BY ity of tablet 00:00: 00:00 MOUTH [place] 00 :00 EVERY 8 Medical HOURS IF Branch BLOOD PRESSURE IS ELEVATED (IF BLOOD PRESSURE GREATER THAN 160/100 TAKE 1 TABLET) (MAX 3 TABLETS PER DAY) cloNIDine 2021-07- No [id number] TAKE ONE Univers 0.1 mg 0-24 11-10 TABLET BY ity of tablet 00:00: 00:00 MOUTH [place] 00 :00 EVERY 8 Medical HOURS IF Branch BLOOD PRESSURE IS ELEVATED (IF BLOOD PRESSURE GREATER THAN 160/100 TAKE 1 TABLET) (MAX 3 TABLETS PER DAY) azithromyci 2021-07 Yes [id number] Z-Андрей = Univers n 250 mg 0-10 500 mg day ity o f tablet 00:00: 1, then [place] 00 250 mg Medical days 2 to Branch 5. TAKE 2 TABLETS BY MOUTH TODAY, THEN TAKE 1 TABLET DAILY FOR 4 DAYS azithromyci 2021-07 Yes [id number] Z-Андрей = Univers n 250 mg 0-10 500 mg day ity o f tablet 00:00: 1, then [place] 00 250 mg Medical days 2 to Branch 5. TAKE 2 TABLETS BY MOUTH TODAY, THEN TAKE 1 TABLET DAILY FOR 4 DAYS azithromyci 2021-07 Yes [id number] Z-Андрей = Univers n 250 mg 0-10 500 mg day ity o f tablet 00:00: 1, then [place] 00 250 mg Medical days 2 to Branch 5. TAKE 2 TABLETS BY MOUTH TODAY, THEN TAKE 1 TABLET DAILY FOR 4 DAYS azithromyci 2021-07 Yes [id number] Z-Андрей = Univers n 250 mg 0-10 500 mg day ity o f tablet 00:00: 1, then [place] 00 250 mg Medical days 2 to Branch 5. TAKE 2 TABLETS BY MOUTH TODAY, THEN TAKE 1 TABLET DAILY FOR 4 DAYS azithromyci 2021-07 Yes [id number] Z-Андрей = Univers n 250 mg 0-10 500 mg day ity o f tablet 00:00: 1, then [place] 00 250 mg Medical days 2 to Branch 5. TAKE 2 TABLETS BY MOUTH TODAY, THEN TAKE 1 TABLET DAILY FOR 4 DAYS azithromyci 2021-07 Yes [id number] Z-Андрей = Univers n 250 mg 0-10 500 mg day ity o f tablet 00:00: 1, then [place] 00 250 mg Medical days 2 to Branch 5. TAKE 2 TABLETS BY MOUTH TODAY, THEN TAKE 1 TABLET DAILY FOR 4 DAYS azithromyci 2021-07 Yes [id number] Z-Андрей = Univers n 250 mg 0-10 500 mg day ity o f tablet 00:00: 1, then [place] 00 250 mg Medical days 2 to Branch 5. TAKE 2 TABLETS BY MOUTH TODAY, THEN TAKE 1 TABLET DAILY FOR 4 DAYS azithromyci 2021-07 Yes [id number] Z-Андрей = Univers n 250 mg 0-10 500 mg day ity o f tablet 00:00: 1, then [place] 00 250 mg Medical days 2 to Branch 5. TAKE 2 TABLETS BY MOUTH TODAY, THEN TAKE 1 TABLET DAILY FOR 4 DAYS azithromyci 2021-07 Yes [id number] Z-Андрей = Univers n 250 mg 0-10 500 mg day ity o f tablet 00:00: 1, then [place] 00 250 mg Medical days 2 to Branch 5. TAKE 2 TABLETS BY MOUTH TODAY, THEN TAKE 1 TABLET DAILY FOR 4 DAYS VITAMIN K2 2022-0 Yes Take by Univ ers ORAL 8-12 mouth. ity of 16:37: [place] [address] Medical Branch cyanocobala 2021-0 Yes Take by Uni vers min, 8-12 mouth. ity of vitamin 16:37: [facility] 53 Medical (VITAMIN Branch B-12 ORAL) VITAMIN K2 2021-0 Yes Take by Univ ers ORAL 8-12 mouth. ity of 16:37: [place] [address] Medical Branch cyanocobala 0 Yes Take by Uni vers min, 8-12 mouth. ity of vitamin 16:37: [address] 53 Medical (VITAMIN Branch B-12 ORAL) VITAMIN K2 2021-0 Yes Take by Univ ers ORAL 8-12 mouth. ity of 16:37: [place] [address] Medical Branch cyanocobala 0 Yes Take by Uni vers min, 8-12 mouth. ity of vitamin 16:37: [place] [address] 53 Medical (VITAMIN Branch B-12 ORAL) VITAMIN K2 2021-0 Yes Take by Univ ers ORAL 8-12 mouth. ity of 16:37: [place] [address] Medical Branch cyanocobala 0 Yes Take by Uni vers min, 8-12 mouth. ity of vitamin 16:37: [address] 53 Medical (VITAMIN Branch B-12 ORAL) VITAMIN K2 2021-0 Yes Take by Univ ers ORAL 8-12 mouth. ity of 16:37: [place] [address] Medical Branch cyanocobala 0 Yes Take by Uni vers min, 8-12 mouth. ity of vitamin 16:37: [address] 53 Medical (VITAMIN Branch B-12 ORAL) VITAMIN K2 2021-0 Yes Take by Univ ers ORAL 8-12 mouth. ity of 16:37: [place] [address] Medical Branch cyanocobala 0 Yes Take by Uni vers min, 8-12 mouth. ity of vitamin 16:37: [address] 53 Medical (VITAMIN Branch B-12 ORAL) VITAMIN K2 2021-0 Yes Take by Univ ers ORAL 8-12 mouth. ity of 16:37: [place] [address] Medical Branch cyanocobala 0 Yes Take by Uni vers min, 8-12 mouth. ity of vitamin 16:37: [address] 53 Medical (VITAMIN Branch B-12 ORAL) VITAMIN K2 2021-0 Yes Take by Univ ers ORAL 8-12 mouth. ity of 16:37: [place] 53 Medical Branch cyanocobala 0 Yes Take by Uni vers min, 8-12 mouth. ity of vitamin 16:37: [place] Cast[place]-12, 53 Medical (VITAMIN Branch B-12 ORAL) VITAMIN K2 0 Yes Take by Univ ers ORAL 8-12 mouth. ity of 16:37: [place] 53 Medical Branch cyanocobala 0 Yes Take by Uni vers min, 8-12 mouth. ity of vitamin 16:37: [place] Cast[place]-, 53 Medical (VITAMIN Branch B-12 ORAL) VITAMIN K2 0 Yes Take by Univ ers ORAL 8-12 mouth. ity of 16:37: [place] 53 Medical Branch cyanocobala 0 Yes Take by Uni vers min, 8-12 mouth. ity of vitamin 16:37: [place] Cast[place]-12, 53 Medical (VITAMIN Branch B-12 ORAL) multivitami [...] with 8-12 mouth. ity of minerals 16:34: [place] (HAIR,SKIN 15 Medical AND NAILS Branch ORAL) multivitami 0 Yes Take by Uni vers n with 8-12 mouth. ity of minerals 16:34: [place] (HAIR,SKIN 15 Medical AND NAILS Branch ORAL) multivitami 0 Yes Take by Uni vers n with 8-12 mouth. ity of minerals 16:34: [place] (HAIR,SKIN 15 Medical AND NAILS Branch ORAL) ferrous 2021-0 Yes Take by Univers sulfate 8-12 mouth. ity of (IRON ORAL) 16:34: [address] ferrous 2021-0 Yes Take by Univers sulfate 8-12 mouth. ity of (IRON ORAL) 16:34: [address] ferrous 2021-0 Yes Take by Univers sulfate 8-12 mouth. ity of (IRON ORAL) 16:34: [address] ferrous 2021-0 Yes Take by Univers sulfate 8-12 mouth. ity of (IRON ORAL) 16:34: [address] ferrous 2021-0 Yes Take by Univers sulfate 8-12 mouth. ity of (IRON ORAL) 16:34: [address] ferrous 2021-0 Yes Take by Univers sulfate 8-12 mouth. ity of (IRON ORAL) 16:34: [address] ferrous 2021-0 Yes Take by Univers sulfate 8-12 mouth. ity of (IRON ORAL) 16:34: [address] ferrous 2021-0 Yes Take by Univers sulfate 8-12 mouth. ity of (IRON ORAL) 16:34: [address] ferrous 2021-0 Yes Take by Univers sulfate 8-12 mouth. ity of (IRON ORAL) 16:34: [address] ferrous 2021-0 Yes Take by Univers sulfate 8-12 mouth. ity of (IRON ORAL) 16:34: [address] Hydrocodone 2021-0 Yes Take by Uni [...] gabapentin 2022-0 Yes 300mg Take 300 Un oswadlo 300 mg 8-12 mg by ity of capsule 16:33: mouth 3 [place] 19 (three) Medical times Branch daily. gabapentin 2022-0 Yes 300mg Take 300 Un oswaldo 300 mg 8-12 mg by ity of capsule 16:33: mouth 3 [place] 19 (three) Medical times Branch daily. gabapentin 2022-0 Yes 300mg Take 300 Un oswaldo 300 mg 8-12 mg by ity of capsule 16:33: mouth 3 [place] 19 (three) Medical times Branch daily. gabapentin 2022-0 Yes 300mg Take 300 Un oswaldo 300 mg 8-12 mg by ity of capsule 16:33: mouth 3 [place] [address] (three) Medical times Branch daily. gabapentin 2022-0 Yes 300mg Take 300 Un oswaldo 300 mg 8-12 mg by ity of capsule 16:33: mouth 3 [place] 19 (three) Medical times Branch daily. gabapentin 2022-0 Yes 300mg Take 300 Un oswaldo 300 mg 8-12 mg by ity of capsule 16:33: mouth 3 [place] 19 (three) Medical times Branch daily. gabapentin 2022-0 Yes 300mg Take 300 Un oswaldo 300 mg 8-12 mg by ity of capsule 16:33: mouth 3 [place] 19 (three) Medical times Branch daily. gabapentin 2022-0 Yes 300mg Take 300 Un oswaldo 300 mg 8-12 mg by ity of capsule 16:33: mouth 3 [place] 19 (three) Medical times Branch daily. gabapentin 2022-0 Yes 300mg Take 300 Un oswaldo 300 mg 8-12 mg by ity of capsule 16:33: mouth 3 [place] [address] (three) Medical times Branch daily. gabapentin 2022-0 Yes 300mg Take 300 Un oswaldo 300 mg 8-12 mg by ity of capsule 16:33: mouth 3 [place] [address] (three) Medical times Branch daily. thiamine 2022-0 2021- No Take by Unive rs HCl 8- 08-12 mouth. ity of (VITAMIN 16:33: 00:00 [place] B-1 ORAL) 19 :00 Medical Branch cyanocobala 2021-0 2021- No Take by Un oswaldo min, 8 08-12 mouth. ity of vitamin 16:33: 00:00 [...] 16:33: [place] ORAL) 04 Medical Branch ergocalcife 0 Yes Take by Uni vers rol, 8-12 mouth. ity of vitamin D2, 16:33: [place] (VITAMIN D 03 Medical ORAL) Branch ergocalcife 0 Yes Take by Uni vers rol, 8-12 mouth. ity of vitamin D2, 16:33: [place] (VITAMIN D 03 Medical ORAL) Branch ergocalcife 0 Yes Take by Uni vers rol, 8-12 mouth. ity of vitamin D2, 16:33: [place] (VITAMIN D 03 Medical ORAL) Branch ergocalcife 0 Yes Take by Uni vers rol, 8-12 mouth. ity of vitamin D2, 16:33: [place] (VITAMIN D 03 Medical ORAL) Branch ergocalcife 0 Yes Take by Uni vers rol, 8-12 mouth. ity of vitamin D2, 16:33: [place] (VITAMIN D 03 Medical ORAL) Branch ergocalcife 0 Yes Take by Uni vers rol, 8-12 mouth. ity of vitamin D2, 16:33: [place] (VITAMIN D 03 Medical ORAL) Branch ergocalcife 0 Yes Take by Uni vers rol, 8-12 mouth. ity of vitamin D2, 16:33: [place] (VITAMIN D 03 Medical ORAL) Branch ergocalcife 0 Yes Take by Uni vers rol, 8-12 mouth. ity of vitamin D2, 16:33: [place] (VITAMIN D 03 Medical ORAL) Branch ergocalcife Yes Take by Uni vers rol, 8-12 mouth. ity of vitamin D2, 16:33: [place] (VITAMIN D 03 Medical ORAL) Branch ergocalcife Yes Take by Uni vers rol, 8-12 mouth. ity of vitamin D2, 16:33: [place] (VITAMIN D 03 Medical ORAL) Branch mupirocin 2 Yes [id number] APPLY TO Univers % ointment 8-12 AFFECTED ity o f 00:00: [facility] [place] 00 THREE Medical TIMES A Branch DAY mupirocin 2 2021-0 Yes [id number] APPLY TO Univers % ointment 8-12 AFFECTED ity o f 00:00: [facility] [place] [address] THREE Medical TIMES A Branch DAY mupirocin 2 2021-0 Yes [id number] APPLY TO Univers % ointment 8-12 AFFECTED ity o f 00:00: [facility] [place] 00 THREE Medical TIMES A Branch DAY mupirocin 2 2021-0 Yes [id number] APPLY TO Univers % ointment 8-12 AFFECTED ity o f 00:00: [facility] [place] 00 THREE Medical TIMES A Branch DAY mupirocin 2 2021-0 Yes [id number] APPLY TO Univers % ointment 8-12 AFFECTED ity o f 00:00: [facility] [place] [address] THREE Medical TIMES A Branch DAY mupirocin 2 2021-0 Yes [id number] APPLY TO Univers % ointment 8-12 AFFECTED ity o f 00:00: [facility] [place] 00 THREE Medical TIMES A Branch DAY mupirocin 2 2021-0 Yes [id number] APPLY TO Univers % ointment 8-12 AFFECTED ity o f 00:00: [facility] [place] 00 THREE Medical TIMES A Branch DAY mupirocin 2 2021-0 Yes [id number] APPLY TO Univers % ointment 8-12 AFFECTED ity o f 00:00: [facility] [place] [address] THREE Medical TIMES A Branch DAY mupirocin 2 2021-0 Yes [id number] APPLY TO Univers % ointment 8-12 AFFECTED ity o f 00:00: [facility] [place] [address] THREE Medical TIMES A Branch DAY mupirocin 2 2021-0 Yes [id number] APPLY TO Univers % ointment 8-12 AFFECTED ity o f 00:00: [facility] [place] [address] THREE Medical TIMES A Branch DAY cloNIDine 2021-0 Yes [id number] If BP Uni vers 0.1 mg 4-14 >160/100 ity of tablet 00:00: then take [place] [address] 1clonidine Medical .Max Branch 3aday, one Q8H if BP elevated. cloNIDine 2021-0 Yes [id number] If BP Uni vers 0.1 mg 4-14 >160/100 ity of tablet 00:00: then take [place] 1clonidine Medical .Max Branch 3aday, one Q8H if BP elevated. cloNIDine 2021-0 Yes [id number] If BP Uni vers 0.1 mg 4-14 >160/100 ity of tablet 00:00: then take [place] 1clonidine Medical .Max Branch 3aday, one Q8H if BP elevated. cloNIDine 2021-0 Yes [id number] If BP Uni vers 0.1 mg 4-14 >160/100 ity of tablet 00:00: then take [place] 1clonidine Medical .Max Branch 3aday, one Q8H if BP elevated. cloNIDine 2021-0 2021- No [id number] If BP Un oswaldo 0.1 mg 4-14 10-24 >160/100 ity of tablet 00:00: 00:00 then take [place] 00 :00 1clonidine Medical .Max Branch 3aday, one Q8H if BP elevated. lisinopriL 2021-0 Yes [id number] 40mg Take 1 U nivers 40 mg 2-04 tablet by ity of tablet 00:00: mouth [place] 00 daily. Medical Branch azithromyci 2021-0 Yes [id number] Take 500 Univers n 250 mg 2-04 mg day 1, ity of tablet 00:00: then 250 [place] 00 mg days 2 Medical to 5. Branch lisinopriL 2021-0 Yes [id number] 40mg Take 1 U nivers 40 mg 2-04 tablet by ity of tablet 00:00: mouth [place] 00 daily. Medical Branch azithromyci 2021-0 Yes [id number] Take 500 Univers n 250 mg 2-04 mg day 1, ity of tablet 00:00: then 250 [place] 00 mg days 2 Medical to 5. Branch lisinopriL 2021-0 Yes [id number] 40mg Take 1 U nivers 40 mg 2-04 tablet by ity of tablet 00:00: mouth [place] 00 daily. Medical Branch azithromyci 2021-0 Yes [id number] Take 500 Univers n 250 mg 2-04 mg day 1, ity of tablet 00:00: then 250 [place] 00 mg days 2 Medical to 5. Branch lisinopriL 2021-0 Yes [id number] 40mg Take 1 U nivers 40 mg 2-04 tablet by ity of tablet 00:00: mouth [place] 00 daily. Medical Branch azithromyci 2021-0 Yes [id number] Take 500 Univers n 250 mg 2-04 mg day 1, ity of tablet 00:00: then 250 [place] 00 mg days 2 Medical to 5. Branch lisinopriL 2021-0 Yes [id number] 40mg Take 1 U nivers 40 mg 2-04 tablet by ity of tablet 00:00: mouth [place] 00 daily. Medical Branch lisinopriL 2021-0 Yes [id number] 40mg Take 1 U nivers 40 mg 2-04 tablet by ity of tablet 00:00: mouth [place] 00 daily. Medical Branch lisinopriL 2021-0 Yes [id number] 40mg Take 1 U nivers 40 mg 2-04 tablet by ity of tablet 00:00: mouth [place] 00 daily. Medical Branch lisinopriL 2021-0 Yes [id number] 40mg Take 1 U nivers 40 mg 2-04 tablet by ity of tablet 00:00: mouth [place] 00 daily. Medical Branch lisinopriL 2021-0 Yes [id number] 40mg Take 1 U nivers 40 mg 2-04 tablet by ity of tablet 00:00: mouth [place] 00 daily. Medical Branch lisinopriL 2021-0 Yes [id number] 40mg Take 1 U nivers 40 mg 2-04 tablet by ity of tablet 00:00: mouth [place] 00 daily. Medical Branch lisinopriL 2021-0 Yes [id number] 40mg Take 1 U nivers 40 mg 2-04 tablet by ity of tablet 00:00: mouth [place] 00 daily. Medical Branch lisinopriL 2-0 2023- No [id number] 40mg Take 1 Univers 40 mg 2-04 04-26 tablet by ity of tablet 00:00: 00:00 mouth [place] 00 :00 daily. Medical Branch karyn 202- No [id number] Take 500 Univers n 250 mg 2- 10-10 mg day 1, ity o f tablet 00:00: 00:00 then 250 [place] 00 :00 mg days 2 Medical to 5. Branch metoprolol 2020-07 Yes [id number] 25mg Take 1 U nivers tartrate 25 0-05 tablet by ity of mg tablet 00:00: mouth (two) Medical times Branch daily. metoprolol 2020-07 Yes [id number] 25mg Take 1 U nivers tartrate 25 0-05 tablet by ity of mg tablet 00:00: mouth (two) Medical times Branch daily. metoprolol 2020-07 Yes [id number] 25mg Take 1 U nivers tartrate 25 0-05 tablet by ity of mg tablet 00:00: mouth (two) Medical times Branch daily. metoprolol 2020-07 Yes [id number] 25mg Take 1 U nivers tartrate 25 0-05 tablet by ity of mg tablet 00:00: mouth (two) Medical times Branch daily. metoprolol 2020-07 Yes [id number] 25mg Take 1 U nivers tartrate 25 0-05 tablet by ity of mg tablet 00:00: mouth (two) Medical times Branch daily. metoprolol 2020-07 Yes [id number] 25mg Take 1 U nivers tartrate 25 0-05 tablet by ity of mg tablet 00:00: mouth (two) Medical times Branch daily. metoprolol 2020-07 Yes [id number] 25mg Take 1 U nivers tartrate 25 0-05 tablet by ity of mg tablet 00:00: mouth (two) Medical times Branch daily. metoprolol 2020-07 Yes [id number] 25mg Take 1 U nivers tartrate 25 0-05 tablet by ity of mg tablet 00:00: mouth (two) Medical times Branch daily. metoprolol 2020-07 Yes [id number] 25mg Take 1 U nivers tartrate 25 0-05 tablet by ity of mg tablet 00:00: mouth (two) Medical times Branch daily. metoprolol 2020-07 Yes [id number] 25mg Take 1 [facility] n[facility] tartrate 25 0-05 tablet by ity of mg tablet 00:00: mouth (two) Medical times Branch daily. metoprolol 2020-07 Yes [id number] 25mg Take 1 [facility] nivers tartrate 25 0-05 tablet by ity of mg tablet 00:00: mouth (two) Medical times Branch daily. metoprolol 2020-07 Yes [id number] 25mg Take 1 [facility] nivers tartrate 25 0-05 tablet by ity of mg tablet 00:00: mouth (two) Medical times Branch daily. metoprolol 2020-07 Yes [id number] 25mg Take 1 U nivers tartrate 25 0-05 tablet by ity of mg tablet 00:00: mouth (two) Medical times Branch daily. metoprolol 2020-07 Yes [id number] 25mg Take 1 [facility] nivers tartrate 25 0-05 tablet by ity of mg tablet 00:00: [facility] (two) Medical times Branch daily. metoprolol 2020-07 Yes [id number] 25mg Take 1 U nivers tartrate 25 0-05 tablet by ity of mg tablet 00:00: mouth (two) Medical times Branch daily. metoprolol 2020-07 Yes [id number] 25mg Take 1 U nivers tartrate 25 0-05 tablet by ity of mg tablet 00:00: mouth (two) Medical times Branch daily. metoprolol 2020-07 Yes [id number] 25mg Take 1 U nivers tartrate 25 0-05 tablet by ity of mg tablet 00:00: mouth (two) Medical times Branch daily. metoprolol 2020-07 Yes [id number] 25mg Take 1 U nivers tartrate 25 0-05 tablet by ity of mg tablet 00:00: mouth (two) Medical times Branch daily. lisinopriL Yes [id number] 40mg Take 1 [facility] nivers 40 mg 6-25 tablet by ity of tablet 00:00: mouth daily. Medical Branch lisinopriL Yes [id number] 40mg Take 1 U nivers 40 mg 6-25 tablet by ity of tablet 00:00: mouth [place] 00 daily. Medical Branch lisinopriL 2020-0 Yes [id number] 40mg Take 1 U nivers 40 mg 6-25 tablet by ity of tablet 00:00: mouth [place] 00 daily. Medical Branch lisinopriL 2020-0 Yes [id number] 40mg Take 1 [facility] nivers 40 mg 6-25 tablet by ity of tablet 00:00: mouth [place] 00 daily. Medical Branch lisinopriL 2020-0 Yes [id number] 40mg Take 1 [facility] nivers 40 mg 6-25 tablet by ity of tablet 00:00: mouth [place] 00 daily. Medical Branch lisinopriL 2020-0 Yes [id number] 40mg Take 1 [facility] nivers 40 mg 6-25 tablet by ity of tablet 00:00: mouth [place] 00 daily. Medical Branch lisinopriL 2022- No [id number] 40mg Take 1 [facility] 40 mg 6-25 02-04 tablet by ity of tablet 00:00: 00:00 mouth [place] 00 :00 daily. Medical Branch gabapentin 2020-0 Yes 300mg Take 300 Un [place] 300 mg 6-24 mg by ity of capsule 22:35: mouth 3 [place] 59 (three) Medical times Branch daily. gabapentin 2020-0 Yes 300mg Take 300 [facility] [place] 300 mg 6-24 mg by ity of capsule 22:35: mouth 3 [place] 59 (three) Medical times Branch daily. Hydrocodone 2020-0 Yes Take by Uni vers -Acetaminop 6-24 mouth 3 ity o f hen 22:35: (three) [place] (VICODIN) 58 times Medical 5-300 mg daily. Branch tablet Hydrocodone 2020-0 Yes Take by [facility] vers -Acetaminop 6-24 mouth 3 ity o f hen 22:35: (three) [place] (VICODIN) 58 times Medical 5-300 mg daily. Branch tablet gabapentin 2020-0 Yes 300mg Take 300 Un [place] 300 mg 6-24 mg by ity of capsule 17:35: mouth 3 [place] 59 (three) Medical times Branch daily. gabapentin 2021-0 Yes 300mg Take 300 [facility] [place] 300 mg 6-24 mg by ity of capsule 17:35: mouth 3 [place] 59 (three) Medical times Branch daily. gabapentin 2021-0 Yes 300mg Take 300 [facility] [place] 300 mg 6-24 mg by ity of capsule 17:35: mouth 3 [place] 59 (three) Medical times Branch daily. gabapentin 2021-0 Yes 300mg Take 300 [facility] [place] 300 mg 6-24 mg by ity of capsule 17:35: mouth 3 [place] 59 (three) Medical times Branch daily. gabapentin 2021-0 Yes 300mg Take 300 [facility] [place] 300 mg 6-24 mg by ity of capsule 17:35: mouth 3 [place] 59 (three) Medical times Branch daily. gabapentin 2021-0 Yes 300mg Take 300 [facility] [place] 300 mg 6-24 mg by ity of capsule 17:35: mouth 3 [place] 59 (three) Medical times Branch daily. gabapentin 2021-0 Yes 300mg Take 300 [facility] [place] 300 mg 6-24 mg by ity of capsule 17:35: mouth 3 [place] 59 (three) Medical times Branch daily. gabapentin 2021-0 Yes 300mg Take 300 [facility] [place] 300 mg 6-24 mg by ity of capsule 17:35: mouth 3 [place] 59 (three) Medical times Branch daily. Hydrocodone [...] Medical 5-300 mg daily. Branch tablet cloNIDine 202-0 Yes [id number] If BP Uni vers 0.1 mg 6-24 >160/100 ity of tablet 00:00: then take [place] 1clonidine Medical .Max Branch 3aday, one Q8H if BP elevated. cloNIDine 2021-0 Yes [id number] If BP Uni vers 0.1 mg 6-24 >160/100 ity of tablet 00:00: then take [place] 1clonidine Medical .Max Branch 3aday, one Q8H if BP elevated. cloNIDine 2021-0 Yes [id number] If BP Uni vers 0.1 mg 6-24 >160/100 ity of tablet 00:00: then take [place] 1clonidine Medical .Max Branch 3aday, one Q8H if BP elevated. cloNIDine 2021-0 Yes [id number] If BP Uni vers 0.1 mg 6-24 >160/100 ity of tablet 00:00: then take [place] 1clonidine Medical .Max Branch 3aday, one Q8H if BP elevated. cloNIDine 2021-0 Yes [id number] If BP Uni vers 0.1 mg 6-24 >160/100 ity of tablet 00:00: then take [place] 00 1clonidine Medical .Max Branch 3aday, one Q8H if BP elevated. cloNIDine 2021-0 Yes [id number] If BP Uni vers 0.1 mg 6-24 >160/100 ity of tablet 00:00: then take [place] 00 1clonidine Medical .Max Branch 3aday, one Q8H if BP elevated. cloNIDine 2021-0 Yes [id number] If BP Uni vers 0.1 mg 6-24 >160/100 ity of tablet 00:00: then take [place] 00 1clonidine Medical .Max Branch 3aday, one Q8H if BP elevated. cloNIDine 2021-0 Yes [id number] If BP Uni vers 0.1 mg 6-24 >160/100 ity of tablet 00:00: then take [place] 00 1clonidine Medical .Max Branch 3aday, one Q8H if BP elevated. cloNIDine 2020-0 2021- No [id number] If BP Un [place] 0.1 mg 6-24 04-14 >160/100 ity of tablet 00:00: 00:00 then take [place] 00 :00 1clonidine Medical .Max Branch 3aday, one Q8H if BP elevated. azithromyci 0 Yes [id number] Take 500 Univers n 250 mg 5-12 mg day 1, ity of tablet 00:00: then 250 [place] 00 mg days 2 Medical to 5. Branch azithromyci 2020-0 Yes [id number] Take 500 Univers n 250 mg 5-12 mg day 1, ity of tablet 00:00: then 250 [place] 00 mg days 2 Medical to 5. Branch azithromyci 2020-0 Yes [id number] Take 500 Univers n 250 mg 5-12 mg day 1, ity of tablet 00:00: then 250 [place] 00 mg days 2 Medical to 5. Branch azithromyci 2020-0 Yes [id number] Take 500 [facility] n 250 mg 5-12 mg day 1, ity of tablet 00:00: then 250 [place] 00 mg days 2 Medical to 5. Branch azithromyci 2020-0 Yes [id number] Take 500 [facility] n 250 mg 5-12 mg day 1, ity of tablet 00:00: then 250 [place] 00 mg days 2 Medical to 5. Branch azithromyci 2020-0 Yes [id number] Take 500 [facility] n 250 mg 5-12 mg day 1, ity of tablet 00:00: then 250 [place] 00 mg days 2 Medical to 5. Branch azithromyci 2020-0 Yes [id number] Take 500 [facility] n 250 mg 5-12 mg day 1, ity of tablet 00:00: then 250 [place] 00 mg days 2 Medical to 5. Branch azithromyci 2020-0 Yes [id number] Take 500 [facility] n 250 mg 5-12 mg day 1, ity of tablet 00:00: then 250 [place] 00 mg days 2 Medical to 5. Branch azithromyci 2020-0 Yes [id number] Take 500 Univers n 250 mg 5-12 mg day 1, ity of tablet 00:00: then 250 [place] 00 mg days 2 Medical to 5. Branch azithromyci 2020-0 Yes [id number] Take 500 Univers n 250 mg 5-12 mg day 1, ity of tablet 00:00: then 250 [place] 00 mg days 2 Medical to 5. Branch azithromyci 2020-0 Yes [id number] Take 500 Univers n 250 mg 5-12 mg day 1, ity of tablet 00:00: then 250 [place] 00 mg days 2 Medical to 5. Branch azithromyci 2020-0 Yes [id number] Take 500 Univers n 250 mg 5-12 mg day 1, ity of tablet 00:00: then 250 [place] 00 mg days 2 Medical to 5. Branch azithromyci 2020-0 Yes [id number] Take 500 Univers n 250 mg 5-12 mg day 1, ity of tablet 00:00: then 250 [place] 00 mg days 2 Medical to 5. Branch azithromyci 2020-0 2- No [id number] Take 500 Univers n 250 mg 5-12 02-04 mg day 1, ity o f tablet 00:00: 00:00 then 250 [place] 00 :00 mg days 2 Medical to 5. Branch LISINOPRIL 2020-0 Yes [id number] TAKE ONE Univers 40 mg 2-08 TABLET BY ity of tablet 00:00: MOUTH [place] DAILY Medical Branch MUPIROCIN 2 2020-0 Yes [id number] APPLY TO Univers % ointment 2-08 AFFECTED ity o f 00:00: AREA(S) [place] 00 THREE Medical TIMES A Branch DAY LISINOPRIL 2020-0 Yes [id number] TAKE ONE [facility] 40 mg 2-08 TABLET BY ity of tablet 00:00: MOUTH [place] DAILY Medical Branch MUPIROCIN 2 2020-0 Yes [id number] APPLY TO Univers % ointment 2-08 AFFECTED ity o f 00:00: AREA(S) [place] 00 THREE Medical TIMES A Branch DAY LISINOPRIL 2020-0 Yes [id number] TAKE ONE [facility] 40 mg 2-08 TABLET BY ity of tablet 00:00: MOUTH [place] DAILY Medical Branch MUPIROCIN 2 2020-0 Yes [id number] APPLY TO Univers % ointment 2-08 AFFECTED ity o f 00:00: [place] [address] THREE Medical TIMES A Branch DAY LISINOPRIL 2020-0 Yes [id number] TAKE ONE Univers 40 mg 2-08 TABLET BY ity of tablet 00:00: [facility] DAILY Medical Branch MUPIROCIN 2 202-0 Yes [id number] APPLY TO Univers % ointment 2-08 AFFECTED ity o f 00:00: [place] [address] THREE Medical TIMES A Branch DAY LISINOPRIL 2020-0 Yes [id number] TAKE ONE Univers 40 mg 2-08 TABLET BY ity of tablet 00:00: [facility] DAILY Medical Branch MUPIROCIN 2 2020-0 Yes [id number] APPLY TO Univers % ointment 2-08 AFFECTED ity o f 00:00: [place] [address] THREE Medical TIMES A Branch DAY LISINOPRIL 2020-0 Yes [id number] TAKE ONE Univers 40 mg 2-08 TABLET BY ity of tablet 00:00: [facility] DAILY Medical Branch MUPIROCIN 2 2020-0 Yes [id number] APPLY TO Univers % ointment 2-08 AFFECTED ity o f 00:00: [place] [address] THREE Medical TIMES A Branch DAY LISINOPRIL 2020-0 Yes [id number] TAKE ONE [facility] 40 mg 2-08 TABLET BY ity of tablet 00:00: [facility] DAILY Medical Branch MUPIROCIN 2 2020-0 Yes [id number] APPLY TO Univers % ointment 2-08 AFFECTED ity o f 00:00: [place] [address] THREE Medical TIMES A Branch DAY LISINOPRIL 2020-0 Yes [id number] TAKE ONE [facility] 40 mg 2-08 TABLET BY ity of tablet 00:00: [facility] DAILY Medical Branch MUPIROCIN 2 2020-0 Yes [id number] APPLY TO Univers % ointment 2-08 AFFECTED ity o f 00:00: [place] [address] THREE Medical TIMES A Branch DAY LISINOPRIL 2020-0 Yes [id number] TAKE ONE [facility] 40 mg 2-08 TABLET BY ity of tablet 00:00: [facility] DAILY Medical Branch MUPIROCIN 2 2020-0 Yes [id number] APPLY TO Univers % ointment 2-08 AFFECTED ity o f 00:00: [facility] [place] [address] THREE Medical TIMES A Branch DAY LISINOPRIL 202-0 Yes [id number] TAKE ONE Univers 40 mg 2-08 TABLET BY ity of tablet 00:00: MOUTH [place] 00 DAILY Medical Branch MUPIROCIN 2 2020-0 Yes [id number] APPLY TO Univers % ointment 2-08 AFFECTED ity o f 00:00: [facility] [place] [address] THREE Medical TIMES A Branch DAY LISINOPRIL 2020-0 Yes [id number] TAKE ONE [facility] 40 mg 2-08 TABLET BY ity of tablet 00:00: MOUTH [place] 00 DAILY Medical Branch MUPIROCIN 2 2020-0 Yes [id number] APPLY TO Univers % ointment 2-08 AFFECTED ity o f 00:00: [facility] [place] [address] THREE Medical TIMES A Branch DAY MUPIROCIN 2 2020-0 Yes [id number] APPLY TO Univers % ointment 2-08 AFFECTED ity o f 00:00: [facility] [place] [address] THREE Medical TIMES A Branch DAY MUPIROCIN 2 2020-0 Yes [id number] APPLY TO Univers % ointment 2-08 AFFECTED ity o f 00:00: [facility] [place] [address] THREE Medical TIMES A Branch DAY MUPIROCIN 2 2020-0 Yes [id number] APPLY TO Univers % ointment 2-08 AFFECTED ity o f 00:00: [facility] [place] [address] THREE Medical TIMES A Branch DAY MUPIROCIN 2 202-0 Yes [id number] APPLY TO Univers % ointment 2-08 AFFECTED ity o f 00:00: [facility]([place] [address] THREE Medical TIMES A Branch DAY MUPIROCIN 2 202-0 Yes [id number] APPLY TO Univers % ointment 2-08 AFFECTED ity o f 00:00: [facility] [place] [address] THREE Medical TIMES A Branch DAY MUPIROCIN 2 2020-0 Yes [id number] APPLY TO Univers % ointment 2-08 AFFECTED ity o f 00:00: [facility]([place] [address] THREE Medical TIMES A Branch DAY MUPIROCIN 2 2020-0 Yes [id number] APPLY TO Univers % ointment 2-08 AFFECTED ity o f 00:00: [place] [address] THREE Medical TIMES A Branch DAY MUPIROCIN 2 2021-0 Yes [id number] APPLY TO Univers % ointment 08-27 AFFECTED ity o f 00:00: AREA(S) [place] 00 THREE Medical TIMES A Branch DAY MUPIROCIN 2 Yes [id number] APPLY TO Univers % ointment 08-27 AFFECTED ity o f 00:00: AREA(S) [place] 00 THREE Medical TIMES A Branch DAY MUPIROCIN 2 2021- No [id number] APPLY TO Univers % ointment 08-27 AFFECTED ity of 00:00: 00:00 AREA(S) [place] 00 :00 THREE Medical TIMES A Branch DAY LISINOPRIL 2020- No [id number] TAKE ONE [facility] 40 mg 08-27 TABLET BY ity of tablet 00:00: 00:00 MOUTH [place] 00 :00 DAILY Medical Branch azithromyci 2020- Yes [id number] Take 500 [facility] n 250 mg 1-17 mg day 1, ity of tablet 00:00: then 250 [place] 00 mg days 2 Medical to 5. Branch azithromyci 2020- Yes [id number] Take 500 [facility] n 250 mg 1-17 mg day 1, ity of tablet 00:00: then 250 [place] 00 mg days 2 Medical to 5. Branch azithromyci 2020- Yes [id number] Take 500 [facility] n 250 mg 1-17 mg day 1, ity of tablet 00:00: then 250 [place] 00 mg days 2 Medical to 5. Branch azithromyci 2020- Yes [id number] Take 500 [facility] n 250 mg 1-17 mg day 1, ity of tablet 00:00: then 250 [place] 00 mg days 2 Medical to 5. Branch azithromyci 2020- Yes [id number] Take 500 [facility] n 250 mg 1-17 mg day 1, ity of tablet 00:00: then 250 [place] 00 mg days 2 Medical to 5. Branch azithromyci 2020- Yes [id number] Take 500 [facility] n 250 mg 1-17 mg day 1, ity of tablet 00:00: then 250 [place] 00 mg days 2 Medical to 5. Branch azithromyci 2020- Yes [id number] Take 500 [facility] n 250 mg 1-17 mg day 1, ity of tablet 00:00: then 250 [place] 00 mg days 2 Medical to 5. Branch azithromyci 2019- Yes [id number] Take 500 [facility] n 250 mg 1-17 mg day 1, ity of tablet 00:00: then 250 [place] 00 mg days 2 Medical to 5. Branch azithromyci 2019-07 Yes [id number] Take 500 [facility] n 250 mg 1-17 mg day 1, ity of tablet 00:00: then 250 [place] 00 mg days 2 Medical to 5. Branch azithromyci 2019-07 Yes [id number] Take 500 [facility] n 250 mg 1-17 mg day 1, ity of tablet 00:00: then 250 [place] 00 mg days 2 Medical to 5. Branch azithromyci 2019-07 Yes [id number] Take 500 [facility] n 250 mg 1-17 mg day 1, ity of tablet 00:00: then 250 [place] 00 mg days 2 Medical to 5. Branch azithromyci 2019-07 Yes [id number] Take 500 [facility] n 250 mg 1-17 mg day 1, ity of tablet 00:00: then 250 [place] 00 mg days 2 Medical to 5. Branch azithromyci 2019-07 Yes [id number] Take 500 [facility] n 250 mg 1-17 mg day 1, ity of tablet 00:00: then 250 [place] 00 mg days 2 Medical to 5. Branch marielyithromyci 2019-07- No [id number] Take 500 [facility] n 250 mg 1-17 05-12 mg day 1, ity o f tablet 00:00: 00:00 then 250 [place] 00 :00 mg days 2 Medical to 5. Branch marielyithromyci 2019-07- No [id number] Take 500 [facility] n 250 mg 1-17 [...] C 15:13: [place] ORAL) Medical Branch ascorbic 20200 Yes Take by Univer s acid 5-07 [...] 5-07 mouth. ity of (VITAMIN C 15:13: [place] ORAL) 04 Medical Branch ascorbic 2020-0 Yes Take by Univer s acid 5-07 mouth. ity of (VITAMIN C 15:13: [place] ORAL) 04 Medical Branch ascorbic 2020-0 Yes Take by Univer s acid 5-07 mouth. ity of (VITAMIN C 15:13: [place] ORAL) 04 Medical Branch ascorbic 2020-0 Yes Take by Univer s acid 5-07 mouth. ity of (VITAMIN C 15:13: [place] ORAL) 04 Medical Branch ascorbic 2020-0 Yes Take by Univer s acid 5-07 mouth. ity of (VITAMIN C 15:13: [place] ORAL) Medical Branch ergocalcife 2019-0 Yes Take by Uni vers rol, 5-07 mouth. ity of vitamin D2, 15:12: [place] (VITAMIN D 55 Medical ORAL) Branch ferrous 2020-0 Yes Take by Univers sulfate 5-07 mouth. ity of (IRON ORAL) 15:12: [place] [address] Medical Branch ergocalcife 2020-0 Yes Take by Uni vers rol, 5-07 mouth. ity of vitamin D2, 15:12: [place] (VITAMIN D 55 Medical ORAL) Branch ferrous 2020-0 Yes Take by Univers sulfate 5-07 mouth. ity of (IRON ORAL) 15:12: [place] [address] Medical Branch ergocalcife 2020-0 Yes Take by Uni vers rol, 5-07 mouth. ity of vitamin D2, 15:12: [place] (VITAMIN D 55 Medical ORAL) Branch ferrous 2020-0 Yes Take by [facility] sulfate 5-07 mouth. ity of (IRON ORAL) 15:12: [place] [address] Medical Branch ergocalcife 2020-0 Yes Take by Uni vers rol, 5-07 mouth. ity of vitamin D2, 15:12: [place] (VITAMIN D 55 Medical ORAL) Branch ferrous 2020-0 Yes Take by Univers sulfate 5-07 mouth. ity of (IRON ORAL) 15:12: [place] [address] Medical Branch ergocalcife 2020-0 Yes Take by Uni vers rol, 5-07 mouth. ity of vitamin D2, 15:12: [place] (VITAMIN D 55 Medical ORAL) Branch ferrous 2020-0 Yes Take by [facility] sulfate 5-07 mouth. ity of (IRON ORAL) 15:12: [place] [address] Medical Branch ergocalcife 2020-0 Yes Take by Uni vers rol, 5-07 mouth. ity of vitamin D2, 15:12: [place] (VITAMIN D 55 Medical ORAL) Branch ferrous 2020-0 Yes Take by Univers sulfate 5-07 mouth. ity of (IRON ORAL) 15:12: [place] [address] Medical Branch ergocalcife 2020-0 Yes Take by Uni vers rol, 5-07 mouth. ity of vitamin D2, 15:12: [place] (VITAMIN D 55 Medical ORAL) Branch ferrous 2020-0 Yes Take by Univers sulfate 5-07 mouth. ity of (IRON ORAL) 15:12: [place] [address] Medical Branch ergocalcife 2020-0 Yes Take by Uni vers rol, 5-07 mouth. ity of vitamin D2, 15:12: [place] (VITAMIN D 55 Medical ORAL) Branch ferrous 2020-0 Yes Take by Univers sulfate 5-07 mouth. ity of (IRON ORAL) 15:12: [place] [address] Medical Branch ergocalcife 2020-0 Yes Take by Uni vers rol, 5-07 mouth. ity of vitamin D2, 15:12: [place] (VITAMIN D 55 Medical ORAL) Branch ferrous 2020-0 Yes Take by [facility] sulfate 5-07 mouth. ity of (IRON ORAL) 15:12: [place] [address] Medical Branch ergocalcife 2020-0 Yes Take by Uni vers rol, 5-07 mouth. ity of vitamin D2, 15:12: [place] (VITAMIN D 55 Medical ORAL) Branch ferrous 2020-0 Yes Take by Univers sulfate 5-07 mouth. ity of (IRON ORAL) 15:12: [place] [address] Medical Branch ergocalcife 2020-0 Yes Take by Uni vers rol, 5-07 mouth. ity of vitamin D2, 15:12: [place] (VITAMIN D 55 Medical ORAL) Branch ferrous 2020-0 Yes Take by [facility] sulfate 5-07 mouth. ity of (IRON ORAL) 15:12: [place] [address] Medical Branch ergocalcife 2020-0 Yes Take by Uni vers rol, 5-07 mouth. ity of vitamin D2, 15:12: [place] (VITAMIN D 55 Medical ORAL) Branch ferrous 2020-0 Yes Take by [facility] sulfate 5-07 mouth. ity of (IRON ORAL) 15:12: [place] [address] Medical Branch ergocalcife 2020-0 Yes Take by Uni vers rol, 5-07 mouth. ity of vitamin D2, 15:12: [place] (VITAMIN D 55 Medical ORAL) Branch ferrous 2020-0 Yes Take by [facility] sulfate 5-07 mouth. ity of (IRON ORAL) 15:12: [place] [address] Medical Branch ergocalcife 2020-0 Yes Take by Uni vers rol, 5-07 mouth. ity of vitamin D2, 15:12: [place] (VITAMIN D 55 Medical ORAL) Branch ferrous 2020-0 Yes Take by [facility] sulfate 5-07 mouth. ity of (IRON ORAL) 15:12: [place] [address] Medical Branch ergocalcife 2020-0 Yes Take by Uni vers rol, 5-07 mouth. ity of vitamin D2, 15:12: [place] (VITAMIN D 55 Medical ORAL) Branch ferrous 2020-0 Yes Take by Univers sulfate 5-07 mouth. ity of (IRON ORAL) 15:12: [place] [address] Medical Branch ergocalcife 2020-0 Yes Take by Uni vers rol, 5-07 mouth. ity of vitamin D2, 15:12: [place] (VITAMIN D 55 Medical ORAL) Branch ferrous 2020-0 Yes Take by [facility] sulfate 5-07 mouth. ity of (IRON ORAL) 15:12: [place] [address] Medical Branch ergocalcife 2020-0 Yes Take by Uni vers rol, 5-07 mouth. ity of vitamin D2, 15:12: [place] (VITAMIN D 55 Medical ORAL) Branch ferrous 2020-0 Yes Take by [facility] sulfate 5-07 mouth. ity of (IRON ORAL) 15:12: [place] [address] Medical Branch ergocalcife 2020-0 Yes Take by Uni vers rol, 5-07 mouth. ity of vitamin D2, 15:12: [place] (VITAMIN D 55 Medical ORAL) Branch ferrous 2020-0 Yes Take by [facility] sulfate 5-07 mouth. ity of (IRON ORAL) 15:12: [place] [address] Medical Branch ergocalcife 2020-0 Yes Take by Uni vers rol, 5-07 mouth. ity of vitamin D2, 15:12: [place] (VITAMIN D 55 Medical ORAL) Branch ferrous 2020-0 Yes Take by [facility] sulfate 5-07 mouth. ity of (IRON ORAL) 15:12: [place] [address] Medical Branch ergocalcife 2020-0 Yes Take by Uni vers rol, 5-07 mouth. ity of vitamin D2, 15:12: [place] (VITAMIN D 55 Medical ORAL) Branch ferrous 2020-0 Yes Take by [facility] sulfate 5-07 mouth. ity of (IRON ORAL) 15:12: [place] [address] Medical Branch ergocalcife 2020-0 Yes Take by Uni vers rol, 5-07 mouth. ity of vitamin D2, 15:12: [place] (VITAMIN D 55 Medical ORAL) Branch ferrous 2020-0 Yes Take by [facility] sulfate 5-07 mouth. ity of (IRON ORAL) 15:12: [place] [address] Medical Branch ergocalcife 2020-0 Yes Take by Uni vers rol, 5-07 mouth. ity of vitamin D2, 15:12: [place] (VITAMIN D 55 Medical ORAL) Branch ferrous 2020-0 Yes Take by [facility] sulfate 5-07 mouth. ity of (IRON ORAL) 15:12: [place] [address] Medical Branch ergocalcife 2020-0 Yes Take by Uni vers rol, 5-07 mouth. ity of vitamin D2, 15:12: [place] (VITAMIN D 55 Medical ORAL) Branch ferrous 2020-0 Yes Take by [facility] sulfate 5-07 mouth. ity of (IRON ORAL) 15:12: [place] [address] Medical Branch ergocalcife 2020-0 Yes Take by Uni vers rol, 5-07 mouth. ity of vitamin D2, 15:12: [place] (VITAMIN D 55 Medical ORAL) Branch ferrous 2020-0 Yes Take by [facility] sulfate 5-07 mouth. ity of (IRON ORAL) 15:12: [place] [address] Medical Branch ergocalcife 2020-0 Yes Take by Uni vers rol, 5-07 mouth. ity of vitamin D2, 15:12: [place] (VITAMIN D 55 Medical ORAL) Branch ferrous 2020-0 Yes Take by [facility] sulfate 5-07 mouth. ity of (IRON ORAL) 15:12: [place] [address] Medical Branch ergocalcife 2020-0 Yes Take by Uni vers rol, 5-07 mouth. ity of vitamin D2, 15:12: [place] (VITAMIN D 55 Medical ORAL) Branch ferrous 2020-0 Yes Take by [facility] sulfate 5-07 mouth. ity of (IRON ORAL) 15:12: [place] [address] Medical Branch ergocalcife 2020-0 Yes Take by Uni vers rol, 5-07 mouth. ity of vitamin D2, 15:12: [place] (VITAMIN D 55 Medical ORAL) Branch ferrous 2020-0 Yes Take by [facility] sulfate 5-07 mouth. ity of (IRON ORAL) 15:12: [place] [address] Medical Branch ergocalcife 2020-0 Yes Take by Uni vers rol, 5-07 mouth. ity of vitamin D2, 15:12: [place] (VITAMIN D 55 Medical ORAL) Branch ferrous 2020-0 Yes Take by [facility] sulfate 5-07 mouth. ity of (IRON ORAL) 15:12: [place] [address] Medical Branch ergocalcife 2020-0 Yes Take by Uni vers rol, 5-07 mouth. ity of vitamin D2, 15:12: [place] (VITAMIN D 55 Medical ORAL) Branch ferrous 2020-0 Yes Take by [facility] sulfate 5-07 mouth. ity of (IRON ORAL) 15:12: [place] [address] Medical Branch ergocalcife 2020-0 Yes Take by Uni vers rol, 5-07 mouth. ity of vitamin D2, 15:12: [place] (VITAMIN D 55 Medical ORAL) Branch ferrous 2020-0 Yes Take by [facility] sulfate 5-07 mouth. ity of (IRON ORAL) 15:12: [place] [address] Medical Branch ergocalcife 2020-0 Yes Take by Uni vers rol, 5-07 mouth. ity of vitamin D2, 15:12: [place] (VITAMIN D 55 Medical ORAL) Branch ferrous 2020-0 Yes Take by [facility] sulfate 5-07 mouth. ity of (IRON ORAL) 15:12: [place] [address] Medical Branch ergocalcife 2020-0 Yes Take by Uni vers rol, 5-07 mouth. ity of vitamin D2, 15:12: [place] (VITAMIN D 55 Medical ORAL) Branch ferrous 2020-0 Yes Take by [facility] sulfate 5-07 mouth. ity of (IRON ORAL) 15:12: [place] [address] Medical Branch ergocalcife 2020-0 Yes Take by Uni vers rol, 5-07 mouth. ity of vitamin D2, 15:12: [place] (VITAMIN D 55 Medical ORAL) Branch ferrous 2020-0 Yes Take by [facility] sulfate 5-07 mouth. ity of (IRON ORAL) 15:12: [place] [address] Medical Branch ergocalcife 2020-0 Yes Take by Uni vers rol, 5-07 mouth. ity of vitamin D2, 15:12: [place] (VITAMIN D 55 Medical ORAL) Branch ferrous 2020-0 Yes Take by [facility] sulfate 5-07 mouth. ity of (IRON ORAL) 15:12: [place] [address] Medical Branch ergocalcife 2020-0 Yes Take by Uni vers rol, 5-07 mouth. ity of vitamin D2, 15:12: [place] (VITAMIN D 55 Medical ORAL) Branch ferrous 2020-0 Yes Take by [facility] sulfate 5-07 mouth. ity of (IRON ORAL) 15:12: [place] [address] Medical Branch ergocalcife 2020-0 Yes Take by Uni vers rol, 5-07 mouth. ity of vitamin D2, 15:12: [place] (VITAMIN D 55 Medical ORAL) Branch ferrous 2020-0 Yes Take by [facility] sulfate 5-07 mouth. ity of (IRON ORAL) 15:12: [place] [address] Medical Branch ergocalcife 2020-0 Yes Take by [facility] vers rol, 5-07 mouth. ity of vitamin D2, 15:12: [place] (VITAMIN D 55 Medical ORAL) Branch ferrous 2020-0 Yes Take by [facility] sulfate 5-07 mouth. ity of (IRON ORAL) 15:12: [place] [address] Medical Branch ergocalcife 2020-0 Yes Take by [facility] vers rol, 5-07 mouth. ity of vitamin D2, 15:12: [place] (VITAMIN D 55 Medical ORAL) Branch ferrous 2020-0 Yes Take by [facility] sulfate 5-07 mouth. ity of (IRON ORAL) 15:12: [place] 55 Medical Branch ergocalcife 2020-0 Yes Take by [facility] vers rol, 5-07 mouth. ity of vitamin D2, 15:12: [place] (VITAMIN D 55 Medical ORAL) Branch ferrous 2020-0 Yes Take by [facility] sulfate 5-07 mouth. ity of (IRON ORAL) 15:12: [place] [address] Medical Branch ergocalcife 2020-0 Yes Take by [facility] vers rol, 5-07 mouth. ity of vitamin D2, 15:12: [place] (VITAMIN D 55 Medical ORAL) Branch ferrous 2020-0 Yes Take by [facility] sulfate 5-07 mouth. ity of (IRON ORAL) 15:12: [place] [address] Medical Branch ergocalcife 2020-0 Yes Take by [facility] vers rol, 5-07 mouth. ity of vitamin D2, 15:12: [place] (VITAMIN D 55 Medical ORAL) Branch ferrous 2020-0 Yes Take by [facility] sulfate 5-07 mouth. ity of (IRON ORAL) 15:12: [place] [address] Medical Branch ergocalcife 2020-0 Yes Take by [facility] vers rol, 5-07 mouth. ity of vitamin D2, 15:12: [place] (VITAMIN D 55 Medical ORAL) Branch ferrous 2020-0 Yes Take by [facility] sulfate 5-07 mouth. ity of (IRON ORAL) 15:12: [place] [address] Medical Branch ergocalcife 2020-0 Yes Take by [facility] vers rol, 5-07 mouth. ity of vitamin D2, 15:12: [place] (VITAMIN D 55 Medical ORAL) Branch ferrous 2020-0 Yes Take by [facility] sulfate 5-07 mouth. ity of (IRON ORAL) 15:12: [place] [address] Medical Branch ergocalcife 2020-0 Yes Take by [facility] vers rol, 5-07 mouth. ity of vitamin D2, 15:12: [place] (VITAMIN D 55 Medical ORAL) Branch ferrous 2020-0 Yes Take by [facility] sulfate 5-07 mouth. ity of (IRON ORAL) 15:12: [place] [address] Medical Branch ergocalcife 2020-0 Yes Take by [facility] vers rol, 5-07 mouth. ity of vitamin D2, 15:12: [place] (VITAMIN D 55 Medical ORAL) Branch ferrous 2020-0 Yes Take by [facility] sulfate 5-07 mouth. ity of (IRON ORAL) 15:12: [place] [address] Medical Branch ergocalcife 2020-0 Yes Take by [facility] vers rol, 5-07 mouth. ity of vitamin D2, 15:12: [place] (VITAMIN D 55 Medical ORAL) Branch ferrous 2020-0 Yes Take by [facility] sulfate 5-07 mouth. ity of (IRON ORAL) 15:12: [place] 55 Medical Branch ergocalcife 2020-0 Yes Take by [facility] vers rol, 5-07 mouth. ity of vitamin D2, 15:12: [place] (VITAMIN D 55 Medical ORAL) Branch ferrous 2020-0 Yes Take by [facility] sulfate 5-07 mouth. ity of (IRON ORAL) 15:12: [place] [address] Medical Branch ergocalcife 2020-0 Yes Take by [facility] vers rol, 5-07 mouth. ity of vitamin D2, 15:12: [place] (VITAMIN D 55 Medical ORAL) Branch ferrous 2020-0 Yes Take by [facility] sulfate 5-07 mouth. ity of (IRON ORAL) 15:12: [place] [address] Medical Branch thiamine 2020-0 Yes Take by [facility] HCl 5-07 mouth. ity of (VITAMIN 15:12: [place] B-1 ORAL) 52 Medical Branch multivitami 2020-0 Yes Take by Uni vers n with 5-07 mouth. ity of minerals 15:12: [place] (HAIR,SKIN 52 Medical AND NAILS Branch ORAL) thiamine 2020-0 Yes Take by [facility] HCl 5-07 mouth. ity of (VITAMIN 15:12: [place] B-1 ORAL) 52 Medical Branch multivitami 2020-0 Yes Take by Uni vers n with 5-07 mouth. ity of minerals 15:12: [place] (HAIR,SKIN 52 Medical AND NAILS Branch ORAL) thiamine 2020-0 Yes Take by [facility] HCl 5-07 mouth. ity of (VITAMIN 15:12: [place] B-1 ORAL) 52 Medical Branch multivitami 2020-0 Yes Take by Uni vers n with 5-07 mouth. ity of minerals 15:12: [place] (HAIR,SKIN 52 Medical AND NAILS Branch ORAL) thiamine 2020-0 Yes Take by [facility] HCl 5-07 mouth. ity of (VITAMIN 15:12: [place] B-1 ORAL) 52 Medical Branch multivitami 2020-0 Yes Take by Uni vers n with 5-07 mouth. ity of minerals 15:12: [place] (HAIR,SKIN 52 Medical AND NAILS Branch ORAL) [...] mg by ity of capsule 15:12: mouth [address] [place] [address] ([facility]) Medical times Branch daily. gabapentin 2020-0 Yes 300mg Take 300 Un oswaldo 300 mg 5-07 mg by ity of capsule 15:12: mouth [address] [place] [address] ([facility]) Medical times Branch daily. gabapentin 2020-0 Yes 300mg Take 300 Un o[place]al[place] 300 mg 5-07 mg by ity of capsule 15:12: mouth [address] [place] [address] (three) Medical times Branch daily. gabapentin 2020-0 Yes 300mg Take 300 Un [place] 300 mg 5-07 mg by ity of capsule 15:12: mouth [address] [place] [address] (three) Medical times Branch daily. gabapentin 2020-0 Yes 300mg Take 300 Un [place] 300 mg 5-07 mg by ity of capsule 15:12: mouth [address] [place] [address] (three) Medical times Branch daily. gabapentin 2020-0 Yes 300mg Take 300 Un [place] 300 mg 5-07 mg by ity of capsule 15:12: mouth [address] [place] [address] (three) Medical times Branch daily. gabapentin 2020-0 Yes 300mg Take 300 Un [place] 300 mg 5-07 mg by ity of capsule 15:12: mouth [address] [place] [address] (three) Medical times Branch daily. gabapentin 2020-0 Yes 300mg Take 300 Un [place] 300 mg 5-07 mg by ity of capsule 15:12: mouth [address] [place] [address] (three) Medical times Branch daily. gabapentin 2020-0 Yes 300mg Take 300 Un [place] 300 mg 5-07 mg by ity of capsule 15:12: mouth [address] [place] [address] (three) Medical times Branch daily. gabapentin 2020-0 Yes 300mg Take 300 Un [place] 300 mg 5-07 mg by ity of capsule 15:12: mouth [address] [place] [address] (three) Medical times Branch daily. gabapentin 2020-0 Yes 300mg Take 300 Un [place] 300 mg 5-07 mg by ity of capsule 15:12: mouth [address] [place] [address] (three) Medical times Branch daily. gabapentin 2020-0 Yes 300mg Take 300 Un [place] 300 mg 5-07 mg by ity of capsule 15:12: mouth [address] [place] [address] (three) Medical times Branch daily. gabapentin 2020-0 Yes 300mg Take 300 Un [place] 300 mg 5-07 mg by ity of capsule 15:12: mouth [address] [place] [address] (three) Medical times Branch daily. gabapentin 2020-0 Yes 300mg Take 300 Un [place] 300 mg 5-07 mg by ity of capsule 15:12: mouth [address] [place] [address] (three) Medical times Branch daily. gabapentin 2020-0 Yes 300mg Take 300 Un [place] 300 mg 5-07 mg by ity of capsule 15:12: mouth [address] [place] [address] (three) Medical times Branch daily. gabapentin 2020-0 Yes 300mg Take 300 Un [place] 300 mg 5-07 mg by ity of capsule 15:12: mouth [address] [place] [address] (three) Medical times Branch daily. gabapentin 2020-0 Yes 300mg Take 300 Un [place] 300 mg 5-07 mg by ity of capsule 15:12: mouth [address] [place] [address] (three) Medical times Branch daily. gabapentin 2020-0 Yes 300mg Take 300 Un [place] 300 mg 5-07 mg by ity of capsule 15:12: mouth [address] [place] [address] (three) Medical times Branch daily. gabapentin 2020-0 Yes 300mg Take 300 Un [place] 300 mg 5-07 mg by ity of capsule 15:12: mouth [address] [place] [address] (three) Medical times Branch daily. gabapentin 2020-0 Yes 300mg Take 300 Un [place] 300 mg 5-07 mg by ity of capsule 15:12: mouth [address] [place] [address] (three) Medical times Branch daily. gabapentin 2020-0 Yes 300mg Take 300 Un [place] 300 mg 5-07 mg by ity of capsule 15:12: mouth [address] [place] [address] (three) Medical times Branch daily. gabapentin 2020-0 Yes 300mg Take 300 Un [place] 300 mg 5-07 mg by ity of capsule 15:12: mouth [address] [place] [address] (three) Medical times Branch daily. gabapentin 2020-0 Yes 300mg Take 300 Un [place] 300 mg 5-07 mg by ity of capsule 15:12: mouth [address] [place] [address] (three) Medical times Branch daily. gabapentin 2020-0 Yes 300mg Take 300 Un [place] 300 mg 5-07 mg by ity of capsule 15:12: mouth [address] [place] [address] (three) Medical times Branch daily. gabapentin 2020-0 Yes 300mg Take 300 Un [place] 300 mg 5-07 mg by ity of capsule 15:12: mouth [address] [place] [address] (three) Medical times Branch daily. gabapentin 2020-0 Yes 300mg Take 300 Un [place] 300 mg 5-07 mg by ity of capsule 15:12: mouth [address] [place] [address] (three) Medical times Branch daily. gabapentin 2020-0 Yes 300mg Take 300 Un [place] 300 mg 5-07 mg by ity of capsule 15:12: mouth [address] [place] [address] (three) Medical times Branch daily. gabapentin 2020-0 Yes 300mg Take 300 Un [place] 300 mg 5-07 mg by ity of capsule 15:12: mouth [address] [place] [address] (three) Medical times Branch daily. gabapentin 2020-0 Yes 300mg Take 300 Un [place] 300 mg 5-07 mg by ity of capsule 15:12: mouth [address] [place] [address] (three) Medical times Branch daily. gabapentin 2020-0 Yes 300mg Take 300 Un [place] 300 mg 5-07 mg by ity of capsule 15:12: mouth [address] [place] [address] (three) Medical times Branch daily. gabapentin 2020-0 Yes 300mg Take 300 Un [place] 300 mg 5-07 mg by ity of capsule 15:12: mouth [address] [place] [address] (three) Medical times Branch daily. gabapentin 2020-0 Yes 300mg Take 300 Un [place] 300 mg 5-07 mg by ity of capsule 15:12: mouth [address] [place] [address] (three) Medical times Branch daily. gabapentin 2020-0 Yes 300mg Take 300 Un [place] 300 mg 5-07 mg by ity of capsule 15:12: mouth [address] [place] [address] (three) Medical times Branch daily. gabapentin 2020-0 Yes 300mg Take 300 Un [place] 300 mg 5-07 mg by ity of capsule 15:12: mouth [address] [place] [address] (three) Medical times Branch daily. gabapentin 2020-0 Yes 300mg Take 300 Un [place] 300 mg 5-07 mg by ity of capsule 15:12: mouth 3 [place] [address] (three) Medical times Branch daily. gabapentin 2020-0 Yes 300mg Take 300 Un o[place]al[place] 300 mg 5-07 mg by ity of capsule 15:12: mouth 3 [place] [address] (three) Medical times Branch daily. gabapentin 2020-0 Yes 300mg Take 300 Un [place] 300 mg 5-07 mg by ity of capsule 15:12: mouth 3 [place] [address] (three) Medical times Branch daily. gabapentin 2020-0 Yes 300mg Take 300 Un [place] 300 mg 5-07 mg by ity of capsule 15:12: mouth 3 [place] [address] (three) Medical times Branch daily. gabapentin 2020-0 Yes 300mg Take 300 Un [place] 300 mg 5-07 mg by ity of capsule 15:12: mouth 3 [place] [address] (three) Medical times Branch daily. gabapentin 2020-0 Yes 300mg Take 300 Un [place] 300 mg 5-07 mg by ity of capsule 15:12: mouth [address] [place] [address] (three) Medical times Branch daily. gabapentin 2020-0 Yes 300mg Take 300 Un [place] 300 mg 5-07 mg by ity of capsule 15:12: mouth [address] [place] [address] (three) Medical times Branch daily. gabapentin 2020-0 Yes 300mg Take 300 Un [place] 300 mg 5-07 mg by ity of capsule 15:12: mouth [address] [place] [address] (three) Medical times Branch daily. gabapentin 2020-0 Yes 300mg Take 300 Un [place] 300 mg 5-07 mg by ity of capsule 15:12: mouth [address] [place] [address] (three) Medical times Branch daily. gabapentin 2020-0 Yes 300mg Take 300 Un [place] 300 mg 5-07 mg by ity of capsule 15:12: mouth [address] [place] [address] (three) Medical times Branch daily. gabapentin 2020-0 Yes 300mg Take 300 Un [place] 300 mg 5-07 mg by ity of capsule 15:12: mouth [address] [place] [address] (three) Medical times Branch daily. gabapentin 2020-0 Yes 300mg Take 300 Un [place] 300 mg 5-07 mg by ity of capsule 15:12: mouth 3 [place] [address] (three) Medical times Branch daily. Hydrocodone 2020-0 [...] 3 ity o f hen 15:12: (three) [place] (VICODIN) 49 times Medical 5-300 mg daily. Branch tablet Hydrocodone 2020-0 Yes Take by Uni vers -Acetaminop 5-07 mouth 3 ity o f hen 15:12: (three) [place] (VICODIN) 49 times Medical 5-300 mg daily. Branch tablet Hydrocodone 2020-0 Yes Take by Uni vers -Acetaminop 5-07 mouth 3 ity o f hen 15:12: (three) [place] (VICODIN) 49 times Medical 5-300 mg daily. Branch tablet cyanocobala 2020-0 Yes Take by Uni vers min, 5-07 mouth. ity of vitamin 10:13: [place] B-12, 05 Medical (VITAMIN Branch B-12 ORAL) cyanocobala 2020-0 Yes Take by Uni vers min, 5-07 mouth. ity of vitamin 10:13: [place] B-12, 05 Medical (VITAMIN Branch B-12 ORAL) cyanocobala 2020-0 Yes Take by Uni vers min, 5-07 mouth. ity of vitamin 10:13: [place] B-12, 05 Medical (VITAMIN Branch B-12 ORAL) cyanocobala 2020-0 Yes Take by [facility] vers min, 5-07 mouth. ity of vitamin 10:13: [place] B-12, 05 Medical (VITAMIN Branch B-12 ORAL) cyanocobala 2020-0 Yes Take by [facility] vers min, 5-07 mouth. ity of vitamin 10:13: [place] B-12, 05 Medical (VITAMIN Branch B-12 ORAL) cyanocobala 2020-0 Yes Take by [facility] vers min, 5-07 mouth. ity of vitamin 10:13: [place] B-12, 05 Medical (VITAMIN Branch B-12 ORAL) cyanocobala 2020-0 Yes Take by [facility] vers min, 5-07 mouth. ity of vitamin 10:13: [place] B-12, 05 Medical (VITAMIN Branch B-12 ORAL) cyanocobala 2020-0 Yes Take by [facility] vers min, 5-07 mouth. ity of vitamin 10:13: [place] B-12, 05 Medical (VITAMIN Branch B-12 ORAL) ascorbic 2020-0 Yes Take by Univer s acid 5-07 mouth. ity of (VITAMIN C 10:13: [place] ORAL) 04 Medical Branch ascorbic 2020-0 Yes [...] 5-07 mouth. ity of vitamin D2, 10:12: [place] (VITAMIN D 55 Medical ORAL) Branch ferrous 2020-0 Yes Take by [facility] sulfate 5-07 mouth. ity of (IRON ORAL) 10:12: [place] [address] Medical Branch ergocalcife 2020-0 Yes Take by Uni vers rol, 5-07 mouth. ity of vitamin D2, 10:12: [place] (VITAMIN D 55 Medical ORAL) Branch ferrous 2020-0 Yes Take by [facility] sulfate 5-07 mouth. ity of (IRON ORAL) 10:12: [place] [address] Medical Branch ergocalcife 2020-0 Yes Take by Uni vers rol, 5-07 mouth. ity of vitamin D2, 10:12: [place] (VITAMIN D 55 Medical ORAL) Branch ferrous 2020-0 Yes Take by [facility] sulfate 5-07 mouth. ity of (IRON ORAL) 10:12: [place] [address] Medical Branch ergocalcife 2020-0 Yes Take by Uni vers rol, 5-07 mouth. ity of vitamin D2, 10:12: [place] (VITAMIN D 55 Medical ORAL) Branch ferrous 2020-0 Yes Take by [facility] sulfate 5-07 mouth. ity of (IRON ORAL) 10:12: [place] [address] Medical Branch ergocalcife 2020-0 Yes Take by [facility] vers rol, 5-07 mouth. ity of vitamin D2, 10:12: [place] (VITAMIN D 55 Medical ORAL) Branch ferrous 2020-0 Yes Take by [facility] sulfate 5-07 mouth. ity of (IRON ORAL) 10:12: [place] [address] Medical Branch ergocalcife 2020-0 Yes Take by [facility] vers rol, 5-07 mouth. ity of vitamin D2, 10:12: [place] (VITAMIN D 55 Medical ORAL) Branch ferrous 2020-0 Yes Take by [facility] sulfate 5-07 mouth. ity of (IRON ORAL) 10:12: [place] [address] Medical Branch ergocalcife 2020-0 Yes Take by [facility] vers rol, 5-07 mouth. ity of vitamin D2, 10:12: [place] (VITAMIN D 55 Medical ORAL) Branch ferrous 2020-0 Yes Take by [facility] sulfate 5-07 mouth. ity of (IRON ORAL) 10:12: [place] [address] Medical Branch ergocalcife 2020-0 Yes Take by Uni vers rol, 5-07 mouth. ity of vitamin D2, 10:12: [place] (VITAMIN D 55 Medical ORAL) Branch ferrous 2020-0 Yes Take by [facility] sulfate 5-07 mouth. ity of (IRON ORAL) 10:12: [place] [address] Medical Branch thiamine 2020-0 Yes Take by Univer s HCl 5-07 mouth. ity of (VITAMIN 10:12: [place] B-1 ORAL) 52 Medical Branch multivitami 2020-0 Yes Take by Uni vers n with 5-07 mouth. ity of minerals 10:12: [place] (HAIR,SKIN 52 Medical AND NAILS Branch ORAL) thiamine 2020-0 Yes Take by Univer s HCl 5-07 mouth. ity of (VITAMIN 10:12: [place] B-1 ORAL) 52 Medical Branch multivitami 2020-0 Yes Take by Uni vers n with 5-07 mouth. ity of minerals 10:12: [place] (HAIR,SKIN 52 Medical AND NAILS Branch ORAL) thiamine 2020-0 Yes Take by Univer s HCl 5-07 mouth. ity of (VITAMIN 10:12: [place] B-1 ORAL) 52 Medical Branch multivitami 2020-0 Yes Take by Uni vers n with 5-07 mouth. ity of minerals 10:12: [place] (HAIR,SKIN 52 Medical AND NAILS Branch ORAL) [...] with 5-07 mouth. ity of minerals 10:12: [place] (HAIR,SKIN 52 Medical AND NAILS Branch ORAL) thiamine 2020-0 Yes Take by Univer s HCl 5-07 mouth. ity of (VITAMIN 10:12: [place] B-1 ORAL) 52 Medical Branch multivitami 2020-0 Yes Take by Uni vers n with 5-07 mouth. ity of minerals 10:12: [place] (HAIR,SKIN 52 Medical AND NAILS Branch ORAL) thiamine 2020-0 Yes Take by Univer s HCl 5-07 mouth. ity of (VITAMIN 10:12: [place] B-1 ORAL) 52 Medical Branch multivitami 2020-0 Yes Take by Uni vers n with 5-07 mouth. ity of minerals 10:12: [place] (HAIR,SKIN 52 Medical AND NAILS Branch ORAL) hydrALAZINE 2020-0 Yes [id number] 25mg Take 1 [facility] 25 mg 4-14 tablet by ity of tablet 00:00: mouth 00 every 6 Medical (six) Branch hours as needed (high blood pressure (>150/90 after taking lisinopril )). cloNIDine 2020-0 Yes [id number] Take Univ ers 0.1 mg 4-14 hydralazin ity of tablet 00:00: e 00 perinstruc Medical tions Branch onbottle,i fBP still>160/ 100 then take 1clonidine .Max 3aday, one Q8H if BP elevated despitetak inghydrala zine hydrALAZINE 2020-0 Yes [id number] 25mg Take 1 [facility] 25 mg 4-14 tablet by ity of tablet 00:00: mouth 00 every 6 Medical (six) Branch hours as needed (high blood pressure (>150/90 after taking lisinopril )). cloNIDine 2020-0 Yes [id number] Take Univ ers 0.1 mg 4-14 hydralazin ity of tablet 00:00: e [facility],i fBP still>160/ 100 then take 1clonidine .Max 3aday, one Q8H if BP elevated despitetak inghydrala zine hydrALAZINE 2020-0 Yes [id number] 25mg Take 1 [facility] 25 mg 4-14 tablet by ity of tablet 00:00: mouth every 6 Medical (six) Branch hours as needed (high blood pressure (>150/90 after taking lisinopril )). cloNIDine 2020-0 Yes [id number] Take Univ ers 0.1 mg 4-14 hydralazin ity of tablet 00:00: e [facility],i fBP still>160/ 100 then take 1clonidine .Max 3aday, one Q8H if BP elevated despitetak inghydrala zine hydrALAZINE 2020-0 Yes [id number] 25mg Take 1 [facility] 25 mg 4-14 tablet by ity of tablet 00:00: mouth every 6 Medical (six) Branch hours as needed (high blood pressure (>150/90 after taking lisinopril )). cloNIDine 2020-0 Yes [id number] Take Univ ers 0.1 mg 4-14 hydralazin ity of tablet 00:00: e [facility],i fBP still>160/ 100 then take 1clonidine .Max 3aday, one Q8H if BP elevated despitetak inghydrala zine hydrALAZINE 2020-0 Yes [id number] 25mg Take 1 [facility] 25 mg 4-14 tablet by ity of tablet 00:00: mouth every 6 Medical (six) Branch hours as needed (high blood pressure (>150/90 after taking lisinopril )). cloNIDine 2020-0 Yes [id number] Take Univ ers 0.1 mg 4-14 hydralazin ity of tablet 00:00: e [facility],i fBP still>160/ 100 then take 1clonidine .Max 3aday, one Q8H if BP elevated despitetak inghydrala zine hydrALAZINE 2020-0 Yes [id number] 25mg Take 1 [facility] 25 mg 4-14 tablet by ity of tablet 00:00: mouth [place] 00 every 6 Medical (six) Branch hours as needed (high blood pressure (>150/90 after taking lisinopril )). cloNIDine 2020-0 Yes [id number] Take Univ ers 0.1 mg 4-14 hydralazin ity of tablet 00:00: e [facility],i fBP still>160/ 100 then take 1clonidine .Max 3aday, one Q8H if BP elevated despitetak inghydrala zine hydrALAZINE 2020-0 Yes [id number] 25mg Take 1 [facility] 25 mg 4-14 tablet by ity of tablet 00:00: mouth [place] every 6 Medical (six) Branch hours as needed (high blood pressure (>150/90 after taking lisinopril )). cloNIDine 2020-0 Yes [id number] Take Univ ers 0.1 mg 4-14 hydralazin ity of tablet 00:00: e [place] [facility],i fBP still>160/ 100 then take 1clonidine .Max 3aday, one Q8H if BP elevated despitetak inghydrala zine hydrALAZINE 2020-0 Yes [id number] 25mg Take 1 [facility] 25 mg 4-14 tablet by ity of tablet 00:00: mouth [place] 00 every 6 Medical (six) Branch hours as needed (high blood pressure (>150/90 after taking lisinopril )). cloNIDine 2020-0 Yes [id number] Take Univ ers 0.1 mg 4-14 hydralazin ity of tablet 00:00: e [place] [facility],i fBP still>160/ 100 then take 1clonidine .Max 3aday, one Q8H if BP elevated despitetak inghydrala zine hydrALAZINE 2020-0 Yes [id number] 25mg Take 1 [facility] 25 mg 4-14 tablet by ity of tablet 00:00: mouth [place] 00 every 6 Medical (six) Branch hours as needed (high blood pressure (>150/90 after taking lisinopril )). cloNIDine 2020-0 Yes [id number] Take Univ ers 0.1 mg 4-14 hydralazin ity of tablet 00:00: e [facility],i fBP still>160/ 100 then take 1clonidine .Max 3aday, one Q8H if BP elevated despitetak inghydrala zine hydrALAZINE 2020-0 Yes [id number] 25mg Take 1 [facility] 25 mg 4-14 tablet by ity of tablet 00:00: mouth every 6 Medical (six) Branch hours as needed (high blood pressure (>150/90 after taking lisinopril )). cloNIDine 2020-0 Yes [id number] Take Univ ers 0.1 mg 4-14 hydralazin ity of tablet 00:00: e [facility],i fBP still>160/ 100 then take 1clonidine .Max 3aday, one Q8H if BP elevated despitetak inghydrala zine hydrALAZINE 2020-0 Yes [id number] 25mg Take 1 [facility] 25 mg 4-14 tablet by ity of tablet 00:00: mouth every 6 Medical (six) Branch hours as needed (high blood pressure (>150/90 after taking lisinopril )). cloNIDine 2020-0 Yes [id number] Take Univ ers 0.1 mg 4-14 hydralazin ity of tablet 00:00: e [facility],i fBP still>160/ 100 then take 1clonidine .Max 3aday, one Q8H if BP elevated despitetak inghydrala zine hydrALAZINE 2020-0 Yes [id number] 25mg Take 1 [facility] 25 mg 4-14 tablet by ity of tablet 00:00: mouth every 6 Medical (six) Branch hours as needed (high blood pressure (>150/90 after taking lisinopril )). cloNIDine 2020-0 Yes [id number] Take Univ ers 0.1 mg 4-14 hydralazin ity of tablet 00:00: e perinstruc Medical tions Branch onbottle,i fBP still>160/ 100 then take 1clonidine .Max 3aday, one Q8H if BP elevated despitetak inghydrala zine hydrALAZINE 2020-0 Yes [id number] 25mg Take 1 [facility] 25 mg 4-14 tablet by ity of tablet 00:00: mouth [place] 00 every 6 Medical (six) Branch hours as needed (high blood pressure (>150/90 after taking lisinopril )). cloNIDine 2020-0 Yes [id number] Take Univ ers 0.1 mg 4-14 hydralazin ity of tablet 00:00: e [place] 00 [facility],i fBP still>160/ 100 then take 1clonidine .Max 3aday, one Q8H if BP elevated despitetak inghydrala zine hydrALAZINE 2020-0 Yes [id number] 25mg Take 1 [facility] 25 mg 4-14 tablet by ity of tablet 00:00: mouth 00 every 6 Medical (six) Branch hours as needed (high blood pressure (>150/90 after taking lisinopril )). cloNIDine 2020-0 Yes [id number] Take Univ ers 0.1 mg 4-14 hydralazin ity of tablet 00:00: e [facility],i fBP still>160/ 100 then take 1clonidine .Max 3aday, one Q8H if BP elevated despitetak inghydrala zine hydrALAZINE 2020-0 Yes [id number] 25mg Take 1 [facility] 25 mg 4-14 tablet by ity of tablet 00:00: mouth [place] 00 every 6 Medical (six) Branch hours as needed (high blood pressure (>150/90 after taking lisinopril )). cloNIDine 2020-0 Yes [id number] Take Univ ers 0.1 mg 4-14 hydralazin ity of tablet 00:00: e 00 [facility],i fBP still>160/ 100 then take 1clonidine .Max 3aday, one Q8H if BP elevated despitetak inghydrala zine hydrALAZINE 2020-0 Yes [id number] 25mg Take 1 [facility] 25 mg 4-14 tablet by ity of tablet 00:00: mouth [place] 00 every 6 Medical (six) Branch hours as needed (high blood pressure (>150/90 after taking lisinopril )). cloNIDine 2020-0 Yes [id number] Take Univ ers 0.1 mg 4-14 hydralazin ity of tablet 00:00: e [facility],i fBP still>160/ 100 then take 1clonidine .Max 3aday, one Q8H if BP elevated despitetak inghydrala zine hydrALAZINE 2020-0 Yes [id number] 25mg Take 1 [facility] 25 mg 4-14 tablet by ity of tablet 00:00: mouth 00 every 6 Medical (six) Branch hours as needed (high blood pressure (>150/90 after taking lisinopril )). cloNIDine 2020-0 Yes [id number] Take Univ ers 0.1 mg 4-14 hydralazin ity of tablet 00:00: e [facility],i fBP still>160/ 100 then take 1clonidine .Max 3aday, one Q8H if BP elevated despitetak inghydrala zine hydrALAZINE 2020-0 Yes [id number] 25mg Take 1 [facility] 25 mg 4-14 tablet by ity of tablet 00:00: mouth 00 every 6 Medical (six) Branch hours as needed (high blood pressure (>150/90 after taking lisinopril )). cloNIDine 2020-0 Yes [id number] Take Univ ers 0.1 mg 4-14 hydralazin ity of tablet 00:00: e [facility],i fBP still>160/ 100 then take 1clonidine .Max 3aday, one Q8H if BP elevated despitetak inghydrala zine hydrALAZINE 2020-0 Yes [id number] 25mg Take 1 [facility] 25 mg 4-14 tablet by ity of tablet 00:00: mouth 00 every 6 Medical (six) Branch hours as needed (high blood pressure (>150/90 after taking lisinopril )). cloNIDine 2020-0 Yes [id number] Take Univ ers 0.1 mg 4-14 hydralazin ity of tablet 00:00: e [facility],i fBP still>160/ 100 then take 1clonidine .Max 3aday, one Q8H if BP elevated despitetak inghydrala zine hydrALAZINE 2020-0 Yes [id number] 25mg Take 1 [facility] 25 mg 4-14 tablet by ity of tablet 00:00: mouth [place] 00 every 6 Medical (six) Branch hours as needed (high blood pressure (>150/90 after taking lisinopril )). cloNIDine 2020-0 Yes [id number] Take Univ ers 0.1 mg 4-14 hydralazin ity of tablet 00:00: e [place] 00 [facility]160/ 100 then take 1clonidine .Max 3aday, one Q8H if BP elevated despitetak inghydrala zine hydrALAZINE 2020-0 Yes [id number] 25mg Take 1 [facility] 25 mg 4-14 tablet by ity of tablet 00:00: mouth [place] 00 every 6 Medical (six) Branch hours as needed (high blood pressure (>150/90 after taking lisinopril )). cloNIDine 2020-0 Yes [id number] Take Univ ers 0.1 mg 4-14 hydralazin ity of tablet 00:00: e 00 [facility],i fBP still>160/ 100 then take 1clonidine .Max 3aday, one Q8H if BP elevated despitetak inghydrala zine hydrALAZINE 2020-0 Yes [id number] 25mg Take 1 [facility] 25 mg 4-14 tablet by ity of tablet 00:00: mouth [place] 00 every 6 Medical (six) Branch hours as needed (high blood pressure (>150/90 after taking lisinopril )). cloNIDine 2020-0 Yes [id number] Take Univ ers 0.1 mg 4-14 hydralazin ity of tablet 00:00: e [place] 00 [facility] f[facility] still>160/ 100 then take 1clonidine .Max 3aday, one Q8H if BP elevated despitetak inghydrala zine hydrALAZINE 2020-0 Yes [id number] 25mg Take 1 [facility] 25 mg 4-14 tablet by ity of tablet 00:00: mouth [place] 00 every 6 Medical (six) Branch hours as needed (high blood pressure (>150/90 after taking lisinopril )). cloNIDine 2020-0 Yes [id number] Take Univ ers 0.1 mg 4-14 hydralazin ity of tablet 00:00: e [place] [facility],i fBP still>160/ 100 then take 1clonidine .Max 3aday, one Q8H if BP elevated despitetak inghydrala zine hydrALAZINE 2020-0 Yes [id number] 25mg Take 1 [facility] 25 mg 4-14 tablet by ity of tablet 00:00: mouth [place] 00 every 6 Medical (six) Branch hours as needed (high blood pressure (>150/90 after taking lisinopril )). cloNIDine 2020-0 Yes [id number] Take Univ ers 0.1 mg 4-14 hydralazin ity of tablet 00:00: e [place] [facility],i fBP still>160/ 100 then take 1clonidine .Max 3aday, one Q8H if BP elevated despitetak inghydrala zine hydrALAZINE 2020-0 Yes [id number] 25mg Take 1 [facility] 25 mg 4-14 tablet by ity of tablet 00:00: mouth [place] 00 every 6 Medical (six) Branch hours as needed (high blood pressure (>150/90 after taking lisinopril )). cloNIDine 2020-0 Yes [id number] Take Univ ers 0.1 mg 4-14 hydralazin ity of tablet 00:00: e [place] [facility],i fBP still>160/ 100 then take 1clonidine .Max 3aday, one Q8H if BP elevated despitetak inghydrala zine cloNIDine 2020-0 Yes [id number] Take Univ ers 0.1 mg 4-14 hydralazin ity of tablet 00:00: e [place] [facility],i fBP still>160/ 100 then take 1clonidine .Max 3aday, one Q8H if BP elevated despitetak inghydrala zine cloNIDine 2020-0 Yes [id number] Take Univ ers 0.1 mg 4-14 hydralazin ity of tablet 00:00: e [place] [facility],i fBP still>160/ 100 then take 1clonidine .Max 3aday, one Q8H if BP elevated despitetak inghydrala zine cloNIDine 2020-0 Yes [id number] Take Univ ers 0.1 mg 4-14 hydralazin ity of tablet 00:00: e [place] [facility],i fBP still>160/ 100 then take 1clonidine .Max 3aday, one Q8H if BP elevated despitetak inghydrala zine cloNIDine 2020-0 Yes [id number] Take Univ ers 0.1 mg 4-14 hydralazin ity of tablet 00:00: e [place] [facility],i fBP still>160/ 100 then take 1clonidine .Max 3aday, one Q8H if BP elevated despitetak inghydrala zine cloNIDine 2020-0 Yes [id number] Take Univ ers 0.1 mg 4-14 hydralazin ity of tablet 00:00: e [place] [facility],i fBP still>160/ 100 then take 1clonidine .Max 3aday, one Q8H if BP elevated despitetak inghydrala zine cloNIDine 2020-0 Yes [id number] Take Univ ers 0.1 mg 4-14 hydralazin ity of tablet 00:00: e [place] [facility],i fBP still>160/ 100 then take 1clonidine .Max 3aday, one Q8H if BP elevated despitetak inghydrala zine hydrALAZINE 2020-0 Yes [id number] 25mg Take 1 [facility] 25 mg 4-14 tablet by ity of tablet 00:00: mouth [place] 00 every 6 Medical (six) Branch hours as needed (high blood pressure (>150/90 after taking lisinopril )). cloNIDine 2020-0 Yes [id number] Take Univ ers 0.1 mg 4-14 hydralazin ity of tablet 00:00: e [place] [facility],i fBP still>160/ 100 then take 1clonidine .Max 3aday, one Q8H if BP elevated despitetak inghydrala zine hydrALAZINE 2020-0 Yes [id number] 25mg Take 1 [facility] 25 mg 4-14 tablet by ity of tablet 00:00: mouth 00 every 6 Medical (six) Branch hours as needed (high blood pressure (>150/90 after taking lisinopril )). cloNIDine 2020-0 Yes [id number] Take Univ ers 0.1 mg 4-14 hydralazin ity of tablet 00:00: e [facility],i fBP still>160/ 100 then take 1clonidine .Max 3aday, one Q8H if BP elevated despitetak inghydrala zine hydrALAZINE 2020-0 Yes [id number] 25mg Take 1 [facility] 25 mg 4-14 tablet by ity of tablet 00:00: mouth every 6 Medical (six) Branch hours as needed (high blood pressure (>150/90 after taking lisinopril )). cloNIDine 2020-0 Yes [id number] Take [facility] ers 0.1 mg 4-14 hydralazin ity of tablet 00:00: e [facility],i fBP still>160/ 100 then take 1clonidine .Max 3aday, one Q8H if BP elevated despitetak inghydrala zine hydrALAZINE 2020-0 Yes [id number] 25mg Take 1 [facility] 25 mg 4-14 tablet by ity of tablet 00:00: mouth every 6 Medical (six) Branch hours as needed (high blood pressure (>150/90 after taking lisinopril )). cloNIDine 2020-0 Yes [id number] Take Univ ers 0.1 mg 4-14 hydralazin ity of tablet 00:00: e [facility],i fBP still>160/ 100 then take 1clonidine .Max 3aday, one Q8H if BP elevated despitetak inghydrala zine hydrALAZINE 2020-0 Yes [id number] 25mg Take 1 [facility] 25 mg 4-14 tablet by ity of tablet 00:00: mouth every 6 Medical (six) Branch hours as needed (high blood pressure (>150/90 after taking lisinopril )). cloNIDine 2020-0 Yes [id number] Take Univ ers 0.1 mg 4-14 hydralazin ity of tablet 00:00: e [facility],i fBP still>160/ 100 then take 1clonidine .Max 3aday, one Q8H if BP elevated despitetak inghydrala zine hydrALAZINE 2020-0 Yes [id number] 25mg Take 1 [facility] 25 mg 4-14 tablet by ity of tablet 00:00: mouth 00 every 6 Medical (six) Branch hours as needed (high blood pressure (>150/90 after taking lisinopril )). cloNIDine 2020-0 Yes [id number] Take Univ ers 0.1 mg 4-14 hydralazin ity of tablet 00:00: e [facility],i fBP still>160/ 100 then take 1clonidine .Max 3aday, one Q8H if BP elevated despitetak inghydrala zine hydrALAZINE 2020-0 Yes [id number] 25mg Take 1 [facility] 25 mg 4-14 tablet by ity of tablet 00:00: mouth [place] every 6 Medical (six) Branch hours as needed (high blood pressure (>150/90 after taking lisinopril )). cloNIDine 2020-0 Yes [id number] Take Univ ers 0.1 mg 4-14 hydralazin ity of tablet 00:00: e [facility],i fBP still>160/ 100 then take 1clonidine .Max 3aday, one Q8H if BP elevated despitetak inghydrala zine hydrALAZINE 2020-0 Yes [id number] 25mg Take 1 [facility] 25 mg 4-14 tablet by ity of tablet 00:00: mouth 00 every 6 Medical (six) Branch hours as needed (high blood pressure (>150/90 after taking lisinopril )). cloNIDine 2020-0 Yes [id number] Take Univ ers 0.1 mg 4-14 hydralazin ity of tablet 00:00: e [facility],i fBP still>160/ 100 then take 1clonidine .Max 3aday, one Q8H if BP elevated despitetak inghydrala zine hydrALAZINE 2020-0 Yes [id number] 25mg Take 1 [facility] 25 mg 4-14 tablet by ity of tablet 00:00: mouth [place] 00 every 6 Medical (six) Branch hours as needed (high blood pressure (>150/90 after taking lisinopril )). cloNIDine 2020-0 Yes [id number] Take Univ ers 0.1 mg 4-14 hydralazin ity of tablet 00:00: e [facility],i fBP still>160/ 100 then take 1clonidine .Max 3aday, one Q8H if BP elevated despitetak inghydrala zine hydrALAZINE 2020-0 Yes [id number] 25mg Take 1 [facility] 25 mg 4-14 tablet by ity of tablet 00:00: mouth every 6 Medical (six) Branch hours as needed (high blood pressure (>150/90 after taking lisinopril )). cloNIDine 2020-0 Yes [id number] Take Univ ers 0.1 mg 4-14 hydralazin ity of tablet 00:00: e [facility],i fBP still>160/ 100 then take 1clonidine .Max 3aday, one Q8H if BP elevated despitetak inghydrala zine hydrALAZINE 2020-0 Yes [id number] 25mg Take 1 [facility] 25 mg 4-14 tablet by ity of tablet 00:00: mouth every 6 Medical (six) Branch hours as needed (high blood pressure (>150/90 after taking lisinopril )). cloNIDine 2020-0 Yes [id number] Take Univ ers 0.1 mg 4-14 hydralazin ity of tablet 00:00: e [facility],i fBP still>160/ 100 then take 1clonidine .Max 3aday, one Q8H if BP elevated despitetak inghydrala zine hydrALAZINE 2020-0 Yes [id number] 25mg Take 1 [facility] 25 mg 4-14 tablet by ity of tablet 00:00: mouth every 6 Medical (six) Branch hours as needed (high blood pressure (>150/90 after taking lisinopril )). cloNIDine 2020-0 Yes [id number] Take Univ ers 0.1 mg 4-14 hydralazin ity of tablet 00:00: e [facility],i fBP still>160/ 100 then take 1clonidine .Max 3aday, one Q8H if BP elevated despitetak inghydrala zine hydrALAZINE 2020-0 Yes [id number] 25mg Take 1 [facility] 25 mg 4-14 tablet by ity of tablet 00:00: mouth [place] 00 every 6 Medical (six) Branch hours as needed (high blood pressure (>150/90 after taking lisinopril )). cloNIDine 2020-0 Yes [id number] Take Univ ers 0.1 mg 4-14 hydralazin ity of tablet 00:00: e [place] 00 [facility],i fBP still>160/ 100 then take 1clonidine .Max 3aday, one Q8H if BP elevated despitetak inghydrala zine hydrALAZINE 2020-0 Yes [id number] 25mg Take 1 [facility] 25 mg 4-14 tablet by ity of tablet 00:00: mouth [place] 00 every 6 Medical (six) Branch hours as needed (high blood pressure (>150/90 after taking lisinopril )). cloNIDine 2020-0 Yes [id number] Take [facility] ers 0.1 mg 4-14 hydralazin ity of tablet 00:00: e [facility],i fBP still>160/ 100 then take 1clonidine .Max 3aday, one Q8H if BP elevated despitetak inghydrala zine hydrALAZINE 2020-0 Yes [id number] 25mg Take 1 [facility] 25 mg 4-14 tablet by ity of tablet 00:00: mouth [place] 00 every 6 Medical (six) Branch hours as needed (high blood pressure (>150/90 after taking lisinopril )). cloNIDine 2020-0 Yes [id number] Take Univ ers 0.1 mg 4-14 hydralazin ity of tablet 00:00: e 00 [facility],i fBP still>160/ 100 then take 1clonidine .Max 3aday, one Q8H if BP elevated despitetak inghydrala zine hydrALAZINE 2020-0 Yes [id number] 25mg Take 1 [facility] 25 mg 4-14 tablet by ity of tablet 00:00: mouth [place] 00 every 6 Medical (six) Branch hours as needed (high blood pressure (>150/90 after taking lisinopril )). cloNIDine 2019-0 Yes [id number] Take Univ ers 0.1 mg 4-14 hydralazin ity of tablet 00:00: e [place] 00 [facility],i fBP still>160/ 100 then take 1clonidine .Max 3aday, one Q8H if BP elevated despitetak inghydrala zine hydrALAZINE 2019- Yes [id number] 25mg Take 1 [facility] 25 mg 4-14 tablet by ity of tablet 00:00: mouth [place] 00 every 6 Medical (six) Branch hours as needed (high blood pressure (>150/90 after taking lisinopril )). cloNIDine 2019- Yes [id number] Take Univ ers 0.1 mg 4-14 hydralazin ity of tablet 00:00: e [place] 00 [facility],i fBP still>160/ 100 then take 1clonidine .Max 3aday, one Q8H if BP elevated despitetak inghydrala zine cloNIDine 2019-0 2020- No [id number] Take Uni vers 0.1 mg 4-14 06-24 hydralazin ity of tablet 00:00: 00:00 e [place] 00 :00 [facility],i fBP still>160/ 100 then take 1clonidine .Max 3aday, one Q8H if BP elevated despitetak inghydrala zine hydrALAZINE 2019-2020- No [id number] 25mg Take 1 [facility] 25 mg 4-14 05-12 tablet by ity of tablet 00:00: 00:00 mouth [place] 00 :00 every 6 Medical (six) Branch hours as needed (high blood pressure (>150/90 after taking lisinopril )). hydrALAZINE 2019-0 2020- No [id number] 25mg Take 1 [facility] 25 mg 4-14 05-12 tablet by ity of tablet 00:00: 00:00 mouth [place] 00 :00 every 6 Medical (six) Branch hours as needed (high blood pressure (>150/90 after taking lisinopril )). amoxicillin 2019-0 Yes [id number] 1{tbl} Take 1 Univers -clavulanat 4-07 tablet by ity of e 00:00: mouth 2 [place] (AUGMENTIN) 00 (two) Medical 875-125 mg times Branch per tablet daily. amoxicillin 2020-0 Yes [id number] 1{tbl} Take 1 [facility] -clavulanat 4-07 tablet by ity of e 00:00: mouth 2 [place] (AUGMENTIN) 00 (two) Medical 875-125 mg times Branch per tablet daily. amoxicillin 2020-0 Yes [id number] 1{tbl} Take 1 [facility] -clavulanat 4-07 tablet by ity of e 00:00: mouth 2 [place] (AUGMENTIN) 00 (two) Medical 875-125 mg times Branch per tablet daily. amoxicillin 2020-0 2020- No [id number] 1{tbl} Take 1 Univers -clavulanat 4-07 05-07 tablet by it y of e 00:00: 00:00 mouth 2 [place] (AUGMENTIN) 00 :00 (two) Medical 875-125 mg times Branch per tablet daily. thiamine 2020-0 Yes Take by Univer s HCl 2-24 mouth. ity of (VITAMIN 22:15: [place] B-1 ORAL) 10 Medical Branch cyanocobala 2020-0 Yes Take by Uni vers min, 2-24 mouth. ity of vitamin 22:15: [place] B-12, 10 Medical (VITAMIN Branch B-12 ORAL) ascorbic 2020-0 Yes Take by Univer s acid 2-24 mouth. ity of (VITAMIN C 22:15: [place] ORAL) 10 Medical Branch ergocalcife 2020-0 Yes Take by Uni vers rol, 2-24 mouth. ity of vitamin D2, 22:15: [place] (VITAMIN D 10 Medical ORAL) Branch ferrous 2020-0 Yes Take by Univers sulfate 2-24 mouth. ity of (IRON ORAL) 22:15: [place] 10 Medical Branch multivitami 2020-0 Yes Take by Uni vers n with 2-24 mouth. ity of minerals 22:15: [place] (HAIR,SKIN 10 Medical AND NAILS Branch ORAL) thiamine 2020-0 Yes Take by Univer s HCl 2-24 mouth. ity of (VITAMIN 22:15: [place] B-1 ORAL) 10 Medical Branch cyanocobala 2020-0 Yes Take by Uni vers min, 2-24 mouth. ity of vitamin 22:15: [place] B-12, 10 Medical (VITAMIN Branch B-12 ORAL) ascorbic 2020-0 Yes Take by Univer s acid 2-24 mouth. ity of (VITAMIN C 22:15: [place] ORAL) 10 Medical Branch ergocalcife 2020-0 Yes Take by Uni vers rol, 2-24 mouth. ity of vitamin D2, 22:15: [place] (VITAMIN D 10 Medical ORAL) Branch ferrous 2020-0 Yes Take by Univers sulfate 2-24 mouth. ity of (IRON ORAL) 22:15: [place] 10 Medical Branch multivitami 2020-0 Yes Take [...] 2-24 mouth. ity of vitamin D2, 22:15: [place] (VITAMIN D 10 Medical ORAL) Branch ferrous 2020-0 Yes Take by Univers sulfate 2-24 mouth. ity of (IRON ORAL) 22:15: [place] 10 Medical Branch multivitami 2020-0 Yes Take by Uni vers n with 2-24 mouth. ity of minerals 22:15: [place] (HAIR,SKIN 10 Medical AND NAILS Branch ORAL) [...] 2-24 mouth. ity of (IRON ORAL) 22:15: [place] 10 Medical Branch multivitami 2020-0 Yes Take [...] 2-24 mouth. ity of vitamin D2, 22:15: [place] (VITAMIN D 10 Medical ORAL) Branch ferrous 2020-0 Yes Take by Univers sulfate 2-24 mouth. ity of (IRON ORAL) 22:15: [place] [address] Medical Branch multivitami 2020-0 Yes Take by Uni vers n with 2-24 mouth. ity of minerals 22:15: [place] (HAIR,SKIN 10 Medical AND NAILS Branch ORAL) thiamine 2020-0 Yes Take by Univer s HCl 2-24 mouth. ity of (VITAMIN 22:15: [place] B-1 ORAL) 10 Medical Branch cyanocobala 2020-0 Yes Take by Uni vers min, 2-24 mouth. ity of vitamin 22:15: [place] B-12, 10 Medical (VITAMIN Branch B-12 ORAL) ascorbic 2020-0 Yes Take by Univer s acid 2-24 mouth. ity of (VITAMIN C 22:15: [place] ORAL) 10 Medical Branch ergocalcife 2020-0 Yes Take by Uni vers rol, 2-24 mouth. ity of vitamin D2, 22:15: [place] (VITAMIN D 10 Medical ORAL) Branch ferrous 2020-0 Yes Take by Univers sulfate 2-24 mouth. ity of (IRON ORAL) 22:15: [place] [address] Medical Branch multivitami 2020-0 Yes Take by Uni vers n with 2-24 mouth. ity of minerals 22:15: [place] (HAIR,SKIN 10 Medical AND NAILS Branch ORAL) [...] 2-24 mouth. ity of (IRON ORAL) 22:15: [place] 10 Medical Branch multivitami 2020-0 Yes Take by Uni vers n with 2-24 mouth. ity of minerals 22:15: [place] (HAIR,SKIN 10 Medical AND NAILS Branch ORAL) thiamine 2020-0 Yes Take by Univer s HCl 2-24 mouth. ity of (VITAMIN 22:15: [place] B-1 ORAL) 10 Medical Branch cyanocobala 2020-0 Yes Take by Uni vers min, 2-24 mouth. ity of vitamin 22:15: [place] B-12, 10 Medical (VITAMIN Branch B-12 ORAL) ascorbic 2020-0 Yes Take by Univer s acid 2-24 mouth. ity of (VITAMIN C 22:15: [place] ORAL) 10 Medical Branch ergocalcife 2020-0 Yes Take by Uni vers rol, 2-24 mouth. ity of vitamin D2, 22:15: [place] (VITAMIN D 10 Medical ORAL) Branch ferrous 2020-0 Yes Take by [facility] sulfate 2-24 mouth. ity of (IRON ORAL) 22:15: [place] 10 Medical Branch multivitami 2020-0 Yes Take by Uni vers n with 2-24 mouth. ity of minerals 22:15: [place] (HAIR,SKIN 10 Medical AND NAILS Branch ORAL) thiamine 2020-0 Yes Take by Univer s HCl 2-24 mouth. ity of (VITAMIN 22:15: [place] B-1 ORAL) 10 Medical Branch cyanocobala 2020-0 Yes Take by Uni vers min, 2-24 mouth. ity of vitamin 22:15: [place] B-12, 10 Medical (VITAMIN Branch B-12 ORAL) ascorbic 2020-0 Yes Take by Univer s acid 2-24 mouth. ity of (VITAMIN C 22:15: [place] ORAL) 10 Medical Branch ergocalcife 2020-0 Yes Take by Uni vers rol, 2-24 mouth. ity of vitamin D2, 22:15: [place] (VITAMIN D 10 Medical ORAL) Branch ferrous 2020-0 Yes Take by [facility] sulfate 2-24 mouth. ity of (IRON ORAL) 22:15: [place] 10 Medical Branch multivitami 2020-0 Yes Take by Uni vers n with 2-24 mouth. ity of minerals 22:15: [place] (HAIR,SKIN 10 Medical AND NAILS Branch ORAL) [...] 2-24 mouth. ity of vitamin D2, 22:15: [place] (VITAMIN D 10 Medical ORAL) Branch ferrous 2020-0 Yes Take by [facility] sulfate 2-24 mouth. ity of (IRON ORAL) 22:15: [place] 10 Medical Branch multivitami 2020-0 Yes Take [...] 2-24 mouth. ity of (IRON ORAL) 22:15: [place] 10 Medical Branch multivitami 2020-0 Yes Take [...] 2-24 mouth. ity of vitamin D2, 22:15: [place] (VITAMIN D 10 Medical ORAL) Branch ferrous 2020-0 Yes Take by [facility] sulfate 2-24 mouth. ity of (IRON ORAL) 22:15: [place] [address] Medical Branch multivitami 2020-0 Yes Take by Uni vers n with 2-24 mouth. ity of minerals 22:15: [place] (HAIR,SKIN 10 Medical AND NAILS Branch ORAL) thiamine 2020-0 Yes Take by Univer s HCl 2-24 mouth. ity of (VITAMIN 22:15: [place] B-1 ORAL) 10 Medical Branch cyanocobala 2020-0 Yes Take by Uni vers min, 2-24 mouth. ity of vitamin 22:15: [place] B-12, 10 Medical (VITAMIN Branch B-12 ORAL) ascorbic 2020-0 Yes Take by Univer s acid 2-24 mouth. ity of (VITAMIN C 22:15: [place] ORAL) 10 Medical Branch ergocalcife 2020-0 Yes Take by Uni vers rol, 2-24 mouth. ity of vitamin D2, 22:15: [place] (VITAMIN D 10 Medical ORAL) Branch ferrous 2020-0 Yes Take by [facility] sulfate 2-24 mouth. ity of (IRON ORAL) 22:15: [place] 10 Medical Branch multivitami 2020-0 Yes Take by Uni vers n with 2-24 mouth. ity of minerals 22:15: [place] (HAIR,SKIN 10 Medical AND NAILS Branch ORAL) thiamine 2020-0 Yes Take by Univer s HCl 2-24 mouth. ity of (VITAMIN 22:15: [place] B-1 ORAL) 10 Medical Branch cyanocobala 2020-0 Yes Take by Uni vers min, 2-24 mouth. ity of vitamin 22:15: [place] B-12, 10 Medical (VITAMIN Branch B-12 ORAL) ascorbic 2019-0 Yes Take by Univer s acid 2-24 mouth. ity of (VITAMIN C 22:15: [place] ORAL) 10 Medical Branch ergocalcife 2020-0 Yes Take by Uni vers rol, 2-24 mouth. ity of vitamin D2, 22:15: [place] (VITAMIN D 10 Medical ORAL) Branch ferrous 2020-0 Yes Take by [facility] sulfate 2-24 mouth. ity of (IRON ORAL) 22:15: [place] 10 Medical Branch multivitami 2020-0 Yes Take by Uni vers n with 2-24 mouth. ity of minerals 22:15: [place] (HAIR,SKIN 10 Medical AND NAILS Branch ORAL) levoFLOXaci 2020- No [id number] 500mg Take 1 Univers n 500 mg 2-24 03-17 tablet by ity o f tablet 00:00: 04:59 mouth [place] 00 :00 every 24 Medical (twenty-fo Branch ur) hours for 21 days. amoxicillin 2020- No [id number] 1{tbl} Take 1 Univers -clavulanat 2-24 03-17 tablet by it y of e 00:00: 04:59 mouth 2 [place] (AUGMENTIN) 00 :00 (two) Medical 875-125 mg times Branch per tablet daily for 21 days. Only if you have a reaction to the levofloxac in. levoFLOXaci 2020- No [id number] 500mg Take 1 [facility] n 500 mg 2-24 03-17 tablet by ity o f tablet 00:00: 04:59 mouth [place] 00 :00 every 24 Medical (twenty-fo Branch ur) hours for 21 days. amoxicillin 2019- 2020- No [id number] 1{tbl} Take 1 [facility] -clavulanat 2-24 03-17 tablet by it y of e 00:00: 04:59 mouth 2 [place] (AUGMENTIN) 00 :00 (two) Medical 875-125 mg times Branch per tablet daily for 21 days. Only if you have a reaction to the levofloxac in. levoFLOXaci 2020- No [id number] 500mg Take 1 [facility] n 500 mg 2-24 03-17 tablet by ity o f tablet 00:00: 04:59 mouth [place] 00 :00 every 24 Medical (twenty- Branch ur) hours for 21 days. amoxicillin 2020-0 2020- No [id number] 1{tbl} Take 1 [facility] -clavulanat 2-24 03-17 tablet by it y of e 00:00: 04:59 mouth 2 [place] (AUGMENTIN) 00 :00 (two) Medical 875-125 mg times Branch per tablet daily for 21 days. Only if you have a reaction to the levofloxac in. levoFLOXaci 2019-0 2020- No [id number] 500mg Take 1 [facility] n 500 mg 2-24 03-17 tablet by ity o f tablet 00:00: 04:59 mouth [place] 00 :00 every 24 Medical ([facility] ur) hours for 21 days. amoxicillin 2019- 2020- No [id number] 1{tbl} Take 1 [facility] -clavulanat 2-24 03-17 tablet by it y of e 00:00: 04:59 mouth 2 [place] (AUGMENTIN) 00 :00 (two) Medical 875-125 mg times Branch per tablet daily for 21 days. Only if you have a reaction to the levofloxac in. levoFLOXaci 2020-0 2020- No [id number] 500mg Take 1 [facility] n 500 mg 2-24 -17 tablet by ity o f tablet 00:00: 04:59 mouth [place] 00 :00 every 24 Medical (twenty- Branch ur) hours for 21 days. amoxicillin 2019-0 2020- No [id number] 1{tbl} Take 1 [facility] -clavulanat 2-24 03-17 tablet by it y of e 00:00: 04:59 mouth 2 [place] (AUGMENTIN) 00 :00 (two) Medical 875-125 mg times Branch per tablet daily for 21 days. Only if you have a reaction to the levofloxac in. levoFLOXaci 2020-0 2020- No [id number] 500mg Take 1 [facility] n 500 mg 2-24 03-17 tablet by ity o f tablet 00:00: 04:59 mouth [place] 00 :00 every 24 Medical (twenty-fo Branch ur) hours for 21 days. amoxicillin 2020-0 2020- No [id number] 1{tbl} Take 1 [facility] -clavulanat 2-24 03-17 tablet by it y of e 00:00: 04:59 mouth 2 [place] (AUGMENTIN) 00 :00 (two) Medical 875-125 mg times Branch per tablet daily for 21 days. Only if you have a reaction to the levofloxac in. levoFLOXaci 2020-0 2020- No [id number] 500mg Take 1 [facility] n 500 mg -10 10-17 tablet by ity o f tablet 00:00: 04:59 mouth [place] 00 :00 every 24 Medical (twenty-fo Branch ur) hours for 21 days. amoxicillin 2020-0 2020- No [id number] 1{tbl} Take 1 [facility] -clavulanat -10 10- tablet by it y of e 00:00: 04:59 mouth 2 [place] (AUGMENTIN) 00 :00 (two) Medical 875-125 mg times Branch per tablet daily for 21 days. Only if you have a reaction to the levofloxac in. levoFLOXaci 2020-0 2020- No [id number] 500mg Take 1 Univers n 500 mg 09-12- tablet by ity o f tablet 00:00: 04:59 mouth [place] 00 :00 every 24 Medical (twenty-fo Branch ur) hours for 21 days. amoxicillin 2020-0 2020- No [id number] 1{tbl} Take 1 [facility] -clavulanat 09-12- tablet by it y of e 00:00: 04:59 mouth 2 [place] (AUGMENTIN) 00 :00 (two) Medical 875-125 mg times Branch per tablet daily for 21 days. Only if you have a reaction to the levofloxac in. ergocalcife 2020-0 Yes [id number] Take 1 [facility] rol, 2-09 capsule by ity of vitamin d2, 00:00: mouth [place] (VITAMIN 00 weekly. Medical D2) 1,250 Branch mcg (50,000 unit) capsule ergocalcife 2020-0 Yes [id number] Take 1 [facility] rol, 2-09 capsule by ity of vitamin d2, 00:00: mouth [place] (VITAMIN 00 weekly. Medical D2) 1,250 Branch mcg (50,000 unit) capsule ergocalcife 2020-0 Yes [id number] Take 1 [facility] rol, 2-09 capsule by ity of vitamin d2, 00:00: mouth [place] (VITAMIN 00 weekly. Medical D2) 1,250 Branch mcg (50,000 unit) capsule ergocalcife 2020-0 Yes [id number] Take 1 [facility] rol, 2-09 capsule by ity of vitamin d2, 00:00: mouth [place] (VITAMIN 00 weekly. Medical D2) 1,250 Branch mcg (50,000 unit) capsule ergocalcife 2020-0 Yes [id number] Take 1 [facility] rol, 2-09 capsule by ity of vitamin d2, 00:00: mouth [place] (VITAMIN 00 weekly. Medical D2) 1,250 Branch mcg (50,000 unit) capsule ergocalcife 2020-0 Yes [id number] Take 1 [facility] rol, 2-09 capsule by ity of vitamin d2, 00:00: mouth [place] (VITAMIN 00 weekly. Medical D2) 1,250 Branch mcg (50,000 unit) capsule ergocalcife 2020-0 Yes [id number] Take 1 [facility] rol, 2-09 capsule by ity of vitamin d2, 00:00: mouth [place] (VITAMIN 00 weekly. Medical D2) 1,250 Branch mcg (50,000 unit) capsule ergocalcife 2020-0 Yes [id number] Take 1 [facility] rol, 2-09 capsule by ity of vitamin d2, 00:00: mouth [place] (VITAMIN 00 weekly. Medical D2) 1,250 Branch mcg (50,000 unit) capsule ergocalcife 2020-0 Yes [id number] Take 1 [facility] rol, 2-09 capsule by ity of vitamin d2, 00:00: mouth [place] (VITAMIN 00 weekly. Medical D2) 1,250 Branch mcg (50,000 unit) capsule ergocalcife 2020-0 Yes [id number] Take 1 [facility] rol, 2-09 capsule by ity of vitamin d2, 00:00: mouth [place] (VITAMIN 00 weekly. Medical D2) 1,250 Branch mcg (50,000 unit) capsule ergocalcife 2020-0 Yes [id number] Take 1 [facility] rol, 2-09 capsule by ity of vitamin d2, 00:00: mouth [place] (VITAMIN 00 weekly. Medical D2) 1,250 Branch mcg (50,000 unit) capsule ergocalcife 2020-0 Yes [id number] Take 1 [facility] rol, 2-09 capsule by ity of vitamin d2, 00:00: mouth [place] (VITAMIN 00 weekly. Medical D2) 1,250 Branch mcg (50,000 unit) capsule ergocalcife 2020-0 Yes [id number] Take 1 [facility] rol, 2-09 capsule by ity of vitamin d2, 00:00: mouth [place] (VITAMIN 00 weekly. Medical D2) 1,250 Branch mcg (50,000 unit) capsule ergocalcife 2020-0 Yes [id number] Take 1 [facility] rol, 2-09 capsule by ity of vitamin d2, 00:00: mouth [place] (VITAMIN 00 weekly. Medical D2) 1,250 Branch mcg (50,000 unit) capsule ergocalcife 2020-0 Yes [id number] Take 1 [facility] rol, 2-09 capsule by ity of vitamin d2, 00:00: mouth [place] (VITAMIN 00 weekly. Medical D2) 1,250 Branch mcg (50,000 unit) capsule ergocalcife 2020-0 Yes [id number] Take 1 [facility] rol, 2-09 capsule by ity of vitamin d2, 00:00: mouth [place] (VITAMIN 00 weekly. Medical D2) 1,250 Branch mcg (50,000 unit) capsule ergocalcife 2020-0 Yes [id number] Take 1 [facility] rol, 2-09 capsule by ity of vitamin d2, 00:00: mouth [place] (VITAMIN 00 weekly. Medical D2) 1,250 Branch mcg (50,000 unit) capsule ergocalcife 2020-0 Yes [id number] Take 1 [facility] rol, 2-09 capsule by ity of vitamin d2, 00:00: mouth [place] (VITAMIN 00 weekly. Medical D2) 1,250 Branch mcg (50,000 unit) capsule ergocalcife 2020-0 Yes [id number] Take 1 [facility] rol, 2-09 capsule by ity of vitamin d2, 00:00: mouth [place] (VITAMIN 00 weekly. Medical D2) 1,250 Branch mcg (50,000 unit) capsule ergocalcife 2020-0 Yes [id number] Take 1 [facility] rol, 2-09 capsule by ity of vitamin d2, 00:00: mouth [place] (VITAMIN 00 weekly. Medical D2) 1,250 Branch mcg (50,000 unit) capsule ergocalcife 2020-0 Yes [id number] Take 1 [facility] rol, 2-09 capsule by ity of vitamin d2, 00:00: mouth [place] (VITAMIN 00 weekly. Medical D2) 1,250 Branch mcg (50,000 unit) capsule ergocalcife 2020-0 Yes [id number] Take 1 [facility] rol, 2-09 capsule by ity of vitamin d2, 00:00: mouth [place] (VITAMIN 00 weekly. Medical D2) 1,250 Branch mcg (50,000 unit) capsule ergocalcife 2020-0 Yes [id number] Take 1 [facility] rol, 2-09 capsule by ity of vitamin d2, 00:00: mouth [place] (VITAMIN 00 weekly. Medical D2) 1,250 Branch mcg (50,000 unit) capsule ergocalcife 2020-0 Yes [id number] Take 1 [facility] rol, 2-09 capsule by ity of vitamin d2, 00:00: mouth [place] (VITAMIN 00 weekly. Medical D2) 1,250 Branch mcg (50,000 unit) capsule ergocalcife 2020-0 Yes [id number] Take 1 [facility] rol, 2-09 capsule by ity of vitamin d2, 00:00: mouth [place] (VITAMIN 00 weekly. Medical D2) 1,250 Branch mcg (50,000 unit) capsule ergocalcife 2020-0 Yes [id number] Take 1 [facility] rol, 2-09 capsule by ity of vitamin d2, 00:00: mouth [place] (VITAMIN 00 weekly. Medical D2) 1,250 Branch mcg (50,000 unit) capsule ergocalcife 2020-0 Yes [id number] Take 1 [facility] rol, 2-09 capsule by ity of vitamin d2, 00:00: mouth [place] (VITAMIN 00 weekly. Medical D2) 1,250 Branch mcg (50,000 unit) capsule ergocalcife 2020-0 Yes [id number] Take 1 [facility] rol, 2-09 capsule by ity of vitamin d2, 00:00: mouth [place] (VITAMIN 00 weekly. Medical D2) 1,250 Branch mcg (50,000 unit) capsule ergocalcife 2020-0 Yes [id number] Take 1 [facility] rol, 2-09 capsule by ity of vitamin d2, 00:00: mouth [place] (VITAMIN 00 weekly. Medical D2) 1,250 Branch mcg (50,000 unit) capsule ergocalcife 2020-0 Yes [id number] Take 1 [facility] rol, 2-09 capsule by ity of vitamin d2, 00:00: mouth [place] (VITAMIN 00 weekly. Medical D2) 1,250 Branch mcg (50,000 unit) capsule ergocalcife 2020-0 Yes [id number] Take 1 [facility] rol, 2-09 capsule by ity of vitamin d2, 00:00: mouth [place] (VITAMIN 00 weekly. Medical D2) 1,250 Branch mcg (50,000 unit) capsule ergocalcife 2020-0 Yes [id number] Take 1 [facility] rol, 2-09 capsule by ity of vitamin d2, 00:00: mouth [place] (VITAMIN 00 weekly. Medical D2) 1,250 Branch mcg (50,000 unit) capsule ergocalcife 2020-0 Yes [id number] Take 1 [facility] rol, 2-09 capsule by ity of vitamin d2, 00:00: mouth [place] (VITAMIN 00 weekly. Medical D2) 1,250 Branch mcg (50,000 unit) capsule ergocalcife 2020-0 Yes [id number] Take 1 [facility] rol, 2-09 capsule by ity of vitamin d2, 00:00: mouth [place] (VITAMIN 00 weekly. Medical D2) 1,250 Branch mcg (50,000 unit) capsule ergocalcife 2020-0 Yes [id number] Take 1 [facility] rol, 2-09 capsule by ity of vitamin d2, 00:00: mouth [place] (VITAMIN 00 weekly. Medical D2) 1,250 Branch mcg (50,000 unit) capsule ergocalcife 2020-0 Yes [id number] Take 1 [facility] rol, 2-09 capsule by ity of vitamin d2, 00:00: mouth [place] (VITAMIN 00 weekly. Medical D2) 1,250 Branch mcg (50,000 unit) capsule ergocalcife 2020-0 Yes [id number] Take 1 [facility] rol, 2-09 capsule by ity of vitamin d2, 00:00: mouth [place] (VITAMIN 00 weekly. Medical D2) 1,250 Branch mcg (50,000 unit) capsule ergocalcife 2020-0 Yes [id number] Take 1 [facility] rol, 2-09 capsule by ity of vitamin d2, 00:00: mouth [place] (VITAMIN 00 weekly. Medical D2) 1,250 Branch mcg (50,000 unit) capsule ergocalcife 2020-0 Yes [id number] Take 1 [facility] rol, 2-09 capsule by ity of vitamin d2, 00:00: mouth [place] (VITAMIN 00 weekly. Medical D2) 1,250 Branch mcg (50,000 unit) capsule ergocalcife 2020-0 Yes [id number] Take 1 [facility] rol, 2-09 capsule by ity of vitamin d2, 00:00: mouth [place] (VITAMIN 00 weekly. Medical D2) 1,250 Branch mcg (50,000 unit) capsule ergocalcife 2020-0 Yes [id number] Take 1 [facility] rol, 2-09 capsule by ity of vitamin d2, 00:00: mouth [place] (VITAMIN 00 weekly. Medical D2) 1,250 Branch mcg (50,000 unit) capsule ergocalcife 2020-0 Yes [id number] Take 1 [facility] rol, 2-09 capsule by ity of vitamin d2, 00:00: mouth [place] (VITAMIN 00 weekly. Medical D2) 1,250 Branch mcg (50,000 unit) capsule ergocalcife 2020-0 Yes [id number] Take 1 [facility] rol, 2-09 capsule by ity of vitamin d2, 00:00: mouth [place] (VITAMIN 00 weekly. Medical D2) 1,250 Branch mcg (50,000 unit) capsule ergocalcife 2020-0 Yes [id number] Take 1 [facility] rol, 2-09 capsule by ity of vitamin d2, 00:00: mouth [place] (VITAMIN 00 weekly. Medical D2) 1,250 Branch mcg (50,000 unit) capsule ergocalcife 2020-0 Yes [id number] Take 1 [facility] rol, 2-09 capsule by ity of vitamin d2, 00:00: mouth [place] (VITAMIN 00 weekly. Medical D2) 1,250 Branch mcg (50,000 unit) capsule ergocalcife 2020-0 Yes [id number] Take 1 [facility] rol, 2-09 capsule by ity of vitamin d2, 00:00: mouth [place] (VITAMIN 00 weekly. Medical D2) 1,250 Branch mcg (50,000 unit) capsule ergocalcife 2020-0 Yes [id number] Take 1 [facility] rol, 2-09 capsule by ity of vitamin d2, 00:00: mouth [place] (VITAMIN 00 weekly. Medical D2) 1,250 Branch mcg (50,000 unit) capsule ergocalcife 2020-0 Yes [id number] Take 1 [facility] rol, 2-09 capsule by ity of vitamin d2, 00:00: mouth [place] (VITAMIN 00 weekly. Medical D2) 1,250 Branch mcg (50,000 unit) capsule ergocalcife 2020-0 Yes [id number] Take 1 [facility] rol, 2-09 capsule by ity of vitamin d2, 00:00: mouth [place] (VITAMIN 00 weekly. Medical D2) 1,250 Branch mcg (50,000 unit) capsule ergocalcife 2020-0 Yes [id number] Take 1 [facility] rol, 2-09 capsule by ity of vitamin d2, 00:00: mouth [place] (VITAMIN 00 weekly. Medical D2) 1,250 Branch mcg (50,000 unit) capsule ergocalcife 2020-0 Yes [id number] Take 1 [facility] rol, 2-09 capsule by ity of vitamin d2, 00:00: mouth [place] (VITAMIN 00 weekly. Medical D2) 1,250 Branch mcg (50,000 unit) capsule ergocalcife 2020-0 Yes [id number] Take 1 [facility] rol, 2-09 capsule by ity of vitamin d2, 00:00: mouth [place] (VITAMIN 00 weekly. Medical D2) 1,250 Branch mcg (50,000 unit) capsule ergocalcife 2020-0 Yes [id number] Take 1 [facility] rol, 2-09 capsule by ity of vitamin d2, 00:00: mouth [place] (VITAMIN 00 weekly. Medical D2) 1,250 Branch mcg (50,000 unit) capsule ergocalcife 2020-0 Yes [id number] Take 1 [facility] rol, 2-09 capsule by ity of vitamin d2, 00:00: mouth [place] (VITAMIN 00 weekly. Medical D2) 1,250 Branch mcg (50,000 unit) capsule ergocalcife 2020-0 Yes [id number] Take 1 [facility] rol, 2-09 capsule by ity of vitamin d2, 00:00: mouth [place] (VITAMIN 00 weekly. Medical D2) 1,250 Branch mcg (50,000 unit) capsule ergocalcife 2020-0 Yes [id number] Take 1 [facility] rol, 2-09 capsule by ity of vitamin d2, 00:00: mouth [place] (VITAMIN 00 weekly. Medical D2) 1,250 Branch mcg (50,000 unit) capsule ergocalcife 2020-0 Yes [id number] Take 1 [facility] rol, 2-09 capsule by ity of vitamin d2, 00:00: mouth [place] (VITAMIN 00 weekly. Medical D2) 1,250 Branch mcg (50,000 unit) capsule ergocalcife 2020-0 Yes [id number] Take 1 [facility] rol, 2-09 capsule by ity of vitamin d2, 00:00: mouth [place] (VITAMIN 00 weekly. Medical D2) 1,250 Branch mcg (50,000 unit) capsule ergocalcife 2020-0 Yes [id number] Take 1 [facility] rol, 2-09 capsule by ity of vitamin d2, 00:00: mouth [place] (VITAMIN 00 weekly. Medical D2) 1,250 Branch mcg (50,000 unit) capsule ergocalcife 2020-0 Yes [id number] Take 1 [facility] rol, 2-09 capsule by ity of vitamin d2, 00:00: mouth [place] (VITAMIN 00 weekly. Medical D2) 1,250 Branch mcg (50,000 unit) capsule ergocalcife 2020-0 Yes [id number] Take 1 [facility] rol, 2-09 capsule by ity of vitamin d2, 00:00: mouth [place] (VITAMIN 00 weekly. Medical D2) 1,250 Branch mcg (50,000 unit) capsule ergocalcife 2020-0 Yes [id number] Take 1 [facility] rol, 2-09 capsule by ity of vitamin d2, 00:00: mouth [place] (VITAMIN 00 weekly. Medical D2) 1,250 Branch mcg (50,000 unit) capsule ergocalcife 2020-0 Yes [id number] Take 1 [facility] rol, 2-09 capsule by ity of vitamin d2, 00:00: mouth [place] (VITAMIN 00 weekly. Medical D2) 1,250 Branch mcg (50,000 unit) capsule ergocalcife 2020-0 Yes [id number] Take 1 [facility] rol, 2-09 capsule by ity of vitamin d2, 00:00: mouth [place] (VITAMIN 00 weekly. Medical D2) 1,250 Branch mcg (50,000 unit) capsule ergocalcife 2020-0 Yes [id number] Take 1 [facility] rol, 2-09 capsule by ity of vitamin d2, 00:00: mouth [place] (VITAMIN 00 weekly. Medical D2) 1,250 Branch mcg (50,000 unit) capsule ergocalcife 2020-0 Yes [id number] Take 1 [facility] rol, 2-09 capsule by ity of vitamin d2, 00:00: mouth [place] (VITAMIN 00 weekly. Medical D2) 1,250 Branch mcg (50,000 unit) capsule ergocalcife 2020-0 Yes [id number] Take 1 [facility] rol, 2-09 capsule by ity of vitamin d2, 00:00: mouth [place] (VITAMIN 00 weekly. Medical D2) 1,250 Branch mcg (50,000 unit) capsule ergocalcife 2020-0 Yes [id number] Take 1 [facility] rol, 2-09 capsule by ity of vitamin d2, 00:00: mouth [place] (VITAMIN 00 weekly. Medical D2) 1,250 Branch mcg (50,000 unit) capsule ergocalcife 2020-0 Yes [id number] Take 1 [facility] rol, 2-09 capsule by ity of vitamin d2, 00:00: mouth [place] (VITAMIN 00 weekly. Medical D2) 1,250 Branch mcg (50,000 unit) capsule ergocalcife 2020-0 Yes [id number] Take 1 [facility] rol, 2-09 capsule by ity of vitamin d2, 00:00: mouth [place] (VITAMIN 00 weekly. Medical D2) 1,250 Branch mcg (50,000 unit) capsule ergocalcife 2020-0 Yes [id number] Take 1 [facility] rol, 2-09 capsule by ity of vitamin d2, 00:00: mouth [place] (VITAMIN 00 weekly. Medical D2) 1,250 Branch mcg (50,000 unit) capsule ergocalcife 2020-0 Yes [id number] Take 1 [facility] rol, 2-09 capsule by ity of vitamin d2, 00:00: mouth [place] (VITAMIN 00 weekly. Medical D2) 1,250 Branch mcg (50,000 unit) capsule ergocalcife 2020-0 Yes [id number] Take 1 [facility] rol, 2-09 capsule by ity of vitamin d2, 00:00: mouth [place] (VITAMIN 00 weekly. Medical D2) 1,250 Branch mcg (50,000 unit) capsule ergocalcife 2020-0 Yes [id number] Take 1 [facility] rol, 2-09 capsule by ity of vitamin d2, 00:00: mouth [place] (VITAMIN 00 weekly. Medical D2) 1,250 Branch mcg (50,000 unit) capsule ergocalcife 2020-0 Yes [id number] Take 1 [facility] rol, 2-09 capsule by ity of vitamin d2, 00:00: mouth [place] (VITAMIN 00 weekly. Medical D2) 1,250 Branch mcg (50,000 unit) capsule ergocalcife 2020-0 Yes [id number] Take 1 [facility] rol, 2-09 capsule by ity of vitamin d2, 00:00: mouth [place] (VITAMIN 00 weekly. Medical D2) 1,250 Branch mcg (50,000 unit) capsule ergocalcife 2020-0 Yes [id number] Take 1 [facility] rol, 2-09 capsule by ity of vitamin d2, 00:00: mouth [place] (VITAMIN 00 weekly. Medical D2) 1,250 Branch mcg (50,000 unit) capsule ergocalcife 2020-0 Yes [id number] Take 1 [facility] rol, 2-09 capsule by ity of vitamin d2, 00:00: mouth [place] (VITAMIN 00 weekly. Medical D2) 1,250 Branch mcg (50,000 unit) capsule ergocalcife 2020-0 Yes [id number] Take 1 [facility] rol, 2-09 capsule by ity of vitamin d2, 00:00: mouth [place] (VITAMIN 00 weekly. Medical D2) 1,250 Branch mcg (50,000 unit) capsule ergocalcife 2020-0 Yes [id number] Take 1 [facility] rol, 2-09 capsule by ity of vitamin d2, 00:00: mouth [place] (VITAMIN 00 weekly. Medical D2) 1,250 Branch mcg (50,000 unit) capsule ergocalcife 2020-0 Yes [id number] Take 1 [facility] rol, 2-09 capsule by ity of vitamin d2, 00:00: mouth [place] (VITAMIN 00 weekly. Medical D2) 1,250 Branch mcg (50,000 unit) capsule ergocalcife 2020-0 Yes [id number] Take 1 [facility] rol, 2-09 capsule by ity of vitamin d2, 00:00: mouth [place] (VITAMIN 00 weekly. Medical D2) 1,250 Branch mcg (50,000 unit) capsule ergocalcife 2020-0 Yes [id number] Take 1 [facility] rol, 2-09 capsule by ity of vitamin d2, 00:00: mouth [place] (VITAMIN 00 weekly. Medical D2) 1,250 Branch mcg (50,000 unit) capsule ergocalcife 2020-0 Yes [id number] Take 1 [facility] rol, 2-09 capsule by ity of vitamin d2, 00:00: mouth [place] (VITAMIN 00 weekly. Medical D2) 1,250 Branch mcg (50,000 unit) capsule ergocalcife 2020-0 Yes [id number] Take 1 [facility] rol, 2-09 capsule by ity of vitamin d2, 00:00: mouth [place] (VITAMIN 00 weekly. Medical D2) 1,250 Branch mcg (50,000 unit) capsule thiamine 2020-0 Yes Take by [facility] s HCl 2-05 mouth. ity of (VITAMIN 00:35: [place] B-1 ORAL) 51 Medical Branch cyanocobala 2020-0 Yes Take by [facility] vers min, 2-05 mouth. ity of vitamin 00:35: [place] B-12, 51 Medical (VITAMIN Branch B-12 ORAL) ascorbic 2020-0 Yes Take by [facility] s acid 2-05 mouth. ity of (VITAMIN C 00:35: [place] ORAL) 51 Medical Branch ergocalcife 2020-0 Yes Take by [facility] vers rol, 2-05 mouth. ity of vitamin D2, 00:35: [place] (VITAMIN D 51 Medical ORAL) Branch ferrous 2020-0 Yes Take by [facility] sulfate 2-05 mouth. ity of (IRON ORAL) 00:35: [place] 51 Medical Branch multivitami 2020-0 Yes Take by [facility] vers n with 2-05 mouth. ity of minerals 00:35: [place] (HAIR,SKIN 51 Medical AND NAILS Branch ORAL) [...] 2-05 mouth. ity of vitamin D2, 00:35: [place] (VITAMIN D 51 Medical ORAL) Branch ferrous 2020-0 Yes Take by [facility] sulfate 2-05 mouth. ity of (IRON ORAL) 00:35: [place] 51 Medical Branch multivitami 2020-0 Yes Take [...] 2-05 mouth. ity of vitamin D2, 00:35: [place] (VITAMIN D 51 Medical ORAL) Branch ferrous 2020-0 Yes Take by [facility] sulfate 2-05 mouth. ity of (IRON ORAL) 00:35: [place] 51 Medical Branch multivitami 2020-0 Yes Take [...] 2-05 mouth. ity of vitamin D2, 00:35: [place] (VITAMIN D 51 Medical ORAL) Branch ferrous 2020-0 Yes Take by [facility] sulfate 2-05 mouth. ity of (IRON ORAL) 00:35: [place] 51 Medical Branch multivitami 2020-0 Yes Take [...] 2-05 mouth. ity of vitamin D2, 00:35: [place] (VITAMIN D 51 Medical ORAL) Branch ferrous 2020-0 Yes Take by [facility] sulfate 2-05 mouth. ity of (IRON ORAL) 00:35: [place] 51 Medical Branch multivitami 2020-0 Yes Take [...] 2-05 mouth. ity of vitamin D2, 00:35: [place] (VITAMIN D 51 Medical ORAL) Branch ferrous 2020-0 Yes Take by [facility] sulfate 2-05 mouth. ity of (IRON ORAL) 00:35: [place] [address] Medical Branch multivitami 2020-0 Yes Take by [facility] vers n with 2-05 mouth. ity of minerals 00:35: [place] (HAIR,SKIN 51 Medical AND NAILS Branch ORAL) gabapentin 2020-0 Yes 300mg Take 300 Un oswaldo 300 mg 2-03 mg by ity of capsule 15:45: mouth 3 [place] [address] (three) Medical times Branch daily. Hydrocodone 2020-0 Yes Take by [facility] vers -Acetaminop 2-03 mouth 3 ity o f hen 15:45: (three) [place] (VICODIN) 11 times Medical 5-300 mg daily. Branch tablet gabapentin 2020-0 Yes 300mg Take 300 Un [place] 300 mg 2-03 mg by ity of capsule 15:45: mouth 3 [place] 11 (three) Medical times Branch daily. Hydrocodone 2020-0 Yes Take by [facility] vers -Acetaminop 2-03 mouth 3 ity o f hen 15:45: (three) [place] (VICODIN) 11 times Medical 5-300 mg daily. Branch tablet gabapentin 2020-0 Yes 300mg Take 300 Un [place] 300 mg 2-03 mg by ity of capsule 15:45: mouth 3 [place] [address] (three) Medical times Branch daily. Hydrocodone 2020-0 Yes Take by [facility] vers -Acetaminop 2-03 mouth 3 ity o f hen 15:45: (three) [place] (VICODIN) 11 times Medical 5-300 mg daily. Branch tablet gabapentin 2020-0 Yes 300mg Take 300 Un [place] 300 mg 2-03 mg by ity of capsule 15:45: mouth 3 [place] [address] (three) Medical times Branch daily. Hydrocodone 2020-0 Yes Take by [facility] vers -Acetaminop 2-03 mouth 3 ity o f hen 15:45: (three) [place] (VICODIN) 11 times Medical 5-300 mg daily. Branch tablet gabapentin 2020-0 Yes 300mg Take 300 Un [place] 300 mg 2-03 mg by ity of capsule 15:45: mouth 3 [place] [address] (three) Medical times Branch daily. Hydrocodone 2020-0 Yes Take by [facility] vers -Acetaminop 2-03 mouth 3 ity o f hen 15:45: (three) [place] (VICODIN) 11 times Medical 5-300 mg daily. Branch tablet gabapentin 2020-0 Yes 300mg Take 300 Un [place] 300 mg 2-03 mg by ity of capsule 15:45: mouth 3 [place] [address] (three) Medical times Branch daily. Hydrocodone 2020-0 Yes Take by [facility] vers -Acetaminop 2-03 mouth 3 ity o f hen 15:45: (three) [place] (VICODIN) 11 times Medical 5-300 mg daily. Branch tablet gabapentin 2020-0 Yes 300mg Take 300 Un [place] 300 mg 2-03 mg by ity of capsule 15:45: mouth 3 [place] [address] (three) Medical times Branch daily. Hydrocodone 2020-0 Yes Take by [facility] vers -Acetaminop 2-03 mouth 3 ity o f hen 15:45: (three) [place] (VICODIN) 11 times Medical 5-300 mg daily. Branch tablet gabapentin 2020-0 Yes 300mg Take 300 Un [place] 300 mg 2-03 mg by ity of capsule 15:45: mouth 3 [place] [address] (three) Medical times Branch daily. Hydrocodone 2020-0 Yes Take by [facility] vers -Acetaminop 2-03 mouth 3 ity o f hen 15:45: (three) [place] (VICODIN) 11 times Medical 5-300 mg daily. Branch tablet gabapentin 2020-0 Yes 300mg Take 300 Un [place] 300 mg 2-03 mg by ity of capsule 15:45: mouth 3 [place] [address] (three) Medical times Branch daily. Hydrocodone 2020-0 Yes Take by [facility] vers -Acetaminop 2-03 mouth 3 ity o f hen 15:45: (three) [place] (VICODIN) 11 times Medical 5-300 mg daily. Branch tablet gabapentin 2020-0 Yes 300mg Take 300 Un [place] 300 mg 2-03 mg by ity of capsule 15:45: mouth 3 [place] [address] (three) Medical times Branch daily. Hydrocodone 2020-0 Yes Take by [facility] vers -Acetaminop 2-03 mouth 3 ity o f hen 15:45: (three) [place] (VICODIN) 11 times Medical 5-300 mg daily. Branch tablet gabapentin 2020-0 Yes 300mg Take 300 Un [place] 300 mg 2-03 mg by ity of capsule 15:45: mouth 3 [place] [address] (three) Medical times Branch daily. Hydrocodone 2020-0 Yes Take by [facility] vers -Acetaminop 2-03 mouth 3 ity o f hen 15:45: (three) [place] (VICODIN) 11 times Medical 5-300 mg daily. Branch tablet gabapentin 2020-0 Yes 300mg Take 300 Un [place] 300 mg 2-03 mg by ity of capsule 15:45: mouth 3 [place] [address] (three) Medical times Branch daily. Hydrocodone 2020-0 Yes Take by [facility] vers -Acetaminop 2-03 mouth 3 ity o f hen 15:45: (three) [place] (VICODIN) 11 times Medical 5-300 mg daily. Branch tablet gabapentin 2020-0 Yes 300mg Take 300 Un [place] 300 mg 2-03 mg by ity of capsule 15:45: mouth 3 [place] [address] (three) Medical times Branch daily. Hydrocodone 2020-0 Yes Take by [facility] vers -Acetaminop 2-03 mouth 3 ity o f hen 15:45: (three) [place] (VICODIN) 11 times Medical 5-300 mg daily. Branch tablet gabapentin 2020-0 Yes 300mg Take 300 Un [place] 300 mg 2-03 mg by ity of capsule 15:45: mouth 3 [place] [address] (three) Medical times Branch daily. Hydrocodone 2020-0 Yes Take by [facility] vers -Acetaminop 2-03 mouth 3 ity o f hen 15:45: (three) [place] (VICODIN) 11 times Medical 5-300 mg daily. Branch tablet gabapentin 2020-0 Yes 300mg Take 300 Un [place] 300 mg 2-03 mg by ity of capsule 15:45: mouth 3 [place] [address] (three) Medical times Branch daily. Hydrocodone 2020-0 Yes Take by [facility] vers -Acetaminop 2-03 mouth 3 ity o f hen 15:45: (three) [place] (VICODIN) 11 times Medical 5-300 mg daily. Branch tablet gabapentin 2020-0 Yes 300mg Take 300 Un [place] 300 mg 2-03 mg by ity of capsule 15:45: mouth 3 [place] [address] (three) Medical times Branch daily. Hydrocodone 2020-0 Yes Take by [facility] vers -Acetaminop 2-03 mouth 3 ity o f hen 15:45: (three) [place] (VICODIN) 11 times Medical 5-300 mg daily. Branch tablet gabapentin 2020-0 Yes 300mg Take 300 Un [place] 300 mg 2-03 mg by ity of capsule 15:45: mouth 3 [place] [address] (three) Medical times Branch daily. Hydrocodone 2020-0 Yes Take by [facility] vers -Acetaminop 2-03 mouth 3 ity o f hen 15:45: (three) [place] (VICODIN) 11 times Medical 5-300 mg daily. Branch tablet gabapentin 2020-0 Yes 300mg Take 300 Un [place] 300 mg 2-03 mg by ity of capsule 15:45: mouth 3 [place] [address] (three) Medical times Branch daily. Hydrocodone 2020-0 Yes Take by [facility] vers -Acetaminop 2-03 mouth 3 ity o f hen 15:45: (three) [place] (VICODIN) 11 times Medical 5-300 mg daily. Branch tablet gabapentin 2020-0 Yes 300mg Take 300 Un [place] 300 mg 2-03 mg by ity of capsule 15:45: mouth 3 [place] [address] (three) Medical times Branch daily. Hydrocodone 2020-0 Yes Take by [facility] vers -Acetaminop 2-03 mouth 3 ity o f hen 15:45: (three) [place] (VICODIN) 11 times Medical 5-300 mg daily. Branch tablet gabapentin 2020-0 Yes 300mg Take 300 Un [place] 300 mg 2-03 mg by ity of capsule 15:45: mouth 3 [place] [address] (three) Medical times Branch daily. Hydrocodone 2020-0 Yes Take by [facility] vers -Acetaminop 2-03 mouth 3 ity o f hen 15:45: (three) [place] (VICODIN) 11 times Medical 5-300 mg daily. Branch tablet gabapentin 2020-0 Yes 300mg Take 300 Un [place] 300 mg 2-03 mg by ity of capsule 15:45: mouth 3 [place] 11 (three) Medical times Branch daily. Hydrocodone 2020-0 Yes Take by [facility] -Acetaminop 2-03 mouth 3 [facility]y o f hen 15:45: (three) [place] (VICODIN) 11 times Medical 5-300 mg daily. Branch tablet gabapentin 2020-0 Yes 300mg Take 300 [place] 300 mg 2-03 mg by ity of capsule 15:45: mouth 3 [place] [address] (three) Medical times Branch daily. Hydrocodone 2020-0 Yes Take by [facility] -Acetaminop 2-03 mouth 3 [facility]y o f hen 15:45: (three) [place] (VICODIN) 11 times Medical 5-300 mg daily. Branch tablet gabapentin 2020-0 Yes 300mg Take 300 [facility] [place] 300 mg 2-03 mg by ity of capsule 15:45: mouth 3 [place] [address] (three) Medical times Branch daily. Hydrocodone 2020-0 Yes Take by [facility] -Acetaminop 2-03 mouth 3 [facility]y o f hen 15:45: (three) [place] (VICODIN) 11 times Medical 5-300 mg daily. Branch tablet gabapentin 2020-0 Yes 300mg Take 300 [facility] [place] 300 mg 2-03 mg by [facility] of capsule 15:45: mouth 3 [place] [address] (three) Medical times Branch daily. Hydrocodone 2020-0 Yes Take by [facility] -Acetaminop 2-03 mouth 3 [facility]y o f hen 15:45: (three) [place] (VICODIN) 11 times Medical 5-300 mg daily. Branch tablet gabapentin 2020-0 Yes 300mg Take 300 [facility] [place] 300 mg 2-03 mg by [facility]y of capsule 15:45: mouth 3 [place] [address] (three) Medical times Branch daily. Hydrocodone 2020-0 Yes Take by [facility] -Acetaminop 2-03 mouth 3 [facility] o f hen 15:45: (three) [place] (VICODIN) 11 times Medical 5-300 mg daily. Branch tablet gabapentin 2020-0 Yes 300mg Take 300 [facility] [place] 300 mg 2-03 mg by ity of capsule 15:45: mouth 3 [place] [address] (three) Medical times Branch daily. Hydrocodone 2020-0 Yes Take by [facility] -Acetaminop 2-03 mouth 3 ity o f hen 15:45: (three) [place] (VICODIN) 11 times Medical 5-300 mg daily. Branch tablet TERIPARATID 2020-0 Yes [id number] 20ug inject [facility] 20 2-03 0.08 mL ity of mcg/dose - 00:00: under the [place] 600 mcg/2.4 00 skin Medical mL daily. Branch injection TERIPARATID 2020-0 Yes [id number] 20ug inject [facility] 20 2-03 0.08 mL ity of mcg/dose - 00:00: under the [place] 600 mcg/2.4 00 skin Medical mL daily. Branch injection TERIPARATID 2020-0 Yes [id number] 20ug inject [facility] 20 2-03 0.08 mL ity of mcg/dose - 00:00: under the [place] 600 mcg/2.4 00 skin Medical mL daily. Branch injection TERIPARATID 2020-0 Yes [id number] 20ug inject [facility] 20 2-03 0.08 mL ity of mcg/dose - 00:00: under the [place] 600 mcg/2.4 00 skin Medical mL daily. Branch injection TERIPARATID 2020-0 Yes [id number] 20ug inject [facility] 20 2-03 0.08 mL ity of mcg/dose - 00:00: under the [place] 600 mcg/2.4 00 skin Medical mL daily. Branch injection TERIPARATID 2020-0 Yes [id number] 20ug inject [facility] 20 2-03 0.08 mL ity of mcg/dose - 00:00: under the [place] 600 mcg/2.4 00 skin Medical mL daily. Branch injection TERIPARATID 2020-0 Yes [id number] 20ug inject [facility] 20 2-03 0.08 mL ity of mcg/dose - 00:00: under the [place] 600 mcg/2.4 00 skin Medical mL daily. Branch injection TERIPARATID 2020-0 Yes [id number] 20ug inject [facility] 20 2-03 0.08 mL ity of mcg/dose - 00:00: under the [place] 600 mcg/2.4 00 skin Medical mL daily. Branch injection TERIPARATID 2020-0 Yes [id number] 20ug inject [facility] 20 2-03 0.08 mL ity of mcg/dose - 00:00: under the [place] 600 mcg/2.4 00 skin Medical mL daily. Branch injection TERIPARATID 2020-0 Yes [id number] 20ug inject [facility] 20 2-03 0.08 mL ity of mcg/dose - 00:00: under the [place] 600 mcg/2.4 00 skin Medical mL daily. Branch injection TERIPARATID 2020-0 Yes [id number] 20ug inject [facility] 20 2-03 0.08 mL ity of mcg/dose - 00:00: under the [place] 600 mcg/2.4 00 skin Medical mL daily. Branch injection TERIPARATID 2020-0 Yes [id number] 20ug inject [facility] 20 2-03 0.08 mL ity of mcg/dose - 00:00: under the [place] 600 mcg/2.4 00 skin Medical mL daily. Branch injection TERIPARATID 2020-0 Yes [id number] 20ug inject [facility] 20 2-03 0.08 mL ity of mcg/dose - 00:00: under the [place] 600 mcg/2.4 00 skin Medical mL daily. Branch injection TERIPARATID 2020-0 Yes [id number] 20ug inject [facility] 20 2-03 0.08 mL ity of mcg/dose - 00:00: under the [place] 600 mcg/2.4 00 skin Medical mL daily. Branch injection TERIPARATID 2020-0 Yes [id number] 20ug inject [facility] 20 2-03 0.08 mL ity of mcg/dose - 00:00: under the [place] 600 mcg/2.4 00 skin Medical mL daily. Branch injection TERIPARATID 2020-0 Yes [id number] 20ug inject [facility] 20 2-03 0.08 mL ity of mcg/dose - 00:00: under the [place] 600 mcg/2.4 00 skin Medical mL daily. Branch injection TERIPARATID 2020-0 Yes [id number] 20ug inject [facility] 20 2-03 0.08 mL ity of mcg/dose - 00:00: under the [place] 600 mcg/2.4 00 skin Medical mL daily. Branch injection TERIPARATID 2020-0 Yes [id number] 20ug inject [facility] 20 2-03 0.08 mL ity of mcg/dose - 00:00: under the [place] 600 mcg/2.4 00 skin Medical mL daily. Branch injection TERIPARATID 2020-0 Yes [id number] 20ug inject [facility] 20 2-03 0.08 mL ity of mcg/dose - 00:00: under the [place] 600 mcg/2.4 00 skin Medical mL daily. Branch injection TERIPARATID 2020-0 Yes [id number] 20ug inject [facility] 20 2-03 0.08 mL ity of mcg/dose - 00:00: under the [place] 600 mcg/2.4 00 skin Medical mL daily. Branch injection TERIPARATID 2020-0 Yes [id number] 20ug inject [facility] 20 2-03 0.08 mL ity of mcg/dose - 00:00: under the [place] 600 mcg/2.4 00 skin Medical mL daily. Branch injection TERIPARATID 2020-0 Yes [id number] 20ug inject [facility] 20 2-03 0.08 mL ity of mcg/dose - 00:00: under the [place] 600 mcg/2.4 00 skin Medical mL daily. Branch injection TERIPARATID 2020-0 Yes [id number] 20ug inject [facility] 20 2-03 0.08 mL ity of mcg/dose - 00:00: under the [place] 600 mcg/2.4 00 skin Medical mL daily. Branch injection TERIPARATID 2020-0 Yes [id number] 20ug inject [facility] 20 2-03 0.08 mL ity of mcg/dose - 00:00: under the [place] 600 mcg/2.4 00 skin Medical mL daily. Branch injection TERIPARATID 2020-0 2020- No [id number] 20ug inject [facility] 20 2-03 05-07 0.08 mL ity of mcg/dose - 00:00: 00:00 under the [place] 600 mcg/2.4 00 :00 skin Medical mL daily. Branch injection amoxicillin 2019-0 2020- No [id number] 1{tbl} Take 1 [facility] -clavulanat 1-31 02-11 tablet by it y of e 00:00: 05:59 mouth 2 [place] (AUGMENTIN) 00 :00 (two) Medical 875-125 mg times Branch per tablet daily for 10 days. amoxicillin 2020- No [id number] 1{tbl} Take 1 [facility] -clavulanat 1--11 tablet by it y of e 00:00: 05:59 mouth 2 [place] (AUGMENTIN) 00 :00 (two) Medical 875-125 mg times Branch per tablet daily for 10 days. amoxicillin 2020- No [id number] 1{tbl} Take 1 [facility] -clavulanat 08-19-11 tablet by it y of e 00:00: 05:59 mouth 2 [place] (AUGMENTIN) 00 :00 (two) Medical 875-125 mg times Branch per tablet daily for 10 days. amoxicillin 2019- No [id number] 1{tbl} Take 1 [facility] -clavulanat --11 tablet by it y of e 00:00: 05:59 mouth 2 [place] (AUGMENTIN) 00 :00 (two) Medical 875-125 mg times Branch per tablet daily for 10 days. amoxicillin 2019- No [id number] 1{tbl} Take 1 [facility] -clavulanat 1--11 tablet by it y of e 00:00: 05:59 mouth 2 [place] (AUGMENTIN) 00 :00 (two) Medical 875-125 mg times Branch per tablet daily for 10 days. amoxicillin 2019- No [id number] 1{tbl} Take 1 [facility] -clavulanat 08-19-11 tablet by it y of e 00:00: 05:59 mouth 2 [place] (AUGMENTIN) 00 :00 (two) Medical 875-125 mg times Branch per tablet daily for 10 days. amoxicillin 2019- No [id number] 1{tbl} Take 1 [facility] -clavulanat 08-19-11 tablet by it y of e 00:00: 05:59 mouth 2 [place] (AUGMENTIN) 00 :00 (two) Medical 875-125 mg times Branch per tablet daily for 10 days. amoxicillin 2020- No [id number] 1{tbl} Take 1 [facility] -clavulanat 1-31 -11 tablet by it y of e 00:00: 05:59 mouth 2 [place] (AUGMENTIN) 00 :00 (two) Medical 875-125 mg [...] mg daily. Branch tablet lisinopril 2020-0 Yes [id number] 40mg Take 1 [facility] n[facility] 40 mg 1-30 tablet by ity of tablet 00:00: mouth [place] 00 daily. Medical Branch lisinopril 2020-0 Yes [id number] 40mg Take 1 [facility] n[facility] 40 mg 1-30 tablet by ity of tablet 00:00: mouth [place] 00 daily. Medical Branch lisinopril 2020-0 Yes [id number] 40mg Take 1 [facility] nivers 40 mg 1-30 tablet by ity of tablet 00:00: mouth [place] 00 daily. Medical Branch lisinopril 2020-0 Yes [id number] 40mg Take 1 [facility] n[facility] 40 mg 1-30 tablet by ity of tablet 00:00: mouth [place] 00 daily. Medical Branch lisinopril 2020-0 Yes [id number] 40mg Take 1 [facility] nivers 40 mg 1-30 tablet by ity of tablet 00:00: mouth [place] 00 daily. Medical Branch lisinopril 2020-0 Yes [id number] 40mg Take 1 [facility] nivers 40 mg 1-30 tablet by ity of tablet 00:00: mouth [place] 00 daily. Medical Branch lisinopril 2020-0 Yes [id number] 40mg Take 1 [facility] n[facility] 40 mg 1-30 tablet by ity of tablet 00:00: mouth [place] 00 daily. Medical Branch lisinopril 2020-0 Yes [id number] 40mg Take 1 [facility] nivers 40 mg 1-30 tablet by ity of tablet 00:00: mouth [place] 00 daily. Medical Branch lisinopril 2020-0 Yes [id number] 40mg Take 1 [facility] n[facility] 40 mg 1-30 tablet by ity of tablet 00:00: mouth [place] 00 daily. Medical Branch lisinopril 2020-0 Yes [id number] 40mg Take 1 [facility] nivers 40 mg 1-30 tablet by ity of tablet 00:00: mouth [place] 00 daily. Medical Branch lisinopril 2020-0 Yes [id number] 40mg Take 1 [facility] 40 mg 1-30 tablet by ity of tablet 00:00: mouth [place] 00 daily. Medical Branch lisinopril 2020-0 Yes [id number] 40mg Take 1 [facility] n[facility] 40 mg 1-30 tablet by ity of tablet 00:00: mouth [place] 00 daily. Medical Branch lisinopril 2020-0 Yes [id number] 40mg Take 1 [facility] n[facility] 40 mg 1-30 tablet by ity of tablet 00:00: mouth [place] 00 daily. Medical Branch lisinopril 2020-0 Yes [id number] 40mg Take 1 [facility] n[facility] 40 mg 1-30 tablet by ity of tablet 00:00: mouth [place] 00 daily. Medical Branch lisinopril 2020-0 Yes [id number] 40mg Take 1 [facility] n[facility] 40 mg 1-30 tablet by ity of tablet 00:00: mouth [place] 00 daily. Medical Branch lisinopril 2020-0 Yes [id number] 40mg Take 1 [facility] n[facility] 40 mg 1-30 tablet by ity of tablet 00:00: mouth [place] 00 daily. Medical Branch lisinopril 2020-0 Yes [id number] 40mg Take 1 [facility] nivers 40 mg 1-30 tablet by ity of tablet 00:00: mouth [place] 00 daily. Medical Branch lisinopril 2020-0 Yes [id number] 40mg Take 1 [facility] n[facility] 40 mg 1-30 tablet by ity of tablet 00:00: mouth [place] 00 daily. Medical Branch lisinopril 2020-0 Yes [id number] 40mg Take 1 [facility] nivers 40 mg 1-30 tablet by ity of tablet 00:00: mouth [place] 00 daily. Medical Branch lisinopril 2020-0 Yes [id number] 40mg Take 1 [facility] n[facility] 40 mg 1-30 tablet by ity of tablet 00:00: mouth [place] 00 daily. Medical Branch lisinopril 2020-0 Yes [id number] 40mg Take 1 [facility] n[facility] 40 mg 1-30 tablet by ity of tablet 00:00: mouth [place] 00 daily. Medical Branch lisinopril 2020-0 Yes [id number] 40mg Take 1 [facility] n[facility] 40 mg 1-30 tablet by ity of tablet 00:00: mouth [place] 00 daily. Medical Branch lisinopril 2020-0 Yes [id number] 40mg Take 1 [facility] n[facility] 40 mg 1-30 tablet by ity of tablet 00:00: mouth [place] 00 daily. Medical Branch lisinopril 2020-0 Yes [id number] 40mg Take 1 [facility] n[facility] 40 mg 1-30 tablet by ity of tablet 00:00: mouth [place] 00 daily. Medical Branch lisinopril 2020-0 Yes [id number] 40mg Take 1 [facility] n[facility] 40 mg 1-30 tablet by ity of tablet 00:00: mouth [place] 00 daily. Medical Branch lisinopril 2020-0 Yes [id number] 40mg Take 1 [facility] 40 mg 1-30 tablet by ity of tablet 00:00: mouth [place] 00 daily. Medical Branch lisinopril 2020-0 Yes [id number] 40mg Take 1 [facility] 40 mg 1-30 tablet by ity of tablet 00:00: mouth [place] 00 daily. Medical Branch lisinopril 2020-0 Yes [id number] 40mg Take 1 [facility] 40 mg 1-30 tablet by ity of tablet 00:00: mouth [place] 00 daily. Medical Branch lisinopril 2020-0 Yes [id number] 40mg Take 1 [facility] 40 mg 1-30 tablet by ity of tablet 00:00: mouth [place] 00 daily. Medical Branch lisinopril 2020-0 Yes [id number] 40mg Take 1 [facility] 40 mg 1-30 tablet by ity of tablet 00:00: mouth [place] 00 daily. Medical Branch lisinopril 2020-0 Yes [id number] 40mg Take 1 [facility] 40 mg 1-30 tablet by ity of tablet 00:00: mouth [place] 00 daily. Medical Branch lisinopril 2020-0 Yes [id number] 40mg Take 1 [facility] 40 mg 1-30 tablet by ity of tablet 00:00: mouth [place] 00 daily. Medical Branch lisinopril 2020-0 Yes [id number] 40mg Take 1 [facility] 40 mg 1-30 tablet by ity of tablet 00:00: mouth [place] 00 daily. Medical Branch lisinopril 2020-0 Yes [id number] 40mg Take 1 [facility] 40 mg 1-30 tablet by ity of tablet 00:00: mouth [place] 00 daily. Medical Branch lisinopril 2020-0 Yes [id number] 40mg Take 1 [facility] n[facility] 40 mg 1-30 tablet by ity of tablet 00:00: mouth [place] 00 daily. Medical Branch lisinopril 2020-0 Yes [id number] 40mg Take 1 [facility] n[facility] 40 mg 1-30 tablet by ity of tablet 00:00: mouth [place] 00 daily. Medical Branch lisinopril 2020-0 Yes [id number] 40mg Take 1 [facility] n[facility] 40 mg 1-30 tablet by ity of tablet 00:00: mouth [place] 00 daily. Medical Branch lisinopril 2020-0 Yes [id number] 40mg Take 1 [facility] n[facility] 40 mg 1-30 tablet by ity of tablet 00:00: mouth [place] 00 daily. Medical Branch lisinopril 2020-0 Yes [id number] 40mg Take 1 [facility] 40 mg 1-30 tablet by ity of tablet 00:00: mouth [place] 00 daily. Medical Branch lisinopril 2020-0 Yes [id number] 40mg Take 1 [facility] 40 mg 1-30 tablet by ity of tablet 00:00: mouth [place] 00 daily. Medical Branch lisinopril 2020-0 Yes [id number] 40mg Take 1 [facility] 40 mg 1-30 tablet by ity of tablet 00:00: mouth [place] 00 daily. Medical Branch lisinopril 2020-0 Yes [id number] 40mg Take 1 [facility] 40 mg 1-30 tablet by ity of tablet 00:00: mouth [place] 00 daily. Medical Branch lisinopril 2020-0 Yes [id number] 40mg Take 1 [facility] 40 mg 1-30 tablet by ity of tablet 00:00: mouth [place] 00 daily. Medical Branch lisinopril 2020-0 Yes [id number] 40mg Take 1 [facility] 40 mg 1-30 tablet by ity of tablet 00:00: mouth [place] 00 daily. Medical Branch lisinopril 2020-0 Yes [id number] 40mg Take 1 [facility] 40 mg 1-30 tablet by ity of tablet 00:00: mouth [place] 00 daily. Medical Branch lisinopril 2020-0 Yes [id number] 40mg Take 1 [facility] 40 mg 1-30 tablet by ity of tablet 00:00: mouth [place] 00 daily. Medical Branch lisinopril 2020-0 Yes [id number] 40mg Take 1 [facility] 40 mg 1-30 tablet by ity of tablet 00:00: mouth [place] 00 daily. Medical Branch lisinopril 2020-0 Yes [id number] 40mg Take 1 [facility] 40 mg 1-30 tablet by ity of tablet 00:00: mouth [place] 00 daily. Medical Branch lisinopril 2020-0 Yes [id number] 40mg Take 1 [facility] 40 mg 1-30 tablet by ity of tablet 00:00: mouth [place] 00 daily. Medical Branch lisinopril 2020-0 Yes [id number] 40mg Take 1 [facility] 40 mg 1-30 tablet by ity of tablet 00:00: mouth [place] 00 daily. Medical Branch lisinopril 2020-0 Yes [id number] 40mg Take 1 [facility] 40 mg 1-30 tablet by ity of tablet 00:00: mouth [place] 00 daily. Medical Branch lisinopril 2020-0 Yes [id number] 40mg Take 1 [facility] 40 mg 1-30 tablet by ity of tablet 00:00: mouth [place] 00 daily. Medical Branch lisinopril 2020-0 Yes [id number] 40mg Take 1 [facility] 40 mg 1-30 tablet by ity of tablet 00:00: mouth [place] 00 daily. Medical Branch lisinopril 2020-0 Yes [id number] 40mg Take 1 [facility] n[facility] 40 mg 1-30 tablet by ity of tablet 00:00: mouth [place] 00 daily. Medical Branch lisinopril 2020-0 Yes [id number] 40mg Take 1 [facility] 40 mg 1-30 tablet by ity of tablet 00:00: mouth [place] 00 daily. Medical Branch lisinopril 2020-0 Yes [id number] 40mg Take 1 [facility] n[facility] 40 mg 1-30 tablet by ity of tablet 00:00: mouth [place] 00 daily. Medical Branch lisinopril 2020-0 Yes [id number] 40mg Take 1 [facility] 40 mg 1-30 tablet by ity of tablet 00:00: mouth [place] 00 daily. Medical Branch lisinopril 2020-0 Yes [id number] 40mg Take 1 [facility] 40 mg 1-30 tablet by ity of tablet 00:00: mouth [place] 00 daily. Medical Branch lisinopril 2020-0 Yes [id number] 40mg Take 1 [facility] 40 mg 1-30 tablet by ity of tablet 00:00: mouth [place] 00 daily. Medical Branch lisinopril 2020-0 Yes [id number] 40mg Take 1 [facility] 40 mg 1-30 tablet by ity of tablet 00:00: mouth [place] 00 daily. Medical Branch lisinopril 2020-0 Yes [id number] 40mg Take 1 [facility] 40 mg 1-30 tablet by ity of tablet 00:00: mouth [place] 00 daily. Medical Branch lisinopril 2020-0 Yes [id number] 40mg Take 1 [facility] 40 mg 1-30 tablet by ity of tablet 00:00: mouth [place] 00 daily. Medical Branch lisinopril 2020-0 Yes [id number] 40mg Take 1 [facility] 40 mg 1-30 tablet by [facility]y of tablet 00:00: mouth [place] 00 daily. Medical Branch oxyCODone-a 2020-0 Yes [id number] 1{tbl} Q4H Take 1 [facility] cetaminophe 1-[address] [facility] 16:12: [facility] (PERCOCET[facility] 32 every 4 l 10-325 mg (four) per tablet hours as needed for moderate pain .acute pain. senna 2020-0 Yes 1{tbl} QD Take 1 [facility] (SENOKOT) 1-[address] 8.6 mg 16:12: [facility] tablet 32 daily. l oxyCODone-a 2019-0 Yes [id number] 1{tbl} Q4H Take 1 [facility] cetaminophe 1-[address] n 16:12: [facility] (PERCOCET) 32 every 4 l 10-325 mg (four) per tablet hours as needed for moderate pain .acute pain. senna 2020-0 Yes 1{tbl} QD Take 1 [facility] (SENOKOT) 1-[address] 8.6 mg 16:12: [facility] tablet 32 daily. l predniSONE 2020-0 Yes 1mg QD Take 1 mg [facility] (DELTASONE[facility] 1-[address] 1 mg tablet 16:12: daily. [facility] 31 l lisinopril 2020-0 Yes 10mg QD Take 10 mg [facility] (PRINIVIL) 1-[address] 10 mg 16:12: daily. [facility] tablet 31 l predniSONE 2020-0 Yes 1mg QD Take 1 mg [facility] (DELTASONE) 1-[address] 1 mg tablet 16:12: daily. [facility] 31 l lisinopril 2020-0 Yes 10mg QD Take 10 mg [facility] (PRINIVIL) 1-[address] 10 mg 16:12: daily. [facility] tablet 31 l hydroCHLORO 2019- Yes [id number] 25mg Take 1 [facility] thiazide 25 2-09 tablet by [facility]y of mg tablet 00:00: mouth [place] 00 daily. Medical Branch hydroCHLORO 2018-07 Yes [id number] 25mg Take 1 [facility] thiazide 25 2-09 tablet by [facility]y of mg tablet 00:00: mouth [place] 00 daily. Medical Branch hydroCHLORO 2018-07 2020- No [id number] 25mg Take 1 [facility] thiazide 25 2-03 20-30 tablet by it y of mg tablet 00:00: 00:00 mouth [place] 00 :00 daily. Medical Branch hydroCHLORO 2018-07 2020- No [id number] 25mg Take 1 [facility] thiazide 25 2-03 20-30 tablet by it y of mg tablet 00:00: 00:00 mouth [place] 00 :00 daily. Medical Branch lidocaine 5 2018-07 Yes [id number] Apply one [facility] % (700 1-25 patch to ity of mg/patch) 00:00: most [place] patch 00 painful Medical area every Branch 12 hours as needed for pain. PHARMACIST : dispense one box lidocaine 5 2018-07 Yes [id number] Apply one [facility] % (700 1-25 patch to ity of mg/patch) 00:00: most [place] patch 00 painful Medical area every Branch 12 hours as needed for pain. PHARMACIST : dispense one box lidocaine 5 2018-07 2020- No [id number] Apply one [facility] % (700 1-25 -30 patch to ity of mg/patch) 00:00: 00:00 most [place] patch 00 :00 painful Medical area every Branch 12 hours as needed for pain. PHARMACIST : dispense one box lidocaine 5 2018-07 2020- No [id number] Apply one [facility] % (700 1-25 -30 patch to ity of mg/patch) 00:00: 00:00 most [place] patch 00 :00 painful Medical area every Branch 12 hours as needed for pain. PHARMACIST : dispense one box lisinopril 2018-07 Yes [id number] 40mg Take 1 [facility] 40 mg 1-12 tablet by [facility] of tablet 00:00: mouth [place] 00 daily. Medical Branch lisinopril 2018-07 Yes [id number] 40mg Take 1 [facility] 40 mg 1-12 tablet by [facility] of tablet 00:00: mouth [place] 00 daily. Medical Branch lisinopril 2018-07 2020- No [id number] 40mg Take 1 [facility] 40 mg 1-12 -30 tablet by [facility] of tablet 00:00: 00:00 mouth [place] 00 :00 daily. Medical Branch lisinopril 2018-07 2020- No [id number] 40mg Take 1 [facility] 40 mg [id number] tablet by [facility]y of tablet 00:00: 00:00 mouth [place] 00 :00 daily. Medical Branch meclizine 2018-07 Yes [id number] 25mg Take 1 [facility] 25 mg 0-18 tablet by [facility] of tablet 00:00: mouth (three) Medical times Branch daily as needed for Dizziness (take with prednisone .). meclizine 2018-07 Yes [id number] 25mg Take 1 [facility] 25 mg 0-18 tablet by [facility] of tablet 00:00: mouth (three) Medical times Branch daily as needed for Dizziness (take with prednisone .). meclizine 2018-07 Yes [id number] 25mg Take 1 [facility] 25 mg 0-18 tablet by [facility] of tablet 00:00: mouth (three) Medical times Branch daily as needed for Dizziness (take with prednisone .). meclizine 2018-07 Yes [id number] 25mg Take 1 [facility] 25 mg 0-18 tablet by [facility] of tablet 00:00: mouth (three) Medical times Branch daily as needed for Dizziness (take with prednisone .). meclizine 2018-07 Yes [id number] 25mg Take 1 [facility] 25 mg 0-18 tablet by [facility]y of tablet 00:00: mouth (three) Medical times Branch daily as needed for Dizziness (take with prednisone .). meclizine 2018-07 Yes [id number] 25mg Take 1 [facility] 25 mg 0-18 tablet by [facility]y of tablet 00:00: mouth (three) Medical times Branch daily as needed for Dizziness (take with prednisone .). meclizine 2018-07 Yes [id number] 25mg Take 1 [facility] 25 mg 0-18 tablet by [facility]y of tablet 00:00: mouth (three) Medical times Branch daily as needed for Dizziness (take with prednisone .). meclizine 2018-07 Yes [id number] 25mg Take 1 [facility] 25 mg 0-18 tablet by [facility]y of tablet 00:00: mouth (three) Medical times Branch daily as needed for Dizziness (take with prednisone .). meclizine 2018-07 Yes [id number] 25mg Take 1 [facility] 25 mg 0-18 tablet by [facility] of tablet 00:00: mouth 3 (three) Medical times Branch daily as needed for Dizziness (take with prednisone .). meclizine 2018-07 Yes [id number] 25mg Take 1 [facility] 25 mg 0-18 tablet by [facility]y of tablet 00:00: mouth (three) Medical times Branch daily as needed for Dizziness (take with prednisone .). meclizine 2018-07 Yes [id number] 25mg Take 1 [facility] 25 mg 0-18 tablet by [facility] of tablet 00:00: mouth (three) Medical times Branch daily as needed for Dizziness (take with prednisone .). meclizine 2018-07 Yes [id number] 25mg Take 1 [facility] 25 mg 0-18 tablet by [facility] of tablet 00:00: mouth (three) Medical times Branch daily as needed for Dizziness (take with prednisone .). meclizine 2018-07 Yes [id number] 25mg Take 1 [facility] 25 mg 0-18 tablet by [facility] of tablet 00:00: mouth (three) Medical times Branch daily as needed for Dizziness (take with prednisone .). meclizine 2018-07 Yes [id number] 25mg Take 1 [facility] 25 mg 0-18 tablet by [facility] of tablet 00:00: mouth (three) Medical times Branch daily as needed for Dizziness (take with prednisone .). meclizine 2018-07 Yes [id number] 25mg Take 1 [facility] 25 mg 0-18 tablet by [facility] of tablet 00:00: mouth (three) Medical times Branch daily as needed for Dizziness (take with prednisone .). meclizine 2018-07 Yes [id number] 25mg Take 1 [facility] 25 mg 0-18 tablet by [facility] of tablet 00:00: mouth (three) Medical times Branch daily as needed for Dizziness (take with prednisone .). meclizine 2018-07 Yes [id number] 25mg Take 1 [facility] 25 mg 0-18 tablet by [facility] of tablet 00:00: mouth (three) Medical times Branch daily as needed for Dizziness (take with prednisone .). meclizine 2018-07 Yes [id number] 25mg Take 1 [facility] 25 mg 0-18 tablet by [facility] of tablet 00:00: mouth (three) Medical times Branch daily as needed for Dizziness (take with prednisone .). meclizine 2018-07 Yes [id number] 25mg Take 1 [facility] 25 mg 0-18 tablet by [facility] of tablet 00:00: mouth (three) Medical times Branch daily as needed for Dizziness (take with prednisone .). meclizine 2018-07 Yes [id number] 25mg Take 1 [facility] 25 mg 0-18 tablet by [facility]y of tablet 00:00: mouth (three) Medical times Branch daily as needed for Dizziness (take with prednisone .). meclizine 2018-07 Yes [id number] 25mg Take 1 [facility] 25 mg 0-18 tablet by [facility] of tablet 00:00: mouth (three) Medical times Branch daily as needed for Dizziness (take with prednisone .). meclizine 2018-07 Yes [id number] 25mg Take 1 [facility] 25 mg 0-18 tablet by [facility] of tablet 00:00: mouth (three) Medical times Branch daily as needed for Dizziness (take with prednisone .). meclizine 2018-07 Yes [id number] 25mg Take 1 [facility] 25 mg 0-18 tablet by [facility] of tablet 00:00: mouth (three) Medical times Branch daily as needed for Dizziness (take with prednisone .). meclizine 2018-07 Yes [id number] 25mg Take 1 [facility] 25 mg 0-18 tablet by [facility]y of tablet 00:00: mouth (three) Medical times Branch daily as needed for Dizziness (take with prednisone .). meclizine 2018-07 Yes [id number] 25mg Take 1 [facility] 25 mg 0-18 tablet by [facility] of tablet 00:00: mouth 3 (three) Medical times Branch daily as needed for Dizziness (take with prednisone .). meclizine 2018-07 Yes [id number] 25mg Take 1 [facility] 25 mg 0-18 tablet by [facility] of tablet 00:00: mouth 3 [place] 00 (three) Medical times Branch daily as needed for Dizziness (take with prednisone .). meclizine 2018-07 Yes [id number] 25mg Take 1 [facility] 25 mg 0-18 tablet by [facility] of tablet 00:00: mouth 3 00 (three) Medical times Branch daily as needed for Dizziness (take with prednisone .). meclizine 2018-07 Yes [id number] 25mg Take 1 [facility] 25 mg 0-18 tablet by [facility] tablet 00:00: mouth 3 (three) Medical times Branch daily as needed for Dizziness (take with prednisone .). meclizine 2018-07 Yes [id number] 25mg Take 1 [facility] 25 mg 0-18 tablet by [facility] of tablet 00:00: mouth 3 (three) Medical times Branch daily as needed for Dizziness (take with prednisone .). meclizine 2018-07 2020- No [id number] 25mg Take 1 [facility] 25 mg 0-18 05-07 tablet by [facility] of tablet 00:00: 00:00 mouth 3 00 :00 (three) Medical times Branch daily as needed for Dizziness (take with prednisone .). MUPIROCIN 2 Yes [id number] APPLY TO Univers % ointment 9-10 AFFECTED ity o f 00:00: [facility] [place] [address] THREE Medical TIMES A Branch DAY MUPIROCIN 2 Yes [id number] APPLY TO Univers % ointment 9-10 AFFECTED ity o f 00:00: [facility] [place] [address] THREE Medical TIMES A Branch DAY MUPIROCIN 2 Yes [id number] APPLY TO Univers % ointment 9-10 AFFECTED ity o f 00:00: [facility](S) [place] [address] THREE Medical TIMES A Branch DAY MUPIROCIN 2 Yes [id number] APPLY TO Univers % ointment 9-10 AFFECTED ity o f 00:00: [facility] [place] [address] THREE Medical TIMES A Branch DAY MUPIROCIN 2 Yes [id number] APPLY TO Univers % ointment 9-10 AFFECTED ity o f 00:00: [facility] [place] [address] THREE Medical TIMES A Branch DAY MUPIROCIN 2 Yes [id number] APPLY TO Univers % ointment 9-10 AFFECTED ity o f 00:00: AREA(S) [place] 00 THREE Medical TIMES A Branch DAY MUPIROCIN 2 2019-0 Yes [id number] APPLY TO Univers % ointment 9-10 AFFECTED ity o f 00:00: [facility] 00 THREE Medical TIMES A Branch DAY MUPIROCIN 2 2019-0 Yes [id number] APPLY TO Univers % ointment 9-10 AFFECTED ity o f 00:00: [facility] THREE Medical TIMES A Branch DAY MUPIROCIN 2 2019-0 Yes [id number] APPLY TO Univers % ointment 9-10 AFFECTED ity o f 00:00: [place] [address] THREE Medical TIMES A Branch DAY MUPIROCIN 2 2019-0 Yes [id number] APPLY TO Univers % ointment 9-10 AFFECTED ity o f 00:00: [place] [address] THREE Medical TIMES A Branch DAY MUPIROCIN 2 2019-0 Yes [id number] APPLY TO [facility] % ointment 9-10 AFFECTED ity o f 00:00: [place] [address] THREE Medical TIMES A Branch DAY MUPIROCIN 2 2019-0 Yes [id number] APPLY TO [facility] % ointment 9-10 AFFECTED ity o f 00:00: [facility] 00 THREE Medical TIMES A Branch DAY MUPIROCIN 2 2019-0 Yes [id number] APPLY TO Univers % ointment 9-10 AFFECTED ity o f 00:00: [place] [address] THREE Medical TIMES A Branch DAY MUPIROCIN 2 2019-0 Yes [id number] APPLY TO [facility] % ointment 9-10 AFFECTED ity o f 00:00: [facility] 00 THREE Medical TIMES A Branch DAY MUPIROCIN 2 2019-0 Yes [id number] APPLY TO Univers % ointment 9-10 AFFECTED ity o f 00:00: [facility] THREE Medical TIMES A Branch DAY MUPIROCIN 2 2019-0 Yes [id number] APPLY TO Univers % ointment 9-10 AFFECTED ity o f 00:00: [place] [address] THREE Medical TIMES A Branch DAY MUPIROCIN 2 2019-0 Yes [id number] APPLY TO [facility] % ointment 9-10 AFFECTED ity o f 00:00: [facility] 00 THREE Medical TIMES A Branch DAY MUPIROCIN 2 2019-0 Yes [id number] APPLY TO Univers % ointment 9-10 AFFECTED ity o f 00:00: [facility] [place] 00 THREE Medical TIMES A Branch DAY MUPIROCIN 2 2019- Yes [id number] APPLY TO Univers % ointment 9-10 AFFECTED ity o f 00:00: [facility] [place] 00 THREE Medical TIMES A Branch DAY MUPIROCIN 2 2018- Yes [id number] APPLY TO Univers % ointment 9-10 AFFECTED ity o f 00:00: [facility] [place] 00 THREE Medical TIMES A Branch DAY MUPIROCIN 2 Yes [id number] APPLY TO Univers % ointment 9-10 AFFECTED ity o f 00:00: [facility] [place] 00 THREE Medical TIMES A Branch DAY MUPIROCIN 2 2018- Yes [id number] APPLY TO [facility] % ointment 9-10 AFFECTED ity o f 00:00: [facility] [place] THREE Medical TIMES A Branch DAY MUPIROCIN 2 2018- Yes [id number] APPLY TO [facility] % ointment 9-10 AFFECTED ity o f 00:00: [facility] [place] 00 THREE Medical TIMES A Branch DAY MUPIROCIN 2 2018- Yes [id number] APPLY TO Univers % ointment 9-10 AFFECTED ity o f 00:00: [facility]() [place] 00 THREE Medical TIMES A Branch DAY MUPIROCIN 2 2018- Yes [id number] APPLY TO Univers % ointment 9-10 AFFECTED ity o f 00:00: [facility] [place] 00 THREE Medical TIMES A Branch DAY MUPIROCIN 2 2019- Yes [id number] APPLY TO Univers % ointment 9-10 AFFECTED ity o f 00:00: [facility] [place] 00 THREE Medical TIMES A Branch DAY MUPIROCIN 2 2018- Yes [id number] APPLY TO [facility] % ointment 9-10 AFFECTED ity o f 00:00: [facility] 00 THREE Medical TIMES A Branch DAY MUPIROCIN 2 2019- Yes [id number] APPLY TO Univers % ointment 9-10 AFFECTED ity o f 00:00: [facility] 00 THREE Medical TIMES A Branch DAY MUPIROCIN 2 2018- Yes [id number] APPLY TO Univers % ointment 9-10 AFFECTED ity o f 00:00: [facility] [place] 00 THREE Medical TIMES A Branch DAY MUPIROCIN 2 2019-0 Yes [id number] APPLY TO Univers % ointment 9-10 AFFECTED ity o f 00:00: [facility]() [place] 00 THREE Medical TIMES A Branch DAY MUPIROCIN 2 2019-0 Yes [id number] APPLY TO Univers % ointment 9-10 AFFECTED ity o f 00:00: [facility] [place] 00 THREE Medical TIMES A Branch DAY MUPIROCIN 2 2019-0 Yes [id number] APPLY TO Univers % ointment 9-10 AFFECTED ity o f 00:00: [facility] [place] THREE Medical TIMES A Branch DAY MUPIROCIN 2 2019-0 Yes [id number] APPLY TO [facility] % ointment 9-10 AFFECTED ity o f 00:00: [facility]() [place] [address] THREE Medical TIMES A Branch DAY MUPIROCIN 2 2019-0 Yes [id number] APPLY TO Univers % ointment 9-10 AFFECTED ity o f 00:00: [facility] [place] 00 THREE Medical TIMES A Branch DAY MUPIROCIN 2 2019-0 Yes [id number] APPLY TO Univers % ointment 9-10 AFFECTED ity o f 00:00: [facility]) [place] 00 THREE Medical TIMES A Branch DAY MUPIROCIN 2 2019-0 Yes [id number] APPLY TO Univers % ointment 9-10 AFFECTED ity o f 00:00: [facility]() [place] 00 THREE Medical TIMES A Branch DAY MUPIROCIN 2 2019-0 Yes [id number] APPLY TO [facility] % ointment 9-10 AFFECTED ity o f 00:00: [facility] [place] 00 THREE Medical TIMES A Branch DAY MUPIROCIN 2 2019-0 Yes [id number] APPLY TO [facility] % ointment 9-10 AFFECTED ity o f 00:00: [facility] THREE Medical TIMES A Branch DAY MUPIROCIN 2 2019-0 Yes [id number] APPLY TO Univers % ointment 9-10 AFFECTED ity o f 00:00: [facility] 00 THREE Medical TIMES A Branch DAY MUPIROCIN 2 2019-0 Yes [id number] APPLY TO Univers % ointment 9-10 AFFECTED ity o f 00:00: [facility] 00 THREE Medical TIMES A Branch DAY MUPIROCIN 2 2019-0 Yes [id number] APPLY TO Univers % ointment 9-10 AFFECTED ity o f 00:00: [facility]) [place] 00 THREE Medical TIMES A Branch DAY MUPIROCIN 2 2019-0 Yes [id number] APPLY TO Univers % ointment 9-10 AFFECTED ity o f 00:00: [place] [address] THREE Medical TIMES A Branch DAY MUPIROCIN 2 2019- Yes [id number] APPLY TO [facility] % ointment 9-10 AFFECTED ity o f 00:00: [place] [address] THREE Medical TIMES A Branch DAY MUPIROCIN 2 2019- Yes [id number] APPLY TO [facility] % ointment 9-10 AFFECTED ity o f 00:00: [place] [address] THREE Medical TIMES A Branch DAY MUPIROCIN 2 2019- Yes [id number] APPLY TO [facility] % ointment 9-10 AFFECTED ity o f 00:00: [place] [address] THREE Medical TIMES A Branch DAY MUPIROCIN 2 2019- Yes [id number] APPLY TO Univers % ointment 9-10 AFFECTED ity o f 00:00: [place] [address] THREE Medical TIMES A Branch DAY MUPIROCIN 2 2019-0 Yes [id number] APPLY TO Univers % ointment 9-10 AFFECTED ity o f 00:00: [place] [address] THREE Medical TIMES A Branch DAY MUPIROCIN 2 2019-0 Yes [id number] APPLY TO [facility] % ointment 9-10 AFFECTED ity o f 00:00: [place] [address] THREE Medical TIMES A Branch DAY MUPIROCIN 2 2019-0 Yes [id number] APPLY TO [facility] % ointment 9-10 AFFECTED ity o f 00:00: [facility] THREE Medical TIMES A Branch DAY MUPIROCIN 2 2019-0 Yes [id number] APPLY TO Univers % ointment 9-10 AFFECTED ity o f 00:00: [place] [address] THREE Medical TIMES A Branch DAY MUPIROCIN 2 2019-0 Yes [id number] APPLY TO Univers % ointment 9-10 AFFECTED ity o f 00:00: [place] [address] THREE Medical TIMES A Branch DAY MUPIROCIN 2 2019-0 Yes [id number] APPLY TO Univers % ointment 9-10 AFFECTED ity o f 00:00: [facility] [place] 00 THREE Medical TIMES A Branch DAY MUPIROCIN 2 2019- Yes [id number] APPLY TO Univers % ointment 9-10 AFFECTED ity o f 00:00: [facility]() [place] 00 THREE Medical TIMES A Branch DAY MUPIROCIN 2 2018- Yes [id number] APPLY TO [facility] % ointment 9-10 AFFECTED ity o f 00:00: [facility]() [place] 00 THREE Medical TIMES A Branch DAY MUPIROCIN 2 2018- Yes [id number] APPLY TO [facility] % ointment 9-10 AFFECTED ity o f 00:00: [facility]() [place] [address] THREE Medical TIMES A Branch DAY MUPIROCIN 2 2018- Yes [id number] APPLY TO Univers % ointment 9-10 AFFECTED ity o f 00:00: [facility]([place] [address] THREE Medical TIMES A Branch DAY MUPIROCIN 2 Yes [id number] APPLY TO Univers % ointment 9-10 AFFECTED ity o f 00:00: [facility]() [place] 00 THREE Medical TIMES A Branch DAY MUPIROCIN 2 2018- Yes [id number] APPLY TO Univers % ointment 9-10 AFFECTED ity o f 00:00: [facility]() [place] 00 THREE Medical TIMES A Branch DAY MUPIROCIN 2 2019- Yes [id number] APPLY TO Univers % ointment 9-10 AFFECTED ity o f 00:00: [facility] THREE Medical TIMES A Branch DAY MUPIROCIN 2 2019- Yes [id number] APPLY TO Univers % ointment 9-10 AFFECTED ity o f 00:00: [facility] [place] 00 THREE Medical TIMES A Branch DAY MUPIROCIN 2 2018- Yes [id number] APPLY TO Univers % ointment 9-10 AFFECTED ity o f 00:00: [facility] 00 THREE Medical TIMES A Branch DAY MUPIROCIN 2 2018- Yes [id number] APPLY TO Univers % ointment 9-10 AFFECTED ity o f 00:00: [facility] THREE Medical TIMES A Branch DAY MUPIROCIN 2 2018- Yes [id number] APPLY TO Univers % ointment 9-10 AFFECTED ity o f 00:00: [facility]([place] [address] THREE Medical TIMES A Branch DAY MUPIROCIN 2 2019-0 Yes [id number] APPLY TO Univers % ointment 9-10 AFFECTED ity o f 00:00: [place] [address] THREE Medical TIMES A Branch DAY MUPIROCIN 2 2019-0 Yes [id number] APPLY TO Univers % ointment 9-10 AFFECTED ity o f 00:00: [place] [address] THREE Medical TIMES A Branch DAY MUPIROCIN 2 2019-0 Yes [id number] APPLY TO Univers % ointment 9-10 AFFECTED ity o f 00:00: [place] [address] THREE Medical TIMES A Branch DAY MUPIROCIN 2 2018- Yes [id number] APPLY TO Univers % ointment 9-10 AFFECTED ity o f 00:00: [place] [address] THREE Medical TIMES A Branch DAY MUPIROCIN 2 2019- Yes [id number] APPLY TO Univers % ointment 9-10 AFFECTED ity o f 00:00: [place] [address] THREE Medical TIMES A Branch DAY MUPIROCIN 2 2019-0 Yes [id number] APPLY TO Univers % ointment 9-10 AFFECTED ity o f 00:00: [place] [address] THREE Medical TIMES A Branch DAY MUPIROCIN 2 2019-0 Yes [id number] APPLY TO Univers % ointment 9-10 AFFECTED ity o f 00:00: [place] [address] THREE Medical TIMES A Branch DAY MUPIROCIN 2 2019-0 Yes [id number] APPLY TO Univers % ointment 9-10 AFFECTED ity o f 00:00: [place] [address] THREE Medical TIMES A Branch DAY MUPIROCIN 2 2019-0 Yes [id number] APPLY TO [facility] % ointment 9-10 AFFECTED ity o f 00:00: [place] [address] THREE Medical TIMES A Branch DAY PREDNISONE 2019-0 Yes [id number] TAKE TWO [facility] 20 mg 8-22 TABLETS BY ity of tablet 00:00: MOUTH DAILY. Medical KEEP ON Branch HAND FOR BURSITIS PAIN. TAKE FULL COURSE IF PAIN RETURNS PREDNISONE 2019-0 Yes [id number] TAKE TWO [facility] 20 mg 8-22 TABLETS BY ity of tablet 00:00: MOUTH DAILY. Medical KEEP ON Branch HAND FOR BURSITIS PAIN. TAKE FULL COURSE IF PAIN RETURNS PREDNISONE 2019-0 Yes [id number] TAKE TWO [facility] 20 mg 8-22 TABLETS BY ity of tablet 00:00: MOUTH [place] 00 DAILY. Medical KEEP ON Branch HAND FOR BURSITIS PAIN. TAKE FULL COURSE IF PAIN RETURNS PREDNISONE 2019-0 Yes [id number] TAKE TWO [facility] 20 mg 8-22 TABLETS BY ity of tablet 00:00: MOUTH [place] 00 DAILY. Medical KEEP ON Branch HAND FOR BURSITIS PAIN. TAKE FULL COURSE IF PAIN RETURNS PREDNISONE 2019-0 Yes [id number] TAKE TWO [facility] 20 mg 8-22 TABLETS BY ity of tablet 00:00: MOUTH [place] 00 DAILY. Medical KEEP ON Branch HAND FOR BURSITIS PAIN. TAKE FULL COURSE IF PAIN RETURNS PREDNISONE 2019-0 Yes [id number] TAKE TWO [facility] 20 mg 8-22 TABLETS BY ity of tablet 00:00: MOUTH [place] 00 DAILY. Medical KEEP ON Branch HAND FOR BURSITIS PAIN. TAKE FULL COURSE IF PAIN RETURNS PREDNISONE 2019-0 Yes [id number] TAKE TWO [facility] 20 mg 8-22 TABLETS BY ity of tablet 00:00: MOUTH [place] 00 DAILY. Medical KEEP ON Branch HAND FOR BURSITIS PAIN. TAKE FULL COURSE IF PAIN RETURNS PREDNISONE 2019-0 Yes [id number] TAKE TWO [facility] 20 mg 8-22 TABLETS BY ity of tablet 00:00: MOUTH [place] 00 DAILY. Medical KEEP ON Branch HAND FOR BURSITIS PAIN. TAKE FULL COURSE IF PAIN RETURNS PREDNISONE 2019-0 Yes [id number] TAKE TWO [facility] 20 mg 8-22 TABLETS BY ity of tablet 00:00: MOUTH [place] 00 DAILY. Medical KEEP ON Branch HAND FOR BURSITIS PAIN. TAKE FULL COURSE IF PAIN RETURNS lisinopril 2019-0 Yes [id number] 40mg Take 1 [facility] 40 mg 8-09 tablet by ity of tablet 00:00: mouth [place] 00 daily. [facility] Branch lisinopril 2019-0 Yes [id number] 40mg Take 1 U nivers 40 mg 8-09 tablet by ity of tablet 00:00: mouth [place] 00 daily. [facility] Branch lisinopril 2019-0 Yes [id number] 40mg Take 1 [facility] nivers 40 mg 8-09 tablet by ity of tablet 00:00: mouth [place] 00 daily. [facility] Branch lisinopril 2019-0 Yes [id number] 40mg Take 1 [facility] nivers 40 mg 8-09 tablet by ity of tablet 00:00: mouth [place] 00 daily. [facility] Branch lisinopril 2019-0 Yes [id number] 40mg Take 1 [facility] nivers 40 mg 8-09 tablet by ity of tablet 00:00: mouth [place] 00 daily. [facility] Branch lisinopril Yes [id number] 40mg Take 1 U nivers 40 mg 8-09 tablet by ity of tablet 00:00: mouth [place] 00 daily. [facility] Branch lisinopril Yes [id number] 40mg Take 1 U nivers 40 mg 8-09 tablet by ity of tablet 00:00: mouth [place] 00 daily. [facility] Branch lisinopril Yes [id number] 40mg Take 1 U nivers 40 mg 8-09 tablet by ity of tablet 00:00: mouth [place] 00 daily. [facility] Branch lisinopril Yes [id number] 40mg Take 1 U nivers 40 mg 8-09 tablet by ity of tablet 00:00: mouth [place] 00 daily. [facility] Branch lisinopril Yes [id number] 40mg Take 1 U nivers 40 mg 8-09 tablet by ity of tablet 00:00: mouth [place] 00 daily. [facility] Branch lisinopril Yes [id number] 40mg Take 1 U nivers 40 mg 8-09 tablet by ity of tablet 00:00: mouth [place] 00 daily. [facility] Branch lisinopril Yes [id number] 40mg Take 1 U nivers 40 mg 8-09 tablet by ity of tablet 00:00: mouth [place] 00 daily. [facility] Branch predniSONE Yes [id number] 40mg Take 2 U nivers 20 mg 7-30 tablets by ity of tablet 00:00: mouth [place] 00 daily. Medical Keep on Branch hand for bursitis pain. Take full course if pain returns. meclizine Yes [id number] 25mg Take 1 [facility]ivers 25 mg 7-30 tablet by ity of tablet 00:00: mouth 3 [place] 00 (three) Medical times Branch daily as needed for Dizziness (take with prednisone .). predniSONE Yes [id number] 40mg Take 2 [facility]ivers 20 mg 7-30 tablets by ity of tablet 00:00: mouth [place] 00 daily. Medical Keep on Branch hand for bursitis pain. Take full course if pain returns. meclizine Yes [id number] 25mg Take 1 [facility] 25 mg 7-30 tablet by ity of tablet 00:00: mouth (three) Medical times Branch daily as needed for Dizziness (take with prednisone .). predniSONE Yes [id number] 40mg Take 2 [facility] 20 mg 7-30 tablets by ity of tablet 00:00: mouth 00 daily. Medical Keep on Branch hand for bursitis pain. Take full course if pain returns. meclizine Yes [id number] 25mg Take 1 [facility] 25 mg 7-30 tablet by ity of tablet 00:00: mouth (three) Medical times Branch daily as needed for Dizziness (take with prednisone .). predniSONE Yes [id number] 40mg Take 2 [facility] 20 mg 7-30 tablets by ity of tablet 00:00: mouth 00 daily. Medical Keep on Branch hand for bursitis pain. Take full course if pain returns. meclizine Yes [id number] 25mg Take 1 [facility] 25 mg 7-30 tablet by ity of tablet 00:00: mouth (three) Medical times Branch daily as needed for Dizziness (take with prednisone .). meclizine Yes [id number] 25mg Take 1 [facility] 25 mg 7-30 tablet by ity of tablet 00:00: mouth (three) Medical times Branch daily as needed for Dizziness (take with prednisone .). meclizine Yes [id number] 25mg Take 1 [facility] 25 mg 7-30 tablet by ity of tablet 00:00: mouth (three) Medical times Branch daily as needed for Dizziness (take with prednisone .). meclizine Yes [id number] 25mg Take 1 [facility] 25 mg 7-30 tablet by ity of tablet 00:00: mouth (three) Medical times Branch daily as needed for Dizziness (take with prednisone .). meclizine 0 Yes [id number] 25mg Take 1 [facility] 25 mg 7-30 tablet by ity of tablet 00:00: mouth (three) Medical times Branch daily as needed for Dizziness (take with prednisone .). meclizine Yes [id number] 25mg Take 1 [facility] 25 mg 7-30 tablet by ity of tablet 00:00: mouth (three) Medical times Branch daily as needed for Dizziness (take with prednisone .). meclizine Yes [id number] 25mg Take 1 [facility] 25 mg 7-30 tablet by ity of tablet 00:00: mouth (three) Medical times Branch daily as needed for Dizziness (take with prednisone .). meclizine Yes [id number] 25mg Take 1 [facility] 25 mg 7-30 tablet by ity of tablet 00:00: mouth (three) Medical times Branch daily as needed for Dizziness (take with prednisone .). meclizine Yes [id number] 25mg Take 1 [facility] 25 mg 7-30 tablet by ity of tablet 00:00: mouth (three) Medical times Branch daily as needed for Dizziness (take with prednisone .). meclizine Yes [id number] 25mg Take 1 [facility] 25 mg 7-30 tablet by ity of tablet 00:00: mouth (three) Medical times Branch daily as needed for Dizziness (take with prednisone .). meclizine Yes [id number] 25mg Take 1 [facility] 25 mg 7-30 tablet by ity of tablet 00:00: mouth (three) Medical times Branch daily as needed for Dizziness (take with prednisone .). predniSONE Yes [id number] 40mg Take 2 [facility]ivers 20 mg 7-30 tablets by ity of tablet 00:00: mouth 00 daily. Medical Keep on Branch hand for bursitis pain. Take full course if pain returns. meclizine Yes [id number] 25mg Take 1 [facility] 25 mg 7-30 tablet by ity of tablet 00:00: mouth (three) Medical times Branch daily as needed for Dizziness (take with prednisone .). predniSONE Yes [id number] 40mg Take 2 U nivers 20 mg 7-30 tablets by ity of tablet 00:00: mouth [place] 00 daily. Medical Keep on Branch hand for bursitis pain. Take full course if pain returns. meclizine Yes [id number] 25mg Take 1 [facility]ivers 25 mg 7-30 tablet by ity of tablet 00:00: mouth 3 [place] 00 (three) Medical times Branch daily as needed for Dizziness (take with prednisone .). predniSONE 2019- No [id number] 40mg Take 2 [facility] 20 mg 7-30 08-22 tablets by ity of tablet 00:00: 21:57 mouth [place] 00 :36 daily. Medical Keep on Branch hand for bursitis pain. Take full course if pain returns. predniSONE 2019- No [id number] 40mg Take 2 [facility] 20 mg 7-30 08-22 tablets by ity of tablet 00:00: 21:57 mouth [place] 00 :36 daily. Medical Keep on Branch hand for bursitis pain. Take full course if pain returns. predniSONE 2019- No [id number] 40mg Take 2 [facility] 20 mg 7-18 07-30 tablets by ity of tablet 00:00: 00:00 mouth [place] 00 :00 daily. Medical Branch predniSONE 2019- No [id number] 40mg Take 2 [facility] 20 mg 7-18 07-30 tablets by ity of tablet 00:00: 00:00 mouth [place] 00 :00 daily. Medical Branch predniSONE 2019- No [id number] 40mg Take 2 [facility] 20 mg 7-18 07-30 tablets by ity of tablet 00:00: 00:00 mouth [place] 00 :00 daily. Medical Branch hydrALAZINE 0 Yes [id number] 25mg Take 1 [facility] 25 mg 6-14 tablet by ity of tablet 00:00: mouth [place] 00 every 6 Medical (six) Branch hours as needed (high blood pressure). hydrALAZINE Yes [id number] 25mg Take 1 [facility] 25 mg 6-14 tablet by ity of tablet 00:00: mouth [place] 00 every 6 Medical (six) Branch hours as needed (high blood pressure). hydrALAZINE 2018-0 Yes [id number] 25mg Take 1 [facility] 25 mg 6-14 tablet by ity of tablet 00:00: mouth [place] 00 every 6 Medical (six) Branch hours as needed (high blood pressure). hydrALAZINE 2018-0 Yes [id number] 25mg Take 1 [facility] 25 mg 6-14 tablet by ity of tablet 00:00: mouth [place] 00 every 6 Medical (six) Branch hours as needed (high blood pressure). hydrALAZINE 2018- Yes [id number] 25mg Take 1 [facility] 25 mg 6-14 tablet by ity of tablet 00:00: mouth [place] 00 every 6 Medical (six) Branch hours as needed (high blood pressure). hydrALAZINE 2019-0 Yes [id number] 25mg Take 1 [facility] 25 mg 6-14 tablet by ity of tablet 00:00: mouth [place] 00 every 6 Medical (six) Branch hours as needed (high blood pressure). hydrALAZINE 2018-0 Yes [id number] 25mg Take 1 [facility] 25 mg 6-14 tablet by ity of tablet 00:00: mouth [place] 00 every 6 Medical (six) Branch hours as needed (high blood pressure). hydrALAZINE 2018-0 Yes [id number] 25mg Take 1 [facility] 25 mg 6-14 tablet by ity of tablet 00:00: mouth [place] 00 every 6 Medical (six) Branch hours as needed (high blood pressure). hydrALAZINE 2018-0 Yes [id number] 25mg Take 1 [facility] 25 mg 6-14 tablet by ity of tablet 00:00: mouth [place] 00 every 6 Medical (six) Branch hours as needed (high blood pressure). hydrALAZINE 2018-0 Yes [id number] 25mg Take 1 [facility] 25 mg 6-14 tablet by ity of tablet 00:00: mouth [place] 00 every 6 Medical (six) Branch hours as needed (high blood pressure). hydrALAZINE 2018-0 Yes [id number] 25mg Take 1 [facility] 25 mg 6-14 tablet by ity of tablet 00:00: mouth [place] 00 every 6 Medical (six) Branch hours as needed (high blood pressure). hydrALAZINE 2018-0 Yes [id number] 25mg Take 1 [facility] 25 mg 6-14 tablet by ity of tablet 00:00: mouth [place] 00 every 6 Medical (six) Branch hours as needed (high blood pressure). hydrALAZINE 2019-0 Yes [id number] 25mg Take 1 [facility] 25 mg 6-14 tablet by ity of tablet 00:00: mouth [place] 00 every 6 Medical (six) Branch hours as needed (high blood pressure). hydrALAZINE 2019-0 Yes [id number] 25mg Take 1 [facility] 25 mg 6-14 tablet by ity of tablet 00:00: mouth [place] 00 every 6 Medical (six) Branch hours as needed (high blood pressure). hydrALAZINE 2018-0 Yes [id number] 25mg Take 1 Univers 25 mg 6-14 tablet by ity of tablet 00:00: mouth [place] 00 every 6 Medical (six) Branch hours as needed (high blood pressure). hydrALAZINE Yes [id number] 25mg Take 1 Univers 25 mg 6-14 tablet by ity of tablet 00:00: mouth [place] 00 every 6 Medical (six) Branch hours as needed (high blood pressure). hydrALAZINE Yes [id number] 25mg Take 1 Univers 25 mg 6-14 tablet by ity of tablet 00:00: mouth [place] 00 every 6 Medical (six) Branch hours as needed (high blood pressure). hydrALAZINE Yes [id number] 25mg Take 1 Univers 25 mg 6-14 tablet by ity of tablet 00:00: mouth [place] 00 every 6 Medical (six) Branch hours as needed (high blood pressure). hydrALAZINE 2020- No [id number] 25mg Take 1 Univers 25 mg 6-14 01-30 tablet by ity of tablet 00:00: 00:00 mouth [place] 00 :00 every 6 Medical (six) Branch hours as needed (high blood pressure). hydrALAZINE 2020- No [id number] 25mg Take 1 Univers 25 mg 6-14 01-30 tablet by ity of tablet 00:00: 00:00 mouth [place] 00 :00 every 6 Medical (six) Branch hours as needed (high blood pressure). LISINOPRIL Yes [id number] TAKE ONE Univers 40 mg 3-14 TABLET BY ity of tablet 00:00: MOUTH [place] 00 DAILY Medical Branch LISINOPRIL 2018-0 Yes [id number] TAKE ONE Univers 40 mg 3-14 TABLET BY ity of tablet 00:00: MOUTH [place] 00 DAILY Medical Branch LISINOPRIL 2018-0 Yes [id number] TAKE ONE Univers 40 mg 3-14 TABLET BY ity of tablet 00:00: MOUTH [place] 00 DAILY Medical Branch LISINOPRIL 2018-0 Yes [id number] TAKE ONE Univers 40 mg 3-14 TABLET BY ity of tablet 00:00: MOUTH [place] 00 DAILY Medical Branch LISINOPRIL 2018-0 2019- No [id number] TAKE ONE Univers 40 mg 3-14 08-09 TABLET BY ity of tablet 00:00: 00:00 MOUTH [place] 00 :00 DAILY Medical Branch CLONIDINE 2018-0 Yes [id number] TAKE TWO Univers 0.1 mg 9-17 TABLETS BY ity of tablet 00:00: MOUTH [place] 00 EVERY 6 Medical HOURS Branch NEEDED CLONIDINE 2018-0 Yes [id number] TAKE TWO Univers 0.1 mg 9-17 TABLETS BY ity of tablet 00:00: MOUTH [place] 00 EVERY 6 Medical HOURS Branch NEEDED CLONIDINE 2018-0 Yes [id number] TAKE TWO Univers 0.1 mg 9-17 TABLETS BY ity of tablet 00:00: MOUTH [place] 00 EVERY 6 Medical HOURS Branch NEEDED CLONIDINE 2018-0 Yes [id number] TAKE TWO Univers 0.1 mg 9-17 TABLETS BY ity of tablet 00:00: MOUTH [place] 00 EVERY 6 Medical HOURS Branch NEEDED CLONIDINE 2018-0 Yes [id number] TAKE TWO Univers 0.1 mg 9-17 TABLETS BY ity of tablet 00:00: MOUTH [place] 00 EVERY 6 Medical HOURS Branch NEEDED CLONIDINE 2018-0 Yes [id number] TAKE TWO Univers 0.1 mg 9-17 TABLETS BY ity of tablet 00:00: MOUTH [place] 00 EVERY 6 Medical HOURS Branch NEEDED CLONIDINE 2018-0 Yes [id number] TAKE TWO Univers 0.1 mg 9-17 TABLETS BY ity of tablet 00:00: MOUTH [place] 00 EVERY 6 Medical HOURS Branch NEEDED CLONIDINE 2018-0 Yes [id number] TAKE TWO Univers 0.1 mg 9-17 TABLETS BY ity of tablet 00:00: MOUTH [place] 00 EVERY 6 Medical HOURS Branch NEEDED CLONIDINE 2018-0 Yes [id number] TAKE TWO Univers 0.1 mg 9-17 TABLETS BY ity of tablet 00:00: MOUTH [place] 00 EVERY 6 Medical HOURS Branch NEEDED CLONIDINE 2018-0 Yes [id number] TAKE TWO Univers 0.1 mg 9-17 TABLETS BY ity of tablet 00:00: MOUTH [place] 00 EVERY 6 Medical HOURS Branch NEEDED CLONIDINE 2018-0 Yes [id number] TAKE TWO Univers 0.1 mg 9-17 TABLETS BY ity of tablet 00:00: MOUTH [place] 00 EVERY 6 Medical HOURS Branch NEEDED CLONIDINE 2018-0 Yes [id number] TAKE TWO Univers 0.1 mg 9-17 TABLETS BY ity of tablet 00:00: MOUTH [place] 00 EVERY 6 Medical HOURS Branch NEEDED CLONIDINE 2018-0 Yes [id number] TAKE TWO Univers 0.1 mg 9-17 TABLETS BY ity of tablet 00:00: MOUTH [place] 00 EVERY 6 Medical HOURS Branch NEEDED CLONIDINE 2018-0 Yes [id number] TAKE TWO Univers 0.1 mg 9-17 TABLETS BY ity of tablet 00:00: MOUTH [place] 00 EVERY 6 Medical HOURS Branch NEEDED CLONIDINE 2018-0 Yes [id number] TAKE TWO Univers 0.1 mg 9-17 TABLETS BY ity of tablet 00:00: MOUTH [place] 00 EVERY 6 Medical HOURS Branch NEEDED CLONIDINE 2018-0 Yes [id number] TAKE TWO Univers 0.1 mg 9-17 TABLETS BY ity of tablet 00:00: MOUTH [place] 00 EVERY 6 Medical HOURS Branch NEEDED mupirocin 2 2017- Yes Apply to Un oswaldo % ointment 8-27 area(s) 3 ity of 00:00: (three) [place] 00 times Medical daily. Branch mupirocin 2 2017- Yes Apply to Un oswaldo % ointment 8-27 area(s) 3 ity of 00:00: (three) [place] 00 times Medical daily. Branch mupirocin 2 2017- Yes Apply to Un oswaldo % ointment 8-27 area(s) 3 ity of 00:00: (three) [place] 00 times Medical daily. Branch mupirocin 2 2017- Yes Apply to Un oswaldo % ointment 8-27 area(s) 3 ity of 00:00: (three) [place] 00 times Medical daily. Branch mupirocin 2 2018-0 Yes Apply to Un oswaldo % ointment 8-27 area(s) 3 ity of 00:00: (three) [place] 00 times Medical daily. Branch mupirocin 2 2017- Yes Apply to Un oswaldo % ointment 8-27 area(s) 3 ity of 00:00: (three) [place] 00 times Medical daily. Branch mupirocin 2 2017- Yes Apply to Un oswaldo % ointment 8-27 area(s) 3 ity of 00:00: (three) [place] 00 times Medical daily. Branch mupirocin 2 2018-0 Yes Apply to Un oswaldo % ointment 8-27 area(s) 3 ity of 00:00: (three) [place] 00 times Medical daily. Branch mupirocin 2 2017- 2019- No Apply to U nivers % ointment 8-27 09-07 area(s) 3 ity of 00:00: 00:00 (three) [place] 00 :00 times Medical daily. Branch Immunizations Ordered Filled Immunization Date Status Comments [facility] e Immunization Name Name SARS-COV-2 COVID-19 2021-07-23 Completed Unive rsity of BENNY/J&J VACCINE 00:00:00 [facility] SARS-COV-2 COVID-19 2021-07-23 Completed Unive rsity of BENNY/J&J VACCINE 00:00:00 [facility] SARS-COV-2 COVID-19 2021-07-23 Completed Unive rsity of BENNY/J&J VACCINE 00:00:00 [facility] SARS-COV-2 COVID-19 2021-07-23 Completed Unive rsity of BENNY/J&J VACCINE 00:00:00 [facility] SARS-COV-2 COVID-19 2021-07-23 Completed Unive rsity of BENNY/J&J VACCINE 00:00:00 [facility] SARS-COV-2 COVID-19 2021-07-23 Completed Unive rsity of BENNY/J&J VACCINE 00:00:00 [facility] SARS-COV-2 COVID-19 2021-07-23 Completed Unive rsity of BENNY/J&J VACCINE 00:00:00 [facility] SARS-COV-2 COVID-19 2021-07-23 Completed Unive rsity of BENNY/J&J VACCINE 00:00:00 [facility] SARS-COV-2 COVID-19 2021-07-23 Completed Unive rsity of BENNY/J&J VACCINE 00:00:00 [facility] SARS-COV-2 COVID-19 2021-07-23 Completed Unive rsity of BENNY/J&J VACCINE 00:00:00 [facility] SARS-COV-2 COVID-19 2021-07-23 Completed Unive rsity of BENNY/J&J VACCINE 00:00:00 [facility] SARS-COV-2 COVID-19 2021-07-23 Completed Unive rsity of BENNY/J&J VACCINE 00:00:00 [facility] SARS-COV-2 COVID-19 2021-07-23 Completed Unive rsity of BENNY/J&J VACCINE 00:00:00 [facility] SARS-COV-2 COVID-19 2021-07-23 Completed Unive rsity of BENNY/J&J VACCINE 00:00:00 [place] [facility] SARS-COV-2 COVID-19 2021-07-23 Completed Unive rsity of BENNY/J&J VACCINE 00:00:00 [facility] Benny COVID-19 Benny COVID-19 2021-07-23 Completed Vaccine Vaccine 00:00:00 SARS-COV-2 COVID-19 2020-09-27 Completed Unive rsity of BENNY/J&J VACCINE 00:00:00 [facility] SARS-COV-2 COVID-19 2020-09-27 Completed Unive rsity of BENNY/J&J VACCINE 00:00:00 [facility] SARS-COV-2 COVID-19 2020-09-27 Completed Unive rsity of BENNY/J&J VACCINE 00:00:00 [facility] SARS-COV-2 COVID-19 2020-09-27 Completed Unive rsity of BENNY/J&J VACCINE 00:00:00 [facility] SARS-COV-2 COVID-19 2020-09-27 Completed Unive rsity of BENNY/J&J VACCINE 00:00:00 [facility] SARS-COV-2 COVID-19 2020-09-27 Completed Unive rsity of BENNY/J&J VACCINE 00:00:00 [facility] SARS-COV-2 COVID-19 2020-09-27 Completed Unive rsity of BENNY/J&J VACCINE 00:00:00 [facility] SARS-COV-2 COVID-19 2020-09-27 Completed Unive rsity of BENNY/J&J VACCINE 00:00:00 [facility] SARS-COV-2 COVID-19 2020-09-27 Completed Unive rsity of BENNY/J&J VACCINE 00:00:00 [facility] SARS-COV-2 COVID-19 2020-09-27 Completed Unive rsity of BENNY/J&J VACCINE 00:00:00 [facility] SARS-COV-2 COVID-19 2020-09-27 Completed Unive rsity of BENNY/J&J VACCINE 00:00:00 [facility] SARS-COV-2 COVID-19 2020-09-27 Completed Unive rsity of BENNY/J&J VACCINE 00:00:00 [facility] SARS-COV-2 COVID-19 2020-09-27 Completed Unive rsity of BENNY/J&J VACCINE 00:00:00 [facility] SARS-COV-2 COVID-19 2020-09-27 Completed Unive rsity of BENNY/J&J VACCINE 00:00:00 [facility] SARS-COV-2 COVID-19 2020-09-27 Completed Unive rsity of BENNY/J&J VACCINE 00:00:00 [facility] SARS-COV-2 COVID-19 2020-09-27 Completed Unive rsity of BENNY/J&J VACCINE 00:00:00 [facility] SARS-COV-2 COVID-19 2020-09-27 Completed Unive rsity of BENNY/J&J VACCINE 00:00:00 [facility] SARS-COV-2 COVID-19 2020-09-27 Completed Unive rsity of BENNY/J&J VACCINE 00:00:00 [facility] SARS-COV-2 COVID-19 2020-09-27 Completed Unive rsity of BENNY/J&J VACCINE 00:00:00 [facility] SARS-COV-2 COVID-19 2020-09-27 Completed Unive rsity of BENNY/J&J VACCINE 00:00:00 [facility] SARS-COV-2 COVID-19 2020-09-27 Completed Unive rsity of BENNY/J&J VACCINE 00:00:00 [facility] SARS-COV-2 COVID-19 2020-09-27 Completed Unive rsity of BENNY/J&J VACCINE 00:00:00 [facility] SARS-COV-2 COVID-19 2020-09-27 Completed Unive rsity of BENNY/J&J VACCINE 00:00:00 [facility] SARS-COV-2 COVID-19 2020-09-27 Completed Unive rsity of BENNY/J&J VACCINE 00:00:00 [facility] SARS-COV-2 COVID-19 2020-09-27 Completed Unive rsity of BENNY/J&J VACCINE 00:00:00 [facility] SARS-COV-2 COVID-19 2020-09-27 Completed Unive rsity of BENNY/J&J VACCINE 00:00:00 [facility] SARS-COV-2 COVID-19 2020-09-27 Completed Unive rsity of BENNY/J&J VACCINE 00:00:00 [facility] SARS-COV-2 COVID-19 2020-09-27 Completed Unive rsity of BENNY/J&J VACCINE 00:00:00 [facility] SARS-COV-2 COVID-19 2020-09-27 Completed Unive rsity of BENNY/J&J VACCINE 00:00:00 [facility] Benny COVID-19 Benny COVID-19 2020-09-27 Completed Vaccine Vaccine 00:00:00 Vital Signs Vital Name Observation Time Observation Value Comments Source Systolic blood 2022-10-23 15:31:00 144 mm[Hg] Univer sity of pressure [facility] Diastolic blood 2022-10-23 15:31:00 65 mm[Hg] Unive rsity of pressure [facility] Heart rate 2022-10-23 15:31:00 66 /min Universi ty of [facility] Body temperature 2022-10-23 15:31:00 37 Katie Univ ersity of [facility] Respiratory rate 2022-10-23 15:31:00 18 /min Univ ersity of [facility] Body height 2022-10-23 15:31:00 152.4 cm Universi ty of [facility] Body weight 2022-10-23 15:31:00 62.143 kg Universi ty of [facility] BMI 2022-10-23 15:31:00 26.76 kg/m2 Universi ty of [facility] Oxygen saturation in 2022-10-23 15:31:00 98 /min [facility] Arterial blood by [facility] Pulse oximetry Branch Systolic blood 2022-05-29 20:54:00 162 mm[Hg] Univer sity of pressure [facility] Diastolic blood 2022-05-29 20:54:00 77 mm[Hg] Unive rsity of pressure [facility] Heart rate 2022-05-29 20:37:00 67 /min Universi ty of [facility] Body temperature 2022-05-29 20:37:00 36.17 Katie Univ ersity of [facility] Respiratory rate 2022-05-29 20:37:00 18 /min Univ ersity of [facility] Body height 2022-05-29 20:37:00 152.4 cm Universi ty of [facility] Body weight 2022-05-29 20:37:00 61.916 kg Universi ty of [facility] BMI 2022-05-29 20:37:00 26.66 kg/m2 Universi ty [facility] [place] [facility] Oxygen saturation in 2022-05-29 20:37:00 97 /min University of Arterial blood by [facility] Pulse oximetry Branch Systolic blood 2020-11-27 16:53:00 172 mm[Hg] Univer sity of pressure [place] [facility] Diastolic blood 2020-11-27 16:53:00 68 mm[Hg] Unive rsity of pressure [place] [facility] Heart rate 2020-11-27 16:53:00 74 /min Universi ty [facility] [place] [facility] Body temperature 2020-11-27 16:53:00 36.56 Katie [facility] ersity of [facility] Branch Respiratory rate 2020-11-27 16:53:00 18 /min Univ ersity of [facility] Body height 2020-11-27 16:53:00 157.5 cm Universi ty of [place] [facility] Body weight 2020-11-27 16:53:00 63.776 kg [facility]i [facility] [place] [facility] BMI 2020-11-27 16:53:00 25.72 kg/m2 [facility] [place] [facility] Oxygen saturation in 2020-11-27 16:53:00 98 /min University of Arterial blood by [facility] Pulse oximetry Branch Body temperature 2020-04-03 14:02:00 36.94 Katie [facility] ersity of [place] [facility] Body weight 2020-04-03 14:02:00 59.875 kg [facility]i [facility] [place] [facility] BMI 2020-04-03 14:02:00 22.66 kg/m2 [facility] [place] [facility] Body temperature 2020-02-21 13:42:00 36.11 Katie Univ ers[facility] of [place] [facility] Body weight 2020-02-21 13:42:00 59.875 kg [facility] [place] [facility] BMI 2020-02-21 13:42:00 22.66 kg/m2 [facility] [place] [facility] Body temperature 2020-01-24 13:51:00 35.56 Katie [facility] ers[facility] of [place] [facility] Body weight 2020-01-24 13:51:00 59.875 kg [facility] [place] [facility] BMI 2020-01-24 13:51:00 22.66 kg/m2 Universi ty of [facility] Systolic blood 2020-01-16 06:27:00 120 mm[Hg] Univer sity of pressure [place] [facility] Diastolic blood 2020-01-16 06:27:00 73 mm[Hg] Unive rsity of pressure [place] [facility] Heart rate 2020-01-16 06:27:00 72 /min [facility]i [facility] [place] [facility] Body temperature 2020-01-16 06:27:00 36.67 Katie [facility] ersity of [place] [facility] Respiratory rate 2020-01-16 06:27:00 18 /min Univ ersity of [place] [facility] Oxygen saturation in 2020-01-16 06:27:00 99 /min University of Arterial blood by [place] [employer] [facility] Pulse oximetry Branch Body weight 2020-01-16 03:49:00 58.968 kg [facility]i [facility] [place] [facility] BMI 2020-01-16 03:49:00 22.31 kg/m2 [facility] [place] [facility] Systolic blood 2019-09-12 22:11:00 176 mm[Hg] Univer sity of pressure [place] [facility] Diastolic blood 2019-09-12 22:11:00 73 mm[Hg] Unive rsity of pressure [place] [facility] Heart rate 2019-09-12 22:11:00 86 /min [facility] [place] [facility] Body temperature 2019-09-12 22:11:00 36.67 Katie [facility] ers[facility] of [place] [facility] Respiratory rate 2019-09-12 22:11:00 18 /min Univ ersity of [place] [facility] Body weight 2019-09-12 22:11:00 60.782 kg [facility] [place] [facility] BMI 2019-09-12 22:11:00 23.00 kg/m2 [facility] [place] [facility] Oxygen saturation in 2019-09-12 22:11:00 97 /min University of Arterial blood by [place] [employer] [facility] Pulse oximetry Branch Systolic blood 2019-08-22 15:42:00 138 mm[Hg] Univer sity of pressure [place] [facility] Diastolic blood 2019-08-22 15:42:00 68 mm[Hg] Unive rsity of pressure [place] [facility] Heart rate 2019-08-22 15:42:00 87 /min [facility] [place] [facility] Respiratory rate 2019-08-22 15:42:00 16 /min Univ ersity of [place] [facility] Body height 2019-08-22 15:42:00 162.6 cm [facility] [place] [facility] Body weight 2019-08-22 15:42:00 59.875 kg [facility] [place] [facility] BMI 2019-08-22 15:42:00 22.66 kg/m2 Universi ty of [facility] Oxygen saturation in 2019-08-22 15:42:00 98 /min University of Arterial blood by [facility] Pulse oximetry Branch Systolic blood 2019-08-18 16:41:00 128 mm[Hg] Univer sity of pressure [place] [facility] Diastolic blood 2019-08-18 16:41:00 75 mm[Hg] Unive rsity of pressure [facility] Heart rate 2019-08-18 16:41:00 110 /min Universi ty of [facility] Body temperature 2019-08-18 16:41:00 37 Katie Univ ersity of [facility] Respiratory rate 2019-08-18 16:41:00 16 /min Univ ersity of [facility] Body weight 2019-08-18 16:41:00 59.693 kg [facility] [place] [facility] BMI 2019-08-18 16:41:00 22.59 kg/m2 Universi ty of [facility] Systolic blood 2019-03-29 20:10:00 165 mm[Hg] Univer sity of pressure [facility] Branch Diastolic blood 2019-03-29 20:10:00 65 mm[Hg] Unive rsity of pressure [facility] Heart rate 2019-03-29 20:10:00 88 /min Universi ty of [facility] Body height 2019-03-29 20:10:00 157.5 cm [facility] [place] [facility] Body weight 2019-03-29 20:10:00 64.411 kg [facility] [place] [facility] BMI 2019-03-29 20:10:00 25.97 kg/m2 Universi ty of [facility] Systolic blood 2019-02-15 15:51:00 155 mm[Hg] Univer sity of pressure [facility] Diastolic blood 2019-02-15 15:51:00 68 mm[Hg] Unive rsity of pressure [place] [facility] Heart rate 2019-02-15 15:51:00 62 /min Universi ty of [facility] Respiratory rate 2019-02-15 15:48:00 16 /min Univ ersity of [facility] Body height 2019-02-15 15:48:[address] [facility] Body weight 2019-02-15 15:48:[address] [facility] BMI 2019-02-15 15:48:00 26.10 kg/m2 [facility] Oxygen saturation in 2019-02-15 15:48:00 98 /min [facility] Arterial blood by [facility] Pulse oximetry Branch Body temperature 2019-02-15 15:48:00 35.78 Katie [facility] Procedures Procedure Date / Time Performing Clinician Source Performed PHYSICIAN ORDERS 2022-10-21 05:01:00 Doctor Unassigned, No [facility] of [place] Name Medical Branch SARS-COV-2 COVID-19 2021-07-23 15:39:18 [facility], [facility],IM Name [facility] (BENNY/J&J) DEXA AXIAL (HIP AND 2020-12-25 19:51:41 Milla Marx Uni [facility] SPINE) [facility] HIGH SENSITIVITY CRP 2020-11-28 15:57:00 [facility] VW LEFT 2020-04-03 13:53:[address] [facility] XR WRIST 3+ VW LEFT 2020-02-21 14:17:[address] [facility] XR WRIST 3+ VW LEFT 2020-01-24 13:48:[address] [facility] CT THORAX WO CONTRAST 2019-09-07 16:01:43 Milla Marx [facility] VITAMIN D, 2019-08-22 17:50:00 Adalberto Victor [facility] 25-HYDROXY,$LC/MS/MS-Q Medical B ranch XR WRIST <3 VW LEFT 2019-03-29 20:15:[address] [facility] ZINC, SERUM 2019-02-16 13:29:00 Milla Marx [facility] FERRITIN SERUM 2019-02-16 13:29:00 Milla Marx [facility] IRON 2019-02-16 13:29:00 Milla Marx [facility] VITAMIN B12, LEVEL 2019-02-16 13:29:00 Milla Marx [facility] Medical Branch FOLATE 2019-02-16 13:29:00 Milla Marx [facility] TOTAL IRON BINDING 2019-02-16 13:29:00 Milla Marx [facility] CAPACITY Medical Branch FREE T4 2019-02-16 13:29:00 Milla Marx [facility] THYROID STIMULATING 2019-02-16 13:29:00 Milla Marx [facility] HORMONE Medical Sun[place] COMP. METABOLIC PANEL 2019-02-16 13:29:00 Milla Marx [facility] ([id number]) [facility] CBC WITH DIFFERENTIAL 2019-02-16 13:29:00 Milla Marx [facility] GLYCOSYLATED HEMOGLOBIN 2019-02-16 13:29:00 [facility] HOMOCYSTEINE 2019-02-16 13:29:00 Milla Marx [facility] FREE T3 2019-02-16 13:29:00 Milla Marx [facility] VITAMIN B1 (THIAMINE), 2019-02-16 13:29:00 Milla Marx [facility] WHOLE BLOOD [facility] Plan of Care Planned Activity Planned Date Details Comments Source Future Scheduled 2023-05-16 COVID-19 VACCINE (#1) [facility] Test 06:12:08 [code = COVID-19 VACCINE (#1)] Future Scheduled 2023-05-16 SHINGLES VACCINES (1 Met [facility] Test 06:12:08 of 2) [code = SHINGLES VACCINES (1 of 2)] Future Scheduled 2023-05-16 65+ [facility] 06:12:08 VACCINE (1 - PCV) [code = 65+ PNEUMOCOCCAL VACCINE (1 - PCV)] Future Scheduled 2023-05-16 INFLUENZA VACCINE (#1) [facility] [place] [facility] Test 06:12:08 [code = INFLUENZA VACCINE (#1)] Future Scheduled 2023-05-09 COVID-19 VACCINE (#1) [facility] Test 23:54:49 [code = COVID-19 VACCINE (#1)] Future Scheduled 2023-05-09 SHINGLES VACCINES (1 Met [facility] Test 23:54:49 of 2) [code = SHINGLES VACCINES (1 of 2)] Future Scheduled 2023-05-09 RSV VACCINES > 60 YR [facility] Test 23:54:49 (1 - 1-dose 60+ series) [code = RSV VACCINES > 60 YR (1 - 1-dose 60+ series)] Future Scheduled 2023-05-09 65+ [facility]AL [facility] Test 23:54:49 VACCINE (1 - PCV) [code = 65+ PNEUMOCOCCAL VACCINE (1 - PCV)] Future Scheduled 2023-05-09 INFLUENZA VACCINE (#1) [facility] Test 23:54:49 [code = INFLUENZA VACCINE (#1)] Encounters Start End Encounter Admission Attending Care Care Encounter Source Date/Time Date/Time Type Type Clinicians Facility Department ID 2021-05-17 Emergency [facility] [id number] Univers 03:19:22 [facility] 2023-05-25 2023-05-25 Outpatient R [facility] [id number] Univers 11:15:00 11:15:00 [facility] 2023-01-29 2023-01-29 [id number] Univers 00:00:00 00:00:00 Milla VILLALBA [id number] ity [facility] [id number] [id number] [place] [address] 2022-11-11 2022-11-11 [facility] [id number] Univers 00:00:00 00:00:00 Milla VILLALBA [id number] ity of [id number] [id number] [address] 2022-10-23 2022-10-23 Nurse 2, Adc Infusion Chair [facility] 1.2. [id number] Univers 11:00:00 13:30:00 Visit AmorCheikhtatianna VILLALBA [id number] [facility] [id number] [id number] [address] 2022-10-23 2022-10-23 [facility] [id number] Univers 11:00:00 11:00:00 RACHNA itbabak [facility] 2022-10-21 2022-10-21 Orders Doctor DON [id number] Univers 00:00:00 00:00:00 Only Unassigned, SANT[place] [id number] ity of [place] [facility] [id number] Boy as [id number] [address] 2022-09-21 2022-09-21 Refill [facility] [id number] Univers 00:00:00 00:00:00 Milla VILLALBA [id number] ity [id number] [phone] [address] 2022-05-29 2022-05-29 Outpatient R FRANCISCO J [facility] [id number] Univers 14:20:00 15:52:18 MILLA ortega [facility] 2022-05-29 2022-05-29 Office [facility] 1.2.840.114 [id number] Univers 14:20:00 15:52:18 Visit Milla VILLALBA 350.1.13.10 ity of [place] [id number] [address] 2022-05-10 2022-05-10 Ref[facility]isha [facility] 1.2.840.114 [id number] Univers 00:00:00 00:00:00 Milla VILLALBA 350.1.13.10 ity of [place] [phone] [facility] 231 [facility] 2022-04-28 2022-04-28 Refill Francisco [facility] 1.2.840.114 [id number] Univers 00:00:00 00:00:00 Milla VILLALBA 350.1.13.10 ity of [place] [id number] [address] 2022-02-28 2022-02-28 Outpatient R [facility] [id number] [id number] Univers 16:20:00 17:02:56 [facility] 2022-02-28 2022-02-28 Telemedici Francisco [facility] 1.2.840.114 [id number] [facility] 16:20:00 17:02:56 ne Visit Milla VILLALBA 350.1.13.10 ity [facility] [place] [phone] [address] 2022-02-25 2022-02-25 Outpatient R FRANCISCO J [facility] 1041 [id number] Univers 13:00:00 13:00:00 MILLA [facility] 2022-02-25 2022-02-25 Outpatient R FRANCISCO J [facility] 1037 [id number] Univers 10:00:00 10:00:00 [facility] 2021-11-20 2021-11-20 Welt Stitch Cleaner 2, Adc Lab [facility] 1.2.840.114 [id number] Univers 08:00:00 08:15:00 Visit Milla Marx 350.1. 13.10 ity of [place] [phone] [facility] 353 [facility] 2021-11-20 2021-11-20 Outpatient R [facility] 1037 [id number] Univers 08:00:00 08:00:00 [facility] 2021-10-31 2021-10-31 [facility] 1.2.840.114 [id number] Univers 00:00:00 00:00:00 Milla VILLALBA 350.1.13.10 ity of [facility] [place] [phone] [address] 2021-08-23 2021-08-23 Outpatient R [facility] [id number] [id number] Univers 11:00:00 13:21:40 [facility] 2021-08-23 2021-08-23 Telemedici [facility] 1..840.114 [id number] Univers 11:00:00 13:21:40 ne Visit Milla VILLALBA 350.1.13.10 ity of [place] [phone] [address] 2021-08-01 2021-08-01 Outpatient R [facility] [id number] Univers 11:00:00 11:00:00 MILLA babak [facility] 2021-07-30 2021-07-30 Telephone [facility] 1.2.840.114 [id number] Univers 00:00:00 00:00:00 Milla VILLALBA 350.1.13.10 ity of [facility] 4.[place] [phone] [address] 2021-07-23 2021-07-23 Outpatient R [facility] [id number] Univers 10:10:00 10:10:00 EZEKIEL ortega [facility] 2021-07-23 2021-07-23 Imm/Inj Nurse, Adc Pob Immunization [facility] 1.2.840.114 [id number] Univers 10:10:00 10:10:00 Visit Ezekiel Hurtado 350.1.13 .10 ity of [facility] 4.2.7.[place] [phone] [address] 2021-07-23 2021-07-23 Outpatient GCCOVIDV GCCOVIDV [id number] GCCOVID 00:00:00 00:00:00 V 2021-07-19 2021-07-19 Outpatient Jey HURTADO [facility] [id number] Univers 13:00:00 13:00:00 EZEKIEL [facility] 2021-06-19 2021-06-19 Outpatient Jey MARX [facility] [id number] Univers 12:00:00 12:00:00 [facility] 2021-06-19 2021-06-19 Welt Stitch Cleaner Pcp-Lab [facility] 1.2.840.114 [id number] Univers 09:47:51 10:02:51 Visit Milla Marx 350.1.1 3.10 ity of [place].2.[place] [id number] [facility] [address] 2021-06-17 2021-06-17 Telephone Francisco [facility] 1.2.840.114 [id number] Univers 00:00:00 00:00:00 Milla VILLALBA 350.1.13.10 ity of [facility] 4.2.7.2.[place] [phone] [facility] 044 [facility] 2021-04-23 2021-04-23 Outpatient R [facility]ANCISCO [facility] 1033 [id number] Univers 15:00:00 15:00:00 MILLA ortega [facility] 2021-04-23 2021-04-23 Telemedici Francisco [facility] 1.2.840.114 [id number] Univers 08:07:51 08:47:51 ne Visit Milla Villalba 350.1.13.10 ity of [place] 4.[place] [phone] [facility] 231 [facility] 2021-01-11 2021-01-11 Refill [facility] 1.2.840.114 [id number] Univers 00:00:00 00:00:00 Milla A [place] 350.1.13.10 ity of [place].7.2.[place] [phone] [facility]44 [facility] 2021-01-10 2021-01-10 Outpatient R [facility] 1033 [id number] Univers 15:40:00 15:40:00 MILLA ity [facility] 2021-01-10 2021-01-10 [facility]medici [facility] 1.2.840.114 [id number] Univers 07:47:18 08:27:18 ne Visit Milla Zambrano [place] 350.1.13.10 ity of [place] 4.[place] [phone] [facility] 231 [facility] 2020-12-25 2020-12-25 Hospital [facility] 1.2.840.114 [id number] [facility] 14:27:43 23:59:00 Encounter Milla A Y HEALTH 350.1.13.10 ity of CL[place] [id number] [facility] [address] 2020-12-25 2020-12-25 [facility] 1.[facility].840.114 [id number] Univers 14:20:00 14:26:00 Encounter Milla A Y HEALTH 350.1.13.10 ity of [place]2.[place] [phone] [facility] [address] 2020-12-25 2020-12-25 Outpatient R FRANCISCO J [facility] [id number] Univers 00:00:00 00:00:00 MILLA ity [facility] 2020-12-18 2020-12-18 [facility] 1.2.840.114 [id number] Univers 00:00:00 00:00:00 Secure Msg Milla Zambrano [place] 350.1.13.10 ity of [place] 4[place]2.7.[place] [phone] [facility] 2020-12-11 2020-12-11 Outpatient R MARX [facility] 1032 [id number] Univers 15:40:00 15:40:00 MILLA ortega [facility] 2020-11-28 2020-11-28 Welt Stitch Cleaner Pcp-Lab [facility] 1.2.840.114 [id number] Univers 10:51:09 11:06:09 Visit Francisco J Milla Zambrano PRIMARY 350.1.1 3.10 ity of [place] [phone] [address] 2020-11-28 2020-11-28 Outpatient R MARX [facility] 1032 [id number] Univers 11:00:00 11:00:00 MILLA ortega [facility] 2020-11-28 2020-11-28 Patient Francisco J [facility] 1.2.840.114 [id number] Univers 00:00:00 00:00:00 Secure Msg Milla Zambrano [place] 350.1.13.10 ity of [place] 4.2.[place].2.[place] [phone] [address] 2020-11-27 2020-11-27 Office Francisco J [facility] 1.2.840.114 [id number] Univers 10:54:54 13:25:46 Visit Milla Villalba 350.1.13.10 ity of [place]2.[place].2.[place] [phone] Mn dic[address] 2020-11-27 2020-11-27 Outpatient R MARX [facility] 1032 [id number] Univers 11:00:00 11:00:00 MILLA ortega [facility] 2020-11-20 2020-11-20 Telephone Francisco [facility] 1.2.840.114 [id number] Univers 00:00:00 00:00:00 Milla Zambrano [place] 350.1.13.10 ity of [place] [phone] [address] 2020-09-27 2020-09-27 Outpatient [facility] [id number] Univers 11:40:00 11:40:00 ity of [facility] 2020-09-27 2020-09-27 Outpatient GCCOVIDV GCCOVIDV [id number] GCCOVID 00:00:00 00:00:00 V 2020-09-06 2020-09-06 Refill Francisco [facility] 1.2.840.114 [id number] Univers 00:00:00 00:00:00 Milla [place] 350.1.13.10 ity of [place] [phone] [address] 2020-08-21 2020-08-21 Telephone Francisco [facility] 1.2.840.114 [id number] Univers 00:00:00 00:00:00 Milla Villalba 350.1.13.10 ity of [place].2.[place] [phone] [address] 2020-08-16 2020-08-16 [facility] 1.2.840.114 [id number] Univers 00:00:00 00:00:00 Milla Villalba 350.1.13.10 ity of [place].2.[place] [phone] [address] 2020-08-11 2020-08-11 Patient Teja [facility] 1.2.840.114 [id number] Univers 00:00:00 00:00:00 Outreach Ezekiel PRIMARY 350.1.13.10 i ty of [facility] 4.2.7.2.[place] [phone] [address] 2020-07-24 2020-07-24 Patient Francisco J [facility] 1.2.840.114 [id number] Univers 00:00:00 00:00:00 Secure Msg Milla A [place] 350.1.13.10 ity of [place].2.7.2.[place] [phone] [address] 2020-06-13 2020-06-13 Telemedici [facility] 1.2.840.114 [id number] Univers 10:43:30 14:22:33 ne Visit Milla Benzton 350.1.13.10 ity of [place] 4.2.7.2.[place] [phone] [address] 2020-06-13 2020-06-13 Outpatient R AMRX, [facility] [id number] Univers 10:20:00 10:20:00 MILLA ortega [facility] 2020-06-11 2020-06-11 Welt Stitch Cleaner Pcp-Lab [facility] 1.2.840.114 [id number] Univers 08:10:58 08:25:58 Visit Unknown, Attending PRIMARY 350.1.13.10 ity of MarxMilla [facility] 4.2.7.2.[address] [place] [phone] 2020-06-11 2020-06-11 Outpatient R UNKNOWN, [facility] [id number] Univers 08:15:00 08:15:00 ATTENDING ity [facility] 2020-06-05 2020-06-05 [facility] [id number] Univers 10:20:00 10:20:00 MILLA ortega [facility] 2020-06-05 2020-06-05 [facility] 1.2.840.114 7 [id number] Univers 00:00:00 00:00:00 Milla Benzton 350.1.13.10 ity of [place].2.[place] [phone] [address] 2020-06-05 2020-06-05 [facility] 1.2.840.114 7 [id number] Univers 00:00:00 00:00:00 Milla A [place] 350.1.13.10 ity of [place].2.[place] [phone] [facility] [address] [facility] 2020-06-04 2020-06-04 [facility] 1.2.840.114 7 [id number] Univers 00:00:00 00:00:00 Milla Villalba 350.1.13.10 ity of [place] 4.2.7.2.[place] [phone] [address] 2020-06-03 2020-06-03 [facility] 1.2.840.114 [id number] Univers 00:00:00 00:00:00 Milla Villalba 350.1.13.10 ity of [place].2.[place] [phone] [address] 2020-05-31 2020-05-31 Laboratory Nurse, Gal Pcp Ammy lazar [facility] 1.2.840.114 [id number] Univers 13:17:29 13:32:29 Only Elías [place] [facility] 350.1.13.10 ity of [facility] 4.2.7.2.[place] [id number] [address] 2020-05-31 2020-05-31 Outpatient R LICO [facility] [id number] Univers 13:30:00 13:30:00 ELÍAS ity [facility] 2020-05-31 2020-05-31 Letter [facility] 1.2.840.114 [id number] Univers 00:00:00 00:00:00 (Out) SANTOS 350.1.13.10 it y of [facility] 4.2.7.2.686 Boy as [phone] [address] 2020-05-30 2020-05-30 Telephone [facility] 1.2.840.114 [id number] Univers 00:00:00 00:00:00 Milla Villalba 350.1.13.10 ity of [place] [phone] [address] 2020-04-03 2020-04-03 [facility] 1.2.343.774 [id number] Univers 08:49:00 23:59:00 Encounter Atif A PRIMARY 350.1.13.10 ity of [place]2.[place] [phone] [facility] [address] 2020-04-03 2020-04-03 Office [facility] 1.2.840.114 [id number] Univers 08:45:37 09:00:37 Visit Atif A PRIMARY 350.1.13.10 it y of [place].2.[place] [phone] [facility] [address] 2020-04-03 2020-04-03 Outpatient R [facility] [id number] Univers 08:30:00 08:30:00 [facility] 2020-03-30 2020-03-30 [facility] 1.2.840.114 [id number] Univers 00:00:00 00:00:00 Anjelica PRIMARY 350.1.13.10 it y of [place].2.[place] [id number] [facility] [address] 2020-02-21 2020-02-21 [facility] 1.2.897.163 [id number] Univers 09:05:53 23:59:00 Encounter Atif A PRIMARY 350.1.13.10 ity of [place]2.[place].2.[place] [id number] [facility] [address] 2020-02-21 2020-02-21 [facility] 1.2.840.114 [id number] Univers 08:34:45 16:11:58 Visit Atif A PRIMARY 350.1.13.10 it y of [place] 4[place]2.7.2.[place] [phone] [facility] [address] 2020-02-21 2020-02-21 Outpatient R [facility] [id number] Univers 08:30:00 08:30:00 ATIF ity [facility] 2020-02-20 2020-02-20 Abstract [facility] 1.2.840.114 [id number] Univers 00:00:00 00:00:00 Anjelica PRIMARY 350.1.13.10 it y of C[place]2.[place] [phone] [facility] [address] 2020-01-24 2020-01-24 [facility] 1.2.903.213 [id number] Univers 08:31:00 23:59:00 Encounter Atif A PRIMARY 350.1.13.10 ity of [place].2.[place] [id number] [facility] [address] 2020-01-24 2020-01-24 Office [facility] 12.840.114 [id number] Univers 08:19:59 16:47:06 Visit Atif A PRIMARY 350.1.13.10 it y of [place].2.[place] [id number] [address] 2020-01-24 2020-01-24 Outpatient R [facility] [id number] Univers 08:15:00 08:15:00 [facility] 2020-01-23 2020-01-23 [facility] 12.840.114 [id number] Univers 00:00:00 00:00:00 Anjelica PRIMARY 350.1.13.10 it y of [place]2.[place] [id number] [address] 2020-01-20 2020-01-20 Outpatient Jey [facility] [id number] Univers 14:15:00 14:15:00 MYRON ity [facility] 2020-01-17 2020-01-17 Office [facility] 1.2.840.114 [id number] Univers 08:04:08 14:35:08 Visit Atif A PRIMARY 350.1.13.10 it y of [place]2.[place] [phone] [address] 2020-01-17 2020-01-17 Outpatient R [facility] [id number] Univers 08:00:00 08:00:00 ATIF ity [facility] 2020-01-17 2020-01-17 Outpatient R MALLORY [facility] [id number] Univers 08:00:00 08:00:00 ATIF ity of [facility] 2020-01-15 2020-01-16 Emergency Monteiro, TRAUMA 1.2.511.196 [id number] Univers 22:50:49 01:29:00 Sylvain [facility] 350.1.13.10 ity of [place]2.7.2.[place] [phone] [facility] [address] 2020-01-16 2020-01-16 Abstract Fernando, UNIVERSIT 1.2.840.114 [id number] Univers 00:00:00 00:00:00 [facility] 350.1.13.10 i ty of CLINICS 4[place]2.7.2.[place] [phone] [facility] [address] 2019-11-24 2019-11-24 Telemedici [facility] 1.2.840.114 [id number] Univers 08:05:01 10:37:37 ne Visit Milla Villalba 350.1.13.10 ity of [place] 4[place]2.7.2.[place] [phone] Mn dic[address] 2019-11-24 2019-11-24 Outpatient R [facility] [id number] [id number] Univers 09:20:00 09:20:00 MILLA ortega [facility] 2019-11-10 2019-11-10 Outpatient R [facility] [id number] [id number] Univers 15:40:00 15:40:00 MILLA ortega [facility] 2019-11-10 2019-11-10 Telephone Marx, [facility] 1.2.840.114 7 [id number] Univers 00:00:00 00:00:00 Mlila Villalba 350.1.13.10 ity of [place]2.7.2.[place] [phone] Mn dical nal [address] [place] [address] 2019-11-08 2019-11-08 Outpatient R [facility] 1026 [id number] Univers 15:40:00 15:40:00 [facility] 2019-10-31 2019-10-31 [facility] 1.2.840.114 7 [id number] Univers 00:00:00 00:00:00 Milla Benzton 350.1.13.10 ity of [place] 4.2.7.2.[place] [phone] [address] 2019-10-25 2019-10-25 [facility] 1.2.840.114 7 [id number] [facility] 00:00:00 00:00:00 Milla Kenya [place] 350.1.13.10 ity of [place] 4.2.7.2.[place] [phone] [address] 2019-10-24 2019-10-24 Outpatient Jey VICTOR [facility] [id number] Univers 10:15:00 10:15:00 ADALBERTO [facility] 2019-10-13 2019-10-13 Telemedici [facility] 1.2.840.114 [id number] Univers 08:43:39 16:26:41 ne Visit Milla Benzton 350.1.13.10 ity of [place] 4.2.7.2.[place] [phone] [address] 2019-10-13 2019-10-13 Outpatient R [facility] [id number] [id number] Univers 15:40:00 15:40:00 MILLA [facility] 2019-10-07 2019-10-07 Outpatient R FRANCISCO J [facility] [id number] [id number] Univers 16:00:00 16:00:00 MILLA ortega [facility] 2019-10-07 2019-10-07 Outpatient R FRANCISCO J [facility] 1026 [id number] Univers 16:00:00 16:00:00 MILLA ortega [facility] 2019-09-30 2019-09-30 Outpatient R [facility] 1026 [id number] Univers 16:00:00 16:00:00 MILLA ortega [facility] 2019-09-30 2019-09-30 Telephone [facility] 1.2.840.114 [id number] Univers 00:00:00 00:00:00 Milla Kenya Villalba 350.1.13.10 ity of [place].2.[place] [phone] [address] 2019-09-26 2019-09-26 Patient Doctor DON 1.2.840.114 [id number] Univers 00:00:00 00:00:00 Secure Msg Unassigned, [place] 350.1.13.10 ity of [facility] 4.2.7.2.686 Boy as [phone] [address] 2019-09-22 2019-09-22 Telephone Marx, [facility] 1.2.840.114 7 [id number] Univers 00:00:00 00:00:00 Milla Villalba 350.1.13.10 ity of [place].2.[place] [phone] [address] 2019-09-22 2019-09-22 [facility] 1.2.840.114 7 [id number] Univers 00:00:00 00:00:00 Milla Villalba 350.1.13.10 ity of [place] 4[place]2.7.2.[place] [phone] [address] 2019-09-19 2019-09-19 Telephone [facility] 1.2.840.114 [id number] Univers 00:00:00 00:00:00 Robert MULTISPEC 350.1.13.10 ity of [place].2.7.2.[place] C[place] [phone] [facility] [place] [address] [facility] 2019-09-13 2019-09-13 Telephone Marx, [facility] 1.2.840.114 7 [id number] Univers 00:00:00 00:00:00 Milla Villalba 350.1.13.10 ity of [place].7.2.[place] [phone] Mn dical [facility] 2019-09-12 2019-09-12 Office [facility] 1.2.840.114 [id number] [facility] 15:20:58 17:44:30 Visit Milla Villalba 350.1.13.10 ity of [place] 4.2.7.2.[place] [phone] [address] 2019-09-12 2019-09-12 Outpatient R [facility] 1026 [id number] Univers 15:40:00 15:40:00 MILLA ity [facility] 2019-09-07 2019-09-07 [facility] [id number] Univers 09:39:24 23:59:00 MILLA ity [facility] 2019-09-07 2019-09-07 [facility] 1.2.840.114 [id number] [facility] 09:39:00 23:59:00 Encounter Milla PALMER 350.1.13.10 ity of [facility] 4.2.7.2.[place] [id number] [address] 2019-09-07 2019-09-07 Telephone [facility] 1.2.840.114 7 [id number] Univers 00:00:00 00:00:00 Milla Villalba 350.1.13.10 ity of [place].2.[place] [phone] [facility] 0[address] [facility] 2019-08-30 2019-08-30 Telephone [facility] 1.2.840.114 [id number] Univers 00:00:00 00:00:00 Milla Villalba 350.1.13.10 ity of [place] 4[place]2.7.2.[place] [phone] [facility] [address] [facility] 2019-08-26 2019-08-26 [facility] 1.2.840.114 [id number] Univers 00:00:00 00:00:00 Adalberto HILLS 350.1.13.10 ity of [place]2.[place].2.[place] [phone] [facility] [place] [address] [facility] 2019-08-25 2019-08-25 Telephone Francisco J [facility] 1.2.840.114 [id number] Univers 00:00:00 00:00:00 Milla Villalba 350.1.13.10 ity of [place] 4.2.7.2.[place] [phone] Mn dical nal [address] 2019-08-25 2019-08-25 Patient Doctor [facility] 1.2.840.114 [id number] Univers 00:00:00 00:00:00 Secure Msg Unassigned, PRIMARY 350.1.13.10 ity of [place] CARE 4[place]2.7.2.[place] [phone] Mn dicwi [address] 2019-08-22 2019-08-22 Office [facility] 1.2.599.360 [id number] Univers 09:31:48 11:06:46 Visit Adalberto Linkage 350.1.13.10 it y of [place] 4.2.7.2.686 [facility] [phone] [facility] Primary & [address] Specialty Care 2019-08-22 2019-08-22 Orders DON Victor 1.2.062.278 [id number] Univers 00:00:00 00:00:00 Only Adalberto Castillo SANT[place] 350.1.13.10 it y of HOSPITAL 4.2.7.2.686 Boy [phone] [facility] [address] 2019-08-22 2019-08-22 [facility] 1.2.840.114 [id number] Univers 00:00:00 00:00:00 Adalberto Linkage 350.1.13.10 it y of [place] 4.2.7.2.686 [facility] [phone] [facility] Primary & [address] [facility] 2019-08-18 2019-08-18 Office Francisco [facility] 1.2.840.114 [id number] Univers 10:18:38 13:20:34 Visit Milla Villalba 350.1.13.10 ity of [place].2.[place] [phone] [facility] [address] [facility] 2019-08-18 2019-08-18 Telephone [facility] 1.2.840.114 [id number] Univers 00:00:00 00:00:00 Milla Villalba 350.1.13.10 [place] [phone] [address] 2019-08-15 2019-08-15 [facility] 1.2.840.114 [id number] Univers 00:00:00 00:00:00 Milla Villalba 350.1.13.10 [place] [phone] [address] 2019-08-07 2019-08-07 Nurse Jacek OCHOA 12.840.114 [id number] Univers 00:00:00 00:00:00 Triage dMolly 350.1.13.10 ity of [facility] 4.2.7.2.686 Boy as [phone] [address] 2019-04-08 2019-04-08 Telephone [facility] 1.2.840.114 [id number] Univers 00:00:00 00:00:00 Amador Villalba 350.1.13.10 i [place] [phone] [facility] [address] [facility] 2019-04-06 2019-04-06 [facility] 1.2.840.114 [id number] Univers 00:00:00 00:00:00 Milla Villalba 350.1.13.10 [place]2.[place] [phone] [facility] [address] [facility] 2019-04-05 2019-04-05 [facility] 12.840.114 [id number] Univers 15:28:25 23:59:00 Jean Carlos Zambrano [place] 350.1.13.10 [place]2.7.2.[place] [phone] [facility] [address] 2019-03-29 2019-03-29 [facility] 1.2.840.114 [id number] Univers 15:15:31 23:59:00 [facility]counter [facility] 350.1.13.10 ity of Surgical 4.2.7.2.686 [place] as Specialti [id number] [facility] [address] [facility] 2019-03-29 2019-03-29 Office [facility] 1.2.840.114 [id number] Univers 14:58:36 16:29:28 Visit [facility] 350.1.13.10 it y of Surgical 4.2.7.2.686 [place] Specialti [id number] [facility] [address] [facility] 2019-03-26 2019-03-26 Refill [facility] 1.2.840.114 [id number] Univers 00:00:00 00:00:00 [place] 350.1.13.10 [place] [phone] [address] 2019-03-11 2019-03-11 Telephone [facility] 1.2.840.114 [id number] Univers 00:00:00 00:00:00 [place]illa [place] 350.1.13.10 [place] [phone] [address] 2019-03-10 2019-03-10 Refill [facility] 1.2.840.114 [id number] Univers 00:00:00 00:00:00 Milla A [place] 350.1.13.10 [place] [phone] [address] 2019-03-04 2019-03-04 Telephone [facility] 1.2.840.114 [id number] Univers 00:00:00 00:00:00 [place]illa [place] 350.1.13.10 [place] [phone] [place] [address] 2019-02-25 2019-02-25 [facility] [id number] [facility] 00:00:00 00:00:00 [place]illa [place] 350.1.13.10 [place] [phone] [place] [address] 2019-02-15 2019-02-20 Office [place] J [facility] 1.2.840.114 [id number] [facility] 10:32:42 18:20:16 Visit Milla Villalba 350.1.13.10 [place] [phone] [address] 2019-02-16 2019-02-16 Welt St[employer]er Pcp-Lab [facility] 1.2.840.114 [id number] [facility] 08:19:57 08:29:57 Visit Marx Milla A PRIMARY 350.1.1 3.10 [place] [phone] [address] Results Test Description Test Time Test Comments Results Result Comments Source HIGH SENSITIVITY CRP 2020-11-28 20:48:36 Test Item Value Reference Range Interpretation Comme nts HS CRP (test code = 1787033037) 0.67 mg/dL <0.74 Lab Interpretation (test code = 60038-3) Normal [facility] [id number] 20:48:36 Test Item Value Reference Range Interpretation Comments HS CRP (test code = 8424676879) 0.67 mg/dL <0.74 Lab Interpretation (test code = Normal 38204-0) [facility] WRIST 3+ VW [id number] 14:22:50 Healing distal radius and ulna fractures. [...] and thumb carpometacarpaljoints.IMPRESSIONHealing distal radius and ulna fractures.[facility] W[facility]ST 3+ VW LEFT 2020-02-21 14:41:28 Healing distal radius and ulnar fractures with associated swelling. 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 Severely demineralized bones. Preliminary Report Dictated by Resident: Asuncion Zavaal MD., have reviewed this study and agree [...] first and second CMC joints. Mild joint spacen arrowing is seen about the MCP joints and remaining components of thewrist. Swelling seen about the wrist. [facility], Radiant Results Inft User - 02/21/2020 9:42 AM CDTEXAM: XR WRIST 3+ VW LEFTHISTORY: fx COMPARISON: 01/24/2020 left wrist radiographFINDINGS:Radiographs of the left wrist again demonstrate a distal radius impactedfracture and avulsion through the base of the ulnar styloid process withintervalincrease in callus formation consistent with fracture healing. Thealignment is unchanged. The bones are diffusely demineralized. Moderatejoint space narrowing and moderate osteophyte formation affect th etriscaphe disease and first and second CMC joints. Mild joint spacenarrowing is seen about the MCP joints and remaining components of thewrist. Swelling seen about the wrist.IMPRESSIONHealing distal radius and ulnar fractures with associated swelling.Mild to moderate osteoarthrosis of the hand and wri st.Severely demineralized bones.Preliminary Report Dictated by Resident: Lionel Ho, Asuncion Messina MD., have reviewed this study and agree with the abovereport.[facility] W[facility]ST 3+ VW [id number] 15:27:28 Healing distal radius fracture with unchanged [...] The ulnar styloid process fracture is unchanged. [facility], Radiant Results Inft User - 01/24/2020 10:28 [...] widening of the scapholunate interval may suggest ligamentousinjury.[facility] HospitalVITAMIN D, 25-HYDROXY,$LC/MS/[id number] 06:00:00 Test Item Value Reference Range Interpretation [...] For more information on this test, go to:[email or web address] dayana n.bCODEost [employer] .Modumetal/faq/WDH666 (Th is link is courtney villalobos provided for informational/e elfego ational purpose s only.)REPORT COMMENT:FASTING :MASON ALCANTARA (test code = PERFORMED BY MARICRUZ) [employer] [place]; [address] [place] [address]; MELO BORGES MD Lab Interpretation Abnormal (test code = 51179-7) [facility] WRIST <3 VW [id number] 21:20:46No signs of fracture or dislocationUnBaylor Scott & White Medical Center – BrenhamVITAMIN B1 (THIAMINE), WHOLE [id number] 18:54:00 Test Item Value Reference Range Interpretation Comments Vitamin B1, Whole 60 nmol/L 70-180 L INTERPRETI VE Blood (test code = INFORMATI ON: Vitamin 76650-5) B1, Whole Blood This assay measures the concentration o f thiamine diphos phate (TDP), the prim asael active form of vitamin B1. Approximate ly 90 percent of candice min B1 present in whol e blood is TDP. Thiamin e and thiamine monophosphate, which comprise the re maining 10 percent, are not measured. Test developed and characteristics determined by A [employer]. S ee Compliance Stat ement B: Qwaya/CSP erforme d by Chirpme,[address] [place] [address] pkd .husamRivono.Modumetal, Jorge Spencer MD, Lab. Direct or Lab Interpretation Abnormal (test code = 84682-3) [facility] HospitalVITAMIN B1 (THIAMINE), WHOLE [id number] 18:54:00 Test Item Value Reference Range Interpretation Comments Vitamin B1, Whole 60 nmol/L 70-180 L INTERPRETI VE Blood (test code = INFORMATI ON: Vitamin 82295-6) B1, Whole Blood This assay measures the concentration o f thiamine diphos phate (TDP), the prim asael active form of vitamin B1. Approximate ly 90 percent of candice min B1 present in whol e blood is TDP. Thiamin e and thiamine monophosphate, which comprise the re maining 10 percent, are not measured. Test developed and characteristics determined by [facility] [employer]. S ee Compliance Stat ement B: Qwaya/[facility] erforme d by Chirpme,[address] [facility] Hospitalpriya [facility], [place] [address] raj .iSell.comastrid ChobaniAshleyModumetalJorge MD, Lab. Direct or Lab Interpretation Abnormal (test code = 16624-3) [facility] HospitalVITAMIN B1 (THIAMINE), WHOLE [id number] 18:54:00 Test Item Value Reference Range Interpretation Comments Vitamin B1, Whole 60 nmol/L 70-180 L INTERPRETI VE Blood (test code = INFORMATI ON: Vitamin 05589-9) B1, Whole Blood This assay measures the concentration o f thiamine diphos phate (TDP), the prim asael active form of vitamin B1. Approximate ly 90 percent of candice min B1 present in whol e blood is TDP. Thiamin e and thiamine monophosphate, which comprise the re maining 10 percent, are not measured. Test developed and characteristics determined by [facility] [employer]. S ee Compliance Stat ement B: Qwaya/CSP erforme d by Chirpme,[address] [facility], [place] [address] cvn .iSell.comastrid [employer]Jorge MD, Lab. Direct or Lab Interpretation Abnormal (test code = 40533-2) [facility] HospitalZINC, [id number] 06:04:00 Test Item Value Reference Range Interpretation [...] developed and characteris tics determined by A [facility]. S ee Compliance Stat ement B: Qwaya/CSP erformed by [employer] es,[address] [place], [place] [address] nvh .Qwaya , Jorge Hopkins MD, Lab. Control ChemistDundy County Hospital, [id number] 06:04:00 Test Item Value Reference Range Interpretation [...] developed and characteris tics determined by [facility] [employer]. S ee Compliance Stat ement B: Qwaya/CSP erformed by [employer] es,[address] [place], [place] [address] xff .Qwaya , Jorge Hopkins MD, Lab. Control ChemistDundy County Hospital, [id number] 06:04:00 Test Item Value Reference Range Interpretation [...] developed and characteris tics determined by [facility]. S ee Compliance Stat ement B: Qwaya/CSP erformed by [employer] Ida mao,[address] [facility], [place] [address] owa .Qwaya , Jorge Hopkins MD, Lab. Control ChemistSt. Luke's Health [facility] HospitalVITAMIN B12, [id number] 17:38:00 Test Item Value Reference Range Interpretation Comments VIT B12 (test code = 348 pg/mL 240-930 5883519375) MARICRUZ (test code = MARICRUZ) Biotin has been reported to cause a positive bias, interpret results relative to patient's use of biotin. Lab Interpretation (test Normal code = 91070-6) [facility] HospitalFOLATE2019-07-31 17:38:00 Test Item Value Reference Range Interpretation Comments FOLATE SER (test code = 2049548935) 5.7 ng/mL 3-20 Lab Interpretation (test code = Normal 63264-9) [facility] HospitalVITAMIN B12, [id number] 17:38:00 Test Item Value Reference Range Interpretation Comments VIT B12 (test code = 348 pg/mL 240-930 8444768543) MARICRUZ (test code = MARICRUZ) Biotin has been reported to cause a positive bias, interpret results relative to patient's use of biotin. Lab Interpretation (test Normal code = 91847-6) [facility] HospitalFOL[facility]2019-07-31 17:38:00 Test Item Value Reference Range Interpretation Comments FOLATE SER (test code = 1365542852) 5.7 ng/mL 3-20 Lab Interpretation (test code = Normal 94418-2) [facility] HospitalVITAMIN B12, [id number] 17:38:00 Test Item Value Reference Range Interpretation Comments VIT B12 (test code = 348 pg/mL 240-930 4380178891) MARICRUZ (test code = MARICRUZ) Biotin has been reported to cause a positive bias, interpret results relative to patient's use of biotin. Lab Interpretation (test Normal code = 29699-8) [facility] Hospital[facility]OLATE2019-07-31 17:38:00 Test Item Value Reference Range Interpretation Comments FOLATE SER (test code = 5877399356) 5.7 ng/mL 3-20 Lab Interpretation (test code = Normal 57732-2) [facility] HospitalFERRITIN [id number] 17:07:00 Test Item Value Reference Range Interpretation Comments FERRITIN (test code = 18.3 ng/mL 11-264 2867000405) MARICRUZ (test code = MARICRUZ) Biotin has been reported to cause a negative bias, interpret results relative to patient's use of biotin. Lab Interpretation (test Normal code = 47820-5) [facility] HospitalFERRITIN [id number] 17:07:00 Test Item Value Reference Range Interpretation Comments FERRITIN (test code = 18.3 ng/mL 11-264 1728773592) MARICRUZ (test code = MARICRUZ) Biotin has been reported to cause a negative bias, interpret results relative to patient's use of biotin. Lab Interpretation (test Normal code = 05517-3) [facility] HospitalFERRITIN [id number] 17:07:00 Test Item Value Reference Range Interpretation Comments FERRITIN (test code = 18.3 ng/mL 11-264 3562539144) MARICRUZ (test code = MARICRUZ) Biotin has been reported to cause a negative bias, interpret results relative to patient's use of biotin. Lab Interpretation (test Normal code = 57950-1) [facility] HospitalTHYROID STIMULATING [id number] 17:04:00 Test Item Value Reference Range Interpretation Comments TSH (test code = See_Comment [Automated message] 2107060006) The system [employer] generated this result transmitted ref erence range: 0.45 - 4 .70 mIU/L. The refe rence range was not u sed to interpret this result as normal/abnor mal. Lab Interpretation (test Normal code = 22090-5) [facility] HospitalTHYROID STIMULATING [id number] 17:04:00 Test Item Value Reference Range Interpretation Comments TSH (test code = See_Comment [Automated message] 6216764593) The system [employer] generated this result transmitted ref erence range: 0.45 - 4 .70 mIU/L. The refe rence range was not u sed to interpret this result as normal/abnor mal. Lab Interpretation (test Normal code = 85043-5) [facility] HospitalTHYROID STIMULATING [id number] 17:04:00 Test Item Value Reference Range Interpretation Comments TSH (test code = See_Comment [Automated message] 3001394000) The system [employer] generated this result transmitted ref erence range: 0.45 - 4 .70 mIU/L. The refe rence range was not u sed to interpret this result as normal/abnor mal. Lab Interpretation (test Normal code = 52266-1) [facility] 16:57:00 Test Item Value Reference Range Interpretation Comments FREE T3 (test code = 5024336674) 3.89 pg/mL 2.77-5.27 Lab Interpretation (test code = Normal 95326-2) [facility] 16:57:00 Test Item Value Reference Range Interpretation Comments FREE T3 (test code = 9767529815) 3.89 pg/mL 2.77-5.27 Lab Interpretation (test code = Normal 43135-5) [facility] 16:57:00 Test Item Value Reference Range Interpretation Comments FREE T3 (test code = 1046571374) 3.89 pg/mL 2.77-5.27 Lab Interpretation (test code = Normal 48230-0) [facility] [id number] 16:50:00 Test Item Value Reference Range Interpretation Comments FREE T4 (test code = See_Comment [Autom ated message] 1096097188) The system [employer] generated this result transmitted ref erence range: 0.78 - 2 .20 ng/dL:. The ref erence range was not u sed to interpret this result as normal/abnor mal. Lab Interpretation (test Normal code = 77163-0) [facility] 16:50:00 Test Item Value Reference Range Interpretation Comments FREE T4 (test code = See_Comment [Autom ated message] 5399541376) The system [employer] generated this result transmitted ref erence range: 0.78 - 2 .20 ng/dL:. The ref erence range was not u sed to interpret this result as normal/abnor mal. Lab Interpretation (test Normal code = 79723-7) [place] [id number] 16:50:00 Test Item Value Reference Range Interpretation Comments FREE T4 (test code = See_Comment [Autom ated message] 2730661175) The system [employer] generated this result transmitted ref erence range: 0.78 - 2 .20 ng/dL:. The ref erence range was not u sed to interpret this result as normal/abnor mal. Lab Interpretation (test Normal code = 61422-6) [facility] HospitalGLYCOSYLATED HEMOGLOBIN (A1C)2019-02-16 16:39:00 Test Item Value Reference Range Interpretation Comments HGB A1C (test code = 4548-4) 5.7 % 4-6 Lab Interpretation (test code = Normal 62069-5) [facility] IRON BINDING [id number] 16:39:00 Test Item Value Reference Range Interpretation Comments TIBC (test code = 9030399697) 339 ug/dL 250-410 % FE SAT (test code = 5524309312) 16 % 20-50 L Lab Interpretation (test code = Abnormal 00238-6) [facility] HospitalGLYCOSYLATED HEMOGLOBIN (A1C)2019-02-16 16:39:00 Test Item Value Reference Range Interpretation Comments HGB A1C (test code = 4548-4) 5.7 % 4-6 Lab Interpretation (test code = Normal 36134-2) [facility] IRON BINDING [id number] 16:39:00 Test Item Value Reference Range Interpretation Comments TIBC (test code = 0740837005) 339 ug/dL 250-410 % FE SAT (test code = 2651933317) 16 % 20-50 L Lab Interpretation (test code = Abnormal 76352-7) [facility] HospitalGLYCOSYLATED HEMOGLOBIN (A1C)2019-02-16 16:39:00 Test Item Value Reference Range Interpretation Comments HGB A1C (test code = 4548-4) 5.7 % 4-6 Lab Interpretation (test code = Normal 02127-5) [facility] HospitalTOTAL IRON BINDING [id number] 16:39:00 Test Item Value Reference Range Interpretation Comments TIBC (test code = 6265420671) 339 ug/dL 250-410 % FE SAT (test code = 3091986005) 16 % 20-50 L Lab Interpretation (test code = Abnormal 41244-1) [facility] HospitalHOMOCYSTEINE2019-07-31 16:37:00 Test Item Value Reference Range Interpretation Comments Homocysteine (test code = 18.6 umol/L 4.7-12.6 H 5148295457) Lab Interpretation (test code = Abnormal 32828-2) [facility]2019-[facility]-31 16:37:00 Test Item Value Reference Range Interpretation Comments Homocysteine (test code = 18.6 umol/L 4.7-12.6 H 1639690132) Lab Interpretation (test code = Abnormal 96975-0) [facility] HospitalHOMOCYSTEINE2019-07-31 16:37:00 Test Item Value Reference Range Interpretation Comments Homocysteine (test code = 18.6 umol/L 4.7-12.6 H 8139101297) Lab Interpretation (test code = Abnormal 86078-7) [facility] HospitalCOMP. METABOLIC PANEL (15983)2019-02-16 16:30:00 Test Item Value Reference Range Interpretation Comments NA (test code = 132 mmol/L 135-145 L 0606207151) K (test code = 4.6 mmol/L 3.5-5 7805627075) CL (test code = 98 mmol/L 98-108 6767702045) CO2 TOTAL (test code = 28 mmol/L 23-31 5727221512) AGAP (test code = 2-16 6432458984) BUN (test code = 12 mg/dL 7-23 3457607791) GLUCOSE (test code = 96 mg/dL 70-110 7084943221) CREATININE (test code = 0.68 mg/dL 0.5-1.04 8593342421) TOTAL BILI (test code = 0.5 mg/dL 0.1-1.5 6160469144) CALCIUM (test code = 8.5 mg/dL 8.6-10.6 L 2380312470) T PROTEIN (test code = 5.9 g/dL 6.3-8.2 L 0231409033) ALBUMIN (test code = 3.4 g/dL 3.5-5 L 3157489526) ALK PHOS (test code = 70 U/L 34-122 0174953900) ALT(SGPT) (test code = 21 U/L 9-51 7610443046) AST(SGOT) (test code = 16 U/L 13-40 4288934335) eGFR Calculation mL/min/1.73m2 (Non-) (test code = 2876537591) eGFR Calculation mL/min/1.73m2 () (test code = 4126267594) MARICRUZ (test code = MARICRUZ) Association of [...] tests). Lab Interpretation Abnormal (test code = 88661-7) [facility] HospitalIRON2019-07-31 16:30:00 Test Item Value Reference Range Interpretation Comments IRON (test code = 4225117174) 55 ug/dL 50-160 Lab Interpretation (test code = Normal 37205-0) [facility]. METABOLIC PANEL (52175)2019-02-16 16:30:00 Test Item Value Reference Range Interpretation Comments NA (test code = 132 mmol/L 135-145 L 0953327802) K (test code = 4.6 mmol/L 3.5-5 9410229994) CL (test code = 98 mmol/L 98-108 2882062847) CO2 TOTAL (test code = 28 mmol/L 23-31 9268549218) AGAP (test code = 2-16 0654908144) BUN (test code = 12 mg/dL 7-23 7580817528) GLUCOSE (test code = 96 mg/dL 70-110 5134416402) CREATININE (test code = 0.68 mg/dL 0.5-1.04 1852698629) TOTAL BILI (test code = 0.5 mg/dL 0.1-1.7 7545425863) CALCIUM (test code = 8.5 mg/dL 8.6-10.6 L 0391414469) T PROTEIN (test code = 5.9 g/dL 6.3-8.2 L 3269386784) ALBUMIN (test code = 3.4 g/dL 3.5-5 L 0647087855) ALK PHOS (test code = 70 U/L 34-122 6665098958) ALT(SGPT) (test code = 21 U/L 9-51 7647584662) AST(SGOT) (test code = 16 U/L 13-40 3787687973) eGFR Calculation mL/min/1.73m2 (Non-) (test code = 0162371711) eGFR Calculation mL/min/1.73m2 () (test code = 2959721118) MARICRUZ (test code = MARICRUZ) Association of [...] tests). Lab Interpretation Abnormal (test code = 34141-3) [facility] Hospital[facility]ON2019-07-31 16:30:00 Test Item Value Reference Range Interpretation Comments IRON (test code = 4505125763) 55 ug/dL 50-160 Lab Interpretation (test code = Normal 60914-5) [facility] HospitalCOMP. METABOLIC PANEL (52105)2019-02-16 16:30:00 Test Item Value Reference Range Interpretation Comments NA (test code = 132 mmol/L 135-145 L 4571800684) K (test code = 4.6 mmol/L 3.5-5 1796322800) CL (test code = 98 mmol/L 98-108 8558440630) CO2 TOTAL (test code = 28 mmol/L 23-31 7576822239) AGAP (test code = 2-16 1727306262) BUN (test code = 12 mg/dL 7-23 9243573204) GLUCOSE (test code = 96 mg/dL 70-110 4135983215) CREATININE (test code = 0.68 mg/dL 0.5-1.04 0627943513) TOTAL BILI (test code = 0.5 mg/dL 0.1-1.5 7768680674) CALCIUM (test code = 8.5 mg/dL 8.6-10.6 L 9835593986) T PROTEIN (test code = 5.9 g/dL 6.3-8.2 L 0976356126) ALBUMIN (test code = 3.4 g/dL 3.5-5 L 2681852152) ALK PHOS (test code = 70 U/L 34-122 0841210348) ALT(SGPT) (test code = 21 U/L 9-51 9513007045) AST(SGOT) (test code = 16 U/L 13-40 7281787232) eGFR Calculation mL/min/1.73m2 (Non-) (test code = 6239170442) eGFR Calculation mL/min/1.73m2 () (test code = 0566738195) MARICRUZ (test code = MARICRUZ) Association of [...] tests). Lab Interpretation Abnormal (test code = 46226-2) [facility]2019-07-31 16:30:00 Test Item Value Reference Range Interpretation Comments IRON (test code = 3777662692) 55 ug/dL 50-160 Lab Interpretation (test code = Normal 57180-4) [facility] WITH [id number] 16:24:00 Test Item Value Reference Range Interpretation Comments WBC (test code = See_Comment [Automated 0436-2) message] The sy stem which generated this result transmitted reference range : 4.30 - 11.10 10*3/?L. The reference range was not used to interpret this result as normal/abnormal . RBC (test code = See_Comment [Automated 244-8) message] The sy stem which generated this [...] (test code = 50.8 fL 39-49.9 H 24520-3) RDW-CV (test code = 14.8 % 12-15.5 788-0) PLT (test code = See_Comment [Automated 777-3) message] The sy stem which generated this result transmitted reference range : 166 - 358 10*3/ ?L. The reference r moon was not used to interpret this result as normal/abnormal . MPV (test code = 9.8 fL 9.5-12.9 88775-8) NRBC/100 WBC (test See_Comment [Automat ed code = 3110859357) message] The system which generated this result transmitted reference range : 0.0 - 10.0 /100 WBCs. The refer ence range was not u sed to interpret th is result as normal/abnormal . NRBC x10^3 (test code <0.01 See_Comment [Auto mated = 9613636876) message] The s ystem which generated this result transmitted reference range : 10*3/?L. The reference range was not used to interpret this result as normal/abnormal . GRAN MAT (NEUT) % 65.2 % (test code = 770-8) IMM GRAN % (test code 0.70 % = 2746169825) LYMPH % (test code = 24.9 % 736-9) MONO % (test code = 7.1 % 5905-5) EOS % (test code = 1.8 % 713-8) BASO % (test code = 0.3 % 706-2) GRAN MAT x10^3(ANC) 6.77 10*3/uL 1.88-7.09 (test code = 3486699037) IMM GRAN x10^3 (test 0.07 10*3/uL 0-0.06 H code = 4949205563) LYMPH x10^3 (test code 2.58 10*3/uL 1.32-3.29 = 731-0) MONO x10^3 (test code 0.74 10*3/uL 0.33-0.92 = 742-7) EOS x10^3 (test code = 0.19 10*3/uL 0.03-0.39 711-2) BASO x10^3 (test code 0.03 10*3/uL 0.01-0.07 = 704-7) Lab Interpretation Abnormal (test code = 37640-7) [facility] WITH [id number] 16:24:00 Test Item Value Reference Range Interpretation Comments WBC (test code = See_Comment [Automated 9590-2) message] The sy stem which generated this result transmitted reference range : 4.30 - 11.10 10*3/?L. The reference range was not used to interpret this result as normal/abnormal . RBC (test code = See_Comment [Automated 079-8) message] The sy stem which generated this [...] (test code = 50.8 fL 39-49.9 H 84408-0) RDW-CV (test code = 14.8 % 12-15.5 788-0) PLT (test code = See_Comment [Automated 017-3) message] The sy stem which generated this result transmitted reference range : 166 - 358 10*3/ ?L. The reference r moon was not used to interpret this result as normal/abnormal . MPV (test code = 9.8 fL 9.5-12.9 55666-7) NRBC/100 WBC (test See_Comment [Automat ed code = 8431027949) message] The system which generated this result transmitted reference range : 0.0 - 10.0 /100 WBCs. The refer ence range was not u sed to interpret th is result as normal/abnormal . NRBC x10^3 (test code <0.01 See_Comment [Auto mated = 9877155366) message] The s ystem which generated this result transmitted reference range : 10*3/?L. The reference range was not used to interpret this result as normal/abnormal . GRAN MAT (NEUT) % 65.2 % (test code = 770-8) IMM GRAN % (test code 0.70 % = 5525913652) LYMPH % (test code = 24.9 % 736-9) MONO % (test code = 7.1 % 5905-5) EOS % (test code = 1.8 % 713-8) BASO % (test code = 0.3 % 706-2) GRAN MAT x10^3(ANC) 6.77 10*3/uL 1.88-7.09 (test code = 3867702902) IMM GRAN x10^3 (test 0.07 10*3/uL 0-0.06 H code = 7292172036) LYMPH x10^3 (test code 2.58 10*3/uL 1.32-3.29 = 731-0) MONO x10^3 (test code 0.74 10*3/uL 0.33-0.92 = 742-7) EOS x10^3 (test code = 0.19 10*3/uL 0.03-0.39 711-2) BASO x10^3 (test code 0.03 10*3/uL 0.01-0.07 = 704-7) Lab Interpretation Abnormal (test code = 51844-6) [facility] WITH [id number] 16:24:00 Test Item Value Reference Range Interpretation [...] (test code = 50.8 fL 39-49.9 H 31910-1) RDW-CV (test code = 14.8 % 12-15.5 788-0) PLT (test code = See_Comment [Automated 777-3) message] The sy stem which generated this result transmitted reference range : 166 - 358 10*3/ ?L. The reference r moon was not used to interpret this result as normal/abnormal . MPV (test code = 9.8 fL 9.5-12.9 46006-4) NRBC/100 WBC (test See_Comment [Automat ed code = 4939373627) message] The system which generated this result transmitted reference range : 0.0 - 10.0 /100 WBCs. The refer ence range was not u sed to interpret th is result as normal/abnormal . NRBC x10^3 (test code <0.01 See_Comment [Auto mated = [id number]) message] The s ystem which generated this result transmitted reference range : 10*3/?L. The reference range was not used to interpret this result as normal/abnormal . GRAN MAT (NEUT) % 65.2 % (test code = 770-8) IMM GRAN % (test code 0.70 % = 4242303696) LYMPH % (test code = 24.9 % 736-9) MONO % (test code = 7.1 % 5905-5) EOS % (test code = 1.8 % 713-8) BASO % (test code = 0.3 % 706-2) GRAN MAT x10^3(ANC) 6.77 10*3/uL 1.88-7.09 (test code = 8797971192) IMM GRAN x10^3 (test 0.07 10*3/uL 0-0.06 H code = 3414654098) LYMPH x10^3 (test code 2.58 10*3/uL 1.32-3.29 = 731-0) MONO x10^3 (test code 0.74 10*3/uL 0.33-0.92 = 742-7) EOS x10^3 (test code = 0.19 10*3/uL 0.03-0.39 711-2) BASO x10^3 (test code 0.03 10*3/uL 0.01-0.07 = 704-7) Lab Interpretation Abnormal (test code = 86001-9) [facility]
--- NOTE | 2023-05-20 18:42 | RAD REPORT ---
EXAM DESCRIPTION: Mamet Single View05/20/2023 6:25 pm CLINICAL HISTORY: PALPITATIONS COMPARISON: Chest Pa And Lat (2 Views) dated 02/05/2023 TECHNIQUE: Portable AP view of the chest. FINDINGS: The lungs are clear. Diffuse hyperinflation and chronic interstitial changes, suggest COPD . No pneumothorax or effusion. The cardiomediastinal contours are unremarkable. IMPRESSION: No acute cardiopulmonary process.
[2023-05-20 18:55] LABS: Hematocrit 39.7 % (36.0-45.0); Lymphocytes % 28.4 % (15.3-44.8); MCV 93.1 fL (80-100); Platelets 274 thou/uL (152-406); RBC Red Blood Cell Count 4.26 M/uL (3.86-4.86)
[2023-05-20 19:11] LABS: Albumin 3.8 g/dL (3.4-5.0); Bilirubin Total 0.3 mg/dL (0.2-1.0); Potassium 5.3 mEq/L (3.5-5.1); Protein, Total 7.6 g/dL (6.4-8.2)
--- NOTE | 2023-05-20 19:36 | ER ---
Nurse's Notes [facility] Name: Giovana Mtz Age: 82 yrs Sex: Female : 1940 Arrival Date: 05/20/2023 Time: 17:42 Bed 26 Private MD: Diagnosis: Bigeminy ;Palpitations Presentation: 05/20 17:52 Chief complaint: EMS states: EMS called for headache and high BP, pt reports BP of 180s ph systolic at home, took prescribed clonidine, 12 lead showed irregular heart beat ranging for 45-80 bpm, upon arrival to ED pt states that headache has improved, last BP 152 systolic. Coronavirus screen: Vaccine status: Patient reports receiving the 2nd dose of the covid vaccine. Ebola Screen: No symptoms or risks identified at this time. Initial Sepsis Screen: Does the patient meet any 2 criteria? No. Patient's initial sepsis screen is negative. Does the patient have a suspected source of infection? No. Patient's initial sepsis screen is negative. Risk Assessment: Do you want to hurt yourself or someone else? Patient reports no desire to harm self or others. Onset of symptoms was May 20, 2023. 17:52 Method Of Arrival: EMS: [facility] ph 17:52 Acuity: ALKA 2 ph Triage Assessment: 19:00 General: Appears in no apparent distress. comfortable, Behavior is calm, cooperative, ph appropriate for age. Pain: Denies pain. Historical: - Allergies: 17:54 Iodine; ph 17:54 NSAIDS (Non-Steroidal Anti-Inflammatory Drug); ph 17:54 PENICILLINS; ph 17:54 SLYCILATES; ph - Home Meds: 17:54 clonidine HCl 0.1 mg Oral tab 1 tab TID for Hypertension [Active]; lisinopril Oral ph [Active]; alprazolam oral [Active]; gabapentin 300 mg oral capsule 1 cap 3 times per day [Active]; hydrocodone-acetaminophen 5-325 mg Oral tablet 1 tab every 4 to 6 hours [Active]; Methylprednisolone Oral [Active]; - PMHx: 17:54 Anxiety; Hypertension; Abdominal aortic aneurysm; ph - Immunization history:: Client reports receiving the 2nd dose of the Covid vaccine, Client reports receiving the Mike \T\ Mike single-dose vaccine. Pneumococcal vaccine is not up to date, Flu vaccine is not up to date. - Social history:: Smoking status: Patient reports the use of cigarette tobacco products, smokes .75 packs per day. Screenin:57 [facility] ED Fall Risk Assessment (Adult) History of falling in the last 3 months, ph including since admission Yes- single mechanical fall (1 pt). Abuse screen: Denies threats or abuse. Denies injuries from another. Nutritional screening: No deficits noted. Tuberculosis screening: No symptoms or risk factors identified. Assessment: 19:47 Reassessment: Patient appears in no apparent distress at this time. Patient is alert, ph oriented x 3, equal unlabored respirations, skin warm/dry/pink. Cardiovascular: Rhythm is sinus rhythm. Vital Signs: 17:52 BP 176 / 78; Pulse 67; Resp 18; Temp 97.5; Pulse Ox 99% on R/A; Weight 61.23 kg; Height ph 5 ft. 0 in. ; 19:32 BP 173 / 65; Pulse 62; Resp 17; Pulse Ox 100% ; ph 17:52 Body Mass Index 26.37 (61.23 kg, 152.4 cm) ph ED Course: 17:45 Patient arrived in ED. sb4 17:50 Deniz Wallace MD is Attending Physician. ec2 17:52 Bren Paul, RADHA is Primary Nurse. ph 17:54 Triage completed. ph 17:57 Arm band placed on Patient placed in an exam room, on a stretcher, on school lunch monitor, ph on pulse oximetry. 17:57 Patient has correct armband on for positive identification. Bed in low position. Call ph light in reach. Side rails up X2. Client placed on continuous cardiac and pulse oximetry monitoring. NIBP monitoring applied. Door closed. Noise minimized. Warm blanket given. 18:26 CXR XRAY In Process Unspecified. EDMS 18:39 Inserted saline lock: 24 gauge in left antecubital area, using aseptic technique. Blood ds4 collected. Missed attempt(s): 22 gauge in left forearm. Bleeding controlled, band aid applied, catheter tip intact. 19:46 No provider procedures requiring assistance completed. IV discontinued, intact, ph bleeding controlled, No redness/swelling at site. Pressure dressing applied. Administered Medications: 17:52 CANCELLED (Physician Discretion): [id number] mg IVP once; over 1 to 2 minutes ec2 17:52 CANCELLED (Physician Discretion): [id number] mg IVP once ec2 19:12 Not Given (Physician Discretion): ns 0.9% 1000 ml IV at 1 bolus Per protocol; 1000 mL ph bolus Medication: 17:58 VIS not applicable for this client. ph Outcome: 19:36 Discharge ordered by . ec2 19:46 Discharged to home via wheelchair, with family, ph 19:46 Condition: stable 19:46 Discharge instructions given to patient, family, Instructed on discharge instructions, follow up and referral plans. Demonstrated understanding of instructions, follow-up care, 19:48 Patient left the ED. ph Signatures: Dispatcher [employer] EDDylan Jacobson ds4 Bren Paul RN RN Nilsa Andrade, PA-C [facility]-[employer] sb4 Deniz Wallace MD MD ec2
--- NOTE | 2023-05-20 19:36 | EDPHYS ---
Physician Documentation [facility] Name: Giovana Mtz Age: 82 yrs Sex: Female : 1940 Arrival Date: 05/20/2023 Time: 17:42 Bed 26 Private MD: ED Physician Deniz Wallace HPI: 05/20 17:53 This 82 yrs old Female presents to ER via Unassigned with complaints of ec2 palpitations. 17:53 Patient arrives today due to concern for palpitations. States that she has been ec2 experiencing this for the past 3 days. Patient reports no chest pain, difficulty breathing, lower extremity swelling. Reports no history of similar symptoms, denies any cardiac disease. States that she has a history of hypertension and takes clonidine for this. EMS reports that they had taken a strip, I evaluated the strip that showed occasional bigeminy as well as normal sinus rhythm.. Historical: - Allergies: 17:54 Iodine; ph 17:54 NSAIDS (Non-Steroidal Anti-Inflammatory Drug); ph 17:54 PENICILLINS; ph 17:54 SLYCILATES; ph - Home Meds: 17:54 clonidine HCl 0.1 mg Oral tab 1 tab TID for Hypertension [Active]; lisinopril Oral ph [Active]; alprazolam oral [Active]; gabapentin 300 mg oral capsule 1 cap 3 times per day [Active]; hydrocodone-acetaminophen 5-325 mg Oral tablet 1 tab every 4 to 6 hours [Active]; Methylprednisolone Oral [Active]; - PMHx: 17:54 Anxiety; Hypertension; Abdominal aortic aneurysm; ph - Immunization history:: Client reports receiving the 2nd dose of the Covid vaccine, Client reports receiving the Mike \T\ Mike single-dose vaccine. Pneumococcal vaccine is not up to date, Flu vaccine is not up to date. - Social history:: Smoking status: Patient reports the use of cigarette tobacco products, smokes .75 packs per day. ROS: 17:53 Constitutional: as per hpi ec2 Exam: 17:53 Constitutional: GEN: NAD Head: atraumatic Eyes: EOMI Ears: External ears are ec2 normal. CV: regular rate, regular rhythm LUNGS: no respiratory distress ABD: non-distended SKIN: no evidence of rashes MSK: no evidence of trauma NEURO: moves all extremities equally Vital Signs: 17:52 BP 176 / 78; Pulse 67; Resp 18; Temp 97.5; Pulse Ox 99% on R/A; Weight 61.23 kg; Height ph 5 ft. 0 in. ; 19:32 BP 173 / 65; Pulse 62; Resp 17; Pulse Ox 100% ; ph 17:52 Body Mass Index 26.37 (61.23 kg, 152.4 cm) ph MDM: 17:50 Patient medically screened. ec2 17:53 Data reviewed: vital signs. ED course: Patient arrives today due to concern for ec2 palpitations. Examination remarkable for well-appearing nontoxic individual with reassuring examination. Will obtain lab work, EKG, chest x-ray for further assessment of the patient's complaint. Currently considering arrhythmia, electrolyte disturbances, atypical ACS.. 18:12 ED course: EKG independently reviewed and interpreted by me, shows normal sinus rhythm, ec2 rate 69, no acute ST segment elevations, nonconcerning intervals, right bundle branch block noted.. 18:43 ED course: Chest x-ray independently reviewed and interpreted by me, shows no acute ec2 intrathoracic process.. 19:13 ED course: Metabolic profile pertinent for slight hyponatremia, slight hyperkalemia, ec2 some decreased renal function with a GFR 72. CBC is reassuring. Lipase within normal ranges. . 19:35 ED course: Patient troponin within normal ranges. I discussed the results with the ec2 patient, patient states that she chronically has low sodium and she has been seeing her primary care doctor for this. Otherwise I do not feel she is symptomatic from the hyponatremia. Will discharge home, return precautions given.. 05/20 17:51 Order name: CBC with Diff; Complete Time: 19:12 ec2 05/20 17:51 Order name: CMP; Complete Time: 19:12 ec2 05/20 17:51 Order name: Lipase; Complete Time: 19:12 ec2 05/20 17:51 Order name: Ethanol; Complete Time: 19:37 ec2 05/20 17:53 Order name: Troponin High Sensitivity; Complete Time: 19:37 ec2 05/20 17:53 Order name: CXR XRAY; Complete Time: 18:43 ec2 05/20 17:53 Order name: EKG; Complete Time: 17:54 ec2 05/20 17:51 Order name: IV Saline Lock; Complete Time: 18:39 ec2 05/20 17:51 Order name: Labs collected and sent; Complete Time: 18:39 ec2 05/20 17:53 Order name: EKG - Nurse/Tech; Complete Time: 18:15 ec2 Administered Medications: 17:52 CANCELLED (Physician Discretion): [id number] mg IVP once; over 1 to 2 minutes ec2 17:52 CANCELLED (Physician Discretion): [id number] mg IVP once ec2 19:12 Not Given (Physician Discretion): ns 0.9% 1000 ml IV at 1 bolus Per protocol; 1000 mL ph bolus Disposition Summary: 05/20/23 19:36 Discharge Ordered Notes: Location: Home ec2 Condition: Stable ec2 Diagnosis - Bigeminy ec2 - Palpitations ec2 Discharge Instructions: - Discharge Summary Sheet ec2 - Palpitations ec2 Forms: - Medication Reconciliation Form ec2 - Thank You Letter ec2 - Antibiotic Education ec2 - Prescription Opioid Use ec2 - Patient Portal Instructions ec2 - Leadership Thank You Letter ec2 Signatures: Dispatcher [employer] EDBren Almanza RN RN Deniz Wallace MD MD ec2 Corrections: (The following items were deleted from the chart) 17:52 17:51 metoCLOPramide IVP 10 mg IVP once; over 1 to 2 minutes ordered. ec2 ec2 17:52 17:51 diphenhydrAMINE IVP 25 mg IVP once ordered. ec2 ec2 17:55 17:53 Patient arrives today due to concern for palpitations. States that she has been ec2 experiencing this for the past 3 days. Patient reports no chest pain, difficulty breathing, lower extremity swelling. Reports no history of similar symptoms, denies any cardiac disease. States that she has a history of hypertension and takes clonidine for this.. ec2 18:45 17:51 Abdomen Pelvis W Con+CT.RAD.BRZ ordered. EDMI EDMS
[2023-05-20 19:52] VITALS: TEMP 97.5
[2023-05-20 19:53] VITALS: BP 173/65; O2SAT 100
--- NOTE | 2023-05-21 09:47 | EKG ---
Test Date: 2023-05-20 Test Time: 18:08:56 Operations Supervisor 2Nd Shift: [employer] MEASUREMENT RESULTS: Intervals: Rate: 69 [place]: 146 QRSD: 112 QT: 420 QTc: 450 [place]: P: 61 [place]: 146 QRS: 61 T: 74 INTERPRETIVE STATEMENTS: Normal sinus rhythm Right bundle branch block Abnormal ECG Compared to ECG 02/05/2023 14:29:05 Myocardial infarct finding no longer present T-wave abnormality no longer present Possible ischemia no longer present Electronically Signed On 05-21-23 09:45:28 CDT by King Denis
== END 2023-05-20 19:48 | disposition home or self-care (01) ==
LOC: ER 17:42
DX: R00.8 Other abnormalities of heart beat (principal); I10 Essential (primary) hypertension; F41.9 Anxiety disorder, unspecified; Z88.0 Allergy status to penicillin; Z88.6 Allergy status to analgesic agent; Z88.8 Allergy status to other drugs, medicaments and biological substances; Z91.048 Other nonmedicinal substance allergy status; Z72.0 Tobacco use
CPT/HCPCS: 36415; 71045; 80053; 82077; 83690; 84484; 85025; 93005; 99284

== ENCOUNTER 2023-10-22 19:40 | Emergency (ER) | payer OTHER, MEDICARE ==
--- NOTE | 2023-10-22 21:07 | RAD REPORT ---
EXAM DESCRIPTION: RAD - Hip Left 2 View - 10/22/2023 8:59 pm CLINICAL HISTORY: trauma COMPARISON: No comparisons FINDINGS: Diffuse osteopenia is seen. No acute fracture, dislocation or AVN.
--- NOTE | 2023-10-22 21:20 | ER ---
Nurse's Notes [facility] Name: Giovana Mtz Age: 82 yrs Sex: Female : 1940 Arrival Date: 10/22/2023 Time: 19:40 Bed 11 Private MD: Diagnosis: Contusion of left hip Presentation: 10/21 19:54 Chief complaint: EMS states: Pt fell this morning at approximately 0130 this morning. cm10 Pt states that the pain has been getting worse. Pt complaining of left hip pain. Pt able to ambulate. No shortening noted by EMS. Coronavirus screen: Client denies travel out of the [place] in the last 14 days. At this time, the client does not indicate any symptoms associated with coronavirus-19. Ebola Screen: Patient denies travel to an Ebola-affected area in the 21 days before illness onset. No symptoms or risks identified at this time. 19:54 Method Of Arrival: EMS: [facility] 10 20:20 Initial Sepsis Screen: Does the patient meet any 2 criteria? No. Patient's initial cm10 sepsis screen is negative. Does the patient have a suspected source of infection? No. Patient's initial sepsis screen is negative. Risk Assessment: Do you want to hurt yourself or someone else? Patient reports no desire to harm self or others. Onset of symptoms was October 22, 2023. 20:20 Acuity: ALKA 3 cm10 Triage Assessment: 20:21 General: Appears in no apparent distress. comfortable, Behavior is calm, cooperative. cm10 Pain: Complains of pain in left hip Pain currently is 4 out of 10 on a pain scale. Aggravated by increased activity. Neuro: No deficits noted. Level of Consciousness is awake, alert, obeys commands, Oriented to person, place, time, situation. Respiratory: No deficits noted. Airway is patent Respiratory effort is even, unlabored, Respiratory pattern is regular, symmetrical. Historical: - Allergies: 20:21 Iodine; cm10 20:21 NSAIDS (Non-Steroidal Anti-Inflammatory Drug); cm10 20:21 PENICILLINS; cm10 20:21 SLYCILATES; cm10 - PMHx: 20:21 abdominal aortic aneurysm; Anxiety; Hypertension; cm10 - Immunization history:: Adult Immunizations up to date. - Infectious Disease History:: Denies. - Social history:: Smoking status: Patient reports the use of cigarette tobacco products, smokes one pack cigarettes per day. Screenin:36 [facility] ED Fall Risk Assessment (Adult) History of falling in the last 3 months, cm10 including since admission Yes- single mechanical fall (1 pt) Confusion or Disorientation No (0 pts) Intoxicated or Sedated No (0 pts) Impaired Gait Yes (1 pt) Mobility Assist Device Used Yes (1 pt) Altered Elimination No (0 pt) Score/Fall Risk Level 3 or more points = High Risk Oriented to surroundings, Maintained a safe environment, Hourly rounding (assess needs \T\ fall precautionary measures) done. Abuse screen: Denies threats or abuse. Denies injuries from another. Nutritional screening: No deficits noted. Tuberculosis screening: No symptoms or risk factors identified. Vital Signs: 20:20 BP 131 / 57; Pulse 72; Resp 18; Temp 98.2; Pulse Ox 91% on R/A; Pain 4/10; cm10 20:20 Pain Scale: Adult cm10 ED Course: 19:54 Patient arrived in ED. cm10 20:10 Mark Mcmanus MD is Attending Physician. sp3 20:20 Bree Jennings, RADHA is Primary Nurse. cm10 20:21 Triage completed. cm10 20:21 Arm band placed on Patient placed in an exam room, on a stretcher. cm10 20:30 Radiology exam delayed due to patient is not appropriately dressed for the exam at this az time. 20:36 Patient has correct armband on for positive identification. Bed in low position. Call cm10 light in reach. Side rails up X2. Provided Education on: ER process and procedures. . Pulse ox on. NIBP on. 21:00 Hip Left 2 View XRAY In Process Unspecified. EDMS 21:41 No provider procedures requiring assistance completed. Patient did not have IV access cm10 during this emergency room visit. Administered Medications: No medications were administered Medication: 20:36 VIS not applicable for this client. cm10 Outcome: 21:20 Discharge ordered by . sp3 21:41 Discharged to home via wheelchair, with family, cm10 21:41 Condition: good 21:41 Discharge instructions given to patient, family, Instructed on discharge instructions, follow up and referral plans. Demonstrated understanding of instructions, follow-up care, 21:41 Patient left the ED. cm10 Signatures: Dispatcher [employer] LORRIMS Aury Correa Setul, MD MD sp3 Bree Jennings RN RN cm10
--- NOTE | 2023-10-22 21:20 | EDPHYS ---
Physician Documentation [facility] Name: Giovana Mtz Age: 82 yrs Sex: Female : 1940 Arrival Date: 10/22/2023 Time: 19:40 Bed 11 Private MD: ED Physician Mark Mcmanus HPI: 10/21 20:51 This 82 yrs old Female presents to ER via EMS with complaints of Hip Pain. sp3 20:51 82-year-old female with history of AAA, hypertension, osteoporosis presents with left sp3 hip pain. Patient states that [place] and was able to ambulate and walk off the ship. Yesterday she continued ambulate at home and developed worsening pain. She currently is able to ambulate as well though it hurts. There is no reported shortening or external rotation. She denies any other symptoms including abdominal pain, right-sided pain, low back pain, head injury or any other injury. Patient's fall was approximately 18 to 24 inches onto carpet. Review of systems otherwise negative.. Historical: - Allergies: 20:21 Iodine; cm10 20:21 NSAIDS (Non-Steroidal Anti-Inflammatory Drug); cm10 20:21 PENICILLINS; cm10 20:21 SLYCILATES; cm10 - PMHx: 20:21 abdominal aortic aneurysm; Anxiety; Hypertension; cm10 - Immunization history:: Adult Immunizations up to date. - Infectious Disease History:: Denies. - Social history:: Smoking status: Patient reports the use of cigarette tobacco products, smokes one pack cigarettes per day. ROS: 20:52 Constitutional: Negative for fever, chills, and weight loss, Eyes: Negative for injury, sp3 pain, redness, and discharge, ENT: Negative for injury, pain, and discharge, Neck: Negative for injury, pain, and swelling, Cardiovascular: Negative for chest pain, palpitations, and edema, Respiratory: Negative for shortness of breath, cough, wheezing, and pleuritic chest pain, Abdomen/GI: Negative for abdominal pain, nausea, vomiting, diarrhea, and constipation, Back: Negative for injury and pain, Skin: Negative for injury, rash, and discoloration, Neuro: Negative for headache, weakness, numbness, tingling, and seizure, Psych: Negative for depression, anxiety, suicide ideation, homicidal ideation, and hallucinations, Allergy/Immunology: Negative for hives, rash, and allergies, Endocrine: Negative for neck swelling, polydipsia, polyuria, polyphagia, and marked weight changes, Hematologic/Lymphatic: Negative for swollen nodes, abnormal bleeding, and unusual bruising, 20:52 All other systems are negative, Exam: 20:52 Constitutional: This is a well developed, well nourished patient who is awake, alert, sp3 and in no acute distress. Head/Face: Normocephalic, atraumatic. Eyes: Pupils equal round and reactive to light, extra-ocular motions intact. Lids and lashes normal. Conjunctiva and sclera are non-icteric and not injected. Cornea within normal limits. Periorbital areas with no swelling, redness, or edema. Neck: Trachea midline, no thyromegaly or masses palpated, and no cervical lymphadenopathy. Supple, full range of motion without nuchal rigidity, or vertebral point tenderness. No Meningismus. Chest/axilla: Normal chest wall appearance and motion. Nontender with no deformity. No lesions are appreciated. Cardiovascular: Regular rate and rhythm with a normal S1 and S2. No gallops, murmurs, or rubs. Normal PMI, no JVD. No pulse deficits. Respiratory: Lungs have equal breath sounds bilaterally, clear to auscultation and percussion. No rales, rhonchi or wheezes noted. No increased work of breathing, no retractions or nasal flaring. Abdomen/GI: Soft, non-tender, with normal bowel sounds. No distension or tympany. No guarding or rebound. No evidence of tenderness throughout. Back: No spinal tenderness. No costovertebral tenderness. Full range of motion. Skin: Warm, dry with normal turgor. Normal color with no rashes, no lesions, and no evidence of cellulitis. Neuro: Awake and alert, GCS 15, oriented to person, place, time, and situation. Cranial nerves II-XII grossly intact. Motor strength 5/5 in all extremities. Sensory grossly intact. Cerebellar exam normal. Normal gait. Psych: Awake, alert, with orientation to person, place and time. Behavior, mood, and affect are within normal limits. 20:52 Musculoskeletal/extremity: No pain on axial loading. Patient's extremity is not shortened in any way or rotated. Distal neurovascular exam is normal. There is pain on straight leg raise. No pain on lateral hip area/pelvis area.. Vital Signs: 20:20 BP 131 / 57; Pulse 72; Resp 18; Temp 98.2; Pulse Ox 91% on R/A; Pain 4/10; cm10 20:20 Pain Scale: Adult cm10 MDM: 20:15 Patient medically screened. sp3 20:53 Data reviewed: vital signs, nurses notes, radiologic studies. ED course: 82-year-old sp3 female with left hip pain from 2 days ago. I have a low suspicion for hip fracture and x-ray on my read does not demonstrate fracture. Will await radiology confirmation. Likely contusion versus fracture. Visible pelvis region also appears to be normal with no rami fractures. Will add CT if there is any ambiguity on the radiology read. Otherwise we will safely discharge patient home with diagnosis hip contusion.. 10/21 20:16 Order name: Hip Left 2 View XRAY; Complete Time: 21:18 sp3 Administered Medications: No medications were administered Disposition Summary: 10/22/23 21:20 Discharge Ordered Notes: Location: Home sp3 Condition: Stable sp3 Diagnosis - Contusion of left hip sp3 Followup: sp3 - With: Private Physician - When: Upon discharge from the Emergency Department - Reason: Continuance of care Discharge Instructions: - Discharge Summary Sheet sp3 - Hip Sprain sp3 Forms: - Medication Reconciliation Form sp3 - Thank You Letter sp3 - Antibiotic Education sp3 - Prescription Opioid Use sp3 - Patient Portal Instructions sp3 - Leadership Thank You Letter sp3 Signatures: Dispatcher [employer] EDMark Starks MD MD sp3 Bree Jennings RN RN cm10
[2023-10-23 00:35] VITALS: BP 131/57; TEMP 98.2; O2SAT 91
== END 2023-10-22 21:41 | disposition home or self-care (01) ==
LOC: ER 19:40
DX: S70.02XA Contusion of left hip, initial encounter (principal); W06.XXXA Fall from bed, initial encounter; F17.210 Nicotine dependence, cigarettes, uncomplicated; Z88.0 Allergy status to penicillin; Z88.6 Allergy status to analgesic agent; Z88.8 Allergy status to other drugs, medicaments and biological substances; Z91.048 Other nonmedicinal substance allergy status
CPT/HCPCS: 99283

== ENCOUNTER 2024-04-30 21:37 | Emergency (ER) | payer OTHER, MEDICARE ==
--- NOTE | 2024-04-30 22:37 | RAD REPORT ---
EXAMINATION: XR LEFT FOOT CLINICAL INDICATION: PAIN TECHNIQUE: Multiple projections of the left foot were obtained. COMPARISON: 05/10/2023 FINDINGS: Diffuse osteopenia is seen. Old fracture is seen distal fifth metatarsal. Large plantar aris caneal spur. No acute fracture seen.
[2024-05-01 00:46] LABS: Absolute Basophils 0.1 K/uL (0-0.5); Absolute Eosinophils 0.3 K/uL (0-0.5); Absolute Lymphocytes (CBC) 2.9 K/uL (0.7-4.9); Absolute Monocytes 0.5 K/uL (0.1-1.3); Absolute Neutrophil 3.5 K/uL (1.8-8.0); Basophils % 1.1 % (0-1.3); Hematocrit 36.1 % (36.0-45.0); Hemoglobin 12.3 g/dL (12.0-15.0); Lymphocytes % 39.6 % (15.3-44.8); MCH 31.2 pg (27.0-35.0); MCV 91.8 fL (80-100); MPV 8.4 fL (7.6-11.3); Monocytes % 7.1 % (3.3-12.3); Neutrophils % 48.2 % (41.7-73.7); Nucleated Red Blood Cells % 0.1 % (0-0); Platelets 253 thou/uL (152-406); RBC Red Blood Cell Count 3.93 M/uL (3.86-4.86)
[2024-05-01 00:58] LABS: Uric Acid 5.1 mg/dL (2.6-6.0)
--- NOTE | 2024-05-01 01:14 | ER ---
Nurse's Notes [facility] Name: Giovana Mtz Age: 83 yrs Sex: Female : 1940 Arrival Date: 04/30/2024 Time: 21:37 Bed 18 Private MD: Diagnosis: Pain in left foot Presentation: 04/30 21:46 Chief complaint: Patient states: left foot pain that started 3 weeks ago. Patient saw a cp4 citizenship teacher last week and was told it was bruised but pain is getting worse. Coronavirus screen: Vaccine status: Patient reports receiving the 2nd dose of the covid vaccine. Patient reports receiving the 1st dose of the Covid vaccine. Client denies travel out of the [place] in the last 14 days. At this time, the client does not indicate any symptoms associated with coronavirus-19. Ebola Screen: Patient negative for fever greater than or equal to 101.5 degrees Fahrenheit, and additional compatible Ebola Virus Disease symptoms Patient denies exposure to infectious person. Patient denies travel to an Ebola-affected area in the 21 days before illness onset. No symptoms or risks identified at this time. Initial Sepsis Screen: Does the patient meet any 2 criteria? No. Patient's initial sepsis screen is negative. Does the patient have a suspected source of infection? No. Patient's initial sepsis screen is negative. Risk Assessment: Do you want to hurt yourself or someone else? Patient reports no desire to harm self or others. Onset of symptoms was March 2024. 21:46 Method Of Arrival: Wheelchair cp4 21:46 Acuity: ALKA 4 cp4 Triage Assessment: 21:48 General: Appears in no apparent distress. uncomfortable, Behavior is calm, cooperative, cp4 appropriate for age. Historical: - Allergies: 21:48 Iodine; cp4 21:48 NSAIDS (Non-Steroidal Anti-Inflammatory Drug); cp4 21:48 PENICILLINS; cp4 21:48 SLYCILATES; cp4 - PMHx: 21:48 abdominal aortic aneurysm; Anxiety; Hypertension; cp4 - Immunization history:: Adult Immunizations up to date. - Infectious Disease History:: Denies. - Social history:: Smoking status: Patient reports the use of cigarette tobacco products, smokes one pack cigarettes per day. Screenin:00 [facility] ED Fall Risk Assessment (Adult) History of falling in the last 3 months, rg5 including since admission No falls in past 3 months (0 pts) Confusion or Disorientation No (0 pts) Intoxicated or Sedated No (0 pts) Impaired Gait No (0 pts) Mobility Assist Device Used No (0 pt) Altered Elimination No (0 pt) Score/Fall Risk Level 0 - 2 = Low Risk Oriented to surroundings, Maintained a safe environment, Hourly rounding (assess needs \T\ fall precautionary measures) done. Abuse screen: Denies threats or abuse. Nutritional screening: No deficits noted. Tuberculosis screening: No symptoms or risk factors identified. Assessment: 22:00 General: Appears in no apparent distress. comfortable. rg5 22:00 Pain: Complains of pain in right foot Pain currently is 8 out of 10 on a pain scale. rg5 Quality of pain is described as aching, Pain began 3 hours ago. Neuro: Level of Consciousness is awake, alert, obeys commands, Oriented to person, place, time. Cardiovascular: Capillary refill < 3 seconds Patient's skin is warm and dry. Respiratory: Airway is patent Trachea midline Respiratory effort is even, unlabored, Respiratory pattern is regular, symmetrical. GI: Abdomen is round non-distended, Abd is soft and non tender. : No signs and/or symptoms were reported regarding the genitourinary system. EENT: No deficits noted. Derm: Skin is fragile, Skin is dry, Skin is normal, Skin temperature is warm. Musculoskeletal: Circulation, motion, and sensation intact. Range of motion: intact in all extremities. 22:52 Reassessment: Patient and/or family updated on plan of care and expected duration. Pain rg5 level reassessed. Patient is alert, oriented x 3, equal unlabored respirations, skin warm/dry/pink. 23:39 Reassessment: Patient and/or family updated on plan of care and expected duration. Pain rg5 level reassessed. Patient is alert, oriented x 3, equal unlabored respirations, skin warm/dry/pink. 05/01 00:23 Reassessment: Patient and/or family updated on plan of care and expected duration. Pain rg5 level reassessed. Patient is alert, oriented x 3, equal unlabored respirations, skin warm/dry/pink. Patient states feeling better. 01:30 Reassessment: Patient and/or family updated on plan of care and expected duration. Pain rg5 level reassessed. Patient is alert, oriented x 3, equal unlabored respirations, skin warm/dry/pink. Patient states symptoms have improved. Vital Signs: 04/30 21:46 BP 166 / 67; Pulse 67; Resp 18; Temp 98; Pulse Ox 97% ; Weight 60.78 kg; Height 5 ft. 2 cp4 in. ; Pain 8/10; 22:00 BP 181 / 81; Pulse 70; Resp 17; Temp 98(O); Pulse Ox 99% on R/A; Pain 8/10; rg5 23:00 BP 175 / 85; Pulse 77; Resp 17; Pain 7/10; rg5 05/01 00:15 BP 152 / 57; Pulse 71; Resp 17; Pulse Ox 99% on R/A; Pain 5/10; rg5 01:15 BP 145 / 71; Pulse 72; Resp 17; Pulse Ox 100% on R/A; Pain 3/10; rg5 04/30 21:46 Body Mass Index 24.51 (60.78 kg, 157.48 cm) cp4 04/30 21:46 Pain Scale: Adult cp4 22:00 Pain Scale: Adult rg5 23:00 Pain Scale: Adult rg5 05/01 00:15 Pain Scale: Adult rg5 01:15 Pain Scale: Adult rg5 ED Course: 04/30 21:43 Patient arrived in ED. jj6 21:44 Nilsa Freitas PA-C is PHCP. sb4 21:44 Damion Peralta MD is Attending Physician. sb4 21:48 Triage completed. cp4 21:48 Arm band placed on right wrist. Patient placed in waiting room. cp4 22:00 Nilsa Freitas PA-C is PHCP. sb4 22:00 Damion Peralta MD is Attending Physician. sb4 22:00 Patient has correct armband on for positive identification. Call light in reach. Side rg5 rails up X 1. 22:00 No provider procedures requiring assistance completed. rg5 22:34 Foot Left 3 View XRAY In Process Unspecified. EDMS 22:41 Jay Hare, RN is Primary Nurse. rg5 22:48 Extremity Venous Uni Ltd US In Process Unspecified. EDMS 05/01 00:15 Foot Left Wo Con In Process Unspecified. EDMS 00:26 Inserted saline lock: 22 gauge in left antecubital area, using aseptic technique. Blood oe collected. Flushed with 10 mL NS. 00:28 CBC with Diff Sent. oe 00:28 BMP Sent. oe 00:28 Uric Acid Sent. oe 01:14 Leonides Green MD is Referral Physician. sb4 01:36 Provided Education on: post er care. rg5 01:36 IV discontinued. rg5 Administered Medications: No medications were administered Medication: 04/30 22:00 VIS not applicable for this client. rg5 Outcome: 05/01 01:14 Discharge ordered by . sb4 01:37 Discharged to home via wheelchair, rg5 01:37 Condition: stable 01:37 Discharge instructions given to patient, Instructed on discharge instructions, follow up and referral plans. Demonstrated understanding of instructions, follow-up care, 01:38 Patient left the ED. rg5 Signatures: Dispatcher [employer] EDTX BryanChapo oe Amy [id number] Nilsa Freitas PATeteC PA-C sb4 Janice Benoit cp4 Jay Hare, RN RN rg5
--- NOTE | 2024-05-01 01:14 | EDPHYS ---
Physician Documentation [facility] Name: Giovana Mtz Age: 83 yrs Sex: Female : 1940 Arrival Date: 04/30/2024 Time: 21:37 Bed 18 Private MD: ED Physician Damion Peralta HPI: 04/30 22:03 This 83 yrs old Female presents to ER via Wheelchair with complaints of Foot Injury. sb4 22:03 left foot pain after dropping a heavy object on it 3 weeks ago. has not been resting sb4 it, has been on 2 cruises since. saw podiatry this week, had a negative xray, was told it was bruised. is still having a lot of pain, now it radiates into her heel. Historical: - Allergies: 21:48 Iodine; cp4 21:48 NSAIDS (Non-Steroidal Anti-Inflammatory Drug); cp4 21:48 PENICILLINS; cp4 21:48 SLYCILATES; cp4 - PMHx: 21:48 abdominal aortic aneurysm; Anxiety; Hypertension; cp4 - Immunization history:: Adult Immunizations up to date. - Infectious Disease History:: Denies. - Social history:: Smoking status: Patient reports the use of cigarette tobacco products, smokes one pack cigarettes per day. ROS: 22:03 Constitutional: Negative for fever, chills, and weight loss, sb4 22:03 MS/extremity: Positive for injury or acute deformity, ecchymosis, pain, of the dorsum of left foot, 22:03 All other systems are negative, Exam: 22:03 Constitutional: This is a well developed, well nourished patient who is awake, alert, sb4 and in no acute distress. Head/Face: Normocephalic, atraumatic. Eyes: Extra-ocular motions intact. Periorbital areas with no swelling, redness, or edema. ENT: Mucous membranes moist. 22:03 Skin: injury, ecchymosis medial dorsum of left foot, Vital Signs: 21:46 BP 166 / 67; Pulse 67; Resp 18; Temp 98; Pulse Ox 97% ; Weight 60.78 kg; Height 5 ft. 2 cp4 in. ; Pain 8/10; 22:00 BP 181 / 81; Pulse 70; Resp 17; Temp 98(O); Pulse Ox 99% on R/A; Pain 8/10; rg5 23:00 BP 175 / 85; Pulse 77; Resp 17; Pain 7/10; rg5 05/01 00:15 BP 152 / 57; Pulse 71; Resp 17; Pulse Ox 99% on R/A; Pain 5/10; rg5 01:15 BP 145 / 71; Pulse 72; Resp 17; Pulse Ox 100% on R/A; Pain 3/10; rg5 04/30 21:46 Body Mass Index 24.51 (60.78 kg, 157.48 cm) cp4 04/30 21:46 Pain Scale: Adult cp4 22:00 Pain Scale: Adult rg5 23:00 Pain Scale: Adult rg5 05/01 00:15 Pain Scale: Adult rg5 01:15 Pain Scale: Adult rg5 MDM: 04/30 21:47 Patient medically screened. sb4 05/01 00:15 ED course: ECONOMIC RESEARCH ASSISTANT checked, patient is routinely prescribed norco 5/325 from pain sb4 management . 01:14 Data reviewed: vital signs, nurses notes, lab test result(s), radiologic studies, I sb4 have discussed the patient's presentation/case with the attending Emergency Department Physician; and as a result, I will discharge patient. Counseling: I had a detailed discussion with the patient and/or guardian regarding the historical points, exam findings, and any diagnostic results supporting the discharge/admit diagnosis, lab results, radiology results, the need for outpatient follow up, a orthopedic surgeon, to return to the emergency department if symptoms worsen or persist or if there are any questions or concerns that arise at home. 04/30 23:21 Order name: CBC with Diff; Complete Time: 00:49 sb4 04/30 23:21 Order name: BMP; Complete Time: 00:58 sb4 04/30 23:21 Order name: Uric Acid; Complete Time: 00:58 sb4 04/30 22:01 Order name: Foot Left 3 View XRAY; Complete Time: 22:38 sb4 04/30 22:01 Order name: Extremity Venous Uni Ltd US sb4 04/30 23:23 Order name: Foot Left Wo Con EDMS Administered Medications: No medications were administered Disposition Summary: 05/01/24 01:14 Discharge Ordered Notes: Location: Home sb4 Problem: an ongoing problem sb4 Symptoms: are unchanged sb4 Condition: Stable sb4 Diagnosis - Pain in left foot sb4 Followup: sb4 - With: Leonides Green MD - When: As needed - Reason: Further diagnostic work-up, Recheck today's complaints, Re-evaluation by your physician Discharge Instructions: - Discharge Summary Sheet sb4 - Musculoskeletal Pain sb4 - Foot Pain sb4 Forms: - Patient Portal Instructions sb4 - Leadership Thank You Letter sb4 Signatures: Dispatcher [employer] Nilsa Dawn PA-C PA-C sb4 Janice Benoit
--- NOTE | 2024-05-01 02:26 | RAD REPORT ---
EXAM DESCRIPTION: CT LOWER EXTREMITY WITHOUT IV CONTRAST LEFT 05/01/2024 12:20 AM CDT CLINICAL HISTORY: 83 years, Female, Pain, swelling. COMPARISON: XR Foot left 05/01/2024. PROCEDURE: Multiple transaxial tomograms of the left lower extremity were performed utilizing 2 mm slight thickn ess at 2 mm interval reconstruction. 2-D and 3-D multiplanar reformats were generated in the sagittal, coronal plane as well as volume maxx dering technique in a independent workstation. An individualized dose optimization technique, Automated Exposure Control, was utilized for the perfo rmed procedure. FINDINGS: Bones: The bones are demineralized. No definitive evidence for significant acute displaced fracture. No periosteal reaction. No erosive changes. No intraosseous lesions. Joints: The tibiotalar joint, midfoot and hindfoot articulations demonstrate to be within normal limi ts. Minimal degenerative changes DIP joints and metatarsophalangeal joint Soft tissue: Soft tissues demonstrated minimal fluid involving the distal tibia and fibula minimally along the malleoli and dorsal aspect of the foot. No definitive defect an/or ulcers IMPRESSION: Minimal fluid involving the distal tibia and fibula minimally along the malleoli and dorsal aspect of the foot. No definitive evidence for significant acute displaced fracture or dislocation. Minimal degenerative changes DIP joints and metatarsophalangeal joint. Electronically signed by: Awais Lowry MD 05/01/2024 12:38 AM CDT Due to temporary technical issues with the PACS/[employer] reporting system, reports are being jose d by the in-house radiologist without review as a courtesy to ensure prompt reporting the interpreting radiologist is fully responsible for the content of the report. Transcribed Date/Time: 05/01/2024 2:26 AM
[2024-05-01 05:33] VITALS: TEMP 98
[2024-05-01 05:40] VITALS: BP 145/71; O2SAT 100
--- NOTE | 2024-05-02 08:22 | RAD REPORT ---
EXAM DESCRIPTION: Extremity Venous Uni Ltd CLINICAL HISTORY: foot pain, swelling, tenderness TECHNIQUE: Real-time Duplex ultrasound of the left lower extremity veins with 2-D benz scale, color Doppler flow , and spectral waveform analysis. COMPARISON: None available for comparison. FINDINGS: Deep veins: The common femoral, femoral, popliteal and visualized calf veins are patent without throm bus. Normal compressibility, augmentation response, and Doppler waveforms. Superficial veins: Visualized saphenofemoral junction is patent without thrombus. IMPRESSION: No evidence of deep venous thrombosis in the left lower extremity. Electronically signed by: Alexander Pal MD 04/30/2024 11:11 PM CDT RP Due to temporary technical issues with the PACS/[employer] reporting system, reports are being jose d by the in-house radiologist without review as a courtesy to ensure prompt reporting the interpreting radiologist is fully responsible for the content of the report. Transcribed Date/Time: 05/02/2024 8:22 AM
== END 2024-05-01 01:38 | disposition home or self-care (01) ==
LOC: ER 21:37
DX: M79.672 Pain in left foot (principal); F17.210 Nicotine dependence, cigarettes, uncomplicated
CPT/HCPCS: 36415; 73700; 80048; 84550; 85025; 93971